=== PATIENT | male | born 1945 | race Caucasian/White ===

== ENCOUNTER 2018-05-06 03:00 | Inpatient (IN) ==
[2018-05-06] MEDS ORDERED: NS 1000 ML 1,000 ML ONE (03:19)
[2018-05-06] MEDS ORDERED: ZOFRAN INJ 4 MG VIAL ONE (03:23)
[2018-05-06] MEDS ORDERED: NS 1000 ML 1,000 ML IV ONE ×2 (03:28→04:57)
[2018-05-06] MEDS ORDERED: ZOFRAN INJ 4 MG VIAL IVP ONE (03:28)
[2018-05-06 03:43] VITALS: BMI 26.1
[2018-05-06 03:44] LABS: EOSINOPHILS % (AUTO) 0.1 % (0.9-2.9); HEMATOCRIT 29.4 % (42.0-54.0); HEMOGLOBIN 9.9 g/dL (13.5-18.0); LYMPHOCYTES # (AUTO) 1.3 X10^3/uL (1.3-2.9); MEAN CORPUSCULAR HEMOGLOBIN 34.7 pg (27.0-34.0); MEAN CORPUSCULAR HGB CONC 33.8 g/dL (33.0-35.0); RED BLOOD COUNT 2.86 X10^6/uL (4.7-6.0)
[2018-05-06] MEDS ORDERED: MORPHINE SULFATE INJ 4 MG IVP ONE (03:46)
[2018-05-06] MEDS ORDERED: MORPHINE SULFATE INJ 4 MG ONE (03:47)
[2018-05-06] MEDS ORDERED: PHENERGAN INJ 25 MG ONE (03:48)
[2018-05-06] MEDS ORDERED: PHENERGAN INJ 25 MG IV ONE (03:48)
--- NOTE | 2018-05-06 03:49 | DR.N/VMALE ---
HPI Time Seen Time Seen by Provider: 05/06/18 03:45 Primary Care Physician Primary Care Physician: LEIDY Complaints Chief Complaint Doctors Comments: I agree with statement as written Chief Complaint:: ABD PAIN RADIATES THROUGH TO BACK, N/V O/S 0000 DENIES DIARRHEA Self Treatment fo Chief Complaint: ZOFRAN PO Source History Provided: Patient and Significant Other Mode of Arrival Mode of Arrival: Wheelchair Timing Onset of Chief Complaint: 05/06/18 PMH PMH Past Medical History: Yes Past Medical History: Anemia Past Medical History Comment: AUTO IMMUNE DISORDER, MDS, LEUKOPENIA, NEUTROPENIA Past Surgical History: Yes Surgical History: Appendectomy Past Surgical History Comment: PARATHYROID TUMOR REMOVED(BENIGN) Family History History of Family Medical Conditions: Yes Family Medical History: Diabetes Mellitus and Hypertension Social History Does patient currently use any type of tobacco product: No Have you used tobacco products in the last 12 months: No Type of Tobacco Use: None Alcohol Use: None Do you use any recreational Drugs:: No Lives With: Spouse Lives Where: Home infectious screening Have you traveled outside the country in the last 6 months?: No Isolation: Standard PE Vital Signs Vitals: Temperature 98.9 F Pulse Rate [Right Brachial] 71 Pulse Rate 93 Respiratory Rate 30 Blood Pressure [Right Arm] 126/60 Blood Pressure 133/62 O2 Sat by Pulse Oximetry 98 General Limitations: No Limitations General Appearance: Alert and Anxious Head Head Exam: Normal Inspection, Atraumatic and Normocephalic Eyes Eye exam: Normal Appearance, PERRL and EOMI ENT ENT Exam: Normal Exam, Normal Oropharynx, Normal External Ear Exam, Mucous Membranes Dry and TM's Normal Bilaterally Neck Neck Exam: Normal Inspection and Full ROM Chest Chest Inspection: Normal Inspection and Symmetric Chest Wall Rise Respiratory Respiratory Exam: Normal Lung Sounds Bilat, Accessory Muscle Use and Prolonged Expiratory Phase Respiratory Exam: Bilateral: Clear to Auscultation Cardiovascular Cardiovascular Exam: Regular Rate and Normal Rhythm Abdominal Exam Abdominal Exam: Normal Inspection, Normal Bowel Sounds and Hyperactive Bowel Sounds Abdominal Tenderness: Epigastrium and Mild Rectal Rectal Exam: Deferred Exam: Male: Deferred Extremities Extremities Exam: Normal Inspection and Full ROM Back Back Exam: Full ROM Neurologic Neurological Exam: Alert, Oriented X3 and CN II-XII Intact Psychiatric Psychiatric Exam: Normal Affect, Normal Mood and Anxious Skin Skin Exam: Warm, Dry, Intact and Normal Color COURSE Consultation Called: 06:00 Consultation Comments: Dr. Alfaro agreed to admit for further evaluation and treatment. ROR Labs Reviewed Laboratory Results Reviewed?: Yes Result Diagrams: 05/07/18 05:39 05/07/18 05:39 Laboratory: WBC 6.9 X10^3/uL (3.6-10.0) 05/07/18 05:39 RBC 2.56 X10^6/uL (4.7-6.0) L 05/07/18 05:39 Hgb 9.0 g/dL (13.5-18.0) L 05/07/18 05:39 Hct 26.8 % (42.0-54.0) L 05/07/18 05:39 MCV 104.7 fL (80.0-100.0) H 05/07/18 05:39 MCH 35.0 pg (27.0-34.0) H 05/07/18 05:39 MCHC 33.5 g/dL (33.0-35.0) 05/07/18 05:39 RDW 16.8 % (11.6-16.5) H 05/07/18 05:39 Plt Count 141 X10^3/uL (150.0-450.0) L 05/07/18 05:39 Plt Count Comment Adequate (ADEQUATE) 05/07/18 05:39 MPV 8.7 fL (7.4-11.0) 05/07/18 05:39 Neut % (Auto) 31.0 % (42.0-75.0) L 05/07/18 05:39 Lymph % (Auto) 14.5 % (21.0-51.0) L 05/07/18 05:39 Simpson % (Auto) 54.3 % (0.0-13.0) H 05/07/18 05:39 Eos % (Auto) 0.1 % (0.9-2.9) L 05/07/18 05:39 Baso % (Auto) 0.1 % (0.2-1.0) L 05/07/18 05:39 Neut # (Auto) 2.2 x10^3/uL (2.2-4.8) 05/07/18 05:39 Lymph # (Auto) 1.0 X10^3/uL (1.3-2.9) L 05/07/18 05:39 Simpson # (Auto) 3.8 x10^3/uL (0.3-0.8) H 05/07/18 05:39 Eos # (Auto) 0.0 x10^3/uL (0.0-0.2) 05/07/18 05:39 Baso # (Auto) 0.0 X10^3/uL (0.0-0.1) 05/07/18 05:39 Absolute Nucleated RBC 0.0 /100WBC 05/07/18 05:39 Total Counted 100 05/07/18 05:39 Neutrophils % (Manual) 32 % (39-76) L 05/07/18 05:39 Band Neutrophils % 4 % (0-10) 05/06/18 03:30 Lymphocytes % (Manual) 18 % (13-43) 05/07/18 05:39 Monocytes % (Manual) 50 % (4-9) H 05/07/18 05:39 Atypical Lymphocytes Present 05/06/18 03:30 Plt Morphology Comment Normal (NORMAL) 05/07/18 05:39 RBC Morphology Normal (NORMAL) 05/07/18 05:39 Sodium 138 mmol/L (136-145) 05/07/18 05:39 Corrected Sodium TNP 05/07/18 05:39 Potassium 4.0 mmol/L (3.5-5.1) 05/07/18 05:39 Chloride 106 mmol/L (98-107) 05/07/18 05:39 Carbon Dioxide 24.8 mmol/L (21-32) 05/07/18 05:39 BUN 9 mg/dL (7-18) 05/07/18 05:39 Creatinine 0.97 mg/dL (0.70-1.30) 05/07/18 05:39 Est GFR (MDRD) Af Amer > 60 (>60) 05/07/18 05:39 Est GFR (MDRD) Non-Af > 60 (>60) 05/07/18 05:39 Glucose 93 mg/dL (65-99) 05/07/18 05:39 Calcium 7.6 mg/dL (8.5-10.1) L 05/07/18 05:39 Corrected Calcium 8.7 mg/dL (8.5-10.1) 05/07/18 05:39 Total Bilirubin 0.70 mg/dL (0.2-1.0) 05/07/18 05:39 AST 19 Units/L (15-37) 05/07/18 05:39 ALT 25 Units/L (12-78) 05/07/18 05:39 Alkaline Phosphatase 61 Units/L (46-116) 05/07/18 05:39 Creatine Kinase 47 Units/L (39-308) 05/06/18 03:30 CK-MB (CK-2) < 1.0 ng/mL (0-4.0) 05/06/18 03:30 CK/CKMB % Calc 2.1 % (<4) 05/06/18 03:30 Troponin I < 0.02 ng/mL (0-1.5) 05/06/18 03:30 Total Protein 6.3 g/dL (6.4-8.2) L 05/07/18 05:39 Albumin 2.6 g/dL (3.4-5.0) L 05/07/18 05:39 Globulin 3.7 g/dL (2.5-4.5) 05/07/18 05:39 Albumin/Globulin Ratio 0.7 Ratio (1.1-2.1) L 05/07/18 05:39 Amylase 113 Units/L (25-115) 05/06/18 03:30 Lipase 367 Units/L (73-393) 05/06/18 03:30 Specimen Type Random urine 05/06/18 06:56 Urine Color Yellow (YELLOW) 05/06/18 06:56 Urine Appearance Clear (CLEAR) 05/06/18 06:56 Urine pH 5.0 (5.0 - 8.0) 05/06/18 06:56 Ur Specific [place] 1.010 (1.000-1.030) 05/06/18 06:56 Urine Protein 2+ (NEGATIVE) 05/06/18 06:56 Urine Glucose (UA) Negative (NEGATIVE) 05/06/18 06:56 Urine Ketones Negative (NEGATIVE) 05/06/18 06:56 Urine Occult Blood 1+ (NEGATIVE) 05/06/18 06:56 Urine Nitrite Negative (NEGATIVE) 05/06/18 06:56 Urine Bilirubin Negative (NEGATIVE) 05/06/18 06:56 Urine Urobilinogen Normal (NORMAL) 05/06/18 06:56 Ur Leukocyte Esterase Negative (NEGATIVE) 05/06/18 06:56 Urine RBC 0-2 /HPF (NONE SEEN) 05/06/18 06:56 Urine WBC 0-2 /HPF (NONE SEEN) 05/06/18 06:56 Ur Squamous Epith Cells Negative /HPF (NEGATIVE) 05/06/18 06:56 Urine Bacteria Negative /HPF (NEGATIVE) 05/06/18 06:56 Ur Culture Indicated? No/not indicated 05/06/18 06:56 Other Results Comments: Abd: No convincing evidence of acute inflammatory process within the abdomen or pelvis. Bilateral punctate areas of radiodensity within both renal pelvis, these potentially represent tiny stones versus early excretion of iodinated contrast, correlation with patient's symptoms and urinalysis is recommended. No hydronehrosis Diagnosis Discharge Problem: Acute gastroenteritis, Hypokalemia
[2018-05-06 03:55] LABS: BLOOD UREA NITROGEN 16 mg/dL (7-18); CALCIUM 8.6 mg/dL (8.5-10.1); CHLORIDE 102 mmol/L (98-107); COR NA(FOR HYPERGLY) 140 mmol/L (136-145); CREATININE 1.08 mg/dL (0.70-1.30); SODIUM 139 mmol/L (136-145); TROPONIN I < 0.02 ng/mL (0-1.5); eGFR NON BLACK RACES > 60 (>60)
[2018-05-06 03:59] LABS: ALANINE AMINOTRANSFERASE 27 Units/L (12-78); ALBUMIN 3.3 g/dL (3.4-5.0); ALKALINE PHOSPHATASE 65 Units/L (46-116); AMYLASE 113 Units/L (25-115); ASPARTATE AMINO TRANSFERASE 20 Units/L (15-37); CKMB % 2.1 % (<4); COR CA(FOR HYPOALB) 9.2 mg/dL (8.5-10.1); CREATINE KINASE 47 Units/L (39-308); CREATINE KINASE MB < 1.0 ng/mL (0-4.0); LIPASE 367 Units/L (73-393); TOTAL PROTEIN 7.5 g/dL (6.4-8.2)
[2018-05-06 04:06] LABS: BAND NEUTROPHILS % 4 % (0-10); BASOPHILS % (AUTO) 0.2 % (0.2-1.0); LYMPHOCYTES % (AUTO) 22.5 % (21.0-51.0); MEAN CORPUSCULAR VOLUME 102.8 fL (80.0-100.0); MEAN PLATELET VOLUME 8.7 fL (7.4-11.0); MONOCYTES # (AUTO) 3.2 x10^3/uL (0.3-0.8); MONOCYTES % (AUTO) 54.7 % (0.0-13.0); NEUTROPHILS # (AUTO) 1.3 x10^3/uL (2.2-4.8); NEUTROPHILS % (AUTO) 22.5 % (42.0-75.0); PLATELET COUNT 195 X10^3/uL (150.0-450.0); RED CELL DISTRIBUTION WIDTH 17.5 % (11.6-16.5); WHITE BLOOD COUNT 5.9 X10^3/uL (3.6-10.0)
[2018-05-06 04:07] LABS: PLATELET MORPHOLOGY COMMENT NORMAL (NORMAL)
--- NOTE | 2018-05-06 04:29 | RAD ---
Acute abdominal series Indication: Abdominal pain with nausea and vomiting Comparison: None available Findings: The trachea is midline. The cardiac silhouette is unremarkable. The lungs are clear without focal i nfiltrate or effusion. The bony thorax is unremarkable. Flat and upright evaluation of the abdomen demonstrates a few air-filled loops of small bowel. No pa thological soft tissue mass or calcification can be observed. The bony structures are grossly intact . IMPRESSION: 1. No acute cardiopulmonary disease. 2. Nonspecific scattered gas-filled loops of small bowel, this can be seen in setting of mild enteri tis or ileus however clinical correlation is needed. No radiographic evidence of small or large bowel obstruction. Reported By:
[2018-05-06] MEDS ORDERED: DILAUDID INJ IVP ONE ×2 (04:36→07:01)
[2018-05-06] MEDS ORDERED: DILAUDID INJ ONE ×2 (04:41→07:01)
[2018-05-06] MEDS ORDERED: NS 100 ML IV 100 ML IV ONE (04:43)
--- NOTE | 2018-05-06 05:42 | CT ---
CT abdomen and pelvis with contrast Indication: Abdominal pain with nausea and vomiting Comparison: None available Technique: Multiple axial images of the abdomen and pelvis were obtained from the lung bases to the pubic symphy sis after the administration of IV contrast. Findings: Mild reticulation within the lung bases peripherally suggest early stages of chronic interstitial cem g disease. No honeycombing or fibrosis. Tiny hypoattenuating lesion within the right hepatic lobe on axial image 25 is too small to accurately characterize. There is very mild intrahepatic bile duct dil atation, there is no extrahepatic bile duct dilatation. The gallbladder is dilated however no definit e stone or pericholecystic stranding identified. The spleen contains a calcified granuloma. Pancreas demonstrates mild pancreatic ductal dilatation without obstructing stone or mass. The adrenal glands are normal. The right kidney demonstrates several tiny radiopaque densities within the renal pelvis w hich are indeterminate as there is also evidence of early contrast excretion within the renal pelvis. Multiple right-sided renal cysts are noted. The left kidney also demonstrates foci of increased dens ity however is slightly more suspicious for stone within the mid pole on coronal image 38. Large cyst projects from the upper and lower poles of the left kidney. Left-sided parapelvic cyst is also noted . No hydronephrosis. Urinary bladder is unremarkable. The prostate gland is mildly enlarge a the rectum and colon is nishant l. Terminal ileum is within normal limits. The appendix is not definitely visualized. No pelvic free fluid or adenopathy. Abdominal aorta is normal in caliber with moderate calcified atherosclerotic dis ease. Small fat containing paraumbilical hernia. Review of bone windows demonstrates no acute osseous abnormality. Impression: 1.No convincing evidence of acute inflammatory process within the abdomen or pelvis. 2. Bilateral punctate areas of radiodensity within both renal pelvis, these potentially represent tin y stones versus early excretion of iodinated contrast, correlation with patient's symptoms and urinal ysis is recommended. No hydronephrosis. 3. Minimal intrahepatic bile duct dilatation without definite extrahepatic bile duct dilatation. Fatou elation with cholestatic function test is recommended. 4. Multiple incidental, chronic findings as described above. Reported By:
[2018-05-06] MEDS ORDERED: PHENERGAN INJ 25 MG IV PRN (07:17)
[2018-05-06 07:19] LABS: APPEARANCE,URINE CLEAR (CLEAR); COLOR,URINE YELLOW (YELLOW)
[2018-05-06 07:20] LABS: BILIRUBIN,URINE NEGATIVE (NEGATIVE); BLOOD/HEMOGLOBIN,URINE 1+ (NEGATIVE); GLUCOSE, URINE NEGATIVE (NEGATIVE); KETONES,URINE NEGATIVE (NEGATIVE); LEUKOCYTE ESTERASE ,URINE NEGATIVE (NEGATIVE); NITRITES,URINE NEGATIVE (NEGATIVE); PROTEIN,URINE 2+ (NEGATIVE); RBC,URINE 0-2 /HPF (NONE SEEN); UROBILINOGEN,URINE NORMAL (NORMAL)
[2018-05-06 07:21] LABS: BACTERIA,URINE NEGATIVE /HPF (NEGATIVE); SQUAMOUS EPITHELIAL CELL,UR NEGATIVE /HPF (NEGATIVE)
[2018-05-06] MEDS ORDERED: K-LYTE EFFERVESCENT PO SCH (09:00)
[2018-05-06] MEDS: NS 1000 ML 1,000 ML IV SCH ×3 (09:27→18:49)
[2018-05-06] MEDS ORDERED: PHENERGAN INJ 25 MG IM PRN (10:15)
[2018-05-06] MEDS ORDERED: BUTALBITAL ACETAMINOPHEN PO PRN (11:04)
[2018-05-06] MEDS: PROTONIX INJ 40 MG VIAL IVP SCH ×2 (11:11→20:23)
[2018-05-06] MEDS: LEVSIN/MAALOX/LIDOC VISC PO SCH ×4 (11:11→20:23)
[2018-05-06] MEDS: PEPCID 20 MG IV PREMIX* 20 MG/50 ML BAG IV SCH ×2 (11:11→20:22)
[2018-05-06] MEDS: DEMEROL INJ IVP PRN ×3 (11:12→20:23)
[2018-05-06] MEDS: ZOFRAN INJ 4 MG VIAL IVP PRN ×3 (11:13→20:23)
[2018-05-06] MEDS ORDERED: FIORICET TAB PO PRN (11:32)
[2018-05-06] MEDS: FLOMAX PO SCH (11:35)
[2018-05-06] MEDS: SYNTHROID 75 mcg TAB PO SCH (11:36)
--- NOTE | 2018-05-06 11:37 | DR.H&P ---
H&P - History & Physical for Day of: H&P Date: 05/06/18 - Chief Complaint Chief Complaint: NAUSEA, VOMITING, ABDOMINAL PAIN, WEAKNESS - History of Present Illness History of Present Illness: IS A 73 YEAR OLD PATIENT OF OURS WHO DC ESENTED TO THE EMERGENCY ROOM WITH COMPLAINTS OF ABDOMINAL PAIN, NAUSEA, VOMITING, AND SEVERE WEAKNESS. HE REPORTS THAT SYMPTOMS STARTED AT APPROXIMATELY MIDNIGHT AND HAVE GOTTEN WORSE SINCE. HE REPORTS FELLING LIKE HE WAS RUNNING A FEVER AND HAD CHILLS AT HOME. PAST MEDICAL HISTORY INCLUDES AUTO IMMUNE DISORDER, MDS, LEUKOPENIA, NEUTROPENIA, APPENDECTOMY, AND A BENIGN PARATHYROID TUMOR REMOVED. ON ARRIVAL, VITALS WERE 97.1-73-18-97%-133/71. LABS WERE OBTAINED. ABNORMAL LAB VALUES INCLUDE THE FOLLOWING: RBC 2.86, HGB 9.9, HCT 29.4, POTASSIUM 3.3, GLUCOSE 151, ALBUMIN 3.3. URINALYSIS REVEALED WBC 0-2, RBC 0-2, OCCULT BLOOD 1+, PROTEIN 2+, OTHERWISE, UNREMARKABLE. AN ABDOMINAL SERIES WAS OBTAINED AND REVEALED: No acute cardiopulmonary disease. Nonspecific scattered gas-filled loops of small bowel, this can be seen in setting of mild enteritis or ileus however clinical correlation is needed. No radiographic evidence of small or large bowel obstruction. WE THEN OBTAINED AN ABDOMEN/PELVIS CT WITH CONTRAST. IT REVEALED: Mild reticulation within the lung bases peripherally suggest early stages of chronic interstitial lung disease. No honeycombing or fibrosis. Tiny hypoattenuating lesion within the right hepatic lobe on axial image 25 is too small to accurately characterize. There is very mild intrahepatic bile duct dilatation, there is no extrahepatic bile duct dilatation. The gallbladder is dilated however no definite stone or pericholecystic stranding identified. The spleen contains a calcified granuloma. Pancreas demonstrates mild pancreatic ductal dilatation without obstructing stone or mass. The adrenal glands are normal. The right kidney demonstrates several tiny radiopaque densities within the renal pelvis which are indeterminate as there is also evidence of early contrast excretion within the renal pelvis. Multiple right-sided renal cysts are noted. The left kidney also demonstrates foci of increased density however is slightly more suspicious for stone within the mid pole on coronal image 38. Large cyst projects from the upper and lower poles of the left kidney. Left-sided parapelvic cyst is also noted. No hydronephrosis. Urinary bladder is unremarkable. The prostate gland is mildly enlarge a the rectum and colon is normal. Terminal ileum is within normal limits. The appendix is not definitely visualized. No pelvic free fluid or adenopathy. Abdominal aorta is normal in caliber with moderate calcified atherosclerotic disease. Small fat containing paraumbilical hernia. Review of bone windows demonstrates no acute osseous abnormality. HE WAS GIVEN A NORMAL SALINE BOLUS X 2, DILAUDID 1MG IV X 1, MORPHINE 4MG IV X 1, PHENERGAN 25MG IV X 1, AND K-LYTE EFFERVESCENT 50MEQ PO X1 IN THE ER WITH ONLY SLIGHT IMPROVEMENT IN SYMPTOMS. HE WAS ADMITTED TO THE HOSPITAL FOR FURTHER EVALUATION AND TREATMENT OF GASTROENTERITIS AND HYPOKALEMIA. HE WAS STARTED ON NORMAL SALINE AT 125ML/HR, DEMEROL 25MG IV Q4H PRN PAIN, ZOFRAN 4MG IV Q4H PRN NAUSEA, PHENERGAN 25MG IM Q4H PRN NAUSEA, PEPCID 20MG IV Q12H, PROTONIX 40MG IV BID, AND HOME MEDICATIONS WERE RESUMED. WE PLAN TO FOLLOW UP WITH AM LABS AND CONTINUE TO MONITOR PATIENT. - Past Medical History Past Medical History: Anemia Additional Medical History: AUTO IMMUNE DISORDER, MDS, NEUTROPEIA, LEUKOPENIA - Past Surgical History Surgical History: Appendectomy Additional Surgical History: BENIGN PARATHYROID TUMOR REMOVED - Family History Family Medical History: Diabetes Mellitus, Hypertension - Social History Does patient currently use any type of tobacco product: No (Quit 43 years ago) Have you used tobacco products in the last 12 months: No Type of Tobacco Use: None Does any household member use tobacco: No Alcohol Use: None Drug Use: None - Medications Home Medications: No Known Drug Allergies Allergy (Verified 05/06/18 03:34) CONTINUE taking the following medications alprazolam 0.5 mg PO HS 05/06/18 [History] butalbital-acetaminophen 50 - 325 mg PO QID PRN 05/06/18 [History] levothyroxine 75 mg PO DAILY 05/06/18 [History] pantoprazole 40 mg PO DAILY 05/06/18 [History] tamsulosin [Flomax] 0.4 mg PO DAILY 05/06/18 [History] tramadol 50 mg PO PRN PRN 05/06/18 [History] - Review of Systems Constitutional: Fever, Chills, Weakness Eyes: No Symptoms Reported ENT: No Symptoms Reported Respiratory: No Symptoms Reported Cardiovascular: No Symptoms Reported Gastrointestinal: See HPI, Nausea, Vomiting, Abdominal Pain. denies: Diarrhea Genitourinary: No Symptoms Reported Musculoskeletal: No Symptoms Reported Skin: No Symptoms Reported Neurological: Weakness - Physical Exam Vital Signs: Temperature 97.1 F Pulse Rate [Right Brachial] 71 Pulse Rate 66 Respiratory Rate 16 Blood Pressure [Right Arm] 126/60 Blood Pressure 111/61 O2 Sat by Pulse Oximetry 99 Oriented: Normal Eyes: Normal Ear: Normal Nose: Normal Throat: Normal Respiratory: Diminished Throughout Cardiovascular: Normal. negative: S3, S4, Murmur, Edema : Normal Auscultation: Bowel Sounds: Increased Palpation: Normal Tenderness: Diffuse, Moderate. negative: Rebound, Guarding, Rigidity Skin: Normal Musculoskeletal: Normal Psychiatric: Normal Mood Description: Calm Affect: Normal Speech Pattern: Clear - Assessment/Plan (1) Acute gastroenteritis Status: Acute Plan: NORMAL SALINE AT 125ML/HR, DEMEROL 25MG IV Q4H PRN PAIN, ZOFRAN 4MG IV Q4H PRN NAUSEA, PHENERGAN 25MG IM Q4H PRN NAUSEA, PEPCID 20MG IV Q12H, PROTONIX 40MG IV BID, GI COCKTAIL, CONTINUE TO MONITOR (2) Hypokalemia Status: Acute Plan: POTASSIUM REPLACEMENT PER POTASSIUM PROTOCOL, CONTINUE TO MONITOR - Allergies Allergies/Adverse Reactions: Allergies Allergy/AdvReac Type Severity Reaction Status Date / Time No Known Drug Allergies Allergy Verified 05/06/18 03:34
[2018-05-06] MEDS: XANAX PO SCH (20:24)
[2018-05-06] MEDS: TYLENOL 325 MG TAB PO PRN (20:24)
[2018-05-07] MEDS: NS 1000 ML 1,000 ML IV SCH ×3 (00:53→17:23)
[2018-05-07] MEDS: DEMEROL INJ IVP PRN ×6 (03:10→22:30)
[2018-05-07] MEDS: ZOFRAN INJ 4 MG VIAL IVP PRN ×6 (03:10→22:30)
[2018-05-07 06:21] LABS: BASOPHILS % (AUTO) 0.1 % (0.2-1.0); EOSINOPHILS % (AUTO) 0.1 % (0.9-2.9); HEMATOCRIT 26.8 % (42.0-54.0); LYMPHOCYTES % (AUTO) 14.5 % (21.0-51.0); MEAN CORPUSCULAR HGB CONC 33.5 g/dL (33.0-35.0); MEAN CORPUSCULAR VOLUME 104.7 fL (80.0-100.0); MEAN PLATELET VOLUME 8.7 fL (7.4-11.0); MONOCYTES # (AUTO) 3.8 x10^3/uL (0.3-0.8); MONOCYTES % (AUTO) 54.3 % (0.0-13.0); NEUTROPHILS # (AUTO) 2.2 x10^3/uL (2.2-4.8); PLATELET COUNT 141 X10^3/uL (150.0-450.0); RED BLOOD COUNT 2.56 X10^6/uL (4.7-6.0); RED CELL DISTRIBUTION WIDTH 16.8 % (11.6-16.5); WHITE BLOOD COUNT 6.9 X10^3/uL (3.6-10.0)
[2018-05-07 06:33] LABS: ALANINE AMINOTRANSFERASE 25 Units/L (12-78); ALBUMIN 2.6 g/dL (3.4-5.0); ALKALINE PHOSPHATASE 61 Units/L (46-116); ASPARTATE AMINO TRANSFERASE 19 Units/L (15-37); BLOOD UREA NITROGEN 9 mg/dL (7-18); CALCIUM 7.6 mg/dL (8.5-10.1); CARBON DIOXIDE 24.8 mmol/L (21-32); CHLORIDE 106 mmol/L (98-107); COR CA(FOR HYPOALB) 8.7 mg/dL (8.5-10.1); CREATININE 0.97 mg/dL (0.70-1.30); SODIUM 138 mmol/L (136-145); TOTAL PROTEIN 6.3 g/dL (6.4-8.2); eGFR NON BLACK RACES > 60 (>60)
[2018-05-07 07:34] LABS: PLATELET MORPHOLOGY COMMENT NORMAL (NORMAL)
[2018-05-07] MEDS: LEVSIN/MAALOX/LIDOC VISC PO SCH ×4 (08:00→20:03)
[2018-05-07] MEDS: PEPCID 20 MG IV PREMIX* 20 MG/50 ML BAG IV SCH ×2 (08:00→20:04)
[2018-05-07] MEDS: FLOMAX PO SCH (08:00)
[2018-05-07] MEDS: PROTONIX INJ 40 MG VIAL IVP SCH ×2 (08:00→20:02)
[2018-05-07] MEDS: SYNTHROID 75 mcg TAB PO SCH (08:00)
[2018-05-07] MEDS ORDERED: DILAUDID INJ IVP ONE (12:01)
[2018-05-07] MEDS ORDERED: DILAUDID INJ ONE (12:02)
[2018-05-07] MEDS: XANAX PO SCH (20:02)
[2018-05-07] MEDS: TYLENOL 325 MG TAB PO PRN (20:02)
[2018-05-08] MEDS: NS 1000 ML 1,000 ML IV SCH ×3 (00:38→16:47)
[2018-05-08] MEDS: ZOFRAN INJ 4 MG VIAL IVP PRN ×5 (02:26→17:53)
[2018-05-08] MEDS: DEMEROL INJ IVP PRN ×6 (02:26→21:45)
[2018-05-08] MEDS ORDERED: CHLORASEPTIC SPRAY MT PRN (04:10)
[2018-05-08 06:35] LABS: ALANINE AMINOTRANSFERASE 17 Units/L (12-78); ALBUMIN 2.3 g/dL (3.4-5.0); ALKALINE PHOSPHATASE 58 Units/L (46-116); ASPARTATE AMINO TRANSFERASE 20 Units/L (15-37); BLOOD UREA NITROGEN 8 mg/dL (7-18); CALCIUM 7.1 mg/dL (8.5-10.1); CHLORIDE 105 mmol/L (98-107); COR CA(FOR HYPOALB) 8.5 mg/dL (8.5-10.1); CREATININE 1.01 mg/dL (0.70-1.30); SODIUM 137 mmol/L (136-145); eGFR NON BLACK RACES > 60 (>60)
[2018-05-08 06:37] LABS: BASOPHILS % (AUTO) 0.2 % (0.2-1.0); HEMOGLOBIN 8.2 g/dL (13.5-18.0); LYMPHOCYTES # (AUTO) 0.6 X10^3/uL (1.3-2.9); MEAN CORPUSCULAR HEMOGLOBIN 35.5 pg (27.0-34.0); MEAN CORPUSCULAR HGB CONC 34.2 g/dL (33.0-35.0); MEAN CORPUSCULAR VOLUME 103.9 fL (80.0-100.0); MEAN PLATELET VOLUME 9.3 fL (7.4-11.0); MONOCYTES # (AUTO) 5.4 x10^3/uL (0.3-0.8); MONOCYTES % (AUTO) 50.8 % (0.0-13.0); NEUTROPHILS # (AUTO) 4.5 x10^3/uL (2.2-4.8); PLATELET COUNT 117 X10^3/uL (150.0-450.0); RED BLOOD COUNT 2.31 X10^6/uL (4.7-6.0); RED CELL DISTRIBUTION WIDTH 16.7 % (11.6-16.5); WHITE BLOOD COUNT 10.5 X10^3/uL (3.6-10.0)
[2018-05-08 07:13] LABS: BAND NEUTROPHILS % 8 % (0-10)
[2018-05-08 07:14] LABS: PLATELET MORPHOLOGY COMMENT NORMAL (NORMAL)
[2018-05-08] MEDS: FLOMAX PO SCH (09:29)
[2018-05-08] MEDS: SYNTHROID 75 mcg TAB PO SCH (09:29)
[2018-05-08] MEDS: PROTONIX INJ 40 MG VIAL IVP SCH ×2 (09:32→20:46)
[2018-05-08] MEDS: LEVSIN/MAALOX/LIDOC VISC PO SCH ×5 (09:32→20:45)
[2018-05-08] MEDS: PEPCID 20 MG IV PREMIX* 20 MG/50 ML BAG IV SCH ×2 (09:33→20:46)
[2018-05-08] MEDS: ALBUMIN HUMAN 25%- 100 ML 100 ML IV SCH (09:33)
[2018-05-08] MEDS ORDERED: PHARMACY CONSULT - TPN XX SCH (10:00)
--- NOTE | 2018-05-08 10:06 | PCM.PROG ---
Progress Note - Progress Note for Day of Date of Exam: 05/07/18 - Subjective Subjective: WAS ADMITTED FOR GASTROENTERITIS. TODAY, HE IS ALERT AND ORIENTED, LYING IN BED ON MORNING ROUNDS. HE CONTINUES WITH COMPLAINTS OF NAUSEA, VOMITING, ABDOMINAL PAIN, AND WEAKNESS. HE REPORTS THAT SYMPTOMS ARE THE SAME YESTERDAY, WITH NO IMPROVEMENT. HIS VITALS TODAY ARE 97.8-75 -23-98%-126/59. LABS WERE OBTAINED. ABNORMAL LAB VALUES INCLUDE THE FOLLOWING: RBC 2.56, HGB 9.0, HCT 26.8, PLT COUNT 141, CALCIUM 7.6, TOTAL PROTEIN 6.3, ALBUMIN 2.6.HE IS CURRENTLY RECEIVING NORMAL SALINE AT 125ML/HR, PEPCID AND PROTONIX IV WELL DEMEROL 25MG IV Q4H PRN PAIN, ZOFRAN 4MG IV Q4H PRN NAUSEA, AND PHENERGAN 25MG IM Q4H PRN NAUSEA. WE WILL CONTINUE WITH CURRENT PLAN OF CARE TODAY. OTHERWISE, WE WILL FOLLOW UP WITH AM LABS AND CONTINUE TO MONITOR PATIENT. - Past Medical Family Social History Past Med/Fam/Surg Hx: No changes since H&P Allergies: Allergies No Known Drug Allergies Allergy (Verified 05/06/18 03:34) - Review of Systems ROS: No change since H&P - Vital Signs and I&O's Vital Signs: Temperature 98.3 F Pulse Rate [Right Brachial] 71 Pulse Rate 75 Respiratory Rate 18 Blood Pressure [Right Arm] 126/60 Blood Pressure 107/55 O2 Sat by Pulse Oximetry 99 Intake and Output: Intake & Output 05/05/18 05/06/18 05/07/18 05/08/18 11:59 11:59 11:59 11:59 Intake Total 1000 / 1000 3045 / 3045 2920 / 2920 Output Total 300 / 300 1050 / 1050 750 / 750 Balance 700 / 700 1994 2170 / 2170 - Physical Exam Oriented: Normal Eyes: Normal Ear: Normal Nose: Normal Throat: Normal Respiratory: Diminished Cardiovascular: Normal. negative: S3, S4, Murmur, Edema : Normal Auscultation: Bowel Sounds: Increased Palpation: Normal Tenderness: Diffuse, Moderate. negative: Rebound, Guarding, Rigidity Skin: Normal Musculoskeletal: Normal Psychiatric: Normal Mood Description: Calm Affect: Normal Speech Pattern: Clear, Appropriate - Laboratory and Diagnostics Result Diagrams: 05/08/18 05:41 05/08/18 05:41 Labs: Laboratory WBC 10.5 X10^3/uL (3.6-10.0) H 05/08/18 05:41 RBC 2.31 X10^6/uL (4.7-6.0) L 05/08/18 05:41 Hgb 8.2 g/dL (13.5-18.0) L 05/08/18 05:41 Hct 24.0 % (42.0-54.0) L 05/08/18 05:41 MCV 103.9 fL (80.0-100.0) H 05/08/18 05:41 MCH 35.5 pg (27.0-34.0) H 05/08/18 05:41 MCHC 34.2 g/dL (33.0-35.0) 05/08/18 05:41 RDW 16.7 % (11.6-16.5) H 05/08/18 05:41 Plt Count 117 X10^3/uL (150.0-450.0) L 05/08/18 05:41 Plt Count Comment Adequate (ADEQUATE) 05/08/18 05:41 MPV 9.3 fL (7.4-11.0) 05/08/18 05:41 Neut % (Auto) 43.0 % (42.0-75.0) 05/08/18 05:41 Lymph % (Auto) 6.0 % (21.0-51.0) L 05/08/18 05:41 [place] % (Auto) 50.8 % (0.0-13.0) H 05/08/18 05:41 Eos % (Auto) 0.0 % (0.9-2.9) L 05/08/18 05:41 Baso % (Auto) 0.2 % (0.2-1.0) 05/08/18 05:41 Neut # (Auto) 4.5 x10^3/uL (2.2-4.8) 05/08/18 05:41 Lymph # (Auto) 0.6 X10^3/uL (1.3-2.9) L 05/08/18 05:41 [place] # (Auto) 5.4 x10^3/uL (0.3-0.8) H 05/08/18 05:41 Eos # (Auto) 0.0 x10^3/uL (0.0-0.2) 05/08/18 05:41 Baso # (Auto) 0.0 X10^3/uL (0.0-0.1) 05/08/18 05:41 Absolute Nucleated RBC 0.0 /100WBC 05/08/18 05:41 Total Counted 100 05/08/18 05:41 Neutrophils % (Manual) 40 % (39-76) 05/08/18 05:41 Band Neutrophils % 8 % (0-10) 05/08/18 05:41 Lymphocytes % (Manual) 20 % (13-43) 05/08/18 05:41 Monocytes % (Manual) 32 % (4-9) H 05/08/18 05:41 Atypical Lymphocytes Present 05/06/18 03:30 Plt Morphology Comment Normal (NORMAL) 05/08/18 05:41 RBC Morphology Normal (NORMAL) 05/08/18 05:41 Sodium 137 mmol/L (136-145) 05/08/18 05:41 Corrected Sodium TNP 05/08/18 05:41 Potassium 3.8 mmol/L (3.5-5.1) 05/08/18 05:41 Chloride 105 mmol/L (98-107) 05/08/18 05:41 Carbon Dioxide 23.0 mmol/L (21-32) 05/08/18 05:41 BUN 8 mg/dL (7-18) 05/08/18 05:41 Creatinine 1.01 mg/dL (0.70-1.30) 05/08/18 05:41 Est GFR (MDRD) Af Amer > 60 (>60) 05/08/18 05:41 Est GFR (MDRD) Non-Af > 60 (>60) 05/08/18 05:41 Glucose 108 mg/dL (65-99) H 05/08/18 05:41 Calcium 7.1 mg/dL (8.5-10.1) L 05/08/18 05:41 Corrected Calcium 8.5 mg/dL (8.5-10.1) 05/08/18 05:41 Total Bilirubin 0.90 mg/dL (0.2-1.0) 05/08/18 05:41 AST 20 Units/L (15-37) 05/08/18 05:41 ALT 17 Units/L (12-78) 05/08/18 05:41 Alkaline Phosphatase 58 Units/L (46-116) 05/08/18 05:41 Creatine Kinase 47 Units/L (39-308) 05/06/18 03:30 CK-MB (CK-2) < 1.0 ng/mL (0-4.0) 05/06/18 03:30 CK/CKMB % Calc 2.1 % (<4) 05/06/18 03:30 Troponin I < 0.02 ng/mL (0-1.5) 05/06/18 03:30 Total Protein 6.0 g/dL (6.4-8.2) L 05/08/18 05:41 Albumin 2.3 g/dL (3.4-5.0) L 05/08/18 05:41 Globulin 3.7 g/dL (2.5-4.5) 05/08/18 05:41 Albumin/Globulin Ratio 0.6 Ratio (1.1-2.1) L 05/08/18 05:41 Prealbumin 12.7 mg/dL (18-35.7) L 05/08/18 05:41 Amylase 113 Units/L (25-115) 05/06/18 03:30 Lipase 367 Units/L (73-393) 05/06/18 03:30 Specimen Type Random urine 05/06/18 06:56 Urine Color Yellow (YELLOW) 05/06/18 06:56 Urine Appearance Clear (CLEAR) 05/06/18 06:56 Urine pH 5.0 (5.0 - 8.0) 05/06/18 06:56 Ur Specific [place] 1.010 (1.000-1.030) 05/06/18 06:56 Urine Protein 2+ (NEGATIVE) 05/06/18 06:56 Urine Glucose (UA) Negative (NEGATIVE) 05/06/18 06:56 Urine Ketones Negative (NEGATIVE) 05/06/18 06:56 Urine Occult Blood 1+ (NEGATIVE) 05/06/18 06:56 Urine Nitrite Negative (NEGATIVE) 05/06/18 06:56 Urine Bilirubin Negative (NEGATIVE) 05/06/18 06:56 Urine Urobilinogen Normal (NORMAL) 05/06/18 06:56 Ur Leukocyte Esterase Negative (NEGATIVE) 05/06/18 06:56 Urine RBC 0-2 /HPF (NONE SEEN) 05/06/18 06:56 Urine WBC 0-2 /HPF (NONE SEEN) 05/06/18 06:56 Ur Squamous Epith Cells Negative /HPF (NEGATIVE) 05/06/18 06:56 Urine Bacteria Negative /HPF (NEGATIVE) 05/06/18 06:56 Ur Culture Indicated? No/not indicated 05/06/18 06:56 - Plan (1) Acute gastroenteritis Status: Acute Plan: NORMAL SALINE AT 125ML/HR, DEMEROL 25MG IV Q4H PRN PAIN, ZOFRAN 4MG IV Q4H PRN NAUSEA, PHENERGAN 25MG IM Q4H PRN NAUSEA, PEPCID 20MG IV Q12H, PROTONIX 40MG IV BID, GI COCKTAIL, CONTINUE TO MONITOR (2) Hypokalemia Status: Resolved Plan: CONTINUE TO MONITOR
[2018-05-08] MEDS ORDERED: PROCALAMINE 3 % 1,000 ML IV SCH (12:00)
[2018-05-08] MEDS: PROCALAMINE 3 % 1,000 ML IV SCH (14:00)
[2018-05-08] MEDS: XANAX PO SCH (20:46)
[2018-05-09] MEDS: NS 1000 ML 1,000 ML IV SCH ×2 (01:28→03:24)
[2018-05-09] MEDS: DEMEROL INJ IVP PRN ×4 (03:27→20:19)
[2018-05-09 06:32] LABS: BASOPHILS % (AUTO) 0.1 % (0.2-1.0); EOSINOPHILS % (AUTO) 0.2 % (0.9-2.9); HEMATOCRIT 21.8 % (42.0-54.0); HEMOGLOBIN 7.5 g/dL (13.5-18.0); LYMPHOCYTES # (AUTO) 0.7 X10^3/uL (1.3-2.9); LYMPHOCYTES % (AUTO) 7.6 % (21.0-51.0); MEAN CORPUSCULAR HEMOGLOBIN 35.2 pg (27.0-34.0); MEAN CORPUSCULAR HGB CONC 34.2 g/dL (33.0-35.0); MEAN PLATELET VOLUME 9.2 fL (7.4-11.0); MONOCYTES # (AUTO) 3.3 x10^3/uL (0.3-0.8); MONOCYTES % (AUTO) 38.3 % (0.0-13.0); NEUTROPHILS # (AUTO) 4.7 x10^3/uL (2.2-4.8); NEUTROPHILS % (AUTO) 53.8 % (42.0-75.0); PLATELET COUNT 119 X10^3/uL (150.0-450.0); RED BLOOD COUNT 2.12 X10^6/uL (4.7-6.0); RED CELL DISTRIBUTION WIDTH 16.4 % (11.6-16.5); WHITE BLOOD COUNT 8.7 X10^3/uL (3.6-10.0)
[2018-05-09 07:07] LABS: ALANINE AMINOTRANSFERASE 19 Units/L (12-78); ALBUMIN 2.3 g/dL (3.4-5.0); ALKALINE PHOSPHATASE 50 Units/L (46-116); ASPARTATE AMINO TRANSFERASE 19 Units/L (15-37); BLOOD UREA NITROGEN 8 mg/dL (7-18); CALCIUM 7.3 mg/dL (8.5-10.1); CARBON DIOXIDE 24.4 mmol/L (21-32); CHLORIDE 106 mmol/L (98-107); COR CA(FOR HYPOALB) 8.7 mg/dL (8.5-10.1); COR NA(FOR HYPERGLY) 139 mmol/L (136-145); CREATININE 0.93 mg/dL (0.70-1.30); SODIUM 138 mmol/L (136-145); TOTAL PROTEIN 5.7 g/dL (6.4-8.2); eGFR NON BLACK RACES > 60 (>60)
[2018-05-09 07:23] LABS: BAND NEUTROPHILS % 14 % (0-10); PLATELET MORPHOLOGY COMMENT NORMAL (NORMAL)
[2018-05-09] MEDS: LEVSIN/MAALOX/LIDOC VISC PO SCH ×4 (08:10→20:21)
[2018-05-09] MEDS: SYNTHROID 75 mcg TAB PO SCH ×2 (10:00→10:06)
[2018-05-09] MEDS: ALBUMIN HUMAN 25%- 100 ML 100 ML IV SCH (10:02)
[2018-05-09] MEDS: PEPCID 20 MG IV PREMIX* 20 MG/50 ML BAG IV SCH ×2 (10:04→20:18)
[2018-05-09] MEDS: PROTONIX INJ 40 MG VIAL IVP SCH ×2 (10:04→20:18)
[2018-05-09] MEDS: FLOMAX PO SCH (10:05)
--- NOTE | 2018-05-09 13:47 | RAD ---
Examination: Portable AP chest History: SOB Findings: Normal transverse heart diameter with essentially clear lungs and pleural spaces. Impression: No acute chest findings. Reported By:
[2018-05-09] MEDS: DUONEB 0.5 MG/3 MG NEB SCH ×3 (13:55→20:02)
[2018-05-09 14:08] LABS: RETICULOCYTE % 1.51 % (0.8-2.2)
[2018-05-09] MEDS ORDERED: NS 1000 ML 1,000 ML ONE (17:11)
[2018-05-09] MEDS: NS 1000 ML 1,000 ML with MVI INJ (ADULT) 1 ML IV SCH ×4 (17:13→20:56)
[2018-05-09] MEDS: ZOFRAN INJ 4 MG VIAL IVP PRN (20:18)
[2018-05-09] MEDS: XANAX PO SCH (20:20)
[2018-05-09] MEDS: PROCALAMINE 3 % 1,000 ML IV SCH (20:21)
[2018-05-10] MEDS ORDERED: NS 1000 ML 1,000 ML ONE (03:29)
[2018-05-10] MEDS: DEMEROL INJ IVP PRN (03:33)
[2018-05-10] MEDS: ZOFRAN INJ 4 MG VIAL IVP PRN (03:34)
[2018-05-10] MEDS: NS 1000 ML 1,000 ML with MVI INJ (ADULT) 1 ML IV SCH ×4 (04:50→14:44)
[2018-05-10 06:41] LABS: ALANINE AMINOTRANSFERASE 16 Units/L (12-78); ALBUMIN 2.4 g/dL (3.4-5.0); ALKALINE PHOSPHATASE 45 Units/L (46-116); BLOOD UREA NITROGEN 6 mg/dL (7-18); CALCIUM 7.3 mg/dL (8.5-10.1); CARBON DIOXIDE 23.8 mmol/L (21-32); CHLORIDE 106 mmol/L (98-107); COR CA(FOR HYPOALB) 8.6 mg/dL (8.5-10.1); COR NA(FOR HYPERGLY) 140 mmol/L (136-145); CREATININE 0.89 mg/dL (0.70-1.30); SODIUM 139 mmol/L (136-145); TOTAL PROTEIN 5.6 g/dL (6.4-8.2); eGFR NON BLACK RACES > 60 (>60)
[2018-05-10 06:48] LABS: ASPARTATE AMINO TRANSFERASE 23 Units/L (15-37)
[2018-05-10 07:48] LABS: BASOPHILS % (AUTO) 0.1 % (0.2-1.0); EOSINOPHILS % (AUTO) 0.1 % (0.9-2.9); HEMATOCRIT 20.9 % (42.0-54.0); HEMOGLOBIN 7.2 g/dL (13.5-18.0); LYMPHOCYTES # (AUTO) 0.3 X10^3/uL (1.3-2.9); LYMPHOCYTES % (AUTO) 3.5 % (21.0-51.0); MEAN CORPUSCULAR HEMOGLOBIN 35.2 pg (27.0-34.0); MEAN CORPUSCULAR HGB CONC 34.2 g/dL (33.0-35.0); MEAN CORPUSCULAR VOLUME 102.9 fL (80.0-100.0); MEAN PLATELET VOLUME 9.5 fL (7.4-11.0); MONOCYTES # (AUTO) 2.8 x10^3/uL (0.3-0.8); NEUTROPHILS # (AUTO) 4.4 x10^3/uL (2.2-4.8); NEUTROPHILS % (AUTO) 58.3 % (42.0-75.0); PLATELET COUNT 129 X10^3/uL (150.0-450.0); RED BLOOD COUNT 2.03 X10^6/uL (4.7-6.0); RED CELL DISTRIBUTION WIDTH 16.3 % (11.6-16.5); WHITE BLOOD COUNT 7.5 X10^3/uL (3.6-10.0)
[2018-05-10 07:57] LABS: BAND NEUTROPHILS % 20 % (0-10)
[2018-05-10 07:59] LABS: PLATELET MORPHOLOGY COMMENT NORMAL (NORMAL)
[2018-05-10] MEDS: DUONEB 0.5 MG/3 MG NEB SCH ×2 (09:02→12:18)
[2018-05-10] MEDS: FLOMAX PO SCH (09:27)
[2018-05-10] MEDS: LEVSIN/MAALOX/LIDOC VISC PO SCH ×5 (09:37→21:36)
[2018-05-10] MEDS: ALBUMIN HUMAN 25%- 100 ML 100 ML IV SCH (09:38)
[2018-05-10] MEDS: PROTONIX INJ 40 MG VIAL IVP SCH ×2 (09:38→22:40)
[2018-05-10] MEDS: PEPCID 20 MG IV PREMIX* 20 MG/50 ML BAG IV SCH ×2 (09:38→22:40)
[2018-05-10] MEDS: SYNTHROID 75 mcg TAB PO SCH (09:39)
[2018-05-10] MEDS: MAGNESIUM SULFATE 1 GRAM/100 mL PREMIX 2 G/200 ML BAG IV SCH ×2 (11:53→14:40)
[2018-05-10 12:04] LABS: HEMATOCRIT 20.4 % (42.0-54.0)
[2018-05-10] MEDS ORDERED: DUONEB 0.5 MG/3 MG NEB PRN (12:20)
[2018-05-10 12:25] LABS: HEMOGLOBIN 6.9 g/dL (13.5-18.0)
[2018-05-10] MEDS ORDERED: BENADRYL INJ 50 MG VIAL IVP PRN (14:11)
[2018-05-10] MEDS ORDERED: NS 500 ML IV 500 ML IV ONE (14:11)
[2018-05-10] MEDS ORDERED: K-DUR TAB 20 MEQ PO ONE (17:30)
[2018-05-10] MEDS: TYLENOL 325 MG TAB PO PRN (17:36)
[2018-05-10] MEDS ORDERED: K-RIDER 10 MEQ/NS 100 ML 10 MEQ/100 ML BAG IV PRN (17:37)
[2018-05-10] MEDS ORDERED: K-DUR TAB 20 MEQ PO PRN (17:37)
[2018-05-10] MEDS ORDERED: POTASSIUM CHLORIDE LIQ 20 MEQ UDC PO PRN (17:37)
[2018-05-10] MEDS ORDERED: POTASSIUM CHL 60 MEQ/NS 0.45% 500 ML IV PRN (17:37)
[2018-05-10] MEDS ORDERED: POTASSIUM CHL 40 MEQ/NS 0.45% 500 ML IV PRN (17:37)
[2018-05-10] MEDS ORDERED: MICRO K EXTEN CAP 10 MEQ PO PRN (17:37)
[2018-05-10] MEDS ORDERED: KLOR-CON PO PRN (17:37)
[2018-05-10 17:57] LABS: HEMATOCRIT 20.3 % (42.0-54.0)
[2018-05-10 18:01] LABS: HEMOGLOBIN 6.9 g/dL (13.5-18.0)
--- NOTE | 2018-05-10 20:04 | PCM.PROG ---
Progress Note - Progress Note for Day of Date of Exam: 05/08/18 - Subjective Subjective: WAS ADMITTED FOR GASTROENTERITIS. TODAY, HE IS ALERT AND ORIENTED, LYING IN BED ON MORNING ROUNDS. HE CONTINUES WITH COMPLAINTS OF NAUSEA, VOMITING, ABDOMINAL PAIN, AND WEAKNESS. HE CONTINUES TO DENY IMPROVEMENT IN SYMPTOMS. HE REPORTS THAT HE HAS BEEN UNABLE TO HOLD MUCH DOWN WITHOUT VOMITING. HIS VITALS TODAY ARE 98.7-75-18-99%-107/55. LABS WERE OBTAINED. ABNORMAL LAB VALUES INCLUDE THE FOLLOWING: WBC 10.5, RBC 2.31, HGB 8.2, HCT 24.0, PLT COUNT 117, GLUCOSE 108, CALCIUM 7.1, TOTAL PROTEIN 6.0, ALBUMIN 2.3. HE IS CURRENTLY RECEIVING NORMAL SALINE AT 125ML/HR, PEPCID AND PROTONIX IV WELL DEMEROL 25MG IV Q4H PRN PAIN, ZOFRAN 4MG IV Q4H PRN NAUSEA, AND PHENERGAN 25MG IM Q4H PRN NAUSEA. WE WILL CONTINUE WITH CURRENT PLAN OF CARE TODAY AND START GI COCKTAIL, TPN, AND ALBUMIN 25% IV DAILY. OTHERWISE, WE WILL FOLLOW UP WITH AM LABS AND CONTINUE TO MONITOR PATIENT. - Past Medical Family Social History Past Med/Fam/Surg Hx: No changes since H&P Allergies: Allergies No Known Drug Allergies Allergy (Verified 05/06/18 03:34) - Review of Systems ROS: No change since H&P - Vital Signs and I&O's Vital Signs: Temperature 98.9 F Pulse Rate [Right Brachial] 71 Pulse Rate 96 Respiratory Rate 24 Blood Pressure [Right Arm] 126/60 Blood Pressure 110/86 O2 Sat by Pulse Oximetry 95 Intake and Output: Intake & Output 05/08/18 05/09/18 05/10/18 05/11/18 11:59 11:59 11:59 11:59 Intake Total 2920 / 2920 4079 / 4079 5500 / 5500 1705 / 1705 Output Total 750 / 750 825 / 825 800 / 800 350 / 350 Balance 2170 / 2170 3254 / 3254 4700 / 4700 1355 / 1355 - Physical Exam Oriented: Normal Eyes: Normal Ear: Normal Nose: Normal Throat: Normal Respiratory: Diminished Cardiovascular: Normal. negative: S3, S4, Murmur, Edema : Normal Auscultation: Bowel Sounds: Increased Palpation: Normal Tenderness: Diffuse, Moderate. negative: Rebound, Guarding, Rigidity Skin: Normal Musculoskeletal: Normal Psychiatric: Normal Mood Description: Calm Affect: Normal Speech Pattern: Clear, Appropriate - Laboratory and Diagnostics Result Diagrams: 05/10/18 17:43 05/10/18 05:46 Labs: Laboratory WBC 7.5 X10^3/uL (3.6-10.0) 05/10/18 05:46 RBC 2.03 X10^6/uL (4.7-6.0) L 05/10/18 05:46 Hgb 6.9 g/dL (13.5-18.0) L* 05/10/18 17:43 Hct 20.3 % (42.0-54.0) L 05/10/18 17:43 MCV 102.9 fL (80.0-100.0) H 05/10/18 05:46 MCH 35.2 pg (27.0-34.0) H 05/10/18 05:46 MCHC 34.2 g/dL (33.0-35.0) 05/10/18 05:46 RDW 16.3 % (11.6-16.5) 05/10/18 05:46 Plt Count 129 X10^3/uL (150.0-450.0) L 05/10/18 05:46 Plt Count Comment Adequate (ADEQUATE) 05/10/18 05:46 MPV 9.5 fL (7.4-11.0) 05/10/18 05:46 Neut % (Auto) 58.3 % (42.0-75.0) 05/10/18 05:46 Lymph % (Auto) 3.5 % (21.0-51.0) L 05/10/18 05:46 [place] % (Auto) 38.0 % (0.0-13.0) H 05/10/18 05:46 Eos % (Auto) 0.1 % (0.9-2.9) L 05/10/18 05:46 Baso % (Auto) 0.1 % (0.2-1.0) L 05/10/18 05:46 Neut # (Auto) 4.4 x10^3/uL (2.2-4.8) 05/10/18 05:46 Lymph # (Auto) 0.3 X10^3/uL (1.3-2.9) L 05/10/18 05:46 [place] # (Auto) 2.8 x10^3/uL (0.3-0.8) H 05/10/18 05:46 Eos # (Auto) 0.0 x10^3/uL (0.0-0.2) 05/10/18 05:46 Baso # (Auto) 0.0 X10^3/uL (0.0-0.1) 05/10/18 05:46 Absolute Nucleated RBC 0.2 /100WBC 05/10/18 05:46 Total Counted 100 05/10/18 05:46 Neutrophils % (Manual) 34 % (39-76) L 05/10/18 05:46 Band Neutrophils % 20 % (0-10) H 05/10/18 05:46 Lymphocytes % (Manual) 14 % (13-43) 05/10/18 05:46 Monocytes % (Manual) 31 % (4-9) H 05/10/18 05:46 Eosinophils % (Manual) 1 % (0-6) 05/10/18 05:46 Atypical Lymphocytes Present 05/06/18 03:30 Plt Morphology Comment Normal (NORMAL) 05/10/18 05:46 RBC Morphology Normal (NORMAL) 05/10/18 05:46 Absolute Retic 0.0347 10^6/uL 05/09/18 13:24 Percent Retic 1.51 % (0.8-2.2) 05/09/18 13:24 Sodium 139 mmol/L (136-145) 05/10/18 05:46 Corrected Sodium 140 mmol/L (136-145) 05/10/18 05:46 Potassium 3.4 mmol/L (3.5-5.1) L 05/10/18 05:46 Chloride 106 mmol/L (98-107) 05/10/18 05:46 Carbon Dioxide 23.8 mmol/L (21-32) 05/10/18 05:46 BUN 6 mg/dL (7-18) L 05/10/18 05:46 Creatinine 0.89 mg/dL (0.70-1.30) 05/10/18 05:46 Est GFR (MDRD) Af Amer > 60 (>60) 05/10/18 05:46 Est GFR (MDRD) Non-Af > 60 (>60) 05/10/18 05:46 Glucose 125 mg/dL (65-99) H 05/10/18 05:46 Calcium 7.3 mg/dL (8.5-10.1) L 05/10/18 05:46 Corrected Calcium 8.6 mg/dL (8.5-10.1) 05/10/18 05:46 Magnesium 1.7 mg/dL (1.7-2.9) 05/10/18 07:19 Iron 41 ug/dL (50-175) L 05/09/18 13:24 Transferrin 88 mg/dL (202-364) L 05/09/18 13:24 Ferritin 623 ng/mL (26-388) H 05/09/18 13:24 Total Bilirubin 0.50 mg/dL (0.2-1.0) 05/10/18 05:46 AST 23 Units/L (15-37) 05/10/18 05:46 ALT 16 Units/L (12-78) 05/10/18 05:46 Alkaline Phosphatase 45 Units/L (46-116) L 05/10/18 05:46 Creatine Kinase 47 Units/L (39-308) 05/06/18 03:30 CK-MB (CK-2) < 1.0 ng/mL (0-4.0) 05/06/18 03:30 CK/CKMB % Calc 2.1 % (<4) 05/06/18 03:30 Troponin I < 0.02 ng/mL (0-1.5) 05/06/18 03:30 Total Protein 5.6 g/dL (6.4-8.2) L 05/10/18 05:46 Albumin 2.4 g/dL (3.4-5.0) L 05/10/18 05:46 Globulin 3.2 g/dL (2.5-4.5) 05/10/18 05:46 Albumin/Globulin Ratio 0.8 Ratio (1.1-2.1) L 05/10/18 05:46 Prealbumin 12.7 mg/dL (18-35.7) L 05/08/18 05:41 Amylase 113 Units/L (25-115) 05/06/18 03:30 Lipase 367 Units/L (73-393) 05/06/18 03:30 Vitamin B12 297 pg/mL (193-986) 05/09/18 13:24 Folate 19.6 ng/mL (>8.6) 05/09/18 13:24 Specimen Type Random urine 05/06/18 06:56 Urine Color Yellow (YELLOW) 05/06/18 06:56 Urine Appearance Clear (CLEAR) 05/06/18 06:56 Urine pH 5.0 (5.0 - 8.0) 05/06/18 06:56 Ur Specific [place] 1.010 (1.000-1.030) 05/06/18 06:56 Urine Protein 2+ (NEGATIVE) 05/06/18 06:56 Urine Glucose (UA) Negative (NEGATIVE) 05/06/18 06:56 Urine Ketones Negative (NEGATIVE) 05/06/18 06:56 Urine Occult Blood 1+ (NEGATIVE) 05/06/18 06:56 Urine Nitrite Negative (NEGATIVE) 05/06/18 06:56 Urine Bilirubin Negative (NEGATIVE) 05/06/18 06:56 Urine Urobilinogen Normal (NORMAL) 05/06/18 06:56 Ur Leukocyte Esterase Negative (NEGATIVE) 05/06/18 06:56 Urine RBC 0-2 /HPF (NONE SEEN) 05/06/18 06:56 Urine WBC 0-2 /HPF (NONE SEEN) 05/06/18 06:56 Ur Squamous Epith Cells Negative /HPF (NEGATIVE) 05/06/18 06:56 Urine Bacteria Negative /HPF (NEGATIVE) 05/06/18 06:56 Ur Culture Indicated? No/not indicated 05/06/18 06:56 Blood Type B NEGATIVE 05/10/18 14:33 Antibody Screen Negative 05/10/18 14:33 Crossmatch See Detail 05/10/18 14:33 - Plan (1) Acute gastroenteritis Status: Acute Plan: NORMAL SALINE AT 125ML/HR, DEMEROL 25MG IV Q4H PRN PAIN, ZOFRAN 4MG IV Q4H PRN NAUSEA, PHENERGAN 25MG IM Q4H PRN NAUSEA, PEPCID 20MG IV Q12H, PROTONIX 40MG IV BID, GI COCKTAIL, CONTINUE TO MONITOR (2) Hypoproteinemia Status: Acute Plan: TPN, ALBUMIN, CONTINUE TO MONITOR (3) Generalized weakness Status: Acute Plan: CONTINUE TO MONITOR
[2018-05-10] MEDS ORDERED: NS 250 ML IV 250 ML IV ONE (20:55)
--- NOTE | 2018-05-10 21:13 | PCM.PROG ---
Progress Note - Progress Note for Day of Date of Exam: 05/09/18 - Subjective Subjective: WAS ADMITTED FOR GASTROENTERITIS. TODAY, HE IS DISORIENTED, LYING IN BED ON MORNING ROUNDS. SPOUSE REPORTS THAT HE BEGAN WITH AMS EARLIER THIS MORNING. HE CONTINUES WITH COMPLAINTS OF NAUSEA, VOMITING, ABDOMINAL PAIN, AND WEAKNESS WITH SLIGHT IMPROVEMENT SINCE YESTERDAY. HE REPORTS SHORTNESS OF BREATH THIS MORNING. HIS VITALS TODAY ARE 99.4-78-98%-20-120/83. LABS WERE OBTAINED. ABNORMAL LAB VALUES INCLUDE THE FOLLOWING: RBC 2.2, HGB 7.5, HCT 21.8, GLUCOSE 136, CALCIUM 7.3, TOTAL PROTEIN 5.7, ALBUMIN 2.3. HE IS CURRENTLY RECEIVING NORMAL SALINE AT 125ML/HR, PEPCID AND PROTONIX IV WELL DEMEROL 25MG IV Q4H PRN PAIN, ZOFRAN 4MG IV Q4H PRN NAUSEA, AND PHENERGAN 25MG IM Q4H PRN NAUSEA. HE IS ALSO RECEIVING TPN AND ALBUMIN. WE WILL CONTINUE WITH CURRENT PLAN OF CARE TODAY AND OBTAIN AN ANEMIA PANEL AND START JET NEBS. WE WILL ADD MULTIVITAMINS TO HIS IV FLUIDS. OTHERWISE, WE WILL FOLLOW UP WITH AM LABS AND CONTINUE TO MONITOR PATIENT. - Past Medical Family Social History Past Med/Fam/Surg Hx: No changes since H&P Allergies: Allergies No Known Drug Allergies Allergy (Verified 05/06/18 03:34) - Review of Systems ROS: No change since H&P - Vital Signs and I&O's Vital Signs: Temperature 99.5 F Pulse Rate [Right Brachial] 71 Pulse Rate 98 Respiratory Rate 18 Blood Pressure [Right Arm] 126/60 Blood Pressure 110/59 O2 Sat by Pulse Oximetry 95 Intake and Output: Intake & Output 05/08/18 05/09/18 05/10/18 05/11/18 11:59 11:59 11:59 11:59 Intake Total 2920 / 2920 4079 / 4079 5500 / 5500 1705 / 1705 Output Total 750 / 750 825 / 825 800 / 800 350 / 350 Balance 2170 / 2170 3254 / 3254 4700 / 4700 1355 / 1355 - Physical Exam Oriented: Person Eyes: Normal Ear: Normal Nose: Normal Throat: Normal Respiratory: Diminished Cardiovascular: Normal. negative: S3, S4, Murmur, Edema : Normal Auscultation: Bowel Sounds: Increased Palpation: Normal Tenderness: Diffuse, Moderate. negative: Rebound, Guarding, Rigidity Skin: Normal Musculoskeletal: Normal Psychiatric: Normal Mood Description: Calm Affect: Normal Speech Pattern: Clear, Appropriate - Laboratory and Diagnostics Result Diagrams: 05/10/18 17:43 05/10/18 05:46 Labs: Laboratory WBC 7.5 X10^3/uL (3.6-10.0) 05/10/18 05:46 RBC 2.03 X10^6/uL (4.7-6.0) L 05/10/18 05:46 Hgb 6.9 g/dL (13.5-18.0) L* 05/10/18 17:43 Hct 20.3 % (42.0-54.0) L 05/10/18 17:43 MCV 102.9 fL (80.0-100.0) H 05/10/18 05:46 MCH 35.2 pg (27.0-34.0) H 05/10/18 05:46 MCHC 34.2 g/dL (33.0-35.0) 05/10/18 05:46 RDW 16.3 % (11.6-16.5) 05/10/18 05:46 Plt Count 129 X10^3/uL (150.0-450.0) L 05/10/18 05:46 Plt Count Comment Adequate (ADEQUATE) 05/10/18 05:46 MPV 9.5 fL (7.4-11.0) 05/10/18 05:46 Neut % (Auto) 58.3 % (42.0-75.0) 05/10/18 05:46 Lymph % (Auto) 3.5 % (21.0-51.0) L 05/10/18 05:46 [place] % (Auto) 38.0 % (0.0-13.0) H 05/10/18 05:46 Eos % (Auto) 0.1 % (0.9-2.9) L 05/10/18 05:46 Baso % (Auto) 0.1 % (0.2-1.0) L 05/10/18 05:46 Neut # (Auto) 4.4 x10^3/uL (2.2-4.8) 05/10/18 05:46 Lymph # (Auto) 0.3 X10^3/uL (1.3-2.9) L 05/10/18 05:46 [place] # (Auto) 2.8 x10^3/uL (0.3-0.8) H 05/10/18 05:46 Eos # (Auto) 0.0 x10^3/uL (0.0-0.2) 05/10/18 05:46 Baso # (Auto) 0.0 X10^3/uL (0.0-0.1) 05/10/18 05:46 Absolute Nucleated RBC 0.2 /100WBC 05/10/18 05:46 Total Counted 100 05/10/18 05:46 Neutrophils % (Manual) 34 % (39-76) L 05/10/18 05:46 Band Neutrophils % 20 % (0-10) H 05/10/18 05:46 Lymphocytes % (Manual) 14 % (13-43) 05/10/18 05:46 Monocytes % (Manual) 31 % (4-9) H 05/10/18 05:46 Eosinophils % (Manual) 1 % (0-6) 05/10/18 05:46 Atypical Lymphocytes Present 05/06/18 03:30 Plt Morphology Comment Normal (NORMAL) 05/10/18 05:46 RBC Morphology Normal (NORMAL) 05/10/18 05:46 Absolute Retic 0.0347 10^6/uL 05/09/18 13:24 Percent Retic 1.51 % (0.8-2.2) 05/09/18 13:24 Sodium 139 mmol/L (136-145) 05/10/18 05:46 Corrected Sodium 140 mmol/L (136-145) 05/10/18 05:46 Potassium 3.4 mmol/L (3.5-5.1) L 05/10/18 05:46 Chloride 106 mmol/L (98-107) 05/10/18 05:46 Carbon Dioxide 23.8 mmol/L (21-32) 05/10/18 05:46 BUN 6 mg/dL (7-18) L 05/10/18 05:46 Creatinine 0.89 mg/dL (0.70-1.30) 05/10/18 05:46 Est GFR (MDRD) Af Amer > 60 (>60) 05/10/18 05:46 Est GFR (MDRD) Non-Af > 60 (>60) 05/10/18 05:46 Glucose 125 mg/dL (65-99) H 05/10/18 05:46 Calcium 7.3 mg/dL (8.5-10.1) L 05/10/18 05:46 Corrected Calcium 8.6 mg/dL (8.5-10.1) 05/10/18 05:46 Magnesium 1.7 mg/dL (1.7-2.9) 05/10/18 07:19 Iron 41 ug/dL (50-175) L 05/09/18 13:24 Transferrin 88 mg/dL (202-364) L 05/09/18 13:24 Ferritin 623 ng/mL (26-388) H 05/09/18 13:24 Total Bilirubin 0.50 mg/dL (0.2-1.0) 05/10/18 05:46 AST 23 Units/L (15-37) 05/10/18 05:46 ALT 16 Units/L (12-78) 05/10/18 05:46 Alkaline Phosphatase 45 Units/L (46-116) L 05/10/18 05:46 Creatine Kinase 47 Units/L (39-308) 05/06/18 03:30 CK-MB (CK-2) < 1.0 ng/mL (0-4.0) 05/06/18 03:30 CK/CKMB % Calc 2.1 % (<4) 05/06/18 03:30 Troponin I < 0.02 ng/mL (0-1.5) 05/06/18 03:30 Total Protein 5.6 g/dL (6.4-8.2) L 05/10/18 05:46 Albumin 2.4 g/dL (3.4-5.0) L 05/10/18 05:46 Globulin 3.2 g/dL (2.5-4.5) 05/10/18 05:46 Albumin/Globulin Ratio 0.8 Ratio (1.1-2.1) L 05/10/18 05:46 Prealbumin 12.7 mg/dL (18-35.7) L 05/08/18 05:41 Amylase 113 Units/L (25-115) 05/06/18 03:30 Lipase 367 Units/L (73-393) 05/06/18 03:30 Vitamin B12 297 pg/mL (193-986) 05/09/18 13:24 Folate 19.6 ng/mL (>8.6) 05/09/18 13:24 Specimen Type Random urine 05/06/18 06:56 Urine Color Yellow (YELLOW) 05/06/18 06:56 Urine Appearance Clear (CLEAR) 05/06/18 06:56 Urine pH 5.0 (5.0 - 8.0) 05/06/18 06:56 Ur Specific [place] 1.010 (1.000-1.030) 05/06/18 06:56 Urine Protein 2+ (NEGATIVE) 05/06/18 06:56 Urine Glucose (UA) Negative (NEGATIVE) 05/06/18 06:56 Urine Ketones Negative (NEGATIVE) 05/06/18 06:56 Urine Occult Blood 1+ (NEGATIVE) 05/06/18 06:56 Urine Nitrite Negative (NEGATIVE) 05/06/18 06:56 Urine Bilirubin Negative (NEGATIVE) 05/06/18 06:56 Urine Urobilinogen Normal (NORMAL) 05/06/18 06:56 Ur Leukocyte Esterase Negative (NEGATIVE) 05/06/18 06:56 Urine RBC 0-2 /HPF (NONE SEEN) 05/06/18 06:56 Urine WBC 0-2 /HPF (NONE SEEN) 05/06/18 06:56 Ur Squamous Epith Cells Negative /HPF (NEGATIVE) 05/06/18 06:56 Urine Bacteria Negative /HPF (NEGATIVE) 05/06/18 06:56 Ur Culture Indicated? No/not indicated 05/06/18 06:56 Blood Type B NEGATIVE 05/10/18 14:33 Antibody Screen Negative 05/10/18 14:33 Crossmatch See Detail 05/10/18 14:33 - Plan (1) Acute gastroenteritis Status: Acute Plan: NORMAL SALINE AT 125ML/HR, DEMEROL 25MG IV Q4H PRN PAIN, ZOFRAN 4MG IV Q4H PRN NAUSEA, PHENERGAN 25MG IM Q4H PRN NAUSEA, PEPCID 20MG IV Q12H, PROTONIX 40MG IV BID, GI COCKTAIL, CONTINUE TO MONITOR (2) Hypoproteinemia Status: Acute Plan: TPN, ALBUMIN, CONTINUE TO MONITOR (3) Generalized weakness Status: Acute Plan: CONTINUE TO MONITOR (4) Anemia Status: Acute Qualifiers: Anemia type: iron deficiency Iron deficiency anemia type: unspecified iron deficiency Qualified Code(s): D50.9 - Iron deficiency anemia, unspecified Plan: OBTAIN ANEMIA PANEL, CONTINUE TO MONITOR (5) Shortness of breath Status: Acute Plan: CHEST XRAY, JET NEBS, CONTINUE TO MONITOR
[2018-05-10] MEDS: XANAX PO SCH (21:30)
[2018-05-11] MEDS: ULTRAM PO PRN ×2 (01:15→05:24)
[2018-05-11] MEDS: ZOFRAN INJ 4 MG VIAL IVP PRN ×3 (01:15→17:09)
[2018-05-11] MEDS: NS 1000 ML 1,000 ML with MVI INJ (ADULT) 1 ML IV SCH ×10 (01:22→23:34)
[2018-05-11] MEDS: PROCALAMINE 3 % 1,000 ML IV SCH (05:25)
[2018-05-11 06:14] LABS: BASOPHILS % (AUTO) 0.3 % (0.2-1.0); EOSINOPHILS % (AUTO) 0.3 % (0.9-2.9); HEMATOCRIT 25.4 % (42.0-54.0); HEMOGLOBIN 8.8 g/dL (13.5-18.0); LYMPHOCYTES # (AUTO) 0.7 X10^3/uL (1.3-2.9); LYMPHOCYTES % (AUTO) 8.7 % (21.0-51.0); MEAN CORPUSCULAR HEMOGLOBIN 34.4 pg (27.0-34.0); MEAN CORPUSCULAR HGB CONC 34.5 g/dL (33.0-35.0); MEAN CORPUSCULAR VOLUME 99.5 fL (80.0-100.0); MEAN PLATELET VOLUME 9.6 fL (7.4-11.0); MONOCYTES # (AUTO) 3.2 x10^3/uL (0.3-0.8); MONOCYTES % (AUTO) 39.2 % (0.0-13.0); NEUTROPHILS # (AUTO) 4.2 x10^3/uL (2.2-4.8); NEUTROPHILS % (AUTO) 51.5 % (42.0-75.0); PLATELET COUNT 142 X10^3/uL (150.0-450.0); RED BLOOD COUNT 2.56 X10^6/uL (4.7-6.0); RED CELL DISTRIBUTION WIDTH 18.2 % (11.6-16.5); WHITE BLOOD COUNT 8.1 X10^3/uL (3.6-10.0)
[2018-05-11 06:34] LABS: ALANINE AMINOTRANSFERASE 19 Units/L (12-78); ALBUMIN 2.7 g/dL (3.4-5.0); ALKALINE PHOSPHATASE 48 Units/L (46-116); ASPARTATE AMINO TRANSFERASE 21 Units/L (15-37); BLOOD UREA NITROGEN 8 mg/dL (7-18); CALCIUM 7.6 mg/dL (8.5-10.1); CARBON DIOXIDE 24.5 mmol/L (21-32); CHLORIDE 106 mmol/L (98-107); COR CA(FOR HYPOALB) 8.6 mg/dL (8.5-10.1); CREATININE 0.93 mg/dL (0.70-1.30); SODIUM 141 mmol/L (136-145); TOTAL PROTEIN 6.2 g/dL (6.4-8.2); eGFR NON BLACK RACES > 60 (>60)
[2018-05-11 07:28] LABS: PLATELET MORPHOLOGY COMMENT NORMAL (NORMAL)
[2018-05-11] MEDS: ALBUMIN HUMAN 25%- 100 ML 100 ML IV SCH (08:49)
[2018-05-11] MEDS: SYNTHROID 75 mcg TAB PO SCH (08:50)
[2018-05-11] MEDS: FLOMAX PO SCH (08:50)
[2018-05-11] MEDS: PROTONIX INJ 40 MG VIAL IVP SCH ×2 (08:50→20:12)
[2018-05-11] MEDS: LEVSIN/MAALOX/LIDOC VISC PO SCH ×3 (08:50→17:01)
[2018-05-11] MEDS: PEPCID 20 MG IV PREMIX* 20 MG/50 ML BAG IV SCH ×2 (08:50→20:12)
[2018-05-11] MEDS: DEMEROL INJ IVP PRN ×2 (17:08→20:12)
[2018-05-11] MEDS: XANAX PO SCH (20:12)
--- NOTE | 2018-05-11 21:47 | PCM.PROG ---
Progress Note - Progress Note for Day of Date of Exam: 05/10/18 - Subjective Subjective: WAS ADMITTED FOR GASTROENTERITIS AND GENERALIZED WEAKNESS. TODAY, HE IS ALERT AND ORIENTED, LYING IN BED ON MORNING ROUNDS. SPOUSE REPORTS THAT HE HAS CONTINUED WITH INTERMITTENT CONFUSION AT TIMES. HE CONTINUES WITH COMPLAINTS OF NAUSEA, VOMITING, ABDOMINAL PAIN, AND WEAKNESS WITH SLIGHT IMPROVEMENT SINCE YESTERDAY. HE REPORTS SHORTNESS OF BREATH THIS MORNING. HIS VITALS TODAY ARE 98.2-83-18-97%-113/56. LABS WERE OBTAINED. ABNORMAL LAB VALUES INCLUDE THE FOLLOWING: RBC 2.03, HGB DECREASED TO 7.2, HCT 20.9, PLT 129, POTASSIUM 3.4, BUN 6, GLUCOSE 125, CALCIUM 7.3, IRON 41, TRANSFERRIN 88, FERRITIN 623, ALK PHOS 45, TOTAL PROTEIN 5.6, ALBUMIN 2.4. HE IS CURRENTLY RECEIVING NORMAL SALINE AT 125ML/HR, PEPCID AND PROTONIX IV WELL DEMEROL 25MG IV Q4H PRN PAIN, ZOFRAN 4MG IV Q4H PRN NAUSEA, AND PHENERGAN 25MG IM Q4H PRN NAUSEA. HE IS ALSO RECEIVING TPN AND ALBUMIN. WE WILL CONTINUE WITH CURRENT PLAN OF CARE TODAY AND TREANSFUSE 2 UNITS OF PACKED RED BLOOD CELLS. WE WILL MONITOR H&H AFTERWARDS. OTHERWISE, WE WILL FOLLOW UP WITH AM LABS AND CONTINUE TO MONITOR PATIENT. - Past Medical Family Social History Past Med/Fam/Surg Hx: No changes since H&P Allergies: Allergies No Known Drug Allergies Allergy (Verified 05/06/18 03:34) - Review of Systems ROS: No change since H&P - Vital Signs and I&O's Vital Signs: Temperature 97.8 F Pulse Rate [Right Brachial] 71 Pulse Rate 65 Respiratory Rate 22 Blood Pressure [Right Arm] 126/60 Blood Pressure 129/72 O2 Sat by Pulse Oximetry 97 Intake and Output: Intake & Output 05/09/18 05/10/18 05/11/18 05/12/18 11:59 11:59 11:59 11:59 Intake Total 4079 / 4079 5500 / 5500 3735 / 3735 1040 / 1040 Output Total 825 / 825 800 / 800 1550 / 1550 940 / 940 Balance 3254 / 3254 4700 / 4700 2185 / 2185 100 / 100 - Physical Exam Oriented: Person Eyes: Normal Ear: Normal Nose: Normal Throat: Normal Respiratory: Diminished Cardiovascular: Normal. negative: S3, S4, Murmur, Edema : Normal Auscultation: Bowel Sounds: Increased Palpation: Normal Tenderness: Diffuse, Moderate. negative: Rebound, Guarding, Rigidity Skin: Normal Musculoskeletal: Normal Psychiatric: Normal Mood Description: Calm Affect: Normal Speech Pattern: Clear, Appropriate - Laboratory and Diagnostics Result Diagrams: 05/11/18 05:40 05/11/18 05:40 Labs: Laboratory WBC 8.1 X10^3/uL (3.6-10.0) 05/11/18 05:40 RBC 2.56 X10^6/uL (4.7-6.0) L 05/11/18 05:40 Hgb 8.8 g/dL (13.5-18.0) L 05/11/18 05:40 Hct 25.4 % (42.0-54.0) L 05/11/18 05:40 MCV 99.5 fL (80.0-100.0) 05/11/18 05:40 MCH 34.4 pg (27.0-34.0) H 05/11/18 05:40 MCHC 34.5 g/dL (33.0-35.0) 05/11/18 05:40 RDW 18.2 % (11.6-16.5) H 05/11/18 05:40 Plt Count 142 X10^3/uL (150.0-450.0) L 05/11/18 05:40 Plt Count Comment Adequate (ADEQUATE) 05/11/18 05:40 MPV 9.6 fL (7.4-11.0) 05/11/18 05:40 Neut % (Auto) 51.5 % (42.0-75.0) 05/11/18 05:40 Lymph % (Auto) 8.7 % (21.0-51.0) L 05/11/18 05:40 [place] % (Auto) 39.2 % (0.0-13.0) H 05/11/18 05:40 Eos % (Auto) 0.3 % (0.9-2.9) L 05/11/18 05:40 Baso % (Auto) 0.3 % (0.2-1.0) 05/11/18 05:40 Neut # (Auto) 4.2 x10^3/uL (2.2-4.8) 05/11/18 05:40 Lymph # (Auto) 0.7 X10^3/uL (1.3-2.9) L 05/11/18 05:40 [place] # (Auto) 3.2 x10^3/uL (0.3-0.8) H 05/11/18 05:40 Eos # (Auto) 0.0 x10^3/uL (0.0-0.2) 05/11/18 05:40 Baso # (Auto) 0.0 X10^3/uL (0.0-0.1) 05/11/18 05:40 Absolute Nucleated RBC 0.0 /100WBC 05/11/18 05:40 Total Counted 100 05/11/18 05:40 Neutrophils % (Manual) 54 % (39-76) 05/11/18 05:40 Band Neutrophils % 20 % (0-10) H 05/10/18 05:46 Lymphocytes % (Manual) 18 % (13-43) 05/11/18 05:40 Monocytes % (Manual) 26 % (4-9) H 05/11/18 05:40 Eosinophils % (Manual) 2 % (0-6) 05/11/18 05:40 Atypical Lymphocytes Present 05/06/18 03:30 Plt Morphology Comment Normal (NORMAL) 05/11/18 05:40 RBC Morphology Normal (NORMAL) 05/11/18 05:40 Smear Path Review See note 05/07/18 05:39 Absolute Retic 0.0347 10^6/uL 05/09/18 13:24 Percent Retic 1.51 % (0.8-2.2) 05/09/18 13:24 Sodium 141 mmol/L (136-145) 05/11/18 05:40 Corrected Sodium TNP 05/11/18 05:40 Potassium 3.6 mmol/L (3.5-5.1) 05/11/18 05:40 Chloride 106 mmol/L (98-107) 05/11/18 05:40 Carbon Dioxide 24.5 mmol/L (21-32) 05/11/18 05:40 BUN 8 mg/dL (7-18) 05/11/18 05:40 Creatinine 0.93 mg/dL (0.70-1.30) 05/11/18 05:40 Est GFR (MDRD) Af Amer > 60 (>60) 05/11/18 05:40 Est GFR (MDRD) Non-Af > 60 (>60) 05/11/18 05:40 Glucose 87 mg/dL (65-99) 05/11/18 05:40 Calcium 7.6 mg/dL (8.5-10.1) L 05/11/18 05:40 Corrected Calcium 8.6 mg/dL (8.5-10.1) 05/11/18 05:40 Magnesium 2.0 mg/dL (1.7-2.9) 05/11/18 05:40 Iron 41 ug/dL (50-175) L 05/09/18 13:24 Transferrin 88 mg/dL (202-364) L 05/09/18 13:24 Ferritin 623 ng/mL (26-388) H 05/09/18 13:24 Total Bilirubin 1.60 mg/dL (0.2-1.0) H 05/11/18 05:40 AST 21 Units/L (15-37) 05/11/18 05:40 ALT 19 Units/L (12-78) 05/11/18 05:40 Alkaline Phosphatase 48 Units/L (46-116) 05/11/18 05:40 Creatine Kinase 47 Units/L (39-308) 05/06/18 03:30 CK-MB (CK-2) < 1.0 ng/mL (0-4.0) 05/06/18 03:30 CK/CKMB % Calc 2.1 % (<4) 05/06/18 03:30 Troponin I < 0.02 ng/mL (0-1.5) 05/06/18 03:30 Total Protein 6.2 g/dL (6.4-8.2) L 05/11/18 05:40 Albumin 2.7 g/dL (3.4-5.0) L 05/11/18 05:40 Globulin 3.5 g/dL (2.5-4.5) 05/11/18 05:40 Albumin/Globulin Ratio 0.8 Ratio (1.1-2.1) L 05/11/18 05:40 Prealbumin 12.7 mg/dL (18-35.7) L 05/08/18 05:41 Amylase 113 Units/L (25-115) 05/06/18 03:30 Lipase 367 Units/L (73-393) 05/06/18 03:30 Vitamin B12 297 pg/mL (193-986) 05/09/18 13:24 Folate 19.6 ng/mL (>8.6) 05/09/18 13:24 Specimen Type Random urine 05/06/18 06:56 Urine Color Yellow (YELLOW) 05/06/18 06:56 Urine Appearance Clear (CLEAR) 05/06/18 06:56 Urine pH 5.0 (5.0 - 8.0) 05/06/18 06:56 Ur Specific [place] 1.010 (1.000-1.030) 05/06/18 06:56 Urine Protein 2+ (NEGATIVE) 05/06/18 06:56 Urine Glucose (UA) Negative (NEGATIVE) 05/06/18 06:56 Urine Ketones Negative (NEGATIVE) 05/06/18 06:56 Urine Occult Blood 1+ (NEGATIVE) 05/06/18 06:56 Urine Nitrite Negative (NEGATIVE) 05/06/18 06:56 Urine Bilirubin Negative (NEGATIVE) 05/06/18 06:56 Urine Urobilinogen Normal (NORMAL) 05/06/18 06:56 Ur Leukocyte Esterase Negative (NEGATIVE) 05/06/18 06:56 Urine RBC 0-2 /HPF (NONE SEEN) 05/06/18 06:56 Urine WBC 0-2 /HPF (NONE SEEN) 05/06/18 06:56 Ur Squamous Epith Cells Negative /HPF (NEGATIVE) 05/06/18 06:56 Urine Bacteria Negative /HPF (NEGATIVE) 05/06/18 06:56 Ur Culture Indicated? No/not indicated 05/06/18 06:56 Stool Description 5g. brown/solid 05/11/18 01:55 Stl Occult Blood (IFOB) Negative (NEGATIVE) 05/11/18 01:55 Blood Type B NEGATIVE 05/10/18 14:33 Antibody Screen Negative 05/10/18 14:33 Crossmatch See Detail 05/10/18 14:33 - Plan (1) Acute gastroenteritis Status: Acute Plan: NORMAL SALINE AT 125ML/HR, DEMEROL 25MG IV Q4H PRN PAIN, ZOFRAN 4MG IV Q4H PRN NAUSEA, PHENERGAN 25MG IM Q4H PRN NAUSEA, PEPCID 20MG IV Q12H, PROTONIX 40MG IV BID, GI COCKTAIL, CONTINUE TO MONITOR (2) Hypoproteinemia Status: Acute Plan: TPN, ALBUMIN, CONTINUE TO MONITOR (3) Generalized weakness Status: Acute Plan: CONTINUE TO MONITOR (4) Anemia Status: Acute Qualifiers: Anemia type: iron deficiency Iron deficiency anemia type: unspecified iron deficiency Qualified Code(s): D50.9 - Iron deficiency anemia, unspecified Plan: TRANSFUSE 2 UNITS PRBC, CONTINUE TO MONITOR (5) Shortness of breath Status: Acute Plan: CHEST XRAY, JET NEBS, CONTINUE TO MONITOR
[2018-05-12] MEDS: PROCALAMINE 3 % 1,000 ML IV SCH (01:49)
[2018-05-12] MEDS: NS 1000 ML 1,000 ML with MVI INJ (ADULT) 1 ML IV SCH ×2 (05:12)
[2018-05-12 06:28] LABS: BASOPHILS % (AUTO) 0.3 % (0.2-1.0); EOSINOPHILS % (AUTO) 0.6 % (0.9-2.9); HEMATOCRIT 26.6 % (42.0-54.0); HEMOGLOBIN 9.1 g/dL (13.5-18.0); LYMPHOCYTES # (AUTO) 0.7 X10^3/uL (1.3-2.9); LYMPHOCYTES % (AUTO) 12.1 % (21.0-51.0); MEAN CORPUSCULAR HGB CONC 34.1 g/dL (33.0-35.0); MEAN CORPUSCULAR VOLUME 99.8 fL (80.0-100.0); MEAN PLATELET VOLUME 9.5 fL (7.4-11.0); MONOCYTES # (AUTO) 2.5 x10^3/uL (0.3-0.8); MONOCYTES % (AUTO) 40.2 % (0.0-13.0); NEUTROPHILS # (AUTO) 2.9 x10^3/uL (2.2-4.8); NEUTROPHILS % (AUTO) 46.8 % (42.0-75.0); PLATELET COUNT 174 X10^3/uL (150.0-450.0); RED BLOOD COUNT 2.66 X10^6/uL (4.7-6.0); RED CELL DISTRIBUTION WIDTH 17.9 % (11.6-16.5); WHITE BLOOD COUNT 6.1 X10^3/uL (3.6-10.0)
[2018-05-12 06:47] LABS: ALANINE AMINOTRANSFERASE 22 Units/L (12-78); ALBUMIN 2.8 g/dL (3.4-5.0); ALKALINE PHOSPHATASE 52 Units/L (46-116); ASPARTATE AMINO TRANSFERASE 22 Units/L (15-37); BLOOD UREA NITROGEN 9 mg/dL (7-18); CALCIUM 7.7 mg/dL (8.5-10.1); CARBON DIOXIDE 27.6 mmol/L (21-32); CHLORIDE 104 mmol/L (98-107); COR CA(FOR HYPOALB) 8.7 mg/dL (8.5-10.1); CREATININE 0.88 mg/dL (0.70-1.30); SODIUM 140 mmol/L (136-145); TOTAL PROTEIN 6.5 g/dL (6.4-8.2); eGFR NON BLACK RACES > 60 (>60)
[2018-05-12 07:06] LABS: BAND NEUTROPHILS % 8 % (0-10)
[2018-05-12 07:07] LABS: PLATELET MORPHOLOGY COMMENT NORMAL (NORMAL)
[2018-05-12] MEDS: ZOFRAN INJ 4 MG VIAL IVP PRN (07:20)
[2018-05-12] MEDS: DEMEROL INJ IVP PRN (07:20)
[2018-05-12] MEDS: ALBUMIN HUMAN 25%- 100 ML 100 ML IV SCH (08:21)
[2018-05-12] MEDS: FLOMAX PO SCH (08:21)
[2018-05-12] MEDS: PEPCID 20 MG IV PREMIX* 20 MG/50 ML BAG IV SCH (08:22)
[2018-05-12] MEDS: PROTONIX INJ 40 MG VIAL IVP SCH (08:22)
[2018-05-12] MEDS: LEVSIN/MAALOX/LIDOC VISC PO SCH (08:22)
[2018-05-12] MEDS: SYNTHROID 75 mcg TAB PO SCH (08:22)
[2018-05-12 12:33] VITALS: BP 118/50
--- NOTE | 2018-06-24 23:00 | DR.CARTERD ---
- Discharge Summary for: Discharge Summary for Date of:: 05/12/18 - Admission Date Date of Admission: 05/06/18 - Admission Diagnoses Admission Diagnosis: (1) Acute gastroenteritis (2) Hypokalemia - Discharge Date Discharge Date: 05/12/18 - Discharge Diagnoses Discharge Diagnosis: 1) Acute gastroenteritis (2) Hypoproteinemia (3) Generalized weakness (4) Anemia (5) Shortness of breath - Hospital Course Hospital Course: DAY ONE, IS A 73 YEAR OLD PATIENT OF OURS WHO PRESENTED TO THE EMERGENCY ROOM WITH COMPLAINTS OF ABDOMINAL PAIN, NAUSEA, VOMITING, AND SEVERE WEAKNESS. HE REPORTED THAT SYMPTOMS STARTED AT APPROXIMATELY MIDNIGHT AND HAVE GOTTEN WORSE SINCE. HE REPORTED FELLING LIKE HE WAS RUNNING A FEVER AND HAD CHILLS AT HOME. PAST MEDICAL HISTORY INCLUDES AUTO IMMUNE DISORDER, MDS, LEUKOPENIA, NEUTROPENIA, APPENDECTOMY, AND A BENIGN PARATHYROID TUMOR REMOVED. ON ARRIVAL, VITALS WERE 97.1-73-18-97%-133/71. LABS WERE OBTAINED. ABNORMAL LAB VALUES INCLUDED THE FOLLOWING: RBC 2.86, HGB 9.9, HCT 29.4, POTASSIUM 3.3, GLUCOSE 151, ALBUMIN 3.3. URINALYSIS REVEALED WBC 0-2, RBC 0-2, OCCULT BLOOD 1+, PROTEIN 2+, OTHERWISE, UNREMARKABLE. AN ABDOMINAL SERIES WAS OBTAINED AND REVEALED: No acute cardiopulmonary disease. Nonspecific scattered gas-filled loops of small bowel, this can be seen in setting of mild enteritis or ileus however clinical correlation is needed. No radiographic evidence of small or large bowel obstruction. WE THEN OBTAINED AN ABDOMEN/PELVIS CT WITH CONTRAST. IT REVEALED: Mild reticulation within the lung bases peripherally suggest early stages of chronic interstitial lung disease. No honeycombing or fibrosis. Tiny hypoattenuating lesion within the right hepatic lobe on axial image 25 is too small to accurately characterize. There is very mild intrahepatic bile duct dilatation, there is no extrahepatic bile duct dilatation. The gallbladder is dilated however no definite stone or pericholecystic stranding identified. The spleen contains a calcified granuloma. Pancreas demonstrates mild pancreatic ductal dilatation without obstructing stone or mass. The adrenal glands are normal. The right kidney demonstrates several tiny radiopaque densities within the renal pelvis which are indeterminate as there is also evidence of early contrast excretion within the renal pelvis. Multiple right-sided renal cysts are noted. The left kidney also demonstrates foci of increased density however is slightly more suspicious for stone within the mid pole on coronal image 38. Large cyst projects from the upper and lower poles of the left kidney. Left- sided parapelvic cyst is also noted. No hydronephrosis. Urinary bladder is unremarkable. The prostate gland is mildly enlarge a the rectum and colon is normal. Terminal ileum is within normal limits. The appendix is not definitely visualized. No pelvic free fluid or adenopathy. Abdominal aorta is normal in caliber with moderate calcified atherosclerotic disease. Small fat containing paraumbilical hernia. Review of bone windows demonstrates no acute osseous abnormality. HE WAS GIVEN A NORMAL SALINE BOLUS X 2, DILAUDID 1MG IV X 1, MORPHINE 4MG IV X 1, PHENERGAN 25MG IV X 1, AND K-LYTE EFFERVESCENT 50MEQ PO X1 IN THE ER WITH ONLY SLIGHT IMPROVEMENT IN SYMPTOMS. HE WAS ADMITTED TO THE HOSPITAL FOR FURTHER EVALUATION AND TREATMENT OF GASTROENTERITIS AND HYPOKALEMIA. HE WAS STARTED ON NORMAL SALINE AT 125ML/HR, DEMEROL 25MG IV Q4H PRN PAIN, ZOFRAN 4MG IV Q4H PRN NAUSEA, PHENERGAN 25MG IM Q4H PRN NAUSEA, PEPCID 20MG IV Q12H, PROTONIX 40MG IV BID, AND HOME MEDICATIONS WERE RESUMED. WE FOLLOWED UP WITH AM LABS AND CONTINUED TO MONITOR PATIENT. DAY THREE, HE WAS ALERT AND ORIENTED, LYING IN BED ON MORNING ROUNDS. HE CONTINUED WITH COMPLAINTS OF NAUSEA, VOMITING, ABDOMINAL PAIN, AND WEAKNESS. HE CONTINUED TO DENY IMPROVEMENT IN SYMPTOMS. HE REPORTED THAT HE HAD BEEN UNABLE TO HOLD MUCH DOWN WITHOUT VOMITING. HIS VITALS TODAY WERE 98.7-75-18-99%-107/55. LABS WERE OBTAINED. ABNORMAL LAB VALUES INCLUDED THE FOLLOWING: WBC 10.5, RBC 2.31, HGB 8.2, HCT 24.0, PLT COUNT 117, GLUCOSE 108, CALCIUM 7.1, TOTAL PROTEIN 6.0, ALBUMIN 2.3. HE WAS RECEIVING NORMAL SALINE AT 125ML/HR, PEPCID AND PROTONIX IV WELL DEMEROL 25MG IV Q4H PRN PAIN, ZOFRAN 4MG IV Q4H PRN NAUSEA, AND PHENERGAN 25MG IM Q4H PRN NAUSEA. WE CONTINUED WITH CURRENT PLAN OF CARE TODAY AND STARTED GI COCKTAIL, TPN, AND ALBUMIN 25% IV DAILY. WE FOLLOWED UP WITH AM LABS AND CONTINUED TO MONITOR PATIENT. DAY FIVE, HE WAS DISORIENTED, LYING IN BED ON MORNING ROUNDS. SPOUSE REPORTED THAT HE BEGAN WITH AMS EARLIER THIS MORNING. HE CONTINUED WITH COMPLAINTS OF NAUSEA, VOMITING, ABDOMINAL PAIN, AND WEAKNESS WITH SLIGHT IMPROVEMENT SINCE YESTERDAY. HE REPORTED SHORTNESS OF BREATH THIS MORNING. HIS VITALS TODAY ARE 99.4-78-98%-20-120/83. LABS WERE OBTAINED. ABNORMAL LAB VALUES INCLUDED THE FOLLOWING: RBC 2.2, HGB 7.5, HCT 21.8, GLUCOSE 136, CALCIUM 7.3, TOTAL PROTEIN 5.7, ALBUMIN 2.3. HE WAS RECEIVING NORMAL SALINE AT 125ML/HR, PEPCID AND PROTONIX IV WELL DEMEROL 25MG IV Q4H PRN PAIN, ZOFRAN 4MG IV Q4H PRN NAUSEA, AND PHENERGAN 25MG IM Q4H PRN NAUSEA. HE WAS ALSO RECEIVING TPN AND ALBUMIN. WE CONTINUED WITH CURRENT PLAN OF CARE TODAY AND OBTAINED AN ANEMIA PANEL AND STARTED JET NEBS. WE ADDED MULTIVITAMINS TO HIS IV FLUIDS. WE FOLLOWED UP WITH AM LABS AND CONTINUED TO MONITOR PATIENT. DAY SIX, HE WAS ALERT AND ORIENTED, LYING IN BED ON MORNING ROUNDS. SPOUSE REPORTED THAT HE HAS CONTINUED WITH INTERMITTENT CONFUSION AT TIMES. HE CONTINUED WITH COMPLAINTS OF NAUSEA, VOMITING, ABDOMINAL PAIN, AND WEAKNESS WITH SLIGHT IMPROVEMENT SINCE YESTERDAY. HE REPORTED SHORTNESS OF BREATH THIS MORNING. HIS VITALS TODAY WERE 98.2-83-18-97%-113/56. LABS WERE OBTAINED. ABNORMAL LAB VALUES INCLUDED THE FOLLOWING: RBC 2.03, HGB DECREASED TO 7.2, HCT 20.9, PLT 129, POTASSIUM 3.4, BUN 6, GLUCOSE 125, CALCIUM 7.3, IRON 41, TRANSFERRIN 88, FERRITIN 623, ALK PHOS 45, TOTAL PROTEIN 5.6, ALBUMIN 2.4. HE WAS RECEIVING NORMAL SALINE AT 125ML/HR, PEPCID AND PROTONIX IV WELL DEMEROL 25MG IV Q4H PRN PAIN, ZOFRAN 4MG IV Q4H PRN NAUSEA, AND PHENERGAN 25MG IM Q4H PRN NAUSEA. HE WAS ALSO RECEIVING TPN AND ALBUMIN. WE CONTINUED WITH CURRENT PLAN OF CARE TODAY AND TREANSFUSED 2 UNITS OF PACKED RED BLOOD CELLS. WE MONITORED H&H AFTERWARDS. WE FOLLOWED UP WITH AM LABS AND CONTINUED TO MONITOR PATIENT. DAY SEVEN, PATIENT SYMPTOMS HAD SIGNIFICANTLY IMPROVED. NO COMPLAINTS OF NAUSEA, VOMITING, OR ABDOMINAL PAIN DURING MORNING ROUNDS. LAB VALUES WERE WITHIN NORMAL RANGE FOR PATIENT. VITAL SIGNS WERE STABLE. WE PLANNED FOR DISCHARGE. INSTRUCTIONS FOR MEDICATIONS AND FOLLOW UP WERE DISCUSSED WITH PATIENT AND FAMILY, BOTH VOICED UNDERSTANDING. PATIENT DISCHARGED HOME IN STABLE CONDITION WITH FAMILY. - Discharge Medications Discharge Medications: Home Medication List alprazolam 0.5 mg PO HS 05/06/18 [History] butalbital-acetaminophen 50 - 325 mg PO QID PRN 05/06/18 [History] levothyroxine 75 mg PO DAILY 05/06/18 [History] pantoprazole 40 mg PO DAILY 05/06/18 [History] prednisone 10 mg PO DAILY 05/06/18 [History] tamsulosin [Flomax] 0.4 mg PO DAILY 05/06/18 [History] tramadol 50 mg PO PRN PRN 05/06/18 [History] cholecalciferol (vitamin D3) [Vitamin D3] 2,000 units PO BID 05/07/18 [History] folic acid 1 mg PO DAILY 05/07/18 [History] famotidine [Pepcid] 40 mg PO BID #60 tab 05/12/18 [Rx] ondansetron HCl [Zofran] 8 mg PO TID PRN #30 tab 05/12/18 [Rx] Prescriptions: famotidine [Pepcid] Toro Alfaro ondansetron HCl [Zofran] Toro Alfaro - Discharge Disposition Discharge Disposition: PATIENT TO FOLLOW UP IN OUR OFFICE IN ONE WEEK.
== END 2018-05-12 12:45 | disposition home or self-care (01) | DRG 392 ==
LOC: ER 03:17 → ICU 06:54
PROVIDERS: ADMIT Internal Medicine; ATTEND Internal Medicine
DX: D72.821 Monocytosis (symptomatic); E77.8 Other disorders of glycoprotein metabolism; R53.1 Weakness; R10.84 Generalized abdominal pain; R06.02 Shortness of breath; N28.1 Cyst of kidney, acquired; N40.0 Benign prostatic hyperplasia without lower urinary tract symptoms; R41.82 Altered mental status, unspecified; R26.89 Other abnormalities of gait and mobility; K52.89 Other specified noninfective gastroenteritis and colitis; E87.6 Hypokalemia; D50.8 Other iron deficiency anemias; R11.2 Nausea with vomiting, unspecified
CPT/HCPCS: 36415; 36430; 71010; 71045; 74022; 74177; 80053; 81001; 82150; 82270; 82550; 82553; 82607; 82728; 82746; 83540; 83690; 83735; 84132; 84134; 84466; 84484; 85014; 85018; 85025; 85045; 85060; 86850; 86900; 86901; 86922; 94640; 96365; 96367; 96374; 96375; 97110; 97163; 97167; 99283; 99284; A4222; B5200; C9113; P9016; P9047; S0028; J1170; J1200; J2175; J2270; J2405; J2550; J3475; J3490; J7030; J7040; J7050; J7620; J8499

== ENCOUNTER 2018-06-11 10:40 | Inpatient (IN) ==
[2018-06-11 10:44] VITALS: BMI 25.1
[2018-06-11] MEDS ORDERED: ZOFRAN INJ 4 MG VIAL IVP ONE ×2 (11:21→14:02)
--- NOTE | 2018-06-11 11:26 | DR.N/VMALE ---
HPI Time Seen Time Seen by Provider: 06/11/18 11:08 Primary Care Physician Primary Care Physician: LEIDY Complaints Chief Complaint Doctors Comments: Patient presents with complaint of vomiting for three hours onset last night. He denies diarrhea or fever. He was admitted three weeks ago for similar symptoms for one week diagnosed with gastroenteri tis. He had an endoscopy last week; biopsies done results pending. Chief Complaint:: VOMITING FOR ABOUT 3 HOURS, RIGHT SIDED PAIN IN THE UPPER AND LOWER QUAD. Source History Provided: Patient and Family Member Mode of Arrival Mode of Arrival: Wheelchair Timing Onset of Chief Complaint: 06/11/18 PMH PMH Past Medical History: Yes Past Medical History: Anemia Past Surgical History: Yes Surgical History: Appendectomy Family History History of Family Medical Conditions: Yes Family Medical History: Diabetes Mellitus and Hypertension Social History Does patient currently use any type of tobacco product: No Have you used tobacco products in the last 12 months: No Type of Tobacco Use: None Does any household member use tobacco: No Alcohol Use: None Do you use any recreational Drugs:: No Lives With: Family Lives Where: Home infectious screening In the last 2 months have you had wt loss of >10#?: NO Have you had fever, night sweats or hemotysis?: No Have you traveled outside the country in the last 6 months?: No Isolation: Standard PE Vital Signs Vitals: Temperature 100.3 F Pulse Rate [Left Brachial] 82 Pulse Rate 85 Respiratory Rate 17 Blood Pressure [Right Arm] 112/60 Blood Pressure 140/63 O2 Sat by Pulse Oximetry 96 General Limitations: No Limitations General Appearance: Alert and In No Apparent Distress Head Head Exam: Normal Inspection, Atraumatic and Normocephalic Eyes Eye exam: Normal Appearance, PERRL and EOMI ENT ENT Exam: Normal Exam, Normal Oropharynx and Normal External Ear Exam Neck Neck Exam: Normal Inspection and Full ROM Chest Chest Inspection: Symmetric Chest Wall Rise Respiratory Respiratory Exam: Normal Lung Sounds Bilat and Accessory Muscle Use Respiratory Exam: Bilateral: Clear to Auscultation Abdominal Exam Abdominal Exam: Normal Inspection, Normal Bowel Sounds and Soft Abdominal Tenderness: RLQ and Epigastrium Rectal Rectal Exam: Deferred Exam: Male: Deferred Extremities Extremities Exam: Normal Inspection and Full ROM Neurologic Neurological Exam: Alert, Oriented X3 and CN II-XII Intact Skin Skin Exam: Warm, Dry and Intact COURSE Consultation Called: 14:00 Consultation Comments: Dr. Whitlock agreed to admit for further evaluation and treatment ROR Labs Reviewed Laboratory Results Reviewed?: Yes Result Diagrams: 06/11/18 11:30 06/11/18 11:30 Laboratory: WBC 2.9 X10^3/uL (3.6-10.0) L 06/11/18 11:30 RBC 2.94 X10^6/uL (4.7-6.0) L 06/11/18 11:30 Hgb 10.2 g/dL (13.5-18.0) L 06/11/18 11:30 Hct 30.3 % (42.0-54.0) L 06/11/18 11:30 MCV 103.2 fL (80.0-100.0) H 06/11/18 11:30 MCH 34.8 pg (27.0-34.0) H 06/11/18 11:30 MCHC 33.7 g/dL (33.0-35.0) 06/11/18 11:30 RDW 20.5 % (11.6-16.5) H 06/11/18 11:30 Plt Count 173 X10^3/uL (150.0-450.0) 06/11/18 11:30 Plt Count Comment Adequate (ADEQUATE) 06/11/18 11:30 MPV 8.3 fL (7.4-11.0) 06/11/18 11:30 Neut % (Auto) 29.9 % (42.0-75.0) L 06/11/18 11:30 Lymph % (Auto) 10.9 % (21.0-51.0) L 06/11/18 11:30 [place] % (Auto) 59.0 % (0.0-13.0) H 06/11/18 11:30 Eos % (Auto) 0.1 % (0.9-2.9) L 06/11/18 11:30 Baso % (Auto) 0.1 % (0.2-1.0) L 06/11/18 11:30 Neut # (Auto) 0.9 x10^3/uL (2.2-4.8) L 06/11/18 11:30 Lymph # (Auto) 0.3 X10^3/uL (1.3-2.9) L 06/11/18 11:30 [place] # (Auto) 1.7 x10^3/uL (0.3-0.8) H 06/11/18 11:30 Eos # (Auto) 0.0 x10^3/uL (0.0-0.2) 06/11/18 11:30 Baso # (Auto) 0.0 X10^3/uL (0.0-0.1) 06/11/18 11:30 Absolute Nucleated RBC 0.1 /100WBC 06/11/18 11:30 Total Counted 100 06/11/18 11:30 Neutrophils % (Manual) 26 % (39-76) L 06/11/18 11:30 Band Neutrophils % 4 % (0-10) 06/11/18 11:30 Lymphocytes % (Manual) 25 % (13-43) 06/11/18 11:30 Monocytes % (Manual) 45 % (4-9) H 06/11/18 11:30 Plt Morphology Comment Normal (NORMAL) 06/11/18 11:30 RBC Morphology Abnormal (NORMAL) 06/11/18 11:30 Anisocytosis 1+ A 06/11/18 11:30 Sodium 138 mmol/L (136-145) 06/11/18 11:30 Corrected Sodium 139 mmol/L (136-145) 06/11/18 11:30 Potassium 3.7 mmol/L (3.5-5.1) 06/11/18 11:30 Chloride 101 mmol/L (98-107) 06/11/18 11:30 Carbon Dioxide 25.7 mmol/L (21-32) 06/11/18 11:30 BUN 12 mg/dL (7-18) 06/11/18 11:30 Creatinine 1.10 mg/dL (0.70-1.30) 06/11/18 11:30 Est GFR (MDRD) Af Amer > 60 (>60) 06/11/18 11:30 Est GFR (MDRD) Non-Af > 60 (>60) 06/11/18 11:30 Glucose 139 mg/dL (65-99) H 06/11/18 11:30 Calcium 8.0 mg/dL (8.5-10.1) L 06/11/18 11:30 Corrected Calcium TNP 06/11/18 11:30 Total Bilirubin 1.10 mg/dL (0.2-1.0) H 06/11/18 11:30 AST 14 Units/L (15-37) L 06/11/18 11:30 ALT 19 Units/L (12-78) 06/11/18 11:30 Alkaline Phosphatase 78 Units/L (46-116) 06/11/18 11:30 C-Reactive Protein 30.70 mg/L (0-3.0) H 06/11/18 11:30 Total Protein 8.2 g/dL (6.4-8.2) 06/11/18 11:30 Albumin 3.8 g/dL (3.4-5.0) 06/11/18 11:30 Globulin 4.4 g/dL (2.5-4.5) 06/11/18 11:30 Albumin/Globulin Ratio 0.9 Ratio (1.1-2.1) L 06/11/18 11:30 Amylase 109 Units/L (25-115) 06/11/18 11:30 Lipase 289 Units/L (73-393) 06/11/18 11:30 Other Results Comments: CT Abd/pel with: Since the previous CT exam on 05/06/18, there has been interval development of diffuse inflammation with stranding extending from the proximal ascending colon up to the inferior aspect of the gallbladder fossa and adjacent to the descending duodenum. Etiology of this is uncertain th ough possible diverticulitis involving the proximal transverse colon or even acalculous cholecystitis are possibilities.. Bilateral renal cyst. Diagnosis Discharge Problem: Diverticulitis, Fever ADDITIONAL NOTES Additional Notes Additional Notes: Patient is admitted for treatment of diverticulitis
[2018-06-11] MEDS ORDERED: ZOFRAN INJ 4 MG VIAL ONE ×2 (11:30→14:02)
[2018-06-11] MEDS ORDERED: MORPHINE SULFATE INJ 4 MG IVP PRN (11:31)
[2018-06-11] MEDS ORDERED: MORPHINE SULFATE INJ 4 MG ONE (11:32)
[2018-06-11 11:42] LABS: BASOPHILS % (AUTO) 0.1 % (0.2-1.0); EOSINOPHILS % (AUTO) 0.1 % (0.9-2.9); HEMATOCRIT 30.3 % (42.0-54.0); HEMOGLOBIN 10.2 g/dL (13.5-18.0); LYMPHOCYTES # (AUTO) 0.3 X10^3/uL (1.3-2.9); LYMPHOCYTES % (AUTO) 10.9 % (21.0-51.0); MEAN CORPUSCULAR HEMOGLOBIN 34.8 pg (27.0-34.0); MEAN CORPUSCULAR HGB CONC 33.7 g/dL (33.0-35.0); MEAN CORPUSCULAR VOLUME 103.2 fL (80.0-100.0); MEAN PLATELET VOLUME 8.3 fL (7.4-11.0); MONOCYTES # (AUTO) 1.7 x10^3/uL (0.3-0.8); NEUTROPHILS # (AUTO) 0.9 x10^3/uL (2.2-4.8); NEUTROPHILS % (AUTO) 29.9 % (42.0-75.0); PLATELET COUNT 173 X10^3/uL (150.0-450.0); RED BLOOD COUNT 2.94 X10^6/uL (4.7-6.0); RED CELL DISTRIBUTION WIDTH 20.5 % (11.6-16.5); WHITE BLOOD COUNT 2.9 X10^3/uL (3.6-10.0)
[2018-06-11 11:49] LABS: ALANINE AMINOTRANSFERASE 19 Units/L (12-78); ALBUMIN 3.8 g/dL (3.4-5.0); ALKALINE PHOSPHATASE 78 Units/L (46-116); AMYLASE 109 Units/L (25-115); ASPARTATE AMINO TRANSFERASE 14 Units/L (15-37); BLOOD UREA NITROGEN 12 mg/dL (7-18); CARBON DIOXIDE 25.7 mmol/L (21-32); CHLORIDE 101 mmol/L (98-107); COR NA(FOR HYPERGLY) 139 mmol/L (136-145); LIPASE 289 Units/L (73-393); SODIUM 138 mmol/L (136-145); TOTAL PROTEIN 8.2 g/dL (6.4-8.2); eGFR NON BLACK RACES > 60 (>60)
[2018-06-11 11:53] LABS: ANISOCYTOSIS 1+; BAND NEUTROPHILS % 4 % (0-10); PLATELET MORPHOLOGY COMMENT NORMAL (NORMAL)
[2018-06-11] MEDS ORDERED: NS 1000 ML 1,000 ML IV SCH (12:00)
[2018-06-11] MEDS ORDERED: NS 100 ML IV 100 ML IV ONE (12:32)
[2018-06-11] MEDS ORDERED: TYLENOL #3 TAB (W/CODEINE) PO ONE ×2 (13:19→13:20)
[2018-06-11] MEDS ORDERED: DILAUDID INJ IVP ONE (13:21)
--- NOTE | 2018-06-11 13:26 | CT ---
Exam: CT of the abdomen/pelvis with contrast History: 73-year-old male with abdominal pain, nausea, and vomiting. Comparison: Previous CT of the abdomen/pelvis from 05/06/2018. Technique: Axial imaging was performed through the abdomen and pelvis following administration of intravenous contrast. Sagittal and coronal reformations were generated. Automated exposure control techniques were used for this exam. Findings: Visualized lung bases are clear. No infiltrate or pleural effusion on either side. A tiny low-density lesion is seen anteriorly in the right hepatic lobe which is too small to accurately characterize. Minimal intrahepatic biliary ductal dilatation is again noted though the common bile duct is not dilated. The spleen and pancreas are normal appearing. However since the previous exam, there has been interval development of diffuse inflammation with stranding extending from the proximal ascending colon up to the inferior aspect of the gallbladder fossa and adjacent to the descending duodenum. Scattered diverticula in this area suggests the possibility of acute diverticulitis. With mild gallbladder wall thickening, possibility of acalculous cholecystitis is another consideration. Renal cysts are again noted in both kidneys with the largest, on the left measuring 6.5 cm. However no hydronephrosis or radiopaque calculi are identified on either side. Other than the findings in the right upper quadrant, the large and small bowel demonstrate no evidence of inflammatory change. No intra-abdominal or pelvic ascites. Calcifications again seen in the wall of the tunnel aorta. IVC is normal. Bone windows demonstrate no specific abnormality. Impression: 1. Since the previous CT exam on 05/06/2018, there has been interval development of diffuse inflammation with stranding extending from the proximal ascending colon up to the inferior aspect of the gallbladder fossa and adjacent to the descending duodenum. Etiology of this is uncertain though possible diverticulitis involving the proximal transverse colon or even acalculous cholecystitis are possibilities. 2. Bilateral renal cysts. No evidence of urinary tract obstruction Reported By:
[2018-06-11] MEDS ORDERED: DILAUDID INJ ONE (14:02)
[2018-06-11] MEDS ORDERED: PROTONIC IV PRN (14:43)
[2018-06-11] MEDS ORDERED: ZOFRAN INJ 4 MG VIAL IVP PRN (14:43)
[2018-06-11] MEDS ORDERED: ACETAMINOPHEN PO PRN (16:27)
[2018-06-11] MEDS ORDERED: BUTALBITAL PO PRN (16:27)
[2018-06-11] MEDS ORDERED: FLAGYL IV PREMIX 500 MG BAG 500 MG/100 ML BAG IV ONE (17:04)
[2018-06-11] MEDS: FLAGYL IV PREMIX 500 MG BAG 500 MG/100 ML BAG IV SCH ×2 (17:10→20:22)
[2018-06-11] MEDS: TYLENOL 325 MG TAB PO PRN (20:22)
[2018-06-11] MEDS: MORPHINE SULFATE INJ 4 MG IVP PRN (20:23)
[2018-06-11 20:32] LABS: BILIRUBIN,URINE NEGATIVE (NEGATIVE); BLOOD/HEMOGLOBIN,URINE 2+ (NEGATIVE); GLUCOSE, URINE NEGATIVE (NEGATIVE); KETONES,URINE NEGATIVE (NEGATIVE); LEUKOCYTE ESTERASE ,URINE 1+ (NEGATIVE); NITRITES,URINE NEGATIVE (NEGATIVE); PROTEIN,URINE 2+ (NEGATIVE); UROBILINOGEN,URINE 2+ (NORMAL)
[2018-06-11 20:33] LABS: APPEARANCE,URINE SLIGHTLY HAZY (CLEAR); COLOR,URINE DARK YELLOW (YELLOW)
[2018-06-11 20:42] LABS: BACTERIA,URINE TRACE /HPF (NEGATIVE); MUCUS,URINE FEW /HPF (NEGATIVE); SQUAMOUS EPITHELIAL CELL,UR NEGATIVE /HPF (NEGATIVE)
[2018-06-12] MEDS: NS 1000 ML 1,000 ML IV SCH ×4 (00:24→18:10)
[2018-06-12] MEDS: TYLENOL 325 MG TAB PO PRN (00:24)
[2018-06-12] MEDS: FLAGYL IV PREMIX 500 MG BAG 500 MG/100 ML BAG IV SCH ×4 (02:30→20:17)
[2018-06-12] MEDS: MORPHINE SULFATE INJ 4 MG IVP PRN ×3 (03:55→20:18)
[2018-06-12 05:29] LABS: BASOPHILS % (AUTO) 0.2 % (0.2-1.0); HEMOGLOBIN 8.6 g/dL (13.5-18.0); LYMPHOCYTES # (AUTO) 0.7 X10^3/uL (1.3-2.9); LYMPHOCYTES % (AUTO) 8.3 % (21.0-51.0); MEAN CORPUSCULAR HEMOGLOBIN 35.9 pg (27.0-34.0); MEAN CORPUSCULAR HGB CONC 34.5 g/dL (33.0-35.0); MEAN CORPUSCULAR VOLUME 104.1 fL (80.0-100.0); MEAN PLATELET VOLUME 8.5 fL (7.4-11.0); MONOCYTES # (AUTO) 4.8 x10^3/uL (0.3-0.8); MONOCYTES % (AUTO) 53.6 % (0.0-13.0); NEUTROPHILS # (AUTO) 3.4 x10^3/uL (2.2-4.8); NEUTROPHILS % (AUTO) 37.9 % (42.0-75.0); PLATELET COUNT 135 X10^3/uL (150.0-450.0); RED CELL DISTRIBUTION WIDTH 20.6 % (11.6-16.5); WHITE BLOOD COUNT 8.9 X10^3/uL (3.6-10.0)
[2018-06-12 05:41] LABS: ALANINE AMINOTRANSFERASE 17 Units/L (12-78); ALBUMIN 2.9 g/dL (3.4-5.0); ALKALINE PHOSPHATASE 67 Units/L (46-116); ASPARTATE AMINO TRANSFERASE 15 Units/L (15-37); BLOOD UREA NITROGEN 13 mg/dL (7-18); CALCIUM 7.5 mg/dL (8.5-10.1); CARBON DIOXIDE 24.2 mmol/L (21-32); CHLORIDE 103 mmol/L (98-107); COR CA(FOR HYPOALB) 8.4 mg/dL (8.5-10.1); CREATININE 1.19 mg/dL (0.70-1.30); SODIUM 138 mmol/L (136-145); TOTAL PROTEIN 6.7 g/dL (6.4-8.2); eGFR NON BLACK RACES > 60 (>60)
[2018-06-12] MEDS ORDERED: POTASSIUM CHL 60 MEQ/NS 0.45% 500 ML IV PRN (06:07)
[2018-06-12] MEDS ORDERED: KLOR-CON PO PRN (06:07)
[2018-06-12] MEDS ORDERED: K-DUR TAB 20 MEQ PO PRN (06:07)
[2018-06-12] MEDS ORDERED: POTASSIUM CHL 40 MEQ/NS 0.45% 500 ML IV PRN (06:07)
[2018-06-12] MEDS ORDERED: MICRO K EXTEN CAP 10 MEQ PO PRN (06:07)
[2018-06-12] MEDS ORDERED: POTASSIUM CHLORIDE LIQ 20 MEQ UDC PO PRN (06:07)
[2018-06-12] MEDS ORDERED: K-RIDER 10 MEQ/NS 100 ML 10 MEQ/100 ML BAG IV PRN (06:07)
[2018-06-12 07:03] LABS: BAND NEUTROPHILS % 21 % (0-10); METAMYELOCYTES % 10; PLATELET MORPHOLOGY COMMENT NORMAL (NORMAL)
[2018-06-12 07:04] LABS: ANISOCYTOSIS 1+
--- NOTE | 2018-06-12 07:19 | RAD ---
HISTORY: Abdominal pain with nausea and vomiting Study: Single-view chest Comparison: 05/09/2018 Findings: The trachea is mildly deviated to the right with stable. The cardiac silhouette is stable in size. The lungs are clear without focal infiltrate or effusion. The bony thorax is unremarkable. IMPRESSION: 1. No acute cardiopulmonary disease. Reported By:
[2018-06-12] MEDS: FLOMAX PO SCH (08:33)
[2018-06-12] MEDS: PREDNISONE TAB 10 MG PO SCH (08:33)
[2018-06-12] MEDS: LEVAQUIN PREMIX IV 750 MG 750 MG/150 ML BAG IV SCH (08:33)
[2018-06-12] MEDS: SYNTHROID 75 mcg TAB PO SCH (08:34)
[2018-06-12] MEDS: PROTONIX INJ 40 MG VIAL IVP SCH (08:34)
[2018-06-12 15:42] LABS: BASOPHILS % (AUTO) 0.1 % (0.2-1.0); HEMATOCRIT 24.3 % (42.0-54.0); HEMOGLOBIN 8.2 g/dL (13.5-18.0); LYMPHOCYTES # (AUTO) 0.3 X10^3/uL (1.3-2.9); LYMPHOCYTES % (AUTO) 2.3 % (21.0-51.0); MEAN CORPUSCULAR HGB CONC 33.7 g/dL (33.0-35.0); MEAN PLATELET VOLUME 8.5 fL (7.4-11.0); MONOCYTES # (AUTO) 4.4 x10^3/uL (0.3-0.8); MONOCYTES % (AUTO) 38.9 % (0.0-13.0); NEUTROPHILS # (AUTO) 6.7 x10^3/uL (2.2-4.8); NEUTROPHILS % (AUTO) 58.7 % (42.0-75.0); PLATELET COUNT 130 X10^3/uL (150.0-450.0); RED BLOOD COUNT 2.34 X10^6/uL (4.7-6.0); WHITE BLOOD COUNT 11.4 X10^3/uL (3.6-10.0)
[2018-06-12 15:52] LABS: ALANINE AMINOTRANSFERASE 16 Units/L (12-78); ALBUMIN 2.7 g/dL (3.4-5.0); ALKALINE PHOSPHATASE 59 Units/L (46-116); AMYLASE 47 Units/L (25-115); ASPARTATE AMINO TRANSFERASE 16 Units/L (15-37); BLOOD UREA NITROGEN 14 mg/dL (7-18); CALCIUM 7.4 mg/dL (8.5-10.1); CARBON DIOXIDE 23.7 mmol/L (21-32); CHLORIDE 102 mmol/L (98-107); COR CA(FOR HYPOALB) 8.4 mg/dL (8.5-10.1); CREATININE 1.27 mg/dL (0.70-1.30); LIPASE 78 Units/L (73-393); SODIUM 136 mmol/L (136-145); TOTAL PROTEIN 6.6 g/dL (6.4-8.2); eGFR NON BLACK RACES 59 (>60)
[2018-06-12 16:18] LABS: BAND NEUTROPHILS % 22 % (0-10); METAMYELOCYTES % 12
[2018-06-12 16:19] LABS: PLATELET MORPHOLOGY COMMENT NORMAL (NORMAL)
[2018-06-12 16:20] LABS: ANISOCYTOSIS 1+
[2018-06-13] MEDS: FLAGYL IV PREMIX 500 MG BAG 500 MG/100 ML BAG IV SCH ×2 (03:13→08:17)
[2018-06-13 05:31] LABS: BLOOD UREA NITROGEN 13 mg/dL (7-18); CALCIUM 7.6 mg/dL (8.5-10.1); CARBON DIOXIDE 24.8 mmol/L (21-32); CHLORIDE 103 mmol/L (98-107); CREATININE 1.12 mg/dL (0.70-1.30); SODIUM 135 mmol/L (136-145); eGFR NON BLACK RACES > 60 (>60)
[2018-06-13 05:50] LABS: BASOPHILS % (AUTO) 0.1 % (0.2-1.0); LYMPHOCYTES # (AUTO) 0.8 X10^3/uL (1.3-2.9); LYMPHOCYTES % (AUTO) 6.3 % (21.0-51.0); MEAN CORPUSCULAR HEMOGLOBIN 34.6 pg (27.0-34.0); MEAN CORPUSCULAR HGB CONC 33.5 g/dL (33.0-35.0); MEAN CORPUSCULAR VOLUME 103.5 fL (80.0-100.0); MEAN PLATELET VOLUME 9.1 fL (7.4-11.0); MONOCYTES % (AUTO) 39.3 % (0.0-13.0); NEUTROPHILS % (AUTO) 54.3 % (42.0-75.0); PLATELET COUNT 106 X10^3/uL (150.0-450.0); RED BLOOD COUNT 1.91 X10^6/uL (4.7-6.0); RED CELL DISTRIBUTION WIDTH 19.4 % (11.6-16.5); WHITE BLOOD COUNT 12.8 X10^3/uL (3.6-10.0)
[2018-06-13 05:54] LABS: HEMATOCRIT 19.8 % (42.0-54.0); HEMOGLOBIN 6.6 g/dL (13.5-18.0)
[2018-06-13 06:12] LABS: BAND NEUTROPHILS % 13 % (0-10); METAMYELOCYTES % 15
[2018-06-13 06:13] LABS: ANISOCYTOSIS SLIGHT; PLATELET MORPHOLOGY COMMENT NORMAL (NORMAL)
[2018-06-13] MEDS: NS 1000 ML 1,000 ML IV SCH ×2 (07:48→08:38)
[2018-06-13] MEDS: PROTONIX INJ 40 MG VIAL IVP SCH (08:16)
[2018-06-13] MEDS: LEVAQUIN PREMIX IV 750 MG 750 MG/150 ML BAG IV SCH (08:17)
[2018-06-13] MEDS: SYNTHROID 75 mcg TAB PO SCH (08:17)
[2018-06-13] MEDS: PREDNISONE TAB 10 MG PO SCH (08:17)
[2018-06-13] MEDS: FLOMAX PO SCH (08:17)
--- NOTE | 2018-06-13 09:19 | CT ---
HISTORY: Abdominal pain, abnormal labs Study: CT abdomen pelvis without contrast Comparison: 06/11/2018 Technique: Axial noncontrast images with coronal and sagittal reformats. Dose reduction procedures were used with mA/kv adjusted for body size. This examination is limited due to the lack of intravenous and oral contrast. The examination was performed in this manner at the sole discretion of the ordering caregiver and without input requested from or given by Radiology. Findings: The lung bases are clear. The liver, spleen, adrenal glands, are within normal limits to the limitations of an unenhanced examination. The pancreas is normal in size and configuration. There are no findings suggestive of colitis or enteritis. The kidneys are unobstructed . Bilateral tiny nonobstructing renal calculi are present. Bilateral renal cysts are present. No ureteral calculi are identified. There are worsening inflammatory changes in the right upper quadrant adjacent to the distal ascending and proximal transverse colon, gallbladder, and duodenum. No opaque stones are present within the gallbladder. Inflammation can be seen tracking caudally down the retroperitoneum. Possible etiologies of this inflammatory change could be right colon or proximal transverse colon diverticulitis, cholecystitis, pancreatitis or duodenitis. Gallbladder sonography may be of further diagnostic value in assessing for nonopaque calculi. Calcific atherosclerotic changes present in a nondilated abdominal aorta. No intraperitoneal or retroperitoneal lymphadenopathy of significance is identified. There is no evidence for pelvic masses, pelvic fluid, or pelvic lymphadenopathy. No bladder abnormality is identified. The prostate is enlarged. IMPRESSION: Worsening right upper quadrant inflammation adjacent to the proximal transverse colon, gallbladder, duodenum and pancreatic head. Some differential diagnostic possibilities given above. Gallbladder sonography may be of further diagnostic value in assessing for nonopaque calculi Bilateral tiny nonobstructing renal calculi Enlarged prostate Reported By:
[2018-06-13] MEDS ORDERED: NS 250 ML IV 250 ML IV ONE ×2 (10:05→14:13)
--- NOTE | 2018-06-13 12:51 | US ---
HISTORY: Right upper quadrant pain Study: Gallbladder Ultrasound Comparison: CT 06/13/2018 Technique: Multiple hobbs scale and color flow Doppler images of the right upper quadrant were obtained. Findings: The visualized liver is normal in echotexture and size. Gallbladder is distended with sludge and gallstones noted. The common bile duct measures 5 mm. There is gallbladder wall thickening up to 5 mm with a trace amount of pericholecystic fluid. No sonographic Andrade's sign was reported. There is a simple cyst of the right kidney measuring 3 cm. The pancreas and IVC are unremarkable. IMPRESSION: 1. Distended gallbladder containing sludge and stones with mild gallbladder wall thickening up to 5 mm concerning for acute cholecystitis, consider correlation with nuclear medicine hepatobiliary scan if indicated. Reported By:
[2018-06-13] MEDS ORDERED: ZOSYN VIAL 4.5 GRAMS IV SCH (14:00)
[2018-06-13 14:26] LABS: ALANINE AMINOTRANSFERASE 11 Units/L (12-78); ALBUMIN 2.5 g/dL (3.4-5.0); ALKALINE PHOSPHATASE 54 Units/L (46-116); ASPARTATE AMINO TRANSFERASE 14 Units/L (15-37); COR CA(FOR HYPOALB) 8.8 mg/dL (8.5-10.1); TOTAL PROTEIN 5.9 g/dL (6.4-8.2)
[2018-06-13 16:52] VITALS: BP 124/67
--- NOTE | 2018-07-21 18:46 | PCM.PROG ---
Progress Note - Progress Note for Day of Date of Exam: 06/14/18 - Subjective Subjective: The patient is a 73-year-old white male who presented to the [facility] emergency room complaining of diffuse abdominal pain which was worse and involving the right lower quadrant. The CT scan at the time of admission revealed inflammatory changes involving the ascending colon and proximal transverse colon as well as in the gallbladder fossa region. The patient has a history of myelodysplastic syndrome and his initial white blood cell count was noted to be within normal limits with a platelet count in the 130 range and hemoglobin of approximately 10. The patient is status post appendectomy at age 17. The patient was also noted to be febrile at the time of presentation in the emergency room setting. The patient stated that his pain began approximately 2 days ago and is progressively worsened. The patient was subsequently started on IV Levaquin and Flagyl and admitted for further workup. Patient does admit to improvement of pain today. - Past Medical Family Social History Past Med/Fam/Surg Hx: No changes since H&P Allergies: Allergies promethazine [From Phenergan] Allergy (Verified 06/11/18 10:44) - Review of Systems ROS: No change since H&P - Vital Signs and I&O's Vital Signs: Temperature 98.5 F Pulse Rate [Left Brachial] 69 Pulse Rate 85 Respiratory Rate 18 Blood Pressure [Right Arm] 124/67 Blood Pressure 140/63 O2 Sat by Pulse Oximetry 97 - Physical Exam Oriented: Normal Eyes: Normal Ear: Normal Nose: Normal Throat: Normal Respiratory: Normal Cardiovascular: Normal : Normal Auscultation: Bowel Sounds: Normal Palpation: Normal Tenderness: RUQ Skin: Normal Musculoskeletal: Normal Psychiatric: Normal Mood Description: Calm Affect: Normal Speech Pattern: Clear, Appropriate - Laboratory and Diagnostics Result Diagrams: 06/13/18 04:32 06/13/18 04:32 Labs: 06/11/18 20:36 Blood Blood Culture - Final 06/11/18 20:30 Blood Blood Culture - Final 06/11/18 20:17 Urine,Clean Catch Urine Culture - Final Laboratory WBC 12.8 X10^3/uL (3.6-10.0) H 06/13/18 04:32 RBC 1.91 X10^6/uL (4.7-6.0) L 06/13/18 04:32 Hgb 6.6 g/dL (13.5-18.0) L* 06/13/18 04:32 Hct 19.8 % (42.0-54.0) L* 06/13/18 04:32 MCV 103.5 fL (80.0-100.0) H 06/13/18 04:32 MCH 34.6 pg (27.0-34.0) H 06/13/18 04:32 MCHC 33.5 g/dL (33.0-35.0) 06/13/18 04:32 RDW 19.4 % (11.6-16.5) H 06/13/18 04:32 Plt Count 106 X10^3/uL (150.0-450.0) L 06/13/18 04:32 Plt Count Comment Decreased (ADEQUATE) 06/13/18 04:32 MPV 9.1 fL (7.4-11.0) 06/13/18 04:32 Neut % (Auto) 54.3 % (42.0-75.0) 06/13/18 04:32 Lymph % (Auto) 6.3 % (21.0-51.0) L 06/13/18 04:32 [place] % (Auto) 39.3 % (0.0-13.0) H 06/13/18 04:32 Eos % (Auto) 0.0 % (0.9-2.9) L 06/13/18 04:32 Baso % (Auto) 0.1 % (0.2-1.0) L 06/13/18 04:32 Neut # (Auto) 7.0 x10^3/uL (2.2-4.8) H 06/13/18 04:32 Lymph # (Auto) 0.8 X10^3/uL (1.3-2.9) L 06/13/18 04:32 [place] # (Auto) 5.0 x10^3/uL (0.3-0.8) H 06/13/18 04:32 Eos # (Auto) 0.0 x10^3/uL (0.0-0.2) 06/13/18 04:32 Baso # (Auto) 0.0 X10^3/uL (0.0-0.1) 06/13/18 04:32 Absolute Nucleated RBC 0.0 /100WBC 06/13/18 04:32 Total Counted 100 06/13/18 04:32 Neutrophils % (Manual) 39 % (39-76) 06/13/18 04:32 Band Neutrophils % 13 % (0-10) H 06/13/18 04:32 Lymphocytes % (Manual) 7 % (13-43) L 06/13/18 04:32 Monocytes % (Manual) 20 % (4-9) H 06/13/18 04:32 Metamyelocytes % 15 06/13/18 04:32 Atypical Lymphocytes 6 06/13/18 04:32 Plt Morphology Comment Normal (NORMAL) 06/13/18 04:32 RBC Morphology Abnormal (NORMAL) 06/13/18 04:32 Anisocytosis Slight A 06/13/18 04:32 Macrocytosis Slight A 06/13/18 04:32 Smear Path Review See note 06/12/18 04:15 ESR 61 MM/HOUR (0-15) H 06/12/18 15:10 Sodium 135 mmol/L (136-145) L 06/13/18 04:32 Corrected Sodium TNP 06/13/18 04:32 Potassium 4.1 mmol/L (3.5-5.1) 06/13/18 04:32 Chloride 103 mmol/L (98-107) 06/13/18 04:32 Carbon Dioxide 24.8 mmol/L (21-32) 06/13/18 04:32 BUN 13 mg/dL (7-18) 06/13/18 04:32 Creatinine 1.12 mg/dL (0.70-1.30) 06/13/18 04:32 Est GFR (MDRD) Af Amer > 60 (>60) 06/13/18 04:32 Est GFR (MDRD) Non-Af > 60 (>60) 06/13/18 04:32 Glucose 98 mg/dL (65-99) 06/13/18 04:32 Calcium 7.6 mg/dL (8.5-10.1) L 06/13/18 04:32 Corrected Calcium 8.8 mg/dL (8.5-10.1) 06/13/18 04:32 Magnesium 1.7 mg/dL (1.7-2.9) 06/12/18 04:15 Total Bilirubin 1.06 mg/dL (0.2-1.0) H 06/13/18 04:32 AST 14 Units/L (15-37) L 06/13/18 04:32 ALT 11 Units/L (12-78) L 06/13/18 04:32 Alkaline Phosphatase 54 Units/L (46-116) 06/13/18 04:32 C-Reactive Protein 560.30 mg/L (0-3.0) H 06/13/18 04:32 Total Protein 5.9 g/dL (6.4-8.2) L 06/13/18 04:32 Albumin 2.5 g/dL (3.4-5.0) L 06/13/18 04:32 Globulin 3.4 g/dL (2.5-4.5) 06/13/18 04:32 Albumin/Globulin Ratio 0.7 Ratio (1.1-2.1) L 06/13/18 04:32 Amylase 46 Units/L (25-115) 06/13/18 04:32 Lipase 130 Units/L (73-393) 06/13/18 04:32 Specimen Type Clean catch urine 06/11/18 20:17 Urine Color Dark yellow (YELLOW) 06/11/18 20:17 Urine Appearance Slightly hazy (CLEAR) 06/11/18 20:17 Urine pH 6.0 (5.0 - 8.0) 06/11/18 20:17 Ur Specific [place] 1.010 (1.000-1.030) 06/11/18 20:17 Urine Protein 2+ (NEGATIVE) 06/11/18 20: Urine Glucose (UA) Negative (NEGATIVE) 06/11/18 20: Urine Ketones Negative (NEGATIVE) 06/11/18 20: Urine Occult Blood 2+ (NEGATIVE) 06/11/18 20: Urine Nitrite Negative (NEGATIVE) 06/11/18 20: Urine Bilirubin Negative (NEGATIVE) 06/11/18 20: Urine Urobilinogen 2+ (NORMAL) 06/11/18 20: Ur Leukocyte Esterase 1+ (NEGATIVE) 06/11/18 20:17 Urine RBC 3-5 /HPF (NONE SEEN) 06/11/18 20:17 Urine WBC 0-2 /HPF (NONE SEEN) 06/11/18 20: Ur Squamous Epith Cells Negative /HPF (NEGATIVE) 06/11/18 20:17 Urine Bacteria Trace /HPF (NEGATIVE) 06/11/18 20:17 Urine Mucus Few /HPF (NEGATIVE) 06/11/18 20:17 Ur Culture Indicated? No/not indicated 06/11/18 20:17 Influenza Type A (PCR) Negative (NEGATIVE) 06/12/18 07:51 Influenza Type B (PCR) Negative (NEGATIVE) 06/12/18 07:51 Blood Type B NEGATIVE 06/13/18 08:12 Antibody Screen Negative 06/13/18 08:12 Crossmatch See Detail 06/13/18 08:12 Radiology Reviewed: Yes - Plan (1) Diverticulitis Status: Acute Plan: Continue IV antibiotics. Monitor stool and pain. (2) Fever Status: Acute
== END 2018-06-13 16:15 | disposition short-term general hospital (02) | DRG 392 ==
LOC: ER 10:40 → MED/SURG 14:24
PROVIDERS: ADMIT Internal Medicine; ATTEND Internal Medicine
DX: K81.9 Cholecystitis, unspecified; R10.31 Right lower quadrant pain; Z23 Encounter for immunization; K57.92 Diverticulitis of intestine, part unspecified, without perforation or abscess without bleeding; D46.Z Other myelodysplastic syndromes; R50.9 Fever, unspecified; R10.84 Generalized abdominal pain; K52.89 Other specified noninfective gastroenteritis and colitis; E80.6 Other disorders of bilirubin metabolism
CPT/HCPCS: 36415; 36430; 71010; 71045; 74176; 74177; 76705; 80053; 81001; 82150; 83690; 83735; 85025; 85060; 85652; 86140; 86850; 86900; 86901; 86922; 87040; 87086; 87502; 94760; 96365; 96367; 96374; 96375; 99221; 99283; 99284; A4216; A4222; C9113; P9016; S0030; J1170; J1956; J2270; J2405; J3490; J7030; J7050; J7512

== ENCOUNTER 2019-07-16 09:49 | Observation (INO) ==
[2019-07-16] MEDS: NS 1000 ML 1,000 ML IV SCH ×2 (11:00→23:41)
[2019-07-16] MEDS: TORADOL 30 MG VIAL IVP SCH ×3 (11:05→21:10)
[2019-07-16 11:38] LABS: ALANINE AMINOTRANSFERASE 33 Units/L (12-78); ALBUMIN 3.2 g/dL (3.4-5.0); ALKALINE PHOSPHATASE 104 Units/L (46-116); ASPARTATE AMINO TRANSFERASE 21 Units/L (15-37); BLOOD UREA NITROGEN 16 mg/dL (7-18); CALCIUM 8.1 mg/dL (8.5-10.1); CARBON DIOXIDE 24.1 mmol/L (21-32); CHLORIDE 104 mmol/L (98-107); COR CA(FOR HYPOALB) 8.7 mg/dL (8.5-10.1); COR NA(FOR HYPERGLY) 141 mmol/L (136-145); CREATININE 0.98 mg/dL (0.70-1.30); SODIUM 139 mmol/L (136-145); TOTAL PROTEIN 6.3 g/dL (6.4-8.2); eGFR NON BLACK RACES > 60 (>60)
[2019-07-16 11:41] LABS: BASOPHILS % (AUTO) 0.1 % (0.2-1.0); EOSINOPHILS % (AUTO) 0.2 % (0.9-2.9); HEMATOCRIT 36.7 % (42.0-54.0); HEMOGLOBIN 12.5 g/dL (13.5-18.0); LYMPHOCYTES # (AUTO) 1.5 X10^3/uL (1.3-2.9); LYMPHOCYTES % (AUTO) 33.6 % (21.0-51.0); MEAN CORPUSCULAR HEMOGLOBIN 33.7 pg (27.0-34.0); MEAN CORPUSCULAR HGB CONC 34.2 g/dL (33.0-35.0); MEAN CORPUSCULAR VOLUME 98.5 fL (80.0-100.0); MEAN PLATELET VOLUME 8.9 fL (7.4-11.0); MONOCYTES # (AUTO) 2.4 x10^3/uL (0.3-0.8); MONOCYTES % (AUTO) 54.2 % (0.0-13.0); NEUTROPHILS # (AUTO) 0.5 x10^3/uL (2.2-4.8); NEUTROPHILS % (AUTO) 11.9 % (42.0-75.0); PLATELET COUNT 140 X10^3/uL (150.0-450.0); RED BLOOD COUNT 3.72 X10^6/uL (4.7-6.0); RED CELL DISTRIBUTION WIDTH 15.2 % (11.6-16.5); WHITE BLOOD COUNT 4.4 X10^3/uL (3.6-10.0)
[2019-07-16 11:55] VITALS: BMI 24.1
[2019-07-16 11:55] LABS: BAND NEUTROPHILS % 3 % (0-10)
[2019-07-16 11:56] LABS: PLATELET MORPHOLOGY COMMENT NORMAL (NORMAL)
[2019-07-16] MEDS ORDERED: K-DUR TAB 20 MEQ PO PRN (12:36)
[2019-07-16 15:44] LABS: BILIRUBIN,URINE NEGATIVE (NEGATIVE); BLOOD/HEMOGLOBIN,URINE 1+ (NEGATIVE); GLUCOSE, URINE NEGATIVE (NEGATIVE); KETONES,URINE NEGATIVE (NEGATIVE); LEUKOCYTE ESTERASE ,URINE 1+ (NEGATIVE); NITRITES,URINE NEGATIVE (NEGATIVE); PROTEIN,URINE 2+ (NEGATIVE); UROBILINOGEN,URINE NORMAL (NORMAL)
[2019-07-16 15:51] LABS: APPEARANCE,URINE CLEAR (CLEAR); COLOR,URINE YELLOW (YELLOW)
[2019-07-16 15:52] LABS: BACTERIA,URINE NEGATIVE /HPF (NEGATIVE); MUCUS,URINE FEW /HPF (NEGATIVE); SQUAMOUS EPITHELIAL CELL,UR NEGATIVE /HPF (NEGATIVE)
[2019-07-16] MEDS: ZOFRAN INJ 4 MG VIAL IVP PRN (21:26)
[2019-07-16] MEDS: TYLENOL 325 MG TAB PO PRN (23:17)
[2019-07-17 00:54] LABS: MAGNESIUM 1.4 mg/dL (1.7-2.9)
[2019-07-17 00:58] LABS: CKMB % 3.3 % (<4); CREATINE KINASE 30 Units/L (39-308); CREATINE KINASE MB < 1.0 ng/mL (0-4.0); TROPONIN I < 0.02 ng/mL (0-1.5)
[2019-07-17] MEDS ORDERED: MAGNESIUM SULFATE 1 GRAM/100 mL PREMIX 4 G/400 ML BAG IV ONE (01:28)
[2019-07-17] MEDS: MAGNESIUM SULFATE 1 GRAM/100 mL PREMIX 1 GM/100 ML BAG IV PRN ×4 (01:52→04:00)
[2019-07-17] MEDS: TORADOL 30 MG VIAL IVP SCH ×4 (04:44→21:11)
[2019-07-17] MEDS: TYLENOL 325 MG TAB PO PRN ×2 (04:44→11:57)
[2019-07-17 05:00] LABS: BASOPHILS % (AUTO) 0.1 % (0.2-1.0); EOSINOPHILS % (AUTO) 0.1 % (0.9-2.9); HEMATOCRIT 32.3 % (42.0-54.0); HEMOGLOBIN 11.2 g/dL (13.5-18.0); LYMPHOCYTES # (AUTO) 0.4 X10^3/uL (1.3-2.9); LYMPHOCYTES % (AUTO) 16.1 % (21.0-51.0); MEAN CORPUSCULAR HEMOGLOBIN 34.2 pg (27.0-34.0); MEAN CORPUSCULAR HGB CONC 34.5 g/dL (33.0-35.0); MEAN PLATELET VOLUME 7.9 fL (7.4-11.0); MONOCYTES # (AUTO) 1.7 x10^3/uL (0.3-0.8); NEUTROPHILS # (AUTO) 0.6 x10^3/uL (2.2-4.8); NEUTROPHILS % (AUTO) 22.7 % (42.0-75.0); PLATELET COUNT 98 X10^3/uL (150.0-450.0); RED BLOOD COUNT 3.27 X10^6/uL (4.7-6.0); RED CELL DISTRIBUTION WIDTH 15.3 % (11.6-16.5); WHITE BLOOD COUNT 2.8 X10^3/uL (3.6-10.0)
[2019-07-17 05:09] LABS: ALANINE AMINOTRANSFERASE 32 Units/L (12-78); ALBUMIN 2.9 g/dL (3.4-5.0); ALKALINE PHOSPHATASE 96 Units/L (46-116); ASPARTATE AMINO TRANSFERASE 20 Units/L (15-37); BLOOD UREA NITROGEN 20 mg/dL (7-18); CALCIUM 7.5 mg/dL (8.5-10.1); CARBON DIOXIDE 21.4 mmol/L (21-32); CHLORIDE 106 mmol/L (98-107); COR CA(FOR HYPOALB) 8.4 mg/dL (8.5-10.1); COR NA(FOR HYPERGLY) 141 mmol/L (136-145); CREATININE 1.24 mg/dL (0.70-1.30); SODIUM 140 mmol/L (136-145); TOTAL PROTEIN 5.9 g/dL (6.4-8.2); eGFR NON BLACK RACES > 60 (>60)
[2019-07-17 05:29] LABS: BAND NEUTROPHILS % 3 % (0-10)
[2019-07-17 05:30] LABS: PLATELET MORPHOLOGY COMMENT NORMAL (NORMAL)
[2019-07-17] MEDS ORDERED: KLOR-CON PO PRN (06:11)
[2019-07-17] MEDS: K-RIDER 10 MEQ/NS 100 ML 10 MEQ/100 ML BAG IV PRN ×2 (06:37→08:14)
--- NOTE | 2019-07-17 07:27 | RAD ---
HISTORYchest pain, cough, feverSTUDYCHEST, 1 VIEWCOMPARISONNoneFINDINGSHeart size is upper limits of normal. Thoracic aorta is tortuous. No significant vascular congestion. Bibasilar interstitial opacity may represent scarring or atelectasis. Remainder of the lungs are clear. No significant effusion on either side. Bony thorax is unremarkable.IMPRESSIONBibasilar interstitial scarring or atelectasis.Electronically signed by: ADDISON CISSE (Jul 17, 2019 07:25:40)
[2019-07-17] MEDS: ZOFRAN INJ 4 MG VIAL IVP PRN (08:14)
[2019-07-17] MEDS: LEVAQUIN PREMIX IV 500 MG 500 MG/100 ML BAG IV SCH (11:56)
[2019-07-17] MEDS: PEPCID 20 MG IV PREMIX* 20 MG/50 ML BAG IV SCH ×2 (11:57→20:41)
[2019-07-17] MEDS: PROTONIX INJ 40 MG VIAL IVP SCH ×2 (11:57→20:42)
[2019-07-17] MEDS ORDERED: PREDNISONE TAB 20 MG PO SCH (12:00)
[2019-07-17] MEDS ORDERED: FIORICET TAB PO PRN (13:03)
[2019-07-17] MEDS: NS 1000 ML 1,000 ML IV SCH ×2 (13:23→21:24)
[2019-07-17] MEDS: FLOMAX PO SCH (13:48)
[2019-07-17] MEDS: VANCOMYCIN HCL PO SCH ×2 (13:48→21:10)
[2019-07-17] MEDS: PROzac PO SCH (13:49)
[2019-07-17] MEDS: PREDNISONE TAB 20 MG PO SCH (13:49)
[2019-07-17] MEDS: FOLIC ACID TAB 1 MG PO SCH (13:49)
[2019-07-17] MEDS: PRED FORTE 1 % EACHEYE SCH ×3 (13:50→20:54)
[2019-07-17] MEDS: SYNTHROID 75 mcg TAB PO SCH (16:22)
[2019-07-17] MEDS ORDERED: SYNTHROID 175 mcg TAB PO SCH (16:30)
[2019-07-17 19:31] LABS: CRYPTOSPORIDIUM PARVUM ANTIGEN NEGATIVE (NEGATIVE); GIARDIA LAMBLIA ANTIGEN NEGATIVE (NEGATIVE)
[2019-07-17] MEDS: ULTRAM PO SCH (20:42)
[2019-07-17] MEDS: XANAX PO SCH (20:42)
[2019-07-18] MEDS: NS 1000 ML 1,000 ML IV SCH (02:24)
[2019-07-18] MEDS: TORADOL 30 MG VIAL IVP SCH ×4 (03:44→21:05)
[2019-07-18] MEDS: VANCOMYCIN HCL PO SCH ×3 (05:16→21:04)
[2019-07-18 05:22] LABS: BASOPHILS % (AUTO) 0.2 % (0.2-1.0); HEMATOCRIT 27.1 % (42.0-54.0); HEMOGLOBIN 9.4 g/dL (13.5-18.0); LYMPHOCYTES # (AUTO) 0.4 X10^3/uL (1.3-2.9); LYMPHOCYTES % (AUTO) 11.8 % (21.0-51.0); MEAN CORPUSCULAR HEMOGLOBIN 34.6 pg (27.0-34.0); MEAN CORPUSCULAR HGB CONC 34.9 g/dL (33.0-35.0); MEAN CORPUSCULAR VOLUME 99.2 fL (80.0-100.0); MEAN PLATELET VOLUME 8.3 fL (7.4-11.0); MONOCYTES # (AUTO) 2.4 x10^3/uL (0.3-0.8); NEUTROPHILS # (AUTO) 0.5 x10^3/uL (2.2-4.8); PLATELET COUNT 78 X10^3/uL (150.0-450.0); RED BLOOD COUNT 2.73 X10^6/uL (4.7-6.0); RED CELL DISTRIBUTION WIDTH 15.3 % (11.6-16.5); WHITE BLOOD COUNT 3.2 X10^3/uL (3.6-10.0)
[2019-07-18 05:36] LABS: ALANINE AMINOTRANSFERASE 24 Units/L (12-78); ALBUMIN 2.4 g/dL (3.4-5.0); ALKALINE PHOSPHATASE 77 Units/L (46-116); ASPARTATE AMINO TRANSFERASE 28 Units/L (15-37); BLOOD UREA NITROGEN 21 mg/dL (7-18); CALCIUM 6.9 mg/dL (8.5-10.1); CARBON DIOXIDE 24.6 mmol/L (21-32); CHLORIDE 106 mmol/L (98-107); COR CA(FOR HYPOALB) 8.2 mg/dL (8.5-10.1); CREATININE 1.05 mg/dL (0.70-1.30); SODIUM 137 mmol/L (136-145); TOTAL PROTEIN 5.1 g/dL (6.4-8.2); eGFR NON BLACK RACES > 60 (>60)
[2019-07-18 05:48] LABS: PLATELET MORPHOLOGY COMMENT NORMAL (NORMAL)
--- NOTE | 2019-07-18 07:18 | RAD ---
HISTORYSOBSTUDYCHEST, 1 [id number]/28/2019 at 4:37 a.m.FINDINGSThe heart is normal. The pulmonary vessels are normal. The lungs are mildly hyperinflated. There are mild linear densities along the lung bases which are less prominent or unchanged. No effusion or consolidation is seen.IMPRESSIONStable chronic changes with no acute abnormality seen.Electronically signed by: CHRISTIANO DIEGO (Jul 18, 2019 07:16:44)
[2019-07-18] MEDS: ULTRAM PO SCH ×2 (08:20→20:15)
[2019-07-18] MEDS: PROzac PO SCH (08:21)
[2019-07-18] MEDS: FOLIC ACID TAB 1 MG PO SCH (08:21)
[2019-07-18] MEDS: PREDNISONE TAB 20 MG PO SCH (08:21)
[2019-07-18] MEDS: FLOMAX PO SCH (08:21)
[2019-07-18] MEDS: PROTONIX INJ 40 MG VIAL IVP SCH ×2 (08:22→20:17)
[2019-07-18] MEDS: LEVAQUIN PREMIX IV 500 MG 500 MG/100 ML BAG IV SCH (08:22)
[2019-07-18] MEDS: PEPCID 20 MG IV PREMIX* 20 MG/50 ML BAG IV SCH ×2 (08:23→20:17)
[2019-07-18] MEDS: PRED FORTE 1 % EACHEYE SCH (09:39)
--- NOTE | 2019-07-18 11:43 | CT ---
HISTORYABD PAIN, N/VSTUDYABDOMEN/PELVIS W/O [id number] axial images of the abdomen and pelvis were obtained from the lung bases to the pubic symphysis without contrast. Dose reduction techniques including Automated Exposure Control (AEC) and adjustment of mA and kV were utilized.FINDINGSThere is mild pleural thickening and adjacent subpleural fibrosis and scarring along the lung bases which is unchanged. The liver and spleen are normal size and density. The gallbladder has been removed with clips in the gallbladder fossa. The bile ducts and pancreas are normal. The adrenals are normal. There is mild cortical thinning throughout both kidneys with moderate perirenal stranding bilaterally which is unchanged. There are small renal stones scattered in both kidneys measuring up to 3-5 mm which are unchanged. There are several renal cysts scattered in both kidneys with the largest seen inferiorly on the left measuring 7 cm which is unchanged. The ureters are normal caliber. The prostate gland is moderately enlarged. The bladder is unremarkable. There are diverticula scattered along the sigmoid colon with no pericolonic inflammation. There is a moderate wedge compression fracture of T11. There is a moderate compression for fracture along the superior endplate of T9 and a mild compression fracture along the inferior endplate of L4 which is more prominent with no displaced or retropulsed fragments.IMPRESSIONStatus post cholecystectomy with no acute abnormality seen.Small renal stones bilaterally with no hydronephrosis or urinary obstruction.Moderate perirenal stranding around both kidneys which is probably due to scarring or early inflammation, recommend follow-up.Numerous renal cysts bilaterally which are unchanged.Moderate prostatic enlargement which is unchanged.Scattered diverticula along the sigmoid colon with no pericolonic inflammationStatus post appendectomy.Yjae-ce-gyjimbrd compression fractures involving T9, T11, and L4 which were not seen previously. The age of these are indeterminate. Recommend clinical follow-up.Electronically signed by: CHRISTIANO DIEGO (Jul 18, 2019 11:41:24)
[2019-07-18] MEDS: PROCALAMINE 3 % 1,000 ML IV SCH (13:17)
[2019-07-18] MEDS: PATIENT'S HOME MEDICATION EACHEYE SCH ×3 (13:23→20:24)
[2019-07-18] MEDS: FLAGYL IV PREMIX 500 MG BAG 500 MG/100 ML BAG IV SCH ×2 (13:24→20:16)
[2019-07-18] MEDS: SYNTHROID 75 mcg TAB PO SCH (17:04)
[2019-07-18] MEDS: XANAX PO SCH (20:24)
[2019-07-19] MEDS: PROCALAMINE 3 % 1,000 ML IV SCH (00:56)
[2019-07-19] MEDS: TORADOL 30 MG VIAL IVP SCH ×2 (03:28→09:32)
--- NOTE | 2019-07-19 05:10 | DR.H&P ---
H&P - History & Physical for Day of: H&P Date: 07/16/19 - Chief Complaint Chief Complaint: INTRACTABLE LOWER BACK PAIN - History of Present Illness History of Present Illness: IS A 74 YEAR OLD PATIENT OF OURS WHO PRESENTED TO THE HOSPITAL A DIRECT ADMISSION FOR TREATMENT OF LOWER BACK PAIN. BACK PAIN HAS BEEN PERSISTENT FOR THE PAST SEVERAL WEEKS. ON ADMISSION, VITALS WERE 98.9-94-20-98%-141/85. LABS WERE OBTAINED. ABNORMAL LAB VALUES INCLUDE THE FOLLOWING: RBC 3.72, HGB 12.5, HCT 36.7, PLT COUNT 140, POTASSIUM 3.3, GLUCOSE 195, CALCIUM 8.1, TOTAL PROTEIN 6.3, ALBUMIN 3.2. URINALYSIS REVEALED WBC 0-2, RBC 3-5, LEUKOCYTES 1+. AN OUTPATIENT L-SPINE WAS RECENTLY OBTAINED AND REVEALED: Multilevel disc degeneration and spondyloarthropathy with bilateral facet inflammation L3-L5. 2. Acute/subacute inferior endplate compre ssion with 25% height loss and mild retropulsion of the fracture fragments without central canal stenosis L4 superimposed upon Schmorl's node, which is the likely inciting source. 3. Multilevel degenerative changes spondyloarthropathy. T-SPINE XRAY REVEALED: 1. Findings in keeping with acute/subacute superior endplate compression T9 with less than 25% height loss. 2. Mild multilevel disc degeneration and spondyloarthropathy without significant central canal or foraminal stenosis. ON ADMISSION, WE WILL START IV FLUIDS AND TORADOL 30MG IV Q6H. WE WILL REVIEW HIS HOME MEDICATIONS. OTHERWISE, WE PLAN TO FOLLOW UP WITH AM LABS AND CONTINUE TO MONITOR. - Past Medical History Past Medical History: Anemia Additional Medical History: AUTO IMMUNE DISORDER, MDS, NEUTROPEIA, LEUKOPENIA - Past Surgical History Surgical History: Appendectomy Additional Surgical History: BENIGN PARATHYROID TUMOR REMOVED - Family History Family Medical History: Diabetes Mellitus, Cancer, Hypertension - Social History Does patient currently use any type of tobacco product: No Have you used tobacco products in the last 12 months: No Type of Tobacco Use: None Alcohol Use: None Drug Use: None Prescription drug monitoring program results: PDMP was not reviewed - Medications Home Medications: promethazine [From Phenergan] Allergy (Verified 06/11/18 10:44) CONTINUE taking the following medications atovaquone 1,500 mg PO DAILY 07/16/19 [History] betamethasone, augmented 0.05 % TOPICAL PRN PRN 07/16/19 [History] darbepoetin dm in polysorbat 300 mcg Q2W PRN 07/16/19 [History] fluocinonide 0.05 % TOPICAL PRN PRN 07/16/19 [History] fluoxetine 10 mg PO DAILY 07/16/19 [History] ibuprofen 800 mg PO BID PRN 07/16/19 [History] levofloxacin [Levaquin] 500 mg PO DAILY PRN 07/16/19 [History] ondansetron HCl [Zofran] 8 mg PO QID PRN 07/16/19 [History] prednisolone acetate 1 drp OPHTHALMIC (EYE) QID 07/16/19 [History] vancomycin 250 mg PO TID 07/16/19 [History] - Review of Systems Constitutional: Weakness Eyes: No Symptoms Reported ENT: No Symptoms Reported Respiratory: No Symptoms Reported Cardiovascular: No Symptoms Reported Gastrointestinal: No Symptoms Reported Genitourinary: No Symptoms Reported Musculoskeletal: Back Pain Skin: No Symptoms Reported Neurological: Weakness - Physical Exam Vital Signs: Temperature 97.8 F Pulse Rate [Left] 68 Respiratory Rate 20 Blood Pressure [Left Arm] 141/85 Blood Pressure [Right Arm] 156/68 O2 Sat by Pulse Oximetry 97 Oriented: Normal Eyes: Normal Ear: Normal Nose: Normal Throat: Normal Respiratory: Diminished Throughout Cardiovascular: Normal : Normal Auscultation: Bowel Sounds: Normal Palpation: Normal Tenderness: Normal Skin: Normal Musculoskeletal: Back:Thoracic, Back:Lumbar, Tender Psychiatric: Normal Mood Description: Calm Affect: Normal Speech Pattern: Clear - Assessment/Plan (1) Intractable low back pain Status: Acute Plan: ADMIT, IV FLUIDS, TORADOL 30MG IV Q6H, CONTINUE TO MONITOR - Allergies Allergies/Adverse Reactions: Allergies Allergy/AdvReac Type Severity Reaction Status Date / Time promethazine [From Phenergan] Allergy Verified 06/11/18 10:44
[2019-07-19 05:33] LABS: BASOPHILS % (AUTO) 0.1 % (0.2-1.0); HEMATOCRIT 25.5 % (42.0-54.0); LYMPHOCYTES # (AUTO) 0.8 X10^3/uL (1.3-2.9); LYMPHOCYTES % (AUTO) 19.6 % (21.0-51.0); MEAN CORPUSCULAR HEMOGLOBIN 35.2 pg (27.0-34.0); MEAN CORPUSCULAR HGB CONC 35.4 g/dL (33.0-35.0); MEAN CORPUSCULAR VOLUME 99.5 fL (80.0-100.0); MEAN PLATELET VOLUME 8.9 fL (7.4-11.0); MONOCYTES # (AUTO) 2.7 x10^3/uL (0.3-0.8); MONOCYTES % (AUTO) 61.6 % (0.0-13.0); NEUTROPHILS # (AUTO) 0.8 x10^3/uL (2.2-4.8); NEUTROPHILS % (AUTO) 18.7 % (42.0-75.0); PLATELET COUNT 73 X10^3/uL (150.0-450.0); RED BLOOD COUNT 2.56 X10^6/uL (4.7-6.0); WHITE BLOOD COUNT 4.3 X10^3/uL (3.6-10.0)
[2019-07-19] MEDS: VANCOMYCIN HCL PO SCH (05:40)
[2019-07-19 05:49] LABS: ALANINE AMINOTRANSFERASE 23 Units/L (12-78); ALBUMIN 2.2 g/dL (3.4-5.0); ALKALINE PHOSPHATASE 68 Units/L (46-116); ASPARTATE AMINO TRANSFERASE 30 Units/L (15-37); BLOOD UREA NITROGEN 23 mg/dL (7-18); CALCIUM 6.9 mg/dL (8.5-10.1); CARBON DIOXIDE 23.6 mmol/L (21-32); CHLORIDE 108 mmol/L (98-107); COR CA(FOR HYPOALB) 8.3 mg/dL (8.5-10.1); CREATININE 0.93 mg/dL (0.70-1.30); SODIUM 139 mmol/L (136-145); TOTAL PROTEIN 4.9 g/dL (6.4-8.2); eGFR NON BLACK RACES > 60 (>60)
--- NOTE | 2019-07-19 05:55 | PCM.PROG ---
Progress Note - Progress Note for Day of Date of Exam: 07/17/19 - Subjective Subjective: IS BEING TREATED FOR INTRACTABLE BACK PAIN. LUMBAR/T- SPINE MRI REVEALED MULTIPLE COMPRESSION FRACTURES AND DDD. STAFF REPORTS THAT HE RAN TEMP OF 103.1 EARLY THIS MORNING. TODAY, HE IS ALERT, LYING IN BED ON MONRING ROUNDS. HE CONTINUES WITH COMPLAINTS OF LOWER BACK PAIN AND WEAKENSS, BUT REPORTS SLIGHT IMPROVEMENT THIS MORNING. HE ALSO REPORTS DIARRHEA AND ABDOMINAL PAIN. ON EXAMINATION, HEART IS REGULAR IN RATE AND RHYTHM. BILATERAL LUNGS ARE NOTED WITH DIMINISHED LUNG SOUNDS. ABDOMEN IS ROUND, SOFT, AND NON- TENDER WITH NORMAL BOWEL SOUNDS NOTED IN ALL QUADRANTS. HE CONTINUES WITH THORACIC AND LUMBAR TENDERNESS. HIS VITALS THIS MORNING ARE: 99.9-106-18-98%-111/57. LABS WERE OBTAINED. ABNORMAL LAB VALUES INCLUDE THE FOLLOWING: WBC 2.8, RBC 3.27, HGB 11.2, HCT 32.3, PLT COUNT 98, BUN 20, GLUCOSE 162, CALCIUM 7.5, TOTAL PROTEIN 5.9, ALBUMIN 2.9. BLOOD CULTURES AND STOOL CULTURES ARE PENDING. HE WAS POSITIVE FOR OCCULT BLOOD AND WBC IN STOOL. INFLUENZA AND STREP WERE NEGATIVE. A CHEST XRAY WAS OBTAINED THIS MORNING AND REVEALED: BIBASILAR INTERSTITIAL SCARRING OR ATELECTASIS. HE IS CURRENTLY RECEIVING IV FLUIDS, TORADOL, AND ZOFRAN. TODAY, WE WILL START VANCOMYCIN 250MG PO TID, IV PEPCID, IV PROTONIX, THE POTASSIUM AND MAGNESIUM PROTOCOLS, AND WILL RESUME HIS HOME MEDICATIONS. WE WILL OBTAIN AN ABDOMEN/PELVIS CT. OTHERWISE, WE WILL FOLLOW UP WITH AM LABS AND CONTINUE TO MONITOR. - Past Medical Family Social History Past Med/Fam/Surg Hx: No changes since H&P Allergies: Allergies promethazine [From Phenergan] Allergy (Verified 06/11/18 10:44) - Review of Systems ROS: No change since H&P - Vital Signs and I&O's Vital Signs: Temperature 97.8 F Pulse Rate [Left] 68 Respiratory Rate 20 Blood Pressure [Left Arm] 141/85 Blood Pressure [Right Arm] 156/68 O2 Sat by Pulse Oximetry 97 Intake and Output: Intake & Output 07/16/19 07/17/19 07/18/19 07/19/19 11:59 11:59 11:59 11:59 Intake Total 1820 / 1820 2680 / 2680 2780 / 2780 Output Total 850 / 850 750 / 750 Balance 1820 / 1820 1830 / 1830 2029 / 2029 - Physical Exam Oriented: Normal Eyes: Normal Ear: Normal Nose: Normal Throat: Normal Cardiovascular: Normal : Normal Auscultation: Bowel Sounds: Normal Palpation: Normal Tenderness: Normal Skin: Normal Musculoskeletal: Back:Thoracic, Back:Lumbar, Tender Psychiatric: Normal Mood Description: Calm Affect: Normal Speech Pattern: Clear - Laboratory and Diagnostics Result Diagrams: 07/18/19 04:45 07/18/19 04:45 Labs: 07/16/19 22:48 Blood Blood Culture - Preliminary 07/16/19 22:40 Blood Blood Culture - Preliminary 07/17/19 16:20 Stool - Final Laboratory WBC 3.2 X10^3/uL (3.6-10.0) L 07/18/19 04:45 RBC 2.73 X10^6/uL (4.7-6.0) L 07/18/19 04:45 Hgb 9.4 g/dL (13.5-18.0) L 07/18/19 04:45 Hct 27.1 % (42.0-54.0) L 07/18/19 04:45 MCV 99.2 fL (80.0-100.0) 07/18/19 04:45 MCH 34.6 pg (27.0-34.0) H 07/18/19 04:45 MCHC 34.9 g/dL (33.0-35.0) 07/18/19 04:45 RDW 15.3 % (11.6-16.5) 07/18/19 04:45 Plt Count 78 X10^3/uL (150.0-450.0) L 07/18/19 04:45 Plt Count Comment Adequate (ADEQUATE) 07/18/19 04:45 MPV 8.3 fL (7.4-11.0) 07/18/19 04:45 Neut % (Auto) 15.0 % (42.0-75.0) L 07/18/19 04:45 Lymph % (Auto) 11.8 % (21.0-51.0) L 07/18/19 04:45 [place] % (Auto) 73.0 % (0.0-13.0) H 07/18/19 04:45 Eos % (Auto) 0.0 % (0.9-2.9) L 07/18/19 04:45 Baso % (Auto) 0.2 % (0.2-1.0) 07/18/19 04:45 Neut # (Auto) 0.5 x10^3/uL (2.2-4.8) L 07/18/19 04:45 Lymph # (Auto) 0.4 X10^3/uL (1.3-2.9) L 07/18/19 04:45 [place] # (Auto) 2.4 x10^3/uL (0.3-0.8) H 07/18/19 04:45 Eos # (Auto) 0.0 x10^3/uL (0.0-0.2) 07/18/19 04:45 Baso # (Auto) 0.0 X10^3/uL (0.0-0.1) 07/18/19 04:45 Absolute Nucleated RBC 0.2 /100WBC 07/18/19 04:45 Total Counted 100 07/18/19 04:45 Neutrophils % (Manual) 24 % (39-76) L 07/18/19 04:45 Band Neutrophils % 3 % (0-10) 07/17/19 04:46 Lymphocytes % (Manual) 58 % (13-43) H 07/18/19 04:45 Monocytes % (Manual) 18 % (4-9) H 07/18/19 04:45 Plt Morphology Comment Normal (NORMAL) 07/18/19 04:45 RBC Morphology Normal (NORMAL) 07/18/19 04:45 Sodium 137 mmol/L (136-145) 07/18/19 04:45 Corrected Sodium TNP 07/18/19 04:45 Potassium 4.2 mmol/L (3.5-5.1) 07/18/19 04:45 Chloride 106 mmol/L (98-107) 07/18/19 04:45 Carbon Dioxide 24.6 mmol/L (21-32) 07/18/19 04:45 BUN 21 mg/dL (7-18) H 07/18/19 04:45 Creatinine 1.05 mg/dL (0.70-1.30) 07/18/19 04:45 Est GFR (MDRD) Af Amer > 60 (>60) 07/18/19 04:45 Est GFR (MDRD) Non-Af > 60 (>60) 07/18/19 04:45 Glucose 99 mg/dL (65-99) 07/18/19 04:45 Calcium 6.9 mg/dL (8.5-10.1) L 07/18/19 04:45 Corrected Calcium 8.2 mg/dL (8.5-10.1) L 07/18/19 04:45 Magnesium 2.2 mg/dL (1.7-2.9) 07/17/19 04:46 Total Bilirubin 0.30 mg/dL (0.2-1.0) 07/18/19 04:45 AST 28 Units/L (15-37) 07/18/19 04:45 ALT 24 Units/L (12-78) 07/18/19 04:45 Alkaline Phosphatase 77 Units/L (46-116) 07/18/19 04:45 Creatine Kinase 30 Units/L (39-308) L 07/17/19 00:30 CK-MB (CK-2) < 1.0 ng/mL (0-4.0) 07/17/19 00:30 CK/CKMB % Calc 3.3 % (<4) 07/17/19 00:30 Troponin I < 0.02 ng/mL (0-1.5) 07/17/19 00:30 Total Protein 5.1 g/dL (6.4-8.2) L 07/18/19 04:45 Albumin 2.4 g/dL (3.4-5.0) L 07/18/19 04:45 Globulin 2.7 g/dL (2.5-4.5) 07/18/19 04:45 Albumin/Globulin Ratio 0.9 Ratio (1.1-2.1) L 07/18/19 04:45 Specimen Type Clean catch urine 07/16/19 15:30 Urine Color Yellow (YELLOW) 07/16/19 15:30 Urine Appearance Clear (CLEAR) 07/16/19 15:30 Urine pH 5.0 (5.0 - 8.0) 07/16/19 15:30 Ur Specific [place] 1.020 (1.000-1.030) 07/16/19 15:30 Urine Protein 2+ (NEGATIVE) 07/16/19 15:30 Urine Glucose (UA) Negative (NEGATIVE) 07/16/19 15:30 Urine Ketones Negative (NEGATIVE) 07/16/19 15:30 Urine Occult Blood 1+ (NEGATIVE) 07/16/19 15:30 Urine Nitrite Negative (NEGATIVE) 07/16/19 15:30 Urine Bilirubin Negative (NEGATIVE) 07/16/19 15:30 Urine Urobilinogen Normal (NORMAL) 07/16/19 15:30 Ur Leukocyte Esterase 1+ (NEGATIVE) 07/16/19 15:30 Urine RBC 3-5 /HPF (0-3) A 07/16/19 15:30 Urine WBC 0-2 /HPF (0-5) 07/16/19 15:30 Ur Squamous Epith Cells Negative /HPF (NEGATIVE) 07/16/19 15:30 Urine Bacteria Negative /HPF (NEGATIVE) 07/16/19 15:30 Urine Mucus Few /HPF (NEGATIVE) 07/16/19 15:30 Ur Culture Indicated? No/not indicated 07/16/19 15:30 Stool Description 50g drk brn lqd 07/17/19 16:20 Stool Description 50g,brown,liquid 07/17/19 16:20 Stl Occult Blood (IFOB) Positive (NEGATIVE) A 07/17/19 16:20 Stool for White Cells Positive (NEGATIVE) A 07/17/19 16:20 Stl C. diff Tox B Gene Negative (NEGATIVE) 07/17/19 16:20 Stl C. diff [id number] Negative (NEGATIVE) 07/17/19 16:20 Cryptosporid parvum Ag Negative (NEGATIVE) 07/17/19 16:20 Giardia lamblia Ag Negative (NEGATIVE) 07/17/19 16:20 Influenza Type A (PCR) Negative (NEGATIVE) 07/17/19 01:45 Influenza Type B (PCR) Negative (NEGATIVE) 07/17/19 01:45 S. pyogenes (TEM-PCR) Not detected (NOT DETECT) 07/17/19 01:45 - Plan (1) Intractable low back pain Status: Acute Plan: ADMIT, IV FLUIDS, TORADOL 30MG IV Q6H, CONTINUE TO MONITOR (2) Diarrhea Status: Acute Qualifiers: Diarrhea type: presumed infectious Qualified Code(s): R19.7 - Diarrhea, unspecified Plan: STOOL CULTURES, IV VANCOMYCIN, CONTINUE TO MONITOR (3) Fever Status: Acute Qualifiers: Encounter type: initial encounter
--- NOTE | 2019-07-19 06:02 | PCM.PROG ---
Progress Note - Progress Note for Day of Date of Exam: 07/18/19 - Subjective Subjective: IS BEING TREATED FOR INTRACTABLE BACK PAIN, DIARRHEA, AND FEVER. LUMBAR/T-SPINE MRI REVEALED MULTIPLE COMPRESSION FRACTURES AND DDD. TODAY, HE IS ALERT, LYING IN BED ON MONRING ROUNDS. HE CONTINUES WITH COMPLAINTS OF LOWER BACK PAIN, WEAKENSS, DIARREHA, AND ABDOMINAL PAIN. ON EXAMINATION, HEART IS REGULAR IN RATE AND RHYTHM. BILATERAL LUNGS ARE NOTED WITH DIMINISHED LUNG SOUNDS. ABDOMEN IS ROUND, SOFT, AND NOTED WITH DIFFUSE TENDERNESS. HYPERACTIVE BOWEL SOUNDS ARE NOTED. HE CONTINUES WITH THORACIC AND LUMBAR TENDERNESS. HIS VITALS THIS MORNING ARE: 97.5-75-18-100%-98/60. LABS WERE OBTAINED. ABNORMAL LAB VALUES INCLUDE THE FOLLOWING: WBC 3.2, RBC 2.73, HGB 9.4, HCT 27.1, PLT COUNT 78, BUN 21, CALCIUM 6.9, TOTAL PROTEIN 5.1, ALBUMIN 2.4. BLOOD CULTURES AND STOOL CULTURES ARE PENDING. HE WAS POSITIVE FOR OCCULT BLOOD AND WBC IN STOOL. INFLUENZA AND STREP WERE NEGATIVE. A CHEST XRAY WAS OBTAINED THIS MORNING AND REVEALED: STABLE CHRONIC CHANGES WITH NO ACUTE ABNORMALITY SEEN. AN ABDOMEN/PELVIS CT WITHOUT CONTRAST WAS OBTAINED AND REVEALED: Status post cholecystectomy with no acute abnormality seen. Small renal stones bilaterally with no hydronephrosis or urinary obstruction. Moderate perirenal stranding around both kidneys which is probably due to scarring or early inflammation, recommend follow-up. Numerous renal cysts bilaterally which are unchanged. Moderate prostatic enlargement which is unchanged. Scattered diverticula along the sigmoid colon with no pericolonic inflammation . Status post appendectomy. [id number] compression fractures involving T9, T11, and L4 which were not seen previously. The age of these are indeterminate. Recommend clinical follow-up. HE IS CURRENTLY RECEIVING IV FLUIDS, TORADOL, PO VANCOMYCIN, IV PEPCID, IV PROTONIX, THE POTASSIUM AND MAGNESIUM PROTOCOLS, AND ZOFRAN. TODAY, WE WILL START PROCALAMINE IV AND FLAGYL 500MG IV BID. OTHERWISE, WE WILL FOLLOW UP WITH AM LABS AND CONTINUE TO MONITOR. - Past Medical Family Social History Past Med/Fam/Surg Hx: No changes since H&P Allergies: Allergies promethazine [From Phenergan] Allergy (Verified 06/11/18 10:44) - Review of Systems ROS: No change since H&P - Vital Signs and I&O's Vital Signs: Temperature 97.8 F Pulse Rate [Left] 68 Respiratory Rate 20 Blood Pressure [Left Arm] 141/85 Blood Pressure [Right Arm] 156/68 O2 Sat by Pulse Oximetry 97 Intake and Output: Intake & Output 07/16/19 07/17/19 07/18/19 07/19/19 11:59 11:59 11:59 11:59 Intake Total 1820 / 1820 2680 / 2680 2780 / 2780 Output Total 850 / 850 750 / 750 Balance 1820 / 1820 1830 / 1830 2029 / 2029 - Physical Exam Oriented: Normal Eyes: Normal Ear: Normal Nose: Normal Throat: Normal Cardiovascular: Normal : Normal Auscultation: Bowel Sounds: Normal Tenderness: Normal Skin: Normal Musculoskeletal: Back:Thoracic, Back:Lumbar, Tender Psychiatric: Normal Mood Description: Calm Affect: Normal Speech Pattern: Clear - Laboratory and Diagnostics Result Diagrams: 07/18/19 04:45 07/18/19 04:45 Labs: 07/16/19 22:48 Blood Blood Culture - Preliminary 07/16/19 22:40 Blood Blood Culture - Preliminary 07/17/19 16:20 Stool - Final Laboratory WBC 3.2 X10^3/uL (3.6-10.0) L 07/18/19 04:45 RBC 2.73 X10^6/uL (4.7-6.0) L 07/18/19 04:45 Hgb 9.4 g/dL (13.5-18.0) L 07/18/19 04:45 Hct 27.1 % (42.0-54.0) L 07/18/19 04:45 MCV 99.2 fL (80.0-100.0) 07/18/19 04:45 MCH 34.6 pg (27.0-34.0) H 07/18/19 04:45 MCHC 34.9 g/dL (33.0-35.0) 07/18/19 04:45 RDW 15.3 % (11.6-16.5) 07/18/19 04:45 Plt Count 78 X10^3/uL (150.0-450.0) L 07/18/19 04:45 Plt Count Comment Adequate (ADEQUATE) 07/18/19 04:45 MPV 8.3 fL (7.4-11.0) 07/18/19 04:45 Neut % (Auto) 15.0 % (42.0-75.0) L 07/18/19 04:45 Lymph % (Auto) 11.8 % (21.0-51.0) L 07/18/19 04:45 [place] % (Auto) 73.0 % (0.0-13.0) H 07/18/19 04:45 Eos % (Auto) 0.0 % (0.9-2.9) L 07/18/19 04:45 Baso % (Auto) 0.2 % (0.2-1.0) 07/18/19 04:45 Neut # (Auto) 0.5 x10^3/uL (2.2-4.8) L 07/18/19 04:45 Lymph # (Auto) 0.4 X10^3/uL (1.3-2.9) L 07/18/19 04:45 [place] # (Auto) 2.4 x10^3/uL (0.3-0.8) H 07/18/19 04:45 Eos # (Auto) 0.0 x10^3/uL (0.0-0.2) 07/18/19 04:45 Baso # (Auto) 0.0 X10^3/uL (0.0-0.1) 07/18/19 04:45 Absolute Nucleated RBC 0.2 /100WBC 07/18/19 04:45 Total Counted 100 07/18/19 04:45 Neutrophils % (Manual) 24 % (39-76) L 07/18/19 04:45 Band Neutrophils % 3 % (0-10) 07/17/19 04:46 Lymphocytes % (Manual) 58 % (13-43) H 07/18/19 04:45 Monocytes % (Manual) 18 % (4-9) H 07/18/19 04:45 Plt Morphology Comment Normal (NORMAL) 07/18/19 04:45 RBC Morphology Normal (NORMAL) 07/18/19 04:45 Sodium 137 mmol/L (136-145) 07/18/19 04:45 Corrected Sodium TNP 07/18/19 04:45 Potassium 4.2 mmol/L (3.5-5.1) 07/18/19 04:45 Chloride 106 mmol/L (98-107) 07/18/19 04:45 Carbon Dioxide 24.6 mmol/L (21-32) 07/18/19 04:45 BUN 21 mg/dL (7-18) H 07/18/19 04:45 Creatinine 1.05 mg/dL (0.70-1.30) 07/18/19 04:45 Est GFR (MDRD) Af Amer > 60 (>60) 07/18/19 04:45 Est GFR (MDRD) Non-Af > 60 (>60) 07/18/19 04:45 Glucose 99 mg/dL (65-99) 07/18/19 04:45 Calcium 6.9 mg/dL (8.5-10.1) L 07/18/19 04:45 Corrected Calcium 8.2 mg/dL (8.5-10.1) L 07/18/19 04:45 Magnesium 2.2 mg/dL (1.7-2.9) 07/17/19 04:46 Total Bilirubin 0.30 mg/dL (0.2-1.0) 07/18/19 04:45 AST 28 Units/L (15-37) 07/18/19 04:45 ALT 24 Units/L (12-78) 07/18/19 04:45 Alkaline Phosphatase 77 Units/L (46-116) 07/18/19 04:45 Creatine Kinase 30 Units/L (39-308) L 07/17/19 00:30 CK-MB (CK-2) < 1.0 ng/mL (0-4.0) 07/17/19 00:30 CK/CKMB % Calc 3.3 % (<4) 07/17/19 00:30 Troponin I < 0.02 ng/mL (0-1.5) 07/17/19 00:30 Total Protein 5.1 g/dL (6.4-8.2) L 07/18/19 04:45 Albumin 2.4 g/dL (3.4-5.0) L 07/18/19 04:45 Globulin 2.7 g/dL (2.5-4.5) 07/18/19 04:45 Albumin/Globulin Ratio 0.9 Ratio (1.1-2.1) L 07/18/19 04:45 Specimen Type Clean catch urine 07/16/19 15:30 Urine Color Yellow (YELLOW) 07/16/19 15:30 Urine Appearance Clear (CLEAR) 07/16/19 15:30 Urine pH 5.0 (5.0 - 8.0) 07/16/19 15:30 Ur Specific [place] 1.020 (1.000-1.030) 07/16/19 15:30 Urine Protein 2+ (NEGATIVE) 07/16/19 15:30 Urine Glucose (UA) Negative (NEGATIVE) 07/16/19 15:30 Urine Ketones Negative (NEGATIVE) 07/16/19 15:30 Urine Occult Blood 1+ (NEGATIVE) 07/16/19 15:30 Urine Nitrite Negative (NEGATIVE) 07/16/19 15:30 Urine Bilirubin Negative (NEGATIVE) 07/16/19 15:30 Urine Urobilinogen Normal (NORMAL) 07/16/19 15:30 Ur Leukocyte Esterase 1+ (NEGATIVE) 07/16/19 15:30 Urine RBC 3-5 /HPF (0-3) A 07/16/19 15:30 Urine WBC 0-2 /HPF (0-5) 07/16/19 15:30 Ur Squamous Epith Cells Negative /HPF (NEGATIVE) 07/16/19 15:30 Urine Bacteria Negative /HPF (NEGATIVE) 07/16/19 15:30 Urine Mucus Few /HPF (NEGATIVE) 07/16/19 15:30 Ur Culture Indicated? No/not indicated 07/16/19 15:30 Stool Description 50g drk brn lqd 07/17/19 16:20 Stool Description 50g,brown,liquid 07/17/19 16:20 Stl Occult Blood (IFOB) Positive (NEGATIVE) A 07/17/19 16:20 Stool for White Cells Positive (NEGATIVE) A 07/17/19 16:20 Stl C. diff Tox B Gene Negative (NEGATIVE) 07/17/19 16:20 Stl C. diff [id number] Negative (NEGATIVE) 07/17/19 16:20 Cryptosporid parvum Ag Negative (NEGATIVE) 07/17/19 16:20 Giardia lamblia Ag Negative (NEGATIVE) 07/17/19 16:20 Influenza Type A (PCR) Negative (NEGATIVE) 07/17/19 01:45 Influenza Type B (PCR) Negative (NEGATIVE) 07/17/19 01:45 S. pyogenes (TEM-PCR) Not detected (NOT DETECT) 07/17/19 01:45 - Plan (1) Intractable low back pain Status: Acute Plan: ADMIT, IV FLUIDS, TORADOL 30MG IV Q6H, CONTINUE TO MONITOR (2) Diarrhea Status: Acute Qualifiers: Diarrhea type: presumed infectious Qualified Code(s): R19.7 - Diarrhea, unspecified Plan: STOOL CULTURES, IV VANCOMYCIN, CONTINUE TO MONITOR (3) Fever Status: Acute Qualifiers: Encounter type: initial encounter
[2019-07-19 06:39] LABS: BAND NEUTROPHILS % 6 % (0-10)
[2019-07-19 06:40] LABS: HYPOCHROMASIA SLIGHT; PLATELET MORPHOLOGY COMMENT NORMAL (NORMAL)
[2019-07-19] MEDS: PEPCID 20 MG IV PREMIX* 20 MG/50 ML BAG IV SCH (09:27)
[2019-07-19] MEDS: PREDNISONE TAB 20 MG PO SCH (09:30)
[2019-07-19] MEDS: PROzac PO SCH (09:30)
[2019-07-19] MEDS: PROTONIX INJ 40 MG VIAL IVP SCH (09:30)
[2019-07-19] MEDS: FLOMAX PO SCH (09:30)
[2019-07-19] MEDS: ULTRAM PO SCH (09:30)
[2019-07-19] MEDS: FOLIC ACID TAB 1 MG PO SCH (09:32)
[2019-07-19] MEDS: FLAGYL IV PREMIX 500 MG BAG 500 MG/100 ML BAG IV SCH (10:08)
[2019-07-19] MEDS: LEVAQUIN PREMIX IV 500 MG 500 MG/100 ML BAG IV SCH (11:15)
[2019-07-19] MEDS: PATIENT'S HOME MEDICATION EACHEYE SCH (11:18)
[2019-07-19 15:02] VITALS: BP 157/74
== END 2019-07-19 13:05 | disposition home or self-care (01) ==
LOC: MED/SURG
PROVIDERS: ADMIT Internal Medicine; ATTEND Internal Medicine
DX: F41.1 Generalized anxiety disorder; M48.54XA Collapsed vertebra, not elsewhere classified, thoracic region, initial encounter for fracture; M48.56XA Collapsed vertebra, not elsewhere classified, lumbar region, initial encounter for fracture; M51.36 Other intervertebral disc degeneration, lumbar region; N40.0 Benign prostatic hyperplasia without lower urinary tract symptoms; K57.31 Diverticulosis of large intestine without perforation or abscess with bleeding; R53.1 Weakness; R10.84 Generalized abdominal pain; R19.7 Diarrhea, unspecified; E03.8 Other specified hypothyroidism; K21.9 Gastro-esophageal reflux disease without esophagitis; E11.65 Type 2 diabetes mellitus with hyperglycemia; N20.0 Calculus of kidney
CPT/HCPCS: 36415; 71010; 71045; 74176; 80053; 81001; 82270; 82550; 82553; 83630; 83735; 84132; 84484; 85025; 87040; 87045; 87328; 87329; 87427; 87449; 87493; 87502; 87651; 87899; 93005; 96360; 96361; 96374; A4216; A4222; B5200; C9113; S0028; S0030; G0378; J1885; J1956; J2405; J3475; J3480; J3490; J7030; J7512

== ENCOUNTER 2019-07-24 20:25 | Inpatient (IN) ==
[2019-07-24 20:38] VITALS: BMI 25.1
--- NOTE | 2019-07-24 21:25 | DR.EXTPAIN ---
HPI - Time seen Time seen: 21:24 - PCP Primary Care Physician: LEIDY - Complaint/Symptoms Chief Complaint Doctor Comments: Patient states he was walking to the bathroom on his walker when he passed out. states he fell face first and she tried to break his fall but he fell face first on his left arm and chest with left sided rib pain. States patient made and unsual sound when he fell and had large fecal incontinence. states she think he had a seizure but was not shaking. States he is a patient of Dr. Alfaro and has multiple medical problems. He is complaining of left chest and shoulder pain. He has an skin tear on his left ar m. states he has a dull headache but denies nausea, vomiting or SOB. states the pain is 8 of 10. Chief Complaint:: EMS STATES THAT PATIENT FELL EARLIER TODAY AND THEY WERE TIED UP WITH A TRANSFER IN [place] AND PT WAITED UNTIL THEY WERE AVAILABLE TO BRING HIM FROM [place] TO [place] WHERE HE REQUESTED DUE TO HIS DR BEING HERE, UPON ASKING PT IN TRIAGE, PT STATES HE FELL A FEW HOURS AGO AND WANTED TO COME HERE DUE TO HIS DR BEING HERE , COMPLAINTS OF LEFT CHEST WALL PAIN, PT STATES THAT IS THE ONLY PLACE HE HIT WHEN HE FELL, SKIN TEAR NOTED TO LEFT FOREARM BANDAGED PER EM S, PT IN NO DISTRESS IN TRIAGE. Self Treatment fo Chief Complaint: N/A - Nurses notes reviewed Nurses Notes Review: Yes - Source History Provided: Patient, EMS - Mode of arrival Mode of Arrival: EMS - Timing Onset of Chief Complaint: 07/24/19 - Context History of: Arthritis - Associated signs and symptoms Associated Signs and Symptoms: Abrasion, Laceration, Pain PMH - PMH Past Medical History: Yes Past Medical History: Anemia Past Medical History Comment: MDS. DISK IN BACK. AUTO IMMUNE. VASCULITIS Past Surgical History: Yes Surgical History: Appendectomy, Cholecystectomy Past Surgical History Comment: TUMOR REMOVED - Family History History of Family Medical Conditions: Yes Family Medical History: Diabetes Mellitus, Cancer, Hypertension - Social History Does patient currently use any type of tobacco product: No Have you used tobacco products in the last 12 months: No Type of Tobacco Use: None Does any household member use tobacco: No Alcohol Use: None Do you use any recreational Drugs:: No Lives With: Spouse, Family Lives Where: Home - infectious screening In the last 2 months have you had wt loss of >10#?: NO Have you had fever, night sweats or hemotysis?: No Have you traveled outside the country in the last 6 months?: No Isolation: Standard ROS - Review of Systems Constitutional: No Symptoms Reported Eyes: No Symptoms Reported ENTM: No Symptoms Reported Respiratoy: No Symptoms Reported. negative: See HPI, Productive Cough, Non- Productive Cough, Moist Cough, Dry Cough, Hacking Cough, Barking Cough, Brassy Cough, Orthopnea, Short of Breath, Stridor, Wheezing, Hemoptysis, Other Cardiovascular: No Symptoms Reported, Chest Pain (left chest wall pain) Gastrointestinal/Abdominal: No Symptoms Reported Genitourinary: No Symptoms Reported Neurological: No Symptoms Reported, Headache, Problems Walking Musculoskeletal: No Symptoms Reported, Left, Shoulder, Forearm Integumentary: No Symptoms Reported, Wound (left forearm with ecchymosis and skin tear) Hematologic/Lymphatic: No Symptoms Reported, Easy Bruising Endocrine: No Symptoms Reported Psychiatric: No Symptoms Reported PE - General Limitations: No Limitations General Appearance: Alert, In Distress (moderate) - Head Head Exam: Normal Inspection, Atraumatic, Normocephalic - Eyes Eye exam: Normal Appearance, PERRL, EOMI. negative: Scleral Icterus, Conjunctival Injection, Nystagmus, Miosis, Mydrasis, Periorbital Swelling, Periorbital Tenderness, Other - ENT ENT Exam: Normal Exam, Normal Oropharynx, Normal External Ear Exam, Mucous Membranes Moist, TM's Normal Bilaterally - Neck Neck Exam: Normal Inspection, Full ROM, Trachea Midline. negative: Tenderness, Meningismus, Lymphadenopathy, Thyromegaly, Other - Chest Chest Inspection: Normal Inspection, Symmetric Chest Wall Rise, Tenderness (left chest wall tenderness lateral chest T5 area) - Respiratory Respiratory Exam: Normal Lung Sounds Bilat, Chest Wall Tenderness Respiratory Exam: Bilateral Clear to Auscultation - Cardiovascular Cardiovascular Exam: Regular Rate, Normal Rhythm, Normal Heart Sounds, Systolic Murmur - Abdominal Exam Abdominal Exam: Normal Inspection, Normal Bowel Sounds, Soft. negative: Distention, Tenderness, Guarding, Rebound, Rigidity, Dimnished Bowel Sounds, Hyperactive Bowel Sounds, Hypoactive Bowel Sounds, Organomegaly, Trauma, Incision, Ascites, Mass, Bruit, Pulsatile Mass, Hernia, Other Abdominal Tenderness: negative: RUQ, RLQ, LUQ, LLQ, Epigastrium, Suprapubic, Diffuse, Mild, Moderate, Severe, Other - Extremities Extremities Exam: Normal Inspection, Full ROM, Tenderness (left shoulde and arm), Normal Capillary Refill - Upper Extremities Shoulder Exam: Normal Inspection, Full ROM, Tenderness Arm Exam: Normal Inspection, Full ROM, Abrasion, Laceration (left arm with skin tear) Elbow Exam: Normal Inspection, Full ROM. negative: Tenderness, Swelling, Abrasion, Laceration, Ecchymosis, Deformity, Crepitus, Dislocation, Erythema, Effusion, Pain w/ pronation, Pain w/ Spuination, Tenderness over Radial Head, Other Forearm Exam: Normal Inspection, Full ROM, Laceration (skin tear left forearm) Hand Exam: Normal Inspection, Full ROM Neuromotor Exam: Normal Exam Neurosensory Exam: Normal Exam Upper Ext. Vascular Exam: Capillary Refill (normal) - Lower Extremities Hip/Pelvis Exam: Normal Inspection, Full ROM. negative: Tenderness, Swelling, Abrasion, Laceration, Ecchymosis, Deformity, Crepitus, Dislocation, Erythema, External Rotation, Internal Rotation, Shortening, Pelvis Stable, Other Upper Leg Exam: Normal Inspection, Full ROM. negative: Tenderness, Swelling, Abrasion, Laceration, Ecchymosis, Deformity, Crepitus, Dislocation, Erythema, Other Knee Exam: Normal Inspection, Full ROM. negative: Tenderness, Swelling, Abrasion, Laceration, Ecchymosis, Deformity, Crepitus, Dislocation, Erythema, Effusion, Anterior Drawer Sign, Posterior Draw Sign, Pain with Valgus, Laxity with Valgus, Pain with Varus, Knee Extension Intact, Other Lower Leg Exam: Normal Inspection, Full ROM Ankle Exam: Normal Inspection, Full ROM Foot/Toe Exam: Normal Inspection, Full ROM Neurovascular/Tendon Exam: Normal Capillary Refill Gait Exam: Not Tested/Not Observed - Back Back Exam: Normal Inspection, Full ROM - Neurological Neurological Exam: Alert, Oriented X3, CN II-XII Intact, Reflexes Normal. negative: Normal Gait (gait not tested) - Psychiatric Psychiatric Exam: Normal Affect, Normal Mood. negative: Depressed, Agitated, Anxious, Flat Affect, Manic, Homicidal Ideation, Suicidal Ideation, Other - Skin Skin Exam: Warm, Dry, Intact, Normal Color Type of Lesion: Laceration Distribution: LUE. negative: Generalized, Involves Palms/Soles, Head, Face, Neck, Thorax, Chest, Back, Abdomen, Genitals, LLE, RUE, RLE, Other Description: negative: Size, Tenderness, Erythematous, Swelling, Macular, Papular, Vesicular, Blisters, Cofluent, Bullous, Petechial, Purpuric, Urticarial, Crusting, Discharge, Fluctuant, Indurated, Other - Vital Signs Vitals: Temperature 97.4 F Pulse Rate [Right] 84 Pulse Rate 94 Respiratory Rate 20 Blood Pressure [Left Arm] 141/85 Blood Pressure [Right Arm] 146/84 Blood Pressure 144/83 O2 Sat by Pulse Oximetry 100 ROR - Labs Reviewed Laboratory Results Reviewed?: Yes Result Diagrams: 07/24/19 21:50 07/24/19 21:50 - XRAY XRAY Interpreted by: Radiologist (CT head: NO acute intracranial. Mild to mod atrophic changes.), Both XRAY Findings: CT chest: No acute traumatic injury to chest. Multiple compression fracture - EKG Rate: 78 [place]: Normal Rhythm: NSR Block: None Hypertrophy: None ST: Nonsp (CT cervical spine: NO acute traumatic injury of the chest. Multiple compression Fx thoracic spine. Bilateral renal stones) - Labs Reviewed Laboratory: WBC 4.7 X10^3/uL (3.6-10.0) 07/24/19 21:50 RBC 3.55 X10^6/uL (4.7-6.0) L 07/24/19 21:50 Hgb 12.0 g/dL (13.5-18.0) L 07/24/19 21:50 Hct 34.3 % (42.0-54.0) L 07/24/19 21:50 MCV 96.4 fL (80.0-100.0) 07/24/19 21:50 MCH 33.7 pg (27.0-34.0) 07/24/19 21:50 MCHC 35.0 g/dL (33.0-35.0) 07/24/19 21:50 RDW 14.9 % (11.6-16.5) 07/24/19 21:50 Plt Count 199 X10^3/uL (150.0-450.0) 07/24/19 21:50 Plt Count Comment Adequate (ADEQUATE) 07/24/19 21:50 MPV 8.2 fL (7.4-11.0) 07/24/19 21:50 Neut % (Auto) 22.8 % (42.0-75.0) L 07/24/19 21:50 Lymph % (Auto) 27.1 % (21.0-51.0) 07/24/19 21:50 [place] % (Auto) 49.8 % (0.0-13.0) H 07/24/19 21:50 Eos % (Auto) 0.2 % (0.9-2.9) L 07/24/19 21:50 Baso % (Auto) 0.1 % (0.2-1.0) L 07/24/19 21:50 Neut # (Auto) 1.1 x10^3/uL (2.2-4.8) L 07/24/19 21:50 Lymph # (Auto) 1.3 X10^3/uL (1.3-2.9) 07/24/19 21:50 [place] # (Auto) 2.4 x10^3/uL (0.3-0.8) H 07/24/19 21:50 Eos # (Auto) 0.0 x10^3/uL (0.0-0.2) 07/24/19 21:50 Baso # (Auto) 0.0 X10^3/uL (0.0-0.1) 07/24/19 21:50 Absolute Nucleated RBC 0.0 /100WBC 07/24/19 21:50 Total Counted 100 07/24/19 21:50 Neutrophils % (Manual) 23 % (39-76) L 07/24/19 21:50 Band Neutrophils % 4 % (0-10) 07/24/19 21:50 Lymphocytes % (Manual) 30 % (13-43) 07/24/19 21:50 Monocytes % (Manual) 38 % (4-9) H 07/24/19 21:50 Metamyelocytes % 3 07/24/19 21:50 Myelocytes % 2 07/24/19 21:50 Plt Morphology Comment Normal (NORMAL) 07/24/19 21:50 RBC Morphology Normal (NORMAL) 07/24/19 21:50 PT 12.3 SECONDS (11.8-14.3) 07/24/19 21:50 INR Target Range - 07/24/19 21:50 INR 0.95 (0.8-1.3) 07/24/19 21:50 APTT 28.4 SECONDS (22.9-36.5) 07/24/19 21:50 PTT Comment - 07/24/19 21:50 Sodium 140 mmol/L (136-145) 07/24/19 21:50 Corrected Sodium 140 mmol/L (136-145) 07/24/19 21:50 Potassium 3.2 mmol/L (3.5-5.1) L 07/24/19 21:50 Chloride 102 mmol/L (98-107) 07/24/19 21:50 Carbon Dioxide 28.9 mmol/L (21-32) 07/24/19 21:50 BUN 12 mg/dL (7-18) 07/24/19 21:50 Creatinine 0.92 mg/dL (0.70-1.30) 07/24/19 21:50 Est GFR (MDRD) Af Amer > 60 (>60) 07/24/19 21:50 Est GFR (MDRD) Non-Af > 60 (>60) 07/24/19 21:50 Glucose 115 mg/dL (65-99) H 07/24/19 21:50 Calcium 8.3 mg/dL (8.5-10.1) L 07/24/19 21:50 Corrected Calcium TNP 07/24/19 21:50 Magnesium 1.6 mg/dL (1.7-2.9) L 07/24/19 21:50 Total Bilirubin 0.50 mg/dL (0.2-1.0) 07/24/19 21:50 AST 32 Units/L (15-37) 07/24/19 21:50 ALT 83 Units/L (12-78) H 07/24/19 21:50 Alkaline Phosphatase 119 Units/L (46-116) H 07/24/19 21:50 Creatine Kinase 28 Units/L (39-308) L 07/24/19 21:50 CK-MB (CK-2) < 1.0 ng/mL (0-4.0) 07/24/19 21:50 CK/CKMB % Calc 3.6 % (<4) 07/24/19 21:50 Troponin I < 0.02 ng/mL (0-1.5) 07/24/19 21:50 Total Protein 6.5 g/dL (6.4-8.2) 07/24/19 21:50 Albumin 3.5 g/dL (3.4-5.0) 07/24/19 21:50 Globulin 3.0 g/dL (2.5-4.5) 07/24/19 21:50 Albumin/Globulin Ratio 1.2 Ratio (1.1-2.1) 07/24/19 21:50 Opioid - Opioid Risk Tool Age (Kem box if 16-45): No History of Preadolescent Sexual Abuse: No Total: 0 Total Score Risk Category: Low Risk - Diagnosis Discharge Problem: Syncope and collapse, AMS (altered mental status), Hypokalemia, Myelodysplasia (myelodysplastic syndrome), Bilateral kidney stones Compression fracture of T11 vertebra Qualifiers: Encounter type: initial encounter Qualified Code(s): S22.080A - Wedge compression fracture of T11-T12 vertebra, initial encounter for closed fracture - Discharge Plan Disposition: ADMITTED INPATIENT Condition: Stable - Follow ups/Referrals Follow ups/Referrals: NFD,None [Primary Care Provider] - 3 days - Instructions
[2019-07-24] MEDS ORDERED: NS 1000 ML 1,000 ML ONE (21:42)
[2019-07-24 22:00] LABS: BASOPHILS % (AUTO) 0.1 % (0.2-1.0); EOSINOPHILS % (AUTO) 0.2 % (0.9-2.9); HEMATOCRIT 34.3 % (42.0-54.0); LYMPHOCYTES # (AUTO) 1.3 X10^3/uL (1.3-2.9); LYMPHOCYTES % (AUTO) 27.1 % (21.0-51.0); MEAN CORPUSCULAR HEMOGLOBIN 33.7 pg (27.0-34.0); MEAN CORPUSCULAR VOLUME 96.4 fL (80.0-100.0); MEAN PLATELET VOLUME 8.2 fL (7.4-11.0); MONOCYTES # (AUTO) 2.4 x10^3/uL (0.3-0.8); MONOCYTES % (AUTO) 49.8 % (0.0-13.0); NEUTROPHILS # (AUTO) 1.1 x10^3/uL (2.2-4.8); NEUTROPHILS % (AUTO) 22.8 % (42.0-75.0); PLATELET COUNT 199 X10^3/uL (150.0-450.0); RED BLOOD COUNT 3.55 X10^6/uL (4.7-6.0); RED CELL DISTRIBUTION WIDTH 14.9 % (11.6-16.5); WHITE BLOOD COUNT 4.7 X10^3/uL (3.6-10.0)
[2019-07-24] MEDS ORDERED: NS 1000 ML 1,000 ML IV SCH (22:00)
[2019-07-24 22:17] LABS: BLOOD UREA NITROGEN 12 mg/dL (7-18); CALCIUM 8.3 mg/dL (8.5-10.1); CARBON DIOXIDE 28.9 mmol/L (21-32); CHLORIDE 102 mmol/L (98-107); COR NA(FOR HYPERGLY) 140 mmol/L (136-145); CREATININE 0.92 mg/dL (0.70-1.30); SODIUM 140 mmol/L (136-145); TROPONIN I < 0.02 ng/mL (0-1.5); eGFR NON BLACK RACES > 60 (>60)
[2019-07-24 22:18] LABS: BAND NEUTROPHILS % 4 % (0-10); METAMYELOCYTES % 3; MYELOCYTES % 2; PLATELET MORPHOLOGY COMMENT NORMAL (NORMAL)
[2019-07-24 22:21] LABS: ALANINE AMINOTRANSFERASE 83 Units/L (12-78); ALBUMIN 3.5 g/dL (3.4-5.0); ALKALINE PHOSPHATASE 119 Units/L (46-116); ASPARTATE AMINO TRANSFERASE 32 Units/L (15-37); CKMB % 3.6 % (<4); CREATINE KINASE 28 Units/L (39-308); CREATINE KINASE MB < 1.0 ng/mL (0-4.0); MAGNESIUM 1.6 mg/dL (1.7-2.9); TOTAL PROTEIN 6.5 g/dL (6.4-8.2)
[2019-07-24] MEDS ORDERED: TORADOL 30 MG VIAL IVP ONE (22:33)
[2019-07-24] MEDS ORDERED: TORADOL 30 MG VIAL ONE (22:34)
[2019-07-24] MEDS ORDERED: ZOFRAN INJ 4 MG VIAL IVP ONE (22:43)
[2019-07-24] MEDS ORDERED: ZOFRAN INJ 4 MG VIAL ONE (22:44)
--- NOTE | 2019-07-24 22:49 | RAD ---
Left shoulder three viewsIndication: Pain after fall.FINDINGSThere is no cortical lucency or malalignment. Acromioclavicular and glenohumeral joints are intact and show mild degenerative change.IMPRESSIONNo acute left shoulder fracture. Mild DJD.Electronically signed by: ADONIS MENCHACA (Jul 24, 2019 22:47:26)
--- NOTE | 2019-07-24 23:04 | CT ---
CT head without contrastIndication: Pain after fallTECHNIQUEAxial images from the skullbase to the vertex without contrast. Coronal and sagittal reformats providedFINDINGSThere is no acute intracranial hemorrhage, mass or mass effect. There is no extra-axial fluid collection or abnormal area of hypoattenuation to suggest infarction. Ventricles and sulci show mild to moderate ex vacuo enlargement. Paranasal sinuses and mastoid air cells are clear. No skull fracture seen.IMPRESSIONNo acute intracranial hemorrhage. [id number] atrophic changesElectronically signed by: ADONIS MENCHACA (Jul 24, 2019 23:02:34)
--- NOTE | 2019-07-24 23:13 | CT ---
CT chest without contrastIndication: Pain after fallTECHNIQUEHelical images through the chest without contrast. Coronal and sagittal reformats providedComparison July 17, 2019 CT abdomen and pelvisFINDINGSKidneys show bilateral nonobstructing renal stones, similar to the prior. Aortoiliac calcifications are noted. No other upper abdominal abnormality identified.Chest: Aortic arch and branch vessels show minimal calcifications. There are few coronary artery and mitral valve calcifications noted. Heart size is normal. There is no mediastinal abnormality. Chest wall soft tissues appear normal. No displaced rib fractures identified. Compression deformity at T11 is unchanged from the prior. Compression deformity at T9 is unchanged from the prior. Remaining vertebral body heights are normal. Mild spine DJD noted.There is no pneumothorax, effusion or consolidation. Minimal scarring is noted in the lung bases.IMPRESSION1. No acute traumatic injury to the chest2. Multiple unchanged compression fractures in the thoracic spine3. Multiple nonobstructing renal stones, similar to the prior. See separately dictated prior CTElectronically signed by: ADONIS MENCHACA (Jul 24, 2019 23:11:49)
[2019-07-24] MEDS ORDERED: K-LYTE EFFERVESCENT ONE (23:36)
[2019-07-24] MEDS: K-LYTE EFFERVESCENT PO SCH (23:41)
[2019-07-25] MEDS ORDERED: FLUOCINONIDE 0.05% TP PRN (00:12)
[2019-07-25] MEDS: NS 1/2 1000 ML IV 1,000 ML IV SCH ×2 (02:00→02:14)
[2019-07-25] MEDS ORDERED: NS 1/2 1000 ML IV 1,000 ML IV ONE (02:14)
[2019-07-25] MEDS ORDERED: NORCO 5/325 MG TAB PO PRN (02:32)
[2019-07-25] MEDS ORDERED: NORCO 5/325 MG TAB ONE (02:35)
[2019-07-25] MEDS ORDERED: K-DUR TAB 20 MEQ PO PRN (05:17)
[2019-07-25] MEDS ORDERED: KLOR-CON PO PRN (05:17)
[2019-07-25] MEDS ORDERED: MICRO K EXTEN CAP 10 MEQ PO PRN (05:17)
[2019-07-25] MEDS ORDERED: POTASSIUM CHL 60 MEQ/NS 0.45% 500 ML IV PRN (05:17)
[2019-07-25] MEDS ORDERED: POTASSIUM CHL 40 MEQ/NS 0.45% 500 ML IV PRN (05:17)
[2019-07-25] MEDS ORDERED: POTASSIUM CHLORIDE LIQ 20 MEQ UDC PO PRN (05:17)
[2019-07-25] MEDS ORDERED: K-RIDER 10 MEQ/NS 100 ML 10 MEQ/100 ML BAG IV PRN (05:17)
[2019-07-25] MEDS ORDERED: VANCOMYCIN HCL PO ONE (05:48)
[2019-07-25] MEDS ORDERED: MAGNESIUM SULFATE 1 GRAM/100 mL PREMIX 1 G/100 ML BAG IV ONE (05:49)
[2019-07-25] MEDS ORDERED: NEURONTIN CAP 300 MG PO ONE (05:49)
[2019-07-25] MEDS ORDERED: PREDNISONE TAB 20 MG PO ONE (05:50)
[2019-07-25 05:52] LABS: BASOPHILS % (AUTO) 0.1 % (0.2-1.0); EOSINOPHILS % (AUTO) 0.1 % (0.9-2.9); HEMATOCRIT 29.9 % (42.0-54.0); HEMOGLOBIN 10.6 g/dL (13.5-18.0); LYMPHOCYTES # (AUTO) 1.5 X10^3/uL (1.3-2.9); LYMPHOCYTES % (AUTO) 29.7 % (21.0-51.0); MEAN CORPUSCULAR HGB CONC 35.4 g/dL (33.0-35.0); MEAN PLATELET VOLUME 8.2 fL (7.4-11.0); MONOCYTES # (AUTO) 2.8 x10^3/uL (0.3-0.8); MONOCYTES % (AUTO) 55.8 % (0.0-13.0); NEUTROPHILS # (AUTO) 0.7 x10^3/uL (2.2-4.8); NEUTROPHILS % (AUTO) 14.3 % (42.0-75.0); PLATELET COUNT 190 X10^3/uL (150.0-450.0); RED BLOOD COUNT 3.11 X10^6/uL (4.7-6.0); RED CELL DISTRIBUTION WIDTH 15.1 % (11.6-16.5); WHITE BLOOD COUNT 5.1 X10^3/uL (3.6-10.0)
[2019-07-25] MEDS ORDERED: NEURONTIN CAP 300 MG PO SCH (06:00)
[2019-07-25] MEDS ORDERED: NEURONTIN CAP 100 MG ONE (06:23)
[2019-07-25] MEDS: VANCOMYCIN HCL PO SCH ×3 (06:30→22:01)
[2019-07-25] MEDS ORDERED: PREDNISONE TAB 20 MG PO SCH (06:30)
[2019-07-25 06:31] LABS: BAND NEUTROPHILS % 2 % (0-10)
[2019-07-25] MEDS: MAGNESIUM SULFATE 1 GRAM/100 mL PREMIX 1 GM/100 ML BAG IV PRN ×2 (06:31→08:40)
[2019-07-25 06:32] LABS: PLATELET MORPHOLOGY COMMENT NORMAL (NORMAL)
[2019-07-25] MEDS: NEURONTIN CAP 100 MG PO SCH ×3 (06:32→22:00)
[2019-07-25 06:33] LABS: METAMYELOCYTES % 4; MYELOCYTES % 1
[2019-07-25] MEDS: PROTONIX TAB 40 MG PO SCH ×2 (08:42→20:11)
[2019-07-25] MEDS: PREDNISONE TAB 10 MG PO SCH ×2 (08:42→20:11)
[2019-07-25] MEDS: FOLIC ACID TAB 1 MG PO SCH (08:42)
[2019-07-25] MEDS: K-LYTE EFFERVESCENT PO SCH (08:42)
[2019-07-25] MEDS: PRED FORTE 1 % OP SCH ×4 (10:00→20:12)
[2019-07-25] MEDS ORDERED: MORPHINE SULFATE INJ 2 MG INJ ONE (10:05)
[2019-07-25] MEDS ORDERED: VITAMIN D3 PO ONE (10:06)
[2019-07-25] MEDS: CHOLECALCIFEROL 2000 UNIT PO SCH ×2 (10:06→22:00)
[2019-07-25] MEDS: SYNTHROID 75 mcg TAB PO SCH (10:09)
[2019-07-25] MEDS: MORPHINE SULFATE INJ 2 MG INJ IVP PRN ×3 (10:14→19:15)
[2019-07-25 11:56] LABS: HEMATOCRIT 30.1 % (42.0-54.0); HEMOGLOBIN 10.4 g/dL (13.5-18.0)
[2019-07-25 12:55] LABS: BILIRUBIN,URINE NEGATIVE (NEGATIVE); BLOOD/HEMOGLOBIN,URINE NEGATIVE (NEGATIVE); GLUCOSE, URINE NEGATIVE (NEGATIVE); KETONES,URINE 1+ (NEGATIVE); LEUKOCYTE ESTERASE ,URINE 1+ (NEGATIVE); NITRITES,URINE NEGATIVE (NEGATIVE); PROTEIN,URINE 2+ (NEGATIVE); UROBILINOGEN,URINE NORMAL (NORMAL)
--- NOTE | 2019-07-25 12:57 | DR.H&P ---
H&P - History & Physical for Day of: H&P Date: 07/25/19 - Chief Complaint Chief Complaint: SYNCOPE, LEFT ABDOMINAL PAIN - History of Present Illness History of Present Illness: PT IS 74 WM ER ADMISSION AFTER PRESENTING WITH EMS,Patient states he was walking to the bathroom on his walker when he passed out. states he fell face first and she tried to break his fall but he fell face first on his left arm and chest with left sided rib pain. States patient made and unsual sound when he fell and had large fecal incontinence. states she think he had a seizure but was not shaking. States he is a patient of Dr. Alfaro and has multiple medical problems. He is complaining of left chest and shoulder pain. He has an skin tear on his left arm. states he has a dull headache but denies nausea, vomiting or SOB. states the pain is 8 of 10. PT HAS PMH OF MDS, OA, COLITIS, LUMBAR SPINE DDD WITH SPINAL STENOSIS, CHRONIC T SPINE COMPRESSION FRACTURES, ANEMIA. PT ADMITTED FOR TREATMENT OF ACUTE ILLNESS, CT HEAD OBTAIN IN ER PRIOR TO ADMISSION. - Past Medical History Past Medical History: Anemia, Arthritis, Kidney Stones Additional Medical History: AUTO IMMUNE DISORDER, MDS, NEUTROPEIA, LEUKOPENIA. BPH - Past Surgical History Surgical History: Appendectomy, Cholecystectomy, Other Additional Surgical History: BENIGN PARATHYROID TUMOR REMOVED - Family History Family Medical History: Diabetes Mellitus, Cancer, Hypertension - Social History Does patient currently use any type of tobacco product: No Have you used tobacco products in the last 12 months: No Type of Tobacco Use: None Does any household member use tobacco: No Alcohol Use: None Drug Use: None - Medications Home Medications: promethazine [From Phenergan] Allergy (Verified 07/25/19 05:56) CONTINUE taking the following medications hydrocodone-acetaminophen 1 tab PO Q6H PRN 07/24/19 [History] prednisone 20 mg PO DAILY 07/24/19 [History] famotidine 40 mg PO BID 07/25/19 [History] gabapentin 300 mg PO TID 07/25/19 [History] metoprolol tartrate 25 mg PO BID 07/25/19 [History] - Review of Systems Constitutional: Weakness Eyes: No Symptoms Reported ENT: No Symptoms Reported Respiratory: Pleuritic Pain Cardiovascular: No Symptoms Reported. denies: Edema Gastrointestinal: Abdominal Pain, Diarrhea. denies: Nausea, Vomiting Genitourinary: No Symptoms Reported Musculoskeletal: Back Pain Skin: Wound (SKIN TEAR LEFT ARM) Neurological: Weakness - Physical Exam Vital Signs: Temperature 98.4 F Pulse Rate [Right] 70 Pulse Rate 94 Respiratory Rate 18 Blood Pressure [Left Arm] 141/85 Blood Pressure [Right Arm] 134/74 Blood Pressure 144/83 O2 Sat by Pulse Oximetry 98 Oriented: Person Eyes: Normal Ear: Normal Nose: Normal Throat: Dry Respiratory: RLL Diminished, LLL Diminished Cardiovascular: Irregular. negative: Murmur, Edema : Normal Auscultation: Bowel Sounds: Normal Palpation: Normal Tenderness: LUQ, LLQ Skin: Decreased Turgur, Wound (SKIN TEARM LEFT POSTERIOR UPPER ARM), Bruising Musculoskeletal: Back:Thoracic, Back:Lumbar Psychiatric: Anxiety Affect: Anxious Speech Pattern: Clear, Appropriate - Assessment/Plan (1) Syncope and collapse Status: Acute Plan: CT HEAD ON ADMISSION, SERIAL CE AND EKG. CXR ON ADMISSION, IV HYDRATION. CBC CMP UA ON ADMISSION. BP CONTROL, PAIN CONTROL. PT CONSULTATION, VERIFY AND RESUME HOME MEDICATION (2) Abdominal pain Status: Acute Plan: ABD US, PT HAD CT ABDPELVIS LAST MONTH DUE TO SAME SYMPTOMS (3) Lumbar spinal stenosis Status: Acute Plan: PAIN CONTROL, PT (4) BPH (benign prostatic hyperplasia) Status: Acute (5) Joint pain Status: Acute (6) Compression fracture of T11 vertebra Qualifiers: Encounter type: initial encounter Qualified Code(s): S22.080A - Wedge compression fracture of T11-T12 vertebra, initial encounter for closed fracture Status: Acute (7) Myelodysplasia (myelodysplastic syndrome) Status: Acute (8) Anemia Qualifiers: Anemia type: iron deficiency Iron deficiency anemia type: unspecified iron deficiency Qualified Code(s): D50.9 - Iron deficiency anemia, unspecified Status: Acute (9) Generalized weakness Status: Acute - Allergies Allergies/Adverse Reactions: Allergies Allergy/AdvReac Type Severity Reaction Status Date / Time promethazine [From Phenergan] Allergy Verified 07/25/19 05:56
[2019-07-25 13:06] LABS: APPEARANCE,URINE CLEAR (CLEAR); COLOR,URINE AMBER (YELLOW); RBC,URINE NONE SEEN /HPF (0-3)
[2019-07-25 13:07] LABS: AMORPHOUS SEDIMENT,UR TRACE /HPF (NEGATIVE); BACTERIA,URINE NEGATIVE /HPF (NEGATIVE); CALCIUM OXALATE CRYSTALS,UR FEW /HPF (NEGATIVE); MUCUS,URINE FEW /HPF (NEGATIVE); SQUAMOUS EPITHELIAL CELL,UR RARE /HPF (NEGATIVE)
[2019-07-25 14:16] LABS: AMYLASE 117 Units/L (25-115); CKMB % 2.6 % (<4); CREATINE KINASE 38 Units/L (39-308); CREATINE KINASE MB < 1.0 ng/mL (0-4.0); LIPASE 384 Units/L (73-393); TROPONIN I 0.03 ng/mL (0-1.5)
[2019-07-25 16:23] LABS: RHEUMATOID FACTOR NEGATIVE (NEGATIVE)
[2019-07-25 16:24] LABS: TOTAL PSA 1.8 ng/mL (0.13-4.0)
[2019-07-25] MEDS: PEPCID TAB 20 MG PO SCH (20:10)
[2019-07-25] MEDS: XANAX PO SCH (20:11)
[2019-07-25] MEDS: FLOMAX PO SCH (20:12)
[2019-07-25] MEDS: LOPRESSOR TAB 25 MG PO SCH (21:00)
[2019-07-26] MEDS: MORPHINE SULFATE INJ 2 MG INJ IVP PRN ×4 (00:19→18:12)
[2019-07-26] MEDS: NS 1/2 1000 ML IV 1,000 ML IV SCH (00:58)
[2019-07-26 05:39] LABS: ALANINE AMINOTRANSFERASE 58 Units/L (12-78); ALBUMIN 2.9 g/dL (3.4-5.0); ALKALINE PHOSPHATASE 102 Units/L (46-116); ASPARTATE AMINO TRANSFERASE 22 Units/L (15-37); BLOOD UREA NITROGEN 14 mg/dL (7-18); CALCIUM 7.7 mg/dL (8.5-10.1); CHLORIDE 104 mmol/L (98-107); CHOLESTEROL 151 mg/dL (0-200); COR CA(FOR HYPOALB) 8.6 mg/dL (8.5-10.1); COR NA(FOR HYPERGLY) 140 mmol/L (136-145); CREATININE 0.82 mg/dL (0.70-1.30); HDL CHOLESTEROL 50 mg/dL (40-60); SODIUM 139 mmol/L (136-145); TOTAL PROTEIN 5.7 g/dL (6.4-8.2); TRIGLYCERIDES 121 mg/dL (0-150); eGFR NON BLACK RACES > 60 (>60)
[2019-07-26] MEDS: NEURONTIN CAP 100 MG PO SCH ×3 (05:54→21:31)
[2019-07-26] MEDS: VANCOMYCIN HCL PO SCH ×3 (05:55→21:29)
[2019-07-26 06:26] LABS: BASOPHILS % (AUTO) 0.1 % (0.2-1.0); EOSINOPHILS % (AUTO) 0.1 % (0.9-2.9); HEMATOCRIT 29.8 % (42.0-54.0); HEMOGLOBIN 10.4 g/dL (13.5-18.0); LYMPHOCYTES # (AUTO) 0.6 X10^3/uL (1.3-2.9); LYMPHOCYTES % (AUTO) 21.6 % (21.0-51.0); MEAN CORPUSCULAR HEMOGLOBIN 33.9 pg (27.0-34.0); MEAN CORPUSCULAR HGB CONC 34.7 g/dL (33.0-35.0); MEAN CORPUSCULAR VOLUME 97.7 fL (80.0-100.0); MEAN PLATELET VOLUME 8.9 fL (7.4-11.0); MONOCYTES # (AUTO) 1.6 x10^3/uL (0.3-0.8); MONOCYTES % (AUTO) 57.6 % (0.0-13.0); NEUTROPHILS # (AUTO) 0.6 x10^3/uL (2.2-4.8); NEUTROPHILS % (AUTO) 20.6 % (42.0-75.0); PLATELET COUNT 174 X10^3/uL (150.0-450.0); RED BLOOD COUNT 3.05 X10^6/uL (4.7-6.0); WHITE BLOOD COUNT 2.8 X10^3/uL (3.6-10.0)
[2019-07-26 07:10] LABS: BAND NEUTROPHILS % 2 % (0-10); METAMYELOCYTES % 6; PLATELET MORPHOLOGY COMMENT NORMAL (NORMAL)
--- NOTE | 2019-07-26 08:38 | US ---
HISTORYLeft upper quadrant painSTUDYUltrasound of the abdomenCOMClinton County Hospital 2017FINDINGSThe right lobe of the liver measures 14 cm sagittal length without focal mass. There is appropriate flow in the hepatic veins and the portal vein.The gallbladder is surgically absent. The common hepatic duct measures 5.6 mm diameter.The right kidney measures 11 x 4.5 x 5 cm with cortical thickness of 1.4 cm and a resistive index of 0.62. There is a mid pole 2 cm cyst.The left kidney measures 10 x 5 cm with cortical thickness of 1.6 cm a lower pole cyst measuring 8 x 6 cm and an upper pole cyst measuring 6.7 x 5.3 x 4.4 cm. There is no hydronephrosis.The spleen measures 10 x 4.3 cm without mass.The pancreas is obscured by gas. The IVC is patent.IMPRESSIONSimple cysts in each kidney, relatively large cysts on the left as described. No acute disease demonstrated.Electronically signed by: LAURA OLIVAS (Jul 26, 2019 08:37:20)
--- NOTE | 2019-07-26 08:42 | VAS ---
HISTORYSyncopeSTUDYCarotid duplex ultrasoundCOMPARISONNoneFINDINGSImages show calcified plaque in the distal common carotid artery without stenosis. There is a small calcified plaque in the distal left common carotid artery near the bulb.If there is antegrade flow in both vertebral arteries.Peak systolic velocity in the right internal carotid artery is 66.2 cm/second compared to 63.9 in the distal right common carotid artery for ratio of near 1.Peak systolic velocity in the left internal carotid artery is 90.4 cm/second and 67.3 in the distal left common carotid artery for a ratio of 1.3.IMPRESSIONSmall calcified plaques but no evidence for significant stenosis.Electronically signed by: LAURA OLIVAS (Jul 26, 2019 08:41:25)
[2019-07-26] MEDS: K-LYTE EFFERVESCENT PO SCH (09:00)
[2019-07-26] MEDS: PREDNISONE TAB 10 MG PO SCH ×2 (09:01→21:28)
[2019-07-26] MEDS: PROTONIX TAB 40 MG PO SCH ×2 (09:02→21:32)
[2019-07-26] MEDS: PRED FORTE 1 % OP SCH ×4 (09:02→21:32)
[2019-07-26] MEDS: PEPCID TAB 20 MG PO SCH ×2 (09:02→21:27)
[2019-07-26] MEDS: SYNTHROID 75 mcg TAB PO SCH (09:02)
[2019-07-26] MEDS: FOLIC ACID TAB 1 MG PO SCH (09:03)
[2019-07-26] MEDS: PROzac PO SCH (09:03)
[2019-07-26] MEDS: LOPRESSOR TAB 25 MG PO SCH ×2 (09:03→21:30)
[2019-07-26] MEDS: PROCALAMINE 3 % 1,000 ML IV SCH (11:44)
[2019-07-26] MEDS: ALBUMIN HUMAN 25%- 100 ML 100 ML IV SCH (11:44)
[2019-07-26] MEDS: FLOMAX PO SCH (21:29)
[2019-07-26] MEDS: XANAX PO SCH (21:31)
[2019-07-26] MEDS: VITAMIN D3 PO SCH (21:32)
[2019-07-27] MEDS: MORPHINE SULFATE INJ 2 MG INJ IVP PRN ×3 (03:20→21:01)
[2019-07-27 05:41] LABS: BASOPHILS % (AUTO) 0.2 % (0.2-1.0); EOSINOPHILS % (AUTO) 0.2 % (0.9-2.9); HEMATOCRIT 28.3 % (42.0-54.0); HEMOGLOBIN 9.9 g/dL (13.5-18.0); LYMPHOCYTES # (AUTO) 0.4 X10^3/uL (1.3-2.9); LYMPHOCYTES % (AUTO) 14.7 % (21.0-51.0); MEAN CORPUSCULAR HEMOGLOBIN 34.3 pg (27.0-34.0); MEAN CORPUSCULAR HGB CONC 34.9 g/dL (33.0-35.0); MEAN CORPUSCULAR VOLUME 98.2 fL (80.0-100.0); MEAN PLATELET VOLUME 8.8 fL (7.4-11.0); NEUTROPHILS # (AUTO) 0.5 x10^3/uL (2.2-4.8); NEUTROPHILS % (AUTO) 16.9 % (42.0-75.0); PLATELET COUNT 163 X10^3/uL (150.0-450.0); RED BLOOD COUNT 2.88 X10^6/uL (4.7-6.0); RED CELL DISTRIBUTION WIDTH 15.2 % (11.6-16.5)
[2019-07-27 05:51] LABS: ALANINE AMINOTRANSFERASE 48 Units/L (12-78); ALBUMIN 3.1 g/dL (3.4-5.0); ALKALINE PHOSPHATASE 99 Units/L (46-116); ASPARTATE AMINO TRANSFERASE 19 Units/L (15-37); BLOOD UREA NITROGEN 15 mg/dL (7-18); CALCIUM 7.9 mg/dL (8.5-10.1); CARBON DIOXIDE 27.9 mmol/L (21-32); CHLORIDE 105 mmol/L (98-107); COR CA(FOR HYPOALB) 8.6 mg/dL (8.5-10.1); COR NA(FOR HYPERGLY) 140 mmol/L (136-145); CREATININE 0.81 mg/dL (0.70-1.30); SODIUM 139 mmol/L (136-145); TOTAL PROTEIN 5.9 g/dL (6.4-8.2); eGFR NON BLACK RACES > 60 (>60)
[2019-07-27] MEDS: NEURONTIN CAP 100 MG PO SCH ×3 (05:55→21:00)
[2019-07-27] MEDS: VANCOMYCIN HCL PO SCH ×3 (05:55→21:00)
[2019-07-27 06:22] LABS: BAND NEUTROPHILS % 12 % (0-10); METAMYELOCYTES % 6; MYELOCYTES % 3; PLATELET MORPHOLOGY COMMENT NORMAL (NORMAL)
[2019-07-27] MEDS: ALBUMIN HUMAN 25%- 100 ML 100 ML IV SCH (08:38)
[2019-07-27] MEDS: PROzac PO SCH (08:42)
[2019-07-27] MEDS: LOPRESSOR TAB 25 MG PO SCH ×2 (08:42→20:59)
[2019-07-27] MEDS: VITAMIN D3 PO SCH ×2 (08:43→20:59)
[2019-07-27] MEDS: SYNTHROID 75 mcg TAB PO SCH (08:43)
[2019-07-27] MEDS: PROTONIX TAB 40 MG PO SCH ×2 (08:43→20:59)
[2019-07-27] MEDS: K-LYTE EFFERVESCENT PO SCH (08:44)
[2019-07-27] MEDS: PEPCID TAB 20 MG PO SCH ×2 (08:44→20:59)
[2019-07-27] MEDS: PREDNISONE TAB 10 MG PO SCH ×2 (08:46→20:59)
[2019-07-27] MEDS: FOLIC ACID TAB 1 MG PO SCH (08:47)
[2019-07-27] MEDS: PRED FORTE 1 % OP SCH ×4 (08:48→20:58)
--- NOTE | 2019-07-27 09:14 | PCM.PROG ---
Progress Note - Progress Note for Day of Date of Exam: 07/26/19 - Subjective Subjective: WAS ADMITTED ON 07/25 AFTER HAVING A SYNCOPAL EPISODE AT HOME. HE WAS RECENTLY HOSPITALIZED FOR INTRACTABLE BACK PAIN. PT HAS PMH OF MDS, OA, COLITIS, LUMBAR SPINE DDD WITH SPINAL STENOSIS, CHRONIC T SPINE COMPRESSION FRACTURES, ANEMIA. TODAY, HE IS ALERT AND ORIENTED, LYING IN BED ON MORNING ROUNDS. HE CONTINUES WITH GENERALIZED WEAKNESS AND ALSO REPORTS LOWER BACK PAIN AND MILD ABDOMINAL PAIN. HIS VITALS THIS MORNING ARE: 97.9-70-18-99%-134/76. LABS WERE OBTAINED. ABNORMAL LAB VALUES INCLUDE THE FOLLOWING: RBC 2.8, RBC 3.05, HGB 10.4, HCT 29.8, GLUCOSE 125, CALCIUM 7.7, TOTAL PROTEIN 5.7, ALBUMIN 2.9. AN ABDOMEN ULTRASOUND WAS OBTAINED THIS MORNING AND REVEALED: Simple cysts in each kidney, relatively large cysts on the left as described. No acute disease demonstrated. A CAROTID ARTERY US WAS OBTAINED AND REVEALED: Small calcified plaques but no evidence for significant stenosis. HE IS CURRENTLY RECEIVING THE POTASSIUM AND MAGNESIUM PROTOCOLS, MORPHINE PRN, NORCO PRN, AND HOME MEDICATIONS WERE RESUMED. TODAY, WE WILL START IV PROCAL AND IV ALBUMIN DUE TO PROTEIN DEFICINENCY. OTHERWISE, WE PLAN TO FOLLOW UP WITH AM LABS AND CONTINUE TO MONITOR. - Past Medical Family Social History Past Med/Fam/Surg Hx: No changes since H&P Allergies: Allergies promethazine [From Phenergan] Allergy (Verified 07/25/19 05:56) - Review of Systems ROS: No change since H&P - Vital Signs and I&O's Vital Signs: Temperature 98.0 F Pulse Rate [Right] 66 Pulse Rate 94 Respiratory Rate 20 Blood Pressure [standing] 119/57 Blood Pressure [sitting] 118/60 Blood Pressure [Left Arm] 141/85 Blood Pressure [Right Arm] 128/68 Blood Pressure 144/83 O2 Sat by Pulse Oximetry 98 Intake and Output: Intake & Output 07/24/19 07/25/19 07/26/19 07/27/19 11:59 11:59 11:59 11:59 Intake Total 220 / 220 1467 / 1467 1550 / 1550 Output Total 200 / 200 850 / 850 850 / 850 Balance 617 / 617 700 / 700 - Physical Exam Oriented: Normal Eyes: Normal Ear: Normal Nose: Normal Throat: Dry Respiratory: Generalized, Diminished Cardiovascular: Irregular. negative: Murmur, Edema : Normal Auscultation: Bowel Sounds: Normal Palpation: Normal Tenderness: LUQ, LLQ Skin: Decreased Turgur, Wound (SKIN TEARM LEFT POSTERIOR UPPER ARM), Bruising Musculoskeletal: Back:Thoracic, Back:Lumbar Psychiatric: Anxiety Mood Description: Calm Affect: Anxious Speech Pattern: Clear, Appropriate - Laboratory and Diagnostics Result Diagrams: 07/27/19 04:25 07/27/19 04:25 Labs: 07/25/19 12:39 Urine,Clean Catch Urine Culture - Preliminary Laboratory WBC 3.0 X10^3/uL (3.6-10.0) L 07/27/19 04:25 RBC 2.88 X10^6/uL (4.7-6.0) L 07/27/19 04:25 Hgb 9.9 g/dL (13.5-18.0) L 07/27/19 04:25 Hct 28.3 % (42.0-54.0) L 07/27/19 04:25 MCV 98.2 fL (80.0-100.0) 07/27/19 04:25 MCH 34.3 pg (27.0-34.0) H 07/27/19 04:25 MCHC 34.9 g/dL (33.0-35.0) 07/27/19 04:25 RDW 15.2 % (11.6-16.5) 07/27/19 04:25 Plt Count 163 X10^3/uL (150.0-450.0) 07/27/19 04:25 Plt Count Comment Adequate (ADEQUATE) 07/27/19 04:25 MPV 8.8 fL (7.4-11.0) 07/27/19 04:25 Neut % (Auto) 16.9 % (42.0-75.0) L 07/27/19 04:25 Lymph % (Auto) 14.7 % (21.0-51.0) L 07/27/19 04:25 [place] % (Auto) 68.0 % (0.0-13.0) H 07/27/19 04:25 Eos % (Auto) 0.2 % (0.9-2.9) L 07/27/19 04:25 Baso % (Auto) 0.2 % (0.2-1.0) 07/27/19 04:25 Neut # (Auto) 0.5 x10^3/uL (2.2-4.8) L 07/27/19 04:25 Lymph # (Auto) 0.4 X10^3/uL (1.3-2.9) L 07/27/19 04:25 [place] # (Auto) 2.0 x10^3/uL (0.3-0.8) H 07/27/19 04:25 Eos # (Auto) 0.0 x10^3/uL (0.0-0.2) 07/27/19 04:25 Baso # (Auto) 0.0 X10^3/uL (0.0-0.1) 07/27/19 04:25 Absolute Nucleated RBC 0.1 /100WBC 07/27/19 04:25 Total Counted 100 07/27/19 04:25 Neutrophils % (Manual) 14 % (39-76) L 07/27/19 04:25 Band Neutrophils % 12 % (0-10) H 07/27/19 04:25 Lymphocytes % (Manual) 36 % (13-43) 07/27/19 04:25 Monocytes % (Manual) 29 % (4-9) H 07/27/19 04:25 Metamyelocytes % 6 07/27/19 04:25 Myelocytes % 3 07/27/19 04:25 Atypical Lymphocytes Not Reportable 07/25/19 04:11 Plt Morphology Comment Normal (NORMAL) 07/27/19 04:25 RBC Morphology Normal (NORMAL) 07/27/19 04:25 ESR 14 MM/HOUR (0-15) 07/25/19 15:23 PT 12.3 SECONDS (11.8-14.3) 07/24/19 21:50 INR Target Range - 07/24/19 21:50 INR 0.95 (0.8-1.3) 07/24/19 21:50 APTT 28.4 SECONDS (22.9-36.5) 07/24/19 21:50 PTT Comment - 07/24/19 21:50 Sodium 139 mmol/L (136-145) 07/27/19 04:25 Corrected Sodium 140 mmol/L (136-145) 07/27/19 04:25 Potassium 4.3 mmol/L (3.5-5.1) 07/27/19 04:25 Chloride 105 mmol/L (98-107) 07/27/19 04:25 Carbon Dioxide 27.9 mmol/L (21-32) 07/27/19 04:25 BUN 15 mg/dL (7-18) 07/27/19 04:25 Creatinine 0.81 mg/dL (0.70-1.30) 07/27/19 04:25 Est GFR (MDRD) Af Amer > 60 (>60) 07/27/19 04:25 Est GFR (MDRD) Non-Af > 60 (>60) 07/27/19 04:25 Glucose 121 mg/dL (65-99) H 07/27/19 04:25 Calcium 7.9 mg/dL (8.5-10.1) L 07/27/19 04:25 Corrected Calcium 8.6 mg/dL (8.5-10.1) 07/27/19 04:25 Magnesium 1.6 mg/dL (1.7-2.9) L 07/24/19 21:50 Total Bilirubin 0.30 mg/dL (0.2-1.0) 07/27/19 04:25 AST 19 Units/L (15-37) 07/27/19 04:25 ALT 48 Units/L (12-78) 07/27/19 04:25 Alkaline Phosphatase 99 Units/L (46-116) 07/27/19 04:25 Creatine Kinase 38 Units/L (39-308) L 07/25/19 04:11 CK-MB (CK-2) < 1.0 ng/mL (0-4.0) 07/25/19 04:11 CK/CKMB % Calc 2.6 % (<4) 07/25/19 04:11 Troponin I 0.03 ng/mL (0-1.5) 07/25/19 04:11 C-Reactive Protein 3.90 mg/L (0-3.0) H 07/25/19 15:23 Total Protein 5.9 g/dL (6.4-8.2) L 07/27/19 04:25 Albumin 3.1 g/dL (3.4-5.0) L 07/27/19 04:25 Globulin 2.8 g/dL (2.5-4.5) 07/27/19 04:25 Albumin/Globulin Ratio 1.1 Ratio (1.1-2.1) 07/27/19 04:25 Triglycerides 121 mg/dL (0-150) 07/26/19 04:05 Cholesterol 151 mg/dL (0-200) 07/26/19 04:05 LDL Cholesterol, Calc 77 mg/dL (0-100) 07/26/19 04:05 HDL Cholesterol 50 mg/dL (40-60) 07/26/19 04:05 Cholesterol/HDL Ratio 3.0 (0.0-5.0) 07/26/19 04:05 Amylase 117 Units/L (25-115) H 07/25/19 04:11 Lipase 384 Units/L (73-393) 07/25/19 04:11 Total PSA 1.80 ng/mL (0.13-4.0) 07/25/19 15:23 Specimen Type Clean catch urine 07/25/19 12:39 Urine Color Yamilet (YELLOW) 07/25/19 12:39 Urine Appearance Clear (CLEAR) 07/25/19 12:39 Urine pH 5.0 (5.0 - 8.0) 07/25/19 12:39 Ur Specific [place] 1.020 (1.000-1.030) 07/25/19 12:39 Urine Protein 2+ (NEGATIVE) 07/25/19 12:39 Urine Glucose (UA) Negative (NEGATIVE) 07/25/19 12:39 Urine Ketones 1+ (NEGATIVE) 07/25/19 12:39 Urine Occult Blood Negative (NEGATIVE) 07/25/19 12:39 Urine Nitrite Negative (NEGATIVE) 07/25/19 12:39 Urine Bilirubin Negative (NEGATIVE) 07/25/19 12:39 Urine Urobilinogen Normal (NORMAL) 07/25/19 12:39 Ur Leukocyte Esterase 1+ (NEGATIVE) 07/25/19 12:39 Urine RBC None seen /HPF (0-3) 07/25/19 12:39 Urine WBC 0-2 /HPF (0-5) 07/25/19 12:39 Ur Squamous Epith Cells Rare /HPF (NEGATIVE) 07/25/19 12:39 Calcium Oxalate Crystal Few /HPF (NEGATIVE) 07/25/19 12:39 Amorphous Sediment Trace /HPF (NEGATIVE) 07/25/19 12:39 Urine Bacteria Negative /HPF (NEGATIVE) 07/25/19 12:39 Urine Mucus Few /HPF (NEGATIVE) 07/25/19 12:39 Ur Culture Indicated? No/not indicated 07/25/19 12:39 Rheumatoid Factor Negative (NEGATIVE) 07/25/19 15:23 - Plan (1) Syncope and collapse Status: Acute Plan: IV HYDRATION, BP CONTROL, PAIN CONTROL. PT CONSULTATION, CONTINUE TO MONITOR (2) Abdominal pain Status: Acute Qualifiers: Abdominal location: generalized Qualified Code(s): R10.84 - Generalized abdominal pain Plan: PAIN CONTROL, PT HAD CT ABDPELVIS LAST MONTH DUE TO SAME SYMPTOMS (3) Joint pain Status: Acute Qualifiers: Joint pain location: unspecified Qualified Code(s): M25.50 - Pain in unspecified joint Plan: CONTINUE PAIN CONTROL (4) Protein deficiency Status: Acute Plan: IV PROCAL, IV ALBUMIN, CONTINUE TO MONITOR
--- NOTE | 2019-07-27 10:56 | PCM.PROG ---
Progress Note - Progress Note for Day of Date of Exam: 07/27/19 - Subjective Subjective: WAS ADMITTED ON 07/25 AFTER HAVING A SYNCOPAL EPISODE AT HOME. SPOUSE REPORTS THAT HE HAD SEIZURE LIKE ACTIVITY PRIOR TO PASSING OUT. HE WAS RECENTLY HOSPITALIZED FOR INTRACTABLE BACK PAIN. PT HAS PMH OF MDS, OA, COLITIS, LUMBAR SPINE DDD WITH SPINAL STENOSIS, CHRONIC T SPINE COMPRESSION FRACTURES, AND ANEMIA. TODAY, HE IS ALERT AND ORIENTED, LYING IN BED ON MORNING ROUNDS. HE CONTINUES WITH GENERALIZED WEAKNESS AND ALSO REPORTS LOWER BACK PAIN. HIS VITALS THIS MORNING ARE: 98.0-66-20-98%-128/68. LABS WERE OBTAINED. ABNORMAL LAB VALUES INCLUDE THE FOLLOWING: WBC 3.0, RBC 2.88, HGB 9.9, HCT 28.3, GLUCOSE 121, CALCIUM 7.9, TOTAL PROTEIN 5.9, ALBUMIN 3.1. HE IS CURRENTLY RECEIVING IV PROCAL, IV ALBUMIN, THE POTASSIUM AND MAGNESIUM PROTOCOLS, MORPHINE PRN, NORCO PRN, AND HOME MEDICATIONS WERE RESUMED. TODAY, WE WILL START DEPAKOTE ER 500MG PO DAILY DUE TO SEIZURE ACTIVITY. AFTER DISCHARGE, WE WILL REFER HIM TO A NEUROLOGIST FOR AN EEG. OTHERWISE, WE PLAN TO FOLLOW UP WITH AM LABS AND CONTINUE TO MONITOR. - Past Medical Family Social History Past Med/Fam/Surg Hx: No changes since H&P Allergies: Allergies promethazine [From Phenergan] Allergy (Verified 07/25/19 05:56) - Review of Systems ROS: No change since H&P - Vital Signs and I&O's Vital Signs: Temperature 98.0 F Pulse Rate [Right] 66 Pulse Rate 94 Respiratory Rate 20 Blood Pressure [standing] 119/57 Blood Pressure [sitting] 118/60 Blood Pressure [Left Arm] 141/85 Blood Pressure [Right Arm] 128/68 Blood Pressure 144/83 O2 Sat by Pulse Oximetry 98 Intake and Output: Intake & Output 07/24/19 07/25/19 07/26/19 07/27/19 11:59 11:59 11:59 11:59 Intake Total 220 / 220 1467 / 1467 1550 / 1550 Output Total 200 / 200 850 / 850 850 / 850 Balance 617 / 617 700 / 700 - Physical Exam Oriented: Normal Eyes: Normal Ear: Normal Nose: Normal Throat: Dry Respiratory: Generalized, Diminished Cardiovascular: Normal. negative: Murmur, Edema : Normal Auscultation: Bowel Sounds: Normal Palpation: Normal Tenderness: LUQ, LLQ Skin: Decreased Turgur, Wound (SKIN TEARM LEFT POSTERIOR UPPER ARM), Bruising Musculoskeletal: Back:Thoracic, Back:Lumbar Psychiatric: Anxiety Mood Description: Calm Affect: Anxious Speech Pattern: Clear, Appropriate - Laboratory and Diagnostics Result Diagrams: 07/27/19 04:25 07/27/19 04:25 Labs: 07/25/19 12:39 Urine,Clean Catch Urine Culture - Final Laboratory WBC 3.0 X10^3/uL (3.6-10.0) L 07/27/19 04:25 RBC 2.88 X10^6/uL (4.7-6.0) L 07/27/19 04:25 Hgb 9.9 g/dL (13.5-18.0) L 07/27/19 04:25 Hct 28.3 % (42.0-54.0) L 07/27/19 04:25 MCV 98.2 fL (80.0-100.0) 07/27/19 04:25 MCH 34.3 pg (27.0-34.0) H 07/27/19 04:25 MCHC 34.9 g/dL (33.0-35.0) 07/27/19 04:25 RDW 15.2 % (11.6-16.5) 07/27/19 04:25 Plt Count 163 X10^3/uL (150.0-450.0) 07/27/19 04:25 Plt Count Comment Adequate (ADEQUATE) 07/27/19 04:25 MPV 8.8 fL (7.4-11.0) 07/27/19 04:25 Neut % (Auto) 16.9 % (42.0-75.0) L 07/27/19 04:25 Lymph % (Auto) 14.7 % (21.0-51.0) L 07/27/19 04:25 [place] % (Auto) 68.0 % (0.0-13.0) H 07/27/19 04:25 Eos % (Auto) 0.2 % (0.9-2.9) L 07/27/19 04:25 Baso % (Auto) 0.2 % (0.2-1.0) 07/27/19 04:25 Neut # (Auto) 0.5 x10^3/uL (2.2-4.8) L 07/27/19 04:25 Lymph # (Auto) 0.4 X10^3/uL (1.3-2.9) L 07/27/19 04:25 [place] # (Auto) 2.0 x10^3/uL (0.3-0.8) H 07/27/19 04:25 Eos # (Auto) 0.0 x10^3/uL (0.0-0.2) 07/27/19 04:25 Baso # (Auto) 0.0 X10^3/uL (0.0-0.1) 07/27/19 04:25 Absolute Nucleated RBC 0.1 /100WBC 07/27/19 04:25 Total Counted 100 07/27/19 04:25 Neutrophils % (Manual) 14 % (39-76) L 07/27/19 04:25 Band Neutrophils % 12 % (0-10) H 07/27/19 04:25 Lymphocytes % (Manual) 36 % (13-43) 07/27/19 04:25 Monocytes % (Manual) 29 % (4-9) H 07/27/19 04:25 Metamyelocytes % 6 07/27/19 04:25 Myelocytes % 3 07/27/19 04:25 Atypical Lymphocytes Not Reportable 07/25/19 04:11 Plt Morphology Comment Normal (NORMAL) 07/27/19 04:25 RBC Morphology Normal (NORMAL) 07/27/19 04:25 ESR 14 MM/HOUR (0-15) 07/25/19 15:23 PT 12.3 SECONDS (11.8-14.3) 07/24/19 21:50 INR Target Range - 07/24/19 21:50 INR 0.95 (0.8-1.3) 07/24/19 21:50 APTT 28.4 SECONDS (22.9-36.5) 07/24/19 21:50 PTT Comment - 07/24/19 21:50 Sodium 139 mmol/L (136-145) 07/27/19 04:25 Corrected Sodium 140 mmol/L (136-145) 07/27/19 04:25 Potassium 4.3 mmol/L (3.5-5.1) 07/27/19 04:25 Chloride 105 mmol/L (98-107) 07/27/19 04:25 Carbon Dioxide 27.9 mmol/L (21-32) 07/27/19 04:25 BUN 15 mg/dL (7-18) 07/27/19 04:25 Creatinine 0.81 mg/dL (0.70-1.30) 07/27/19 04:25 Est GFR (MDRD) Af Amer > 60 (>60) 07/27/19 04:25 Est GFR (MDRD) Non-Af > 60 (>60) 07/27/19 04:25 Glucose 121 mg/dL (65-99) H 07/27/19 04:25 Calcium 7.9 mg/dL (8.5-10.1) L 07/27/19 04:25 Corrected Calcium 8.6 mg/dL (8.5-10.1) 07/27/19 04:25 Magnesium 1.6 mg/dL (1.7-2.9) L 07/24/19 21:50 Total Bilirubin 0.30 mg/dL (0.2-1.0) 07/27/19 04:25 AST 19 Units/L (15-37) 07/27/19 04:25 ALT 48 Units/L (12-78) 07/27/19 04:25 Alkaline Phosphatase 99 Units/L (46-116) 07/27/19 04:25 Creatine Kinase 38 Units/L (39-308) L 07/25/19 04:11 CK-MB (CK-2) < 1.0 ng/mL (0-4.0) 07/25/19 04:11 CK/CKMB % Calc 2.6 % (<4) 07/25/19 04:11 Troponin I 0.03 ng/mL (0-1.5) 07/25/19 04:11 C-Reactive Protein 3.90 mg/L (0-3.0) H 07/25/19 15:23 Total Protein 5.9 g/dL (6.4-8.2) L 07/27/19 04:25 Albumin 3.1 g/dL (3.4-5.0) L 07/27/19 04:25 Globulin 2.8 g/dL (2.5-4.5) 07/27/19 04:25 Albumin/Globulin Ratio 1.1 Ratio (1.1-2.1) 07/27/19 04:25 Triglycerides 121 mg/dL (0-150) 07/26/19 04:05 Cholesterol 151 mg/dL (0-200) 07/26/19 04:05 LDL Cholesterol, Calc 77 mg/dL (0-100) 07/26/19 04:05 HDL Cholesterol 50 mg/dL (40-60) 07/26/19 04:05 Cholesterol/HDL Ratio 3.0 (0.0-5.0) 07/26/19 04:05 Amylase 117 Units/L (25-115) H 07/25/19 04:11 Lipase 384 Units/L (73-393) 07/25/19 04:11 Total PSA 1.80 ng/mL (0.13-4.0) 07/25/19 15:23 Specimen Type Clean catch urine 07/25/19 12:39 Urine Color Yamilet (YELLOW) 07/25/19 12:39 Urine Appearance Clear (CLEAR) 07/25/19 12:39 Urine pH 5.0 (5.0 - 8.0) 07/25/19 12:39 Ur Specific [place] 1.020 (1.000-1.030) 07/25/19 12:39 Urine Protein 2+ (NEGATIVE) 07/25/19 12:39 Urine Glucose (UA) Negative (NEGATIVE) 07/25/19 12:39 Urine Ketones 1+ (NEGATIVE) 07/25/19 12:39 Urine Occult Blood Negative (NEGATIVE) 07/25/19 12:39 Urine Nitrite Negative (NEGATIVE) 07/25/19 12:39 Urine Bilirubin Negative (NEGATIVE) 07/25/19 12:39 Urine Urobilinogen Normal (NORMAL) 07/25/19 12:39 Ur Leukocyte Esterase 1+ (NEGATIVE) 07/25/19 12:39 Urine RBC None seen /HPF (0-3) 07/25/19 12:39 Urine WBC 0-2 /HPF (0-5) 07/25/19 12:39 Ur Squamous Epith Cells Rare /HPF (NEGATIVE) 07/25/19 12:39 Calcium Oxalate Crystal Few /HPF (NEGATIVE) 07/25/19 12:39 Amorphous Sediment Trace /HPF (NEGATIVE) 07/25/19 12:39 Urine Bacteria Negative /HPF (NEGATIVE) 07/25/19 12:39 Urine Mucus Few /HPF (NEGATIVE) 07/25/19 12:39 Ur Culture Indicated? No/not indicated 07/25/19 12:39 Rheumatoid Factor Negative (NEGATIVE) 07/25/19 15:23 - Plan (1) Syncope and collapse Status: Acute Plan: IV HYDRATION, BP CONTROL, PAIN CONTROL. PT CONSULTATION, CONTINUE TO MONITOR (2) Seizure-like activity Status: Acute Plan: DEPAKOTE ER 500MG PO DAILY, CONTINUE TO MONITOR (3) Abdominal pain Status: Acute Qualifiers: Abdominal location: generalized Qualified Code(s): R10.84 - Generalized abdominal pain Plan: PAIN CONTROL, PT HAD CT ABDPELVIS LAST MONTH DUE TO SAME SYMPTOMS (4) Joint pain Status: Acute Qualifiers: Joint pain location: unspecified Qualified Code(s): M25.50 - Pain in unspecified joint Plan: CONTINUE PAIN CONTROL (5) Protein deficiency Status: Acute Plan: IV PROCAL, IV ALBUMIN, CONTINUE TO MONITOR
[2019-07-27] MEDS: PROCALAMINE 3 % 1,000 ML IV SCH (12:50)
[2019-07-27] MEDS: DEPAKOTE ER PO SCH (12:51)
[2019-07-27] MEDS: FLOMAX PO SCH (21:00)
[2019-07-27] MEDS: XANAX PO SCH (21:00)
[2019-07-28] MEDS: NEURONTIN CAP 100 MG PO SCH ×3 (05:03→21:16)
[2019-07-28] MEDS: VANCOMYCIN HCL PO SCH ×3 (05:04→21:16)
[2019-07-28 06:23] LABS: BASOPHILS % (AUTO) 0.1 % (0.2-1.0); EOSINOPHILS % (AUTO) 0.1 % (0.9-2.9); HEMATOCRIT 28.5 % (42.0-54.0); HEMOGLOBIN 10.1 g/dL (13.5-18.0); LYMPHOCYTES % (AUTO) 31.2 % (21.0-51.0); MEAN CORPUSCULAR HEMOGLOBIN 34.2 pg (27.0-34.0); MEAN CORPUSCULAR HGB CONC 35.4 g/dL (33.0-35.0); MEAN CORPUSCULAR VOLUME 96.6 fL (80.0-100.0); MEAN PLATELET VOLUME 8.3 fL (7.4-11.0); MONOCYTES # (AUTO) 1.8 x10^3/uL (0.3-0.8); MONOCYTES % (AUTO) 54.2 % (0.0-13.0); NEUTROPHILS # (AUTO) 0.5 x10^3/uL (2.2-4.8); PLATELET COUNT 158 X10^3/uL (150.0-450.0); RED BLOOD COUNT 2.95 X10^6/uL (4.7-6.0); RED CELL DISTRIBUTION WIDTH 14.9 % (11.6-16.5); WHITE BLOOD COUNT 3.2 X10^3/uL (3.6-10.0)
[2019-07-28 06:50] LABS: BAND NEUTROPHILS % 12 % (0-10)
[2019-07-28 06:51] LABS: METAMYELOCYTES % 12; MYELOCYTES % 8
[2019-07-28 06:52] LABS: PLATELET MORPHOLOGY COMMENT NORMAL (NORMAL)
[2019-07-28 06:53] LABS: ALANINE AMINOTRANSFERASE 46 Units/L (12-78); ALBUMIN 3.3 g/dL (3.4-5.0); ALKALINE PHOSPHATASE 94 Units/L (46-116); ASPARTATE AMINO TRANSFERASE 17 Units/L (15-37); BLOOD UREA NITROGEN 12 mg/dL (7-18); CALCIUM 8.2 mg/dL (8.5-10.1); CHLORIDE 104 mmol/L (98-107); COR CA(FOR HYPOALB) 8.8 mg/dL (8.5-10.1); CREATININE 0.84 mg/dL (0.70-1.30); SODIUM 139 mmol/L (136-145); eGFR NON BLACK RACES > 60 (>60)
[2019-07-28 06:54] LABS: NEUTROPHILS % (AUTO) 14.4 % (42.0-75.0)
[2019-07-28 07:18] LABS: ANTI-NUCLEAR ANTIBODY TEST None Detected (None Detected)
--- NOTE | 2019-07-28 10:11 | PCM.PROG ---
Progress Note - Progress Note for Day of Date of Exam: 07/28/19 - Subjective Subjective: WAS ADMITTED ON 07/25 AFTER HAVING A SYNCOPAL EPISODE AT HOME FOLLOWING SEIZURE LIKE ACTIVITY. HE WAS RECENTLY HOSPITALIZED FOR INTRACTABLE BACK PAIN. PT HAS PMH OF MDS, OA, COLITIS, LUMBAR SPINE DDD WITH SPINAL STENOSIS, CHRONIC T SPINE COMPRESSION FRACTURES, AND ANEMIA. TODAY, HE IS ALERT AND ORIENTED, LYING IN BED ON MORNING ROUNDS. HE CONTINUES WITH GENERALIZED WEAKNESS AND ALSO REPORTS DIARRHEA THIS MORNING. HIS VITALS THIS MORNING ARE: 98.8-61-18-98%-133/72. LABS WERE OBTAINED. ABNORMAL LAB VALUES INCLUDE THE FOLLOWING: WBC 3.2, RBC 2.95, HGB 10.1, HCT 28.5, GLUCOSE 109, CALCIUM 8.2, TOTAL PROTEIN 6.0, ALBUMIN 3.3. HE IS CURRENTLY RECEIVING IV PROCAL, IV ALBUMIN, DEPAKOTE 500MG PO DAILY, THE POTASSIUM AND MAGNESIUM PROTOCOLS, MORPHINE PRN, NORCO PRN, AND HOME MEDICATIONS WERE RESUMED. TODAY, WE WILL OBTAIN STOOL STUDIES AND START PROBIOTICS AND WELCHOL. AFTER DISCHARGE, WE PLAN TO REFER HIM TO A NEUROLOGIST FOR AN EEG. OTHERWISE, WE PLAN TO FOLLOW UP WITH AM LABS AND CONTINUE TO MONITOR. - Past Medical Family Social History Past Med/Fam/Surg Hx: No changes since H&P Allergies: Allergies promethazine [From Phenergan] Allergy (Verified 07/25/19 05:56) - Review of Systems ROS: No change since H&P - Vital Signs and I&O's Vital Signs: Temperature 98.8 F Pulse Rate [Right] 61 Pulse Rate 94 Respiratory Rate 18 Blood Pressure [standing] 133/72 Blood Pressure [sitting] 106/62 Blood Pressure [Left Arm] 141/85 Blood Pressure [Right Arm] 127/62 Blood Pressure 144/83 O2 Sat by Pulse Oximetry 98 Intake and Output: Intake & Output 07/25/19 07/26/19 07/27/19 07/28/19 11:59 11:59 11:59 11:59 Intake Total 220 / 220 1467 / 1467 1550 / 1550 1713 / 1713 Output Total 200 / 200 850 / 850 850 / 850 2150 / 2150 Balance 617 / 617 700 / 700 -437 / -437 - Physical Exam Oriented: Normal Eyes: Normal Ear: Normal Nose: Normal Throat: Dry Respiratory: Generalized, Diminished Cardiovascular: Normal. negative: Murmur, Edema : Normal Auscultation: Bowel Sounds: Normal Palpation: Normal Tenderness: LUQ, LLQ Skin: Decreased Turgur, Wound (SKIN TEARM LEFT POSTERIOR UPPER ARM), Bruising Musculoskeletal: Back:Thoracic, Back:Lumbar Psychiatric: Anxiety Mood Description: Calm Affect: Anxious Speech Pattern: Clear, Appropriate - Laboratory and Diagnostics Result Diagrams: 07/28/19 05:27 07/28/19 05:27 Labs: 07/25/19 12:39 Urine,Clean Catch Urine Culture - Final Laboratory WBC 3.2 X10^3/uL (3.6-10.0) L 07/28/19 05:27 RBC 2.95 X10^6/uL (4.7-6.0) L 07/28/19 05:27 Hgb 10.1 g/dL (13.5-18.0) L 07/28/19 05:27 Hct 28.5 % (42.0-54.0) L 07/28/19 05:27 MCV 96.6 fL (80.0-100.0) 07/28/19 05:27 MCH 34.2 pg (27.0-34.0) H 07/28/19 05:27 MCHC 35.4 g/dL (33.0-35.0) H 07/28/19 05:27 RDW 14.9 % (11.6-16.5) 07/28/19 05:27 Plt Count 158 X10^3/uL (150.0-450.0) 07/28/19 05:27 Plt Count Comment Adequate (ADEQUATE) 07/28/19 05:27 MPV 8.3 fL (7.4-11.0) 07/28/19 05:27 Neut % (Auto) 14.4 % (42.0-75.0) L 07/28/19 05:27 Lymph % (Auto) 31.2 % (21.0-51.0) 07/28/19 05:27 [place] % (Auto) 54.2 % (0.0-13.0) H 07/28/19 05:27 Eos % (Auto) 0.1 % (0.9-2.9) L 07/28/19 05:27 Baso % (Auto) 0.1 % (0.2-1.0) L 07/28/19 05:27 Neut # (Auto) 0.5 x10^3/uL (2.2-4.8) L 07/28/19 05:27 Lymph # (Auto) 1.0 X10^3/uL (1.3-2.9) L 07/28/19 05:27 [place] # (Auto) 1.8 x10^3/uL (0.3-0.8) H 07/28/19 05:27 Eos # (Auto) 0.0 x10^3/uL (0.0-0.2) 07/28/19 05:27 Baso # (Auto) 0.0 X10^3/uL (0.0-0.1) 07/28/19 05:27 Absolute Nucleated RBC 0.2 /100WBC 07/28/19 05:27 Total Counted 100 07/28/19 05:27 Neutrophils % (Manual) 16 % (39-76) L 07/28/19 05:27 Band Neutrophils % 12 % (0-10) H 07/28/19 05:27 Lymphocytes % (Manual) 28 % (13-43) 07/28/19 05:27 Monocytes % (Manual) 22 % (4-9) H 07/28/19 05:27 Metamyelocytes % 12 07/28/19 05:27 Myelocytes % 8 07/28/19 05:27 Atypical Lymphocytes Not Reportable 07/25/19 04:11 Plt Morphology Comment Normal (NORMAL) 07/28/19 05:27 RBC Morphology Normal (NORMAL) 07/28/19 05:27 ESR 14 MM/HOUR (0-15) 07/25/19 15:23 PT 12.3 SECONDS (11.8-14.3) 07/24/19 21:50 INR Target Range - 07/24/19 21:50 INR 0.95 (0.8-1.3) 07/24/19 21:50 APTT 28.4 SECONDS (22.9-36.5) 07/24/19 21:50 PTT Comment - 07/24/19 21:50 Sodium 139 mmol/L (136-145) 07/28/19 05:27 Corrected Sodium TNP 07/28/19 05:27 Potassium 4.7 mmol/L (3.5-5.1) 07/28/19 05:27 Chloride 104 mmol/L (98-107) 07/28/19 05:27 Carbon Dioxide 29.0 mmol/L (21-32) 07/28/19 05:27 BUN 12 mg/dL (7-18) 07/28/19 05:27 Creatinine 0.84 mg/dL (0.70-1.30) 07/28/19 05:27 Est GFR (MDRD) Af Amer > 60 (>60) 07/28/19 05:27 Est GFR (MDRD) Non-Af > 60 (>60) 07/28/19 05:27 Glucose 109 mg/dL (65-99) H 07/28/19 05:27 Calcium 8.2 mg/dL (8.5-10.1) L 07/28/19 05:27 Corrected Calcium 8.8 mg/dL (8.5-10.1) 07/28/19 05:27 Magnesium 1.6 mg/dL (1.7-2.9) L 07/24/19 21:50 Total Bilirubin 0.40 mg/dL (0.2-1.0) 07/28/19 05:27 AST 17 Units/L (15-37) 07/28/19 05:27 ALT 46 Units/L (12-78) 07/28/19 05:27 Alkaline Phosphatase 94 Units/L (46-116) 07/28/19 05:27 Creatine Kinase 38 Units/L (39-308) L 07/25/19 04:11 CK-MB (CK-2) < 1.0 ng/mL (0-4.0) 07/25/19 04:11 CK/CKMB % Calc 2.6 % (<4) 07/25/19 04:11 Troponin I 0.03 ng/mL (0-1.5) 07/25/19 04:11 C-Reactive Protein 3.90 mg/L (0-3.0) H 07/25/19 15:23 Total Protein 6.0 g/dL (6.4-8.2) L 07/28/19 05:27 Albumin 3.3 g/dL (3.4-5.0) L 07/28/19 05:27 Globulin 2.7 g/dL (2.5-4.5) 07/28/19 05:27 Albumin/Globulin Ratio 1.2 Ratio (1.1-2.1) 07/28/19 05:27 Triglycerides 121 mg/dL (0-150) 07/26/19 04:05 Cholesterol 151 mg/dL (0-200) 07/26/19 04:05 LDL Cholesterol, Calc 77 mg/dL (0-100) 07/26/19 04:05 HDL Cholesterol 50 mg/dL (40-60) 07/26/19 04:05 Cholesterol/HDL Ratio 3.0 (0.0-5.0) 07/26/19 04:05 Amylase 117 Units/L (25-115) H 07/25/19 04:11 Lipase 384 Units/L (73-393) 07/25/19 04:11 Total PSA 1.80 ng/mL (0.13-4.0) 07/25/19 15:23 Specimen Type Clean catch urine 07/25/19 12:39 Urine Color [place] (YELLOW) 07/25/19 12:39 Urine Appearance Clear (CLEAR) 07/25/19 12:39 Urine pH 5.0 (5.0 - 8.0) 07/25/19 12:39 Ur Specific [place] 1.020 (1.000-1.030) 07/25/19 12:39 Urine Protein 2+ (NEGATIVE) 07/25/19 12:39 Urine Glucose (UA) Negative (NEGATIVE) 07/25/19 12:39 Urine Ketones 1+ (NEGATIVE) 07/25/19 12:39 Urine Occult Blood Negative (NEGATIVE) 07/25/19 12:39 Urine Nitrite Negative (NEGATIVE) 07/25/19 12:39 Urine Bilirubin Negative (NEGATIVE) 07/25/19 12:39 Urine Urobilinogen Normal (NORMAL) 07/25/19 12:39 Ur Leukocyte Esterase 1+ (NEGATIVE) 07/25/19 12:39 Urine RBC None seen /HPF (0-3) 07/25/19 12:39 Urine WBC 0-2 /HPF (0-5) 07/25/19 12:39 Ur Squamous Epith Cells Rare /HPF (NEGATIVE) 07/25/19 12:39 Calcium Oxalate Crystal Few /HPF (NEGATIVE) 07/25/19 12:39 Amorphous Sediment Trace /HPF (NEGATIVE) 07/25/19 12:39 Urine Bacteria Negative /HPF (NEGATIVE) 07/25/19 12:39 Urine Mucus Few /HPF (NEGATIVE) 07/25/19 12:39 Ur Culture Indicated? No/not indicated 07/25/19 12:39 Rheumatoid Factor Negative (NEGATIVE) 07/25/19 15:23 HADLEY Screen None detected (None Detected) 07/25/19 15:23 HADLEY Titer TNP 07/25/19 15:23 HADLEY Pattern TNP 07/25/19 15:23 - Plan (1) Syncope and collapse Status: Acute Plan: IV HYDRATION, BP CONTROL, PAIN CONTROL. PT CONSULTATION, CONTINUE TO MONITOR (2) Seizure-like activity Status: Acute Plan: DEPAKOTE ER 500MG PO DAILY, CONTINUE TO MONITOR (3) Abdominal pain Status: Acute Qualifiers: Abdominal location: generalized Qualified Code(s): R10.84 - Generalized abdominal pain Plan: PAIN CONTROL, PT HAD CT ABDPELVIS LAST MONTH DUE TO SAME SYMPTOMS (4) Joint pain Status: Acute Qualifiers: Joint pain location: unspecified Qualified Code(s): M25.50 - Pain in unspecified joint Plan: CONTINUE PAIN CONTROL (5) Protein deficiency Status: Acute Plan: IV PROCAL, IV ALBUMIN, CONTINUE TO MONITOR (6) Diarrhea Status: Acute Qualifiers: Diarrhea type: presumed infectious Qualified Code(s): R19.7 - Diarrhea, unspecified Plan: STOOL STUDIES, PROBIOTICS, WELCHOL, CONTINUE TO MONITOR
[2019-07-28] MEDS: PROTONIX TAB 40 MG PO SCH ×2 (10:32→21:15)
[2019-07-28] MEDS: VITAMIN D3 PO SCH ×2 (10:32→21:15)
[2019-07-28] MEDS: PEPCID TAB 20 MG PO SCH ×2 (10:33→21:15)
[2019-07-28] MEDS: PROzac PO SCH (10:33)
[2019-07-28] MEDS: SYNTHROID 75 mcg TAB PO SCH (10:34)
[2019-07-28] MEDS: LOPRESSOR TAB 25 MG PO SCH ×2 (10:34→21:15)
[2019-07-28] MEDS: DEPAKOTE ER PO SCH (10:34)
[2019-07-28] MEDS: FOLIC ACID TAB 1 MG PO SCH (10:35)
[2019-07-28] MEDS: PREDNISONE TAB 10 MG PO SCH ×2 (10:35→21:16)
[2019-07-28] MEDS: PRED FORTE 1 % OP SCH ×4 (10:35→21:14)
[2019-07-28] MEDS: K-LYTE EFFERVESCENT PO SCH (10:36)
[2019-07-28] MEDS: ALBUMIN HUMAN 25%- 100 ML 100 ML IV SCH (10:36)
[2019-07-28] MEDS: MORPHINE SULFATE INJ 2 MG INJ IVP PRN ×2 (10:37→18:31)
[2019-07-28] MEDS: VSL#3 PO SCH (10:44)
[2019-07-28] MEDS: PROCALAMINE 3 % 1,000 ML IV SCH (10:44)
[2019-07-28 15:46] LABS: CRYPTOSPORIDIUM PARVUM ANTIGEN NEGATIVE (NEGATIVE); GIARDIA LAMBLIA ANTIGEN NEGATIVE (NEGATIVE)
[2019-07-28] MEDS: WELCHOL PO SCH (17:16)
[2019-07-28] MEDS: XANAX PO SCH (21:16)
[2019-07-28] MEDS: FLOMAX PO SCH (21:16)
[2019-07-29] MEDS: MORPHINE SULFATE INJ 2 MG INJ IVP PRN ×4 (01:49→21:12)
[2019-07-29] MEDS: VANCOMYCIN HCL PO SCH ×3 (06:00→22:05)
[2019-07-29] MEDS: NEURONTIN CAP 100 MG PO SCH ×3 (06:00→22:05)
[2019-07-29] MEDS: WELCHOL PO SCH ×2 (06:01→17:34)
[2019-07-29 06:13] LABS: BASOPHILS % (AUTO) 0.1 % (0.2-1.0); EOSINOPHILS % (AUTO) 0.2 % (0.9-2.9); HEMATOCRIT 27.3 % (42.0-54.0); HEMOGLOBIN 9.6 g/dL (13.5-18.0); LYMPHOCYTES # (AUTO) 0.6 X10^3/uL (1.3-2.9); LYMPHOCYTES % (AUTO) 20.8 % (21.0-51.0); MEAN CORPUSCULAR HEMOGLOBIN 34.2 pg (27.0-34.0); MEAN CORPUSCULAR HGB CONC 35.3 g/dL (33.0-35.0); MEAN CORPUSCULAR VOLUME 96.7 fL (80.0-100.0); MEAN PLATELET VOLUME 8.1 fL (7.4-11.0); MONOCYTES # (AUTO) 1.9 x10^3/uL (0.3-0.8); MONOCYTES % (AUTO) 61.9 % (0.0-13.0); NEUTROPHILS # (AUTO) 0.5 x10^3/uL (2.2-4.8); PLATELET COUNT 149 X10^3/uL (150.0-450.0); RED BLOOD COUNT 2.82 X10^6/uL (4.7-6.0); RED CELL DISTRIBUTION WIDTH 15.2 % (11.6-16.5); WHITE BLOOD COUNT 3.1 X10^3/uL (3.6-10.0)
[2019-07-29 06:25] LABS: ALANINE AMINOTRANSFERASE 38 Units/L (12-78); ALBUMIN 3.3 g/dL (3.4-5.0); ALKALINE PHOSPHATASE 97 Units/L (46-116); ASPARTATE AMINO TRANSFERASE 15 Units/L (15-37); BLOOD UREA NITROGEN 14 mg/dL (7-18); CALCIUM 8.1 mg/dL (8.5-10.1); CARBON DIOXIDE 28.3 mmol/L (21-32); CHLORIDE 103 mmol/L (98-107); COR CA(FOR HYPOALB) 8.7 mg/dL (8.5-10.1); COR NA(FOR HYPERGLY) 141 mmol/L (136-145); CREATININE 0.81 mg/dL (0.70-1.30); SODIUM 139 mmol/L (136-145); eGFR NON BLACK RACES > 60 (>60)
[2019-07-29 07:14] LABS: BAND NEUTROPHILS % 6 % (0-10); PLATELET MORPHOLOGY COMMENT NORMAL (NORMAL)
[2019-07-29] MEDS: PROCALAMINE 3 % 1,000 ML IV SCH (10:07)
[2019-07-29] MEDS: ALBUMIN HUMAN 25%- 100 ML 100 ML IV SCH (10:07)
[2019-07-29] MEDS: K-LYTE EFFERVESCENT PO SCH (10:08)
[2019-07-29] MEDS: VITAMIN D3 PO SCH ×2 (10:09→20:31)
[2019-07-29] MEDS: VSL#3 PO SCH (10:09)
[2019-07-29] MEDS: FOLIC ACID TAB 1 MG PO SCH (10:10)
[2019-07-29] MEDS: LOPRESSOR TAB 25 MG PO SCH ×2 (10:10→20:32)
[2019-07-29] MEDS: PEPCID TAB 20 MG PO SCH ×2 (10:10→20:31)
[2019-07-29] MEDS: PRED FORTE 1 % OP SCH ×4 (10:11→20:32)
[2019-07-29] MEDS: PREDNISONE TAB 10 MG PO SCH ×2 (10:11→20:31)
[2019-07-29] MEDS: SYNTHROID 75 mcg TAB PO SCH (10:11)
[2019-07-29] MEDS: DEPAKOTE ER PO SCH (10:12)
[2019-07-29] MEDS: PROTONIX TAB 40 MG PO SCH ×2 (10:12→20:31)
[2019-07-29] MEDS: PROzac PO SCH (10:12)
--- NOTE | 2019-07-29 10:46 | PCM.PROG ---
Progress Note - Progress Note for Day of Date of Exam: 07/29/19 - Subjective Subjective: WAS ADMITTED ON 07/25 AFTER HAVING A SYNCOPAL EPISODE AT HOME FOLLOWING SEIZURE LIKE ACTIVITY. HE HAS PMH OF MDS, OA, COLITIS, LUMBAR SPINE DDD WITH SPINAL STENOSIS, CHRONIC T SPINE COMPRESSION FRACTURES, AND ANEMIA. TODAY, HE IS ALERT AND ORIENTED, LYING IN BED ON MORNING ROUNDS. HE CONTINUES WITH GENERALIZED WEAKNESS AND MILD ABDOMINAL PAIN. HIS VITALS THIS MORNING ARE: 98.7-65-18-99%-125/71. LABS WERE OBTAINED. ABNORMAL LAB VALUES INCLUDE THE FOLLOWING: WBC 3.1, RBC 2.82, HGB 9.6, HCT 27.3, PLT COUNT 149, GLUCOSE 166, CALCIUM 8.1, TOTAL PROTEIN 6.0, ALBUMIN 3.3. STOOLS ARE POSITIVE FOR WBC. HE IS CURRENTLY RECEIVING IV PROCAL, IV ALBUMIN, DEPAKOTE 500MG PO DAILY, THE POTASSIUM AND MAGNESIUM PROTOCOLS, MORPHINE PRN, NORCO PRN, PROBIOTICS, WELCHOL, AND HOME MEDICATIONS WERE RESUMED. TODAY, WE WILL START BENTYL 20MG PO QID. AFTER DISCHARGE, WE PLAN TO REFER HIM TO A NEUROLOGIST FOR AN EEG. OTHERWISE, WE PLAN TO FOLLOW UP WITH AM LABS AND CONTINUE TO MONITOR. - Past Medical Family Social History Past Med/Fam/Surg Hx: No changes since H&P Allergies: Allergies promethazine [From Phenergan] Allergy (Verified 07/25/19 05:56) - Review of Systems ROS: No change since H&P - Vital Signs and I&O's Vital Signs: Temperature 98.7 F Pulse Rate [Left Apical] 65 Pulse Rate [Right] 64 Pulse Rate 94 Respiratory Rate 18 Blood Pressure [standing] 116/67 Blood Pressure [sitting] 116/64 Blood Pressure [Left Arm] 125/71 Blood Pressure [Right Arm] 127/62 Blood Pressure 144/83 O2 Sat by Pulse Oximetry 99 Intake and Output: Intake & Output 07/26/19 07/27/19 07/28/19 07/29/19 11:59 11:59 11:59 11:59 Intake Total 1467 / 1467 1550 / 1550 1713 / 1713 3414 / 3414 Output Total 850 / 850 850 / 850 2150 / 2150 2650 / 2650 Balance 617 / 617 700 / 700 -437 / -437 764 / 764 - Physical Exam Oriented: Normal Eyes: Normal Ear: Normal Nose: Normal Throat: Dry Respiratory: Generalized, Diminished Cardiovascular: Normal. negative: Murmur, Edema : Normal Auscultation: Bowel Sounds: Normal Tenderness: LUQ, LLQ Skin: Decreased Turgur, Wound (SKIN TEARM LEFT POSTERIOR UPPER ARM), Bruising Musculoskeletal: Back:Thoracic, Back:Lumbar Psychiatric: Anxiety Mood Description: Calm Affect: Anxious Speech Pattern: Clear - Laboratory and Diagnostics Result Diagrams: 07/29/19 05:44 07/29/19 05:44 Labs: 07/28/19 13:47 Stool Stool Culture - Preliminary 07/28/19 13:47 Stool - Final 07/25/19 12:39 Urine,Clean Catch Urine Culture - Final Laboratory WBC 3.1 X10^3/uL (3.6-10.0) L 07/29/19 05:44 RBC 2.82 X10^6/uL (4.7-6.0) L 07/29/19 05:44 Hgb 9.6 g/dL (13.5-18.0) L 07/29/19 05:44 Hct 27.3 % (42.0-54.0) L 07/29/19 05:44 MCV 96.7 fL (80.0-100.0) 07/29/19 05:44 MCH 34.2 pg (27.0-34.0) H 07/29/19 05:44 MCHC 35.3 g/dL (33.0-35.0) H 07/29/19 05:44 RDW 15.2 % (11.6-16.5) 07/29/19 05:44 Plt Count 149 X10^3/uL (150.0-450.0) L 07/29/19 05:44 Plt Count Comment Adequate (ADEQUATE) 07/29/19 05:44 MPV 8.1 fL (7.4-11.0) 07/29/19 05:44 Neut % (Auto) 17.0 % (42.0-75.0) L 07/29/19 05:44 Lymph % (Auto) 20.8 % (21.0-51.0) L 07/29/19 05:44 [place] % (Auto) 61.9 % (0.0-13.0) H 07/29/19 05:44 Eos % (Auto) 0.2 % (0.9-2.9) L 07/29/19 05:44 Baso % (Auto) 0.1 % (0.2-1.0) L 07/29/19 05:44 Neut # (Auto) 0.5 x10^3/uL (2.2-4.8) L 07/29/19 05:44 Lymph # (Auto) 0.6 X10^3/uL (1.3-2.9) L 07/29/19 05:44 [place] # (Auto) 1.9 x10^3/uL (0.3-0.8) H 07/29/19 05:44 Eos # (Auto) 0.0 x10^3/uL (0.0-0.2) 07/29/19 05:44 Baso # (Auto) 0.0 X10^3/uL (0.0-0.1) 07/29/19 05:44 Absolute Nucleated RBC 0.4 /100WBC 07/29/19 05:44 Total Counted 100 07/29/19 05:44 Neutrophils % (Manual) 34 % (39-76) L 07/29/19 05:44 Band Neutrophils % 6 % (0-10) 07/29/19 05:44 Lymphocytes % (Manual) 32 % (13-43) 07/29/19 05:44 Monocytes % (Manual) 24 % (4-9) H 07/29/19 05:44 Eosinophils % (Manual) 2 % (0-6) 07/29/19 05:44 Metamyelocytes % 12 07/28/19 05:27 Myelocytes % 8 07/28/19 05:27 Atypical Lymphocytes Not Reportable 07/25/19 04:11 Plt Morphology Comment Normal (NORMAL) 07/29/19 05:44 RBC Morphology Normal (NORMAL) 07/29/19 05:44 ESR 14 MM/HOUR (0-15) 07/25/19 15:23 PT 12.3 SECONDS (11.8-14.3) 07/24/19 21:50 INR Target Range - 07/24/19 21:50 INR 0.95 (0.8-1.3) 07/24/19 21:50 APTT 28.4 SECONDS (22.9-36.5) 07/24/19 21:50 PTT Comment - 07/24/19 21:50 Sodium 139 mmol/L (136-145) 07/29/19 05:44 Corrected Sodium 141 mmol/L (136-145) 07/29/19 05:44 Potassium 4.4 mmol/L (3.5-5.1) 07/29/19 05:44 Chloride 103 mmol/L (98-107) 07/29/19 05:44 Carbon Dioxide 28.3 mmol/L (21-32) 07/29/19 05:44 BUN 14 mg/dL (7-18) 07/29/19 05:44 Creatinine 0.81 mg/dL (0.70-1.30) 07/29/19 05:44 Est GFR (MDRD) Af Amer > 60 (>60) 07/29/19 05:44 Est GFR (MDRD) Non-Af > 60 (>60) 07/29/19 05:44 Glucose 166 mg/dL (65-99) H 07/29/19 05:44 Calcium 8.1 mg/dL (8.5-10.1) L 07/29/19 05:44 Corrected Calcium 8.7 mg/dL (8.5-10.1) 07/29/19 05:44 Magnesium 1.6 mg/dL (1.7-2.9) L 07/24/19 21:50 Total Bilirubin 0.20 mg/dL (0.2-1.0) 07/29/19 05:44 AST 15 Units/L (15-37) 07/29/19 05:44 ALT 38 Units/L (12-78) 07/29/19 05:44 Alkaline Phosphatase 97 Units/L (46-116) 07/29/19 05:44 Creatine Kinase 38 Units/L (39-308) L 07/25/19 04:11 CK-MB (CK-2) < 1.0 ng/mL (0-4.0) 07/25/19 04:11 CK/CKMB % Calc 2.6 % (<4) 07/25/19 04:11 Troponin I 0.03 ng/mL (0-1.5) 07/25/19 04:11 C-Reactive Protein 3.90 mg/L (0-3.0) H 07/25/19 15:23 Total Protein 6.0 g/dL (6.4-8.2) L 07/29/19 05:44 Albumin 3.3 g/dL (3.4-5.0) L 07/29/19 05:44 Globulin 2.7 g/dL (2.5-4.5) 07/29/19 05:44 Albumin/Globulin Ratio 1.2 Ratio (1.1-2.1) 07/29/19 05:44 Triglycerides 121 mg/dL (0-150) 07/26/19 04:05 Cholesterol 151 mg/dL (0-200) 07/26/19 04:05 LDL Cholesterol, Calc 77 mg/dL (0-100) 07/26/19 04:05 HDL Cholesterol 50 mg/dL (40-60) 07/26/19 04:05 Cholesterol/HDL Ratio 3.0 (0.0-5.0) 07/26/19 04:05 Amylase 117 Units/L (25-115) H 07/25/19 04:11 Lipase 384 Units/L (73-393) 07/25/19 04:11 Total PSA 1.80 ng/mL (0.13-4.0) 07/25/19 15:23 Specimen Type Clean catch urine 07/25/19 12:39 Urine Color [place] (YELLOW) 07/25/19 12:39 Urine Appearance Clear (CLEAR) 07/25/19 12:39 Urine pH 5.0 (5.0 - 8.0) 07/25/19 12:39 Ur Specific [place] 1.020 (1.000-1.030) 07/25/19 12:39 Urine Protein 2+ (NEGATIVE) 07/25/19 12:39 Urine Glucose (UA) Negative (NEGATIVE) 07/25/19 12:39 Urine Ketones 1+ (NEGATIVE) 07/25/19 12:39 Urine Occult Blood Negative (NEGATIVE) 07/25/19 12:39 Urine Nitrite Negative (NEGATIVE) 07/25/19 12:39 Urine Bilirubin Negative (NEGATIVE) 07/25/19 12:39 Urine Urobilinogen Normal (NORMAL) 07/25/19 12:39 Ur Leukocyte Esterase 1+ (NEGATIVE) 07/25/19 12:39 Urine RBC None seen /HPF (0-3) 07/25/19 12:39 Urine WBC 0-2 /HPF (0-5) 07/25/19 12:39 Ur Squamous Epith Cells Rare /HPF (NEGATIVE) 07/25/19 12:39 Calcium Oxalate Crystal Few /HPF (NEGATIVE) 07/25/19 12:39 Amorphous Sediment Trace /HPF (NEGATIVE) 07/25/19 12:39 Urine Bacteria Negative /HPF (NEGATIVE) 07/25/19 12:39 Urine Mucus Few /HPF (NEGATIVE) 07/25/19 12:39 Ur Culture Indicated? No/not indicated 07/25/19 12:39 Stool Description 175g,brown,unformed 07/28/19 13:47 Stool Description 175g,brown,unformed 07/28/19 13:47 Stl Occult Blood (IFOB) Negative (NEGATIVE) 07/28/19 13:47 Stool for White Cells Positive (NEGATIVE) A 07/28/19 13:47 Stl C. diff Tox B Gene Negative (NEGATIVE) 07/28/19 13:47 Stl C. diff [id number] Negative (NEGATIVE) 07/28/19 13:47 Rheumatoid Factor Negative (NEGATIVE) 07/25/19 15:23 HADLEY Screen None detected (None Detected) 07/25/19 15:23 HADLEY Titer TNP 07/25/19 15:23 HADLEY Pattern TNP 07/25/19 15:23 Cryptosporid parvum Ag Negative (NEGATIVE) 07/28/19 13:47 Giardia lamblia Ag Negative (NEGATIVE) 07/28/19 13:47 - Plan (1) Syncope and collapse Status: Acute Plan: IV HYDRATION, BP CONTROL, PAIN CONTROL. PT CONSULTATION, CONTINUE TO MONITOR (2) Seizure-like activity Status: Acute Plan: DEPAKOTE ER 500MG PO DAILY, CONTINUE TO MONITOR (3) Abdominal pain Status: Acute Qualifiers: Abdominal location: generalized Qualified Code(s): R10.84 - Generalized abdominal pain Plan: BENTYL 20MG PO QID, PAIN CONTROL, PT HAD CT ABDPELVIS LAST MONTH DUE TO SAME SYMPTOMS (4) Joint pain Status: Acute Qualifiers: Joint pain location: unspecified Qualified Code(s): M25.50 - Pain in unspecified joint Plan: CONTINUE PAIN CONTROL (5) Protein deficiency Status: Acute Plan: IV PROCAL, IV ALBUMIN, CONTINUE TO MONITOR (6) Diarrhea Status: Acute Qualifiers: Diarrhea type: presumed infectious Qualified Code(s): R19.7 - Diarrhea, unspecified Plan: STOOL STUDIES, PROBIOTICS, WELCHOL, CONTINUE TO MONITOR
[2019-07-29] MEDS: BENTYL CAP 10 MG PO SCH ×4 (11:26→20:31)
[2019-07-29] MEDS: MAGIC MOUTHWASH MT SCH ×2 (17:35→20:33)
[2019-07-29] MEDS: FLOMAX PO SCH (20:31)
[2019-07-29] MEDS: XANAX PO SCH (20:32)
[2019-07-30 05:30] LABS: BASOPHILS % (AUTO) 0.1 % (0.2-1.0); EOSINOPHILS % (AUTO) 0.1 % (0.9-2.9); HEMATOCRIT 29.5 % (42.0-54.0); HEMOGLOBIN 10.3 g/dL (13.5-18.0); LYMPHOCYTES # (AUTO) 0.7 X10^3/uL (1.3-2.9); LYMPHOCYTES % (AUTO) 18.2 % (21.0-51.0); MEAN CORPUSCULAR HEMOGLOBIN 33.8 pg (27.0-34.0); MEAN CORPUSCULAR HGB CONC 34.8 g/dL (33.0-35.0); MEAN CORPUSCULAR VOLUME 97.3 fL (80.0-100.0); MEAN PLATELET VOLUME 8.6 fL (7.4-11.0); MONOCYTES # (AUTO) 2.4 x10^3/uL (0.3-0.8); MONOCYTES % (AUTO) 65.2 % (0.0-13.0); NEUTROPHILS # (AUTO) 0.6 x10^3/uL (2.2-4.8); NEUTROPHILS % (AUTO) 16.4 % (42.0-75.0); PLATELET COUNT 141 X10^3/uL (150.0-450.0); RED BLOOD COUNT 3.04 X10^6/uL (4.7-6.0); RED CELL DISTRIBUTION WIDTH 15.1 % (11.6-16.5); WHITE BLOOD COUNT 3.6 X10^3/uL (3.6-10.0)
[2019-07-30 05:38] LABS: ALANINE AMINOTRANSFERASE 35 Units/L (12-78); ALBUMIN 3.7 g/dL (3.4-5.0); ALKALINE PHOSPHATASE 95 Units/L (46-116); ASPARTATE AMINO TRANSFERASE 13 Units/L (15-37); BLOOD UREA NITROGEN 18 mg/dL (7-18); CALCIUM 8.5 mg/dL (8.5-10.1); CARBON DIOXIDE 29.5 mmol/L (21-32); CHLORIDE 103 mmol/L (98-107); COR NA(FOR HYPERGLY) 140 mmol/L (136-145); CREATININE 0.91 mg/dL (0.70-1.30); SODIUM 139 mmol/L (136-145); TOTAL PROTEIN 6.4 g/dL (6.4-8.2); eGFR NON BLACK RACES > 60 (>60)
[2019-07-30] MEDS: VANCOMYCIN HCL PO SCH ×3 (06:04→21:39)
[2019-07-30] MEDS: NEURONTIN CAP 100 MG PO SCH ×3 (06:04→21:39)
[2019-07-30] MEDS: WELCHOL PO SCH ×2 (06:05→17:15)
[2019-07-30 06:16] LABS: PLATELET MORPHOLOGY COMMENT NORMAL (NORMAL)
[2019-07-30] MEDS: MORPHINE SULFATE INJ 2 MG INJ IVP PRN ×2 (07:10→17:19)
[2019-07-30] MEDS: ZOFRAN TAB 4 MG PO PRN ×2 (07:11→15:56)
[2019-07-30] MEDS: K-LYTE EFFERVESCENT PO SCH (09:24)
[2019-07-30] MEDS: VITAMIN D3 PO SCH ×2 (09:25→21:39)
[2019-07-30] MEDS: PEPCID TAB 20 MG PO SCH ×2 (09:25→21:38)
[2019-07-30] MEDS: LOPRESSOR TAB 25 MG PO SCH ×2 (09:26→21:40)
[2019-07-30] MEDS: PROzac PO SCH (09:26)
[2019-07-30] MEDS: BENTYL CAP 10 MG PO SCH ×4 (09:26→21:38)
[2019-07-30] MEDS: FOLIC ACID TAB 1 MG PO SCH (09:26)
[2019-07-30] MEDS: SYNTHROID 75 mcg TAB PO SCH (09:26)
[2019-07-30] MEDS: PROTONIX TAB 40 MG PO SCH ×2 (09:26→21:38)
[2019-07-30] MEDS: VSL#3 PO SCH (09:27)
[2019-07-30] MEDS: ALBUMIN HUMAN 25%- 100 ML 100 ML IV SCH (09:27)
[2019-07-30] MEDS: PREDNISONE TAB 10 MG PO SCH ×2 (09:28→21:38)
[2019-07-30] MEDS: DEPAKOTE ER PO SCH (09:28)
[2019-07-30] MEDS: MAGIC MOUTHWASH MT SCH ×4 (09:33→21:40)
[2019-07-30] MEDS: PRED FORTE 1 % OP SCH ×4 (09:34→21:40)
[2019-07-30] MEDS: PROCALAMINE 3 % 1,000 ML IV SCH (10:30)
[2019-07-30] MEDS: NORCO 5/325 MG TAB PO PRN (12:09)
[2019-07-30] MEDS: LOMOTIL PO SCH ×3 (12:11→21:39)
[2019-07-30] MEDS: TORADOL 30 MG VIAL IVP PRN (15:56)
[2019-07-30] MEDS: XANAX PO SCH (21:39)
[2019-07-30] MEDS: FLOMAX PO SCH (21:39)
[2019-07-31] MEDS: MORPHINE SULFATE INJ 2 MG INJ IVP PRN (03:48)
[2019-07-31] MEDS: NORCO 5/325 MG TAB PO PRN ×2 (05:40→19:05)
[2019-07-31] MEDS: NEURONTIN CAP 100 MG PO SCH ×3 (05:40→21:59)
[2019-07-31] MEDS: LOMOTIL PO SCH ×3 (05:40→21:59)
[2019-07-31] MEDS: VANCOMYCIN HCL PO SCH ×3 (05:41→22:00)
[2019-07-31] MEDS: WELCHOL PO SCH ×2 (06:03→17:17)
[2019-07-31 07:06] LABS: BASOPHILS % (AUTO) 0.1 % (0.2-1.0); EOSINOPHILS % (AUTO) 0.1 % (0.9-2.9); HEMATOCRIT 29.5 % (42.0-54.0); HEMOGLOBIN 10.2 g/dL (13.5-18.0); LYMPHOCYTES # (AUTO) 0.8 X10^3/uL (1.3-2.9); LYMPHOCYTES % (AUTO) 20.4 % (21.0-51.0); MEAN CORPUSCULAR HGB CONC 34.5 g/dL (33.0-35.0); MEAN CORPUSCULAR VOLUME 98.4 fL (80.0-100.0); MEAN PLATELET VOLUME 8.9 fL (7.4-11.0); MONOCYTES # (AUTO) 2.2 x10^3/uL (0.3-0.8); MONOCYTES % (AUTO) 56.2 % (0.0-13.0); NEUTROPHILS # (AUTO) 0.9 x10^3/uL (2.2-4.8); NEUTROPHILS % (AUTO) 23.2 % (42.0-75.0); PLATELET COUNT 141 X10^3/uL (150.0-450.0); RED CELL DISTRIBUTION WIDTH 15.4 % (11.6-16.5)
[2019-07-31 07:08] LABS: ALANINE AMINOTRANSFERASE 32 Units/L (12-78); ALBUMIN 3.8 g/dL (3.4-5.0); ALKALINE PHOSPHATASE 98 Units/L (46-116); ASPARTATE AMINO TRANSFERASE 12 Units/L (15-37); BLOOD UREA NITROGEN 24 mg/dL (7-18); CALCIUM 8.6 mg/dL (8.5-10.1); CARBON DIOXIDE 27.1 mmol/L (21-32); CHLORIDE 102 mmol/L (98-107); COR NA(FOR HYPERGLY) 139 mmol/L (136-145); SODIUM 138 mmol/L (136-145); TOTAL PROTEIN 6.5 g/dL (6.4-8.2); eGFR NON BLACK RACES > 60 (>60)
[2019-07-31 07:54] LABS: BAND NEUTROPHILS % 10 % (0-10)
[2019-07-31 07:55] LABS: PLATELET MORPHOLOGY COMMENT NORMAL (NORMAL)
[2019-07-31] MEDS: ALBUMIN HUMAN 25%- 100 ML 100 ML IV SCH (08:35)
[2019-07-31] MEDS: DEPAKOTE ER PO SCH (08:35)
[2019-07-31] MEDS: FOLIC ACID TAB 1 MG PO SCH (08:39)
[2019-07-31] MEDS: PEPCID TAB 20 MG PO SCH ×2 (08:39→20:47)
[2019-07-31] MEDS: SYNTHROID 75 mcg TAB PO SCH (08:40)
[2019-07-31] MEDS: PRED FORTE 1 % OP SCH ×4 (08:40→20:54)
[2019-07-31] MEDS: VITAMIN D3 PO SCH ×2 (08:40→20:47)
[2019-07-31] MEDS: PROzac PO SCH (08:40)
[2019-07-31] MEDS: BENTYL CAP 10 MG PO SCH ×4 (08:41→20:48)
[2019-07-31] MEDS: PROTONIX TAB 40 MG PO SCH ×2 (08:41→20:49)
[2019-07-31] MEDS: LOPRESSOR TAB 25 MG PO SCH ×2 (08:41→20:48)
[2019-07-31] MEDS: PREDNISONE TAB 10 MG PO SCH ×2 (08:41→20:48)
[2019-07-31] MEDS: K-LYTE EFFERVESCENT PO SCH (08:42)
[2019-07-31] MEDS: VSL#3 PO SCH (08:42)
[2019-07-31] MEDS: MAGIC MOUTHWASH MT SCH ×4 (11:01→20:52)
[2019-07-31] MEDS: TORADOL 30 MG VIAL IVP PRN (13:20)
[2019-07-31] MEDS ORDERED: TORADOL 30 MG VIAL IVP SCH (14:00)
[2019-07-31] MEDS: FLOMAX PO SCH (20:48)
[2019-07-31] MEDS: TORADOL 30 MG VIAL IVP SCH (20:48)
[2019-07-31] MEDS: XANAX PO SCH (20:49)
--- NOTE | 2019-07-31 22:05 | PCM.PROG ---
Progress Note - Progress Note for Day of Date of Exam: 07/30/19 - Subjective Subjective: WAS ADMITTED ON 07/25 AFTER HAVING A SYNCOPAL EPISODE AT HOME FOLLOWING SEIZURE LIKE ACTIVITY. HE HAS ALSO BEEN TREATED FOR ABDOMINAL PAIN AND DIARRHEA. HE HAS PMH OF MDS, OA, COLITIS, LUMBAR SPINE DDD WITH SPINAL STENOSIS, CHRONIC T SPINE COMPRESSION FRACTURES, AND ANEMIA. TODAY, HE IS ALERT AND ORIENTED, LYING IN BED ON MORNING ROUNDS. HE CONTINUES WITH GENERALIZED WEAKNESS AND MILD ABDOMINAL PAIN. HE ONLY REPORTS ONE EPISODE OF DIARRHEA TODAY. HIS VITALS THIS MORNING ARE: 97.3-62-18-100%-120/69. LABS WERE OBTAINED. ABNORMAL LAB VALUES INCLUDE THE FOLLOWING: RBC 3.04, HGB 10.3, HCT 29.5, PLT COUNT 141, GLUCOSE 128, AST 13. STOOLS ARE POSITIVE FOR WBC. HE IS CURRENTLY RECEIVING IV PROCAL, IV ALBUMIN, DEPAKOTE 500MG PO DAILY, THE POTASSIUM AND MAGNESIUM PROTOCOLS, MORPHINE PRN, NORCO PRN, PROBIOTICS, WELCHOL, BENTYL, AND HOME MEDICATIONS WERE RESUMED. TODAY, WE WILL START LOMOTIL PO TID AND TORADOL 30MG IV Q6H. AFTER DISCHARGE, WE PLAN TO REFER HIM TO A NEUROLOGIST FOR AN EEG. OTHERWISE, WE PLAN TO FOLLOW UP WITH AM LABS AND CONTINUE TO MONITOR. - Past Medical Family Social History Past Med/Fam/Surg Hx: No changes since H&P Allergies: Allergies promethazine [From Phenergan] Allergy (Verified 07/25/19 05:56) - Review of Systems ROS: No change since H&P - Vital Signs and I&O's Vital Signs: Temperature 98.0 F Pulse Rate [Left Apical] 60 Pulse Rate [Right] 64 Pulse Rate 94 Respiratory Rate 18 Blood Pressure [LYING] 106/55 Blood Pressure [standing] 78/53 Blood Pressure [sitting] 106/57 Blood Pressure [Left Arm] 121/66 Blood Pressure [Right Arm] 127/62 Blood Pressure 144/83 O2 Sat by Pulse Oximetry 98 Intake and Output: Intake & Output 07/29/19 07/30/19 07/31/19 08/01/19 11:59 11:59 11:59 11:59 Intake Total 3414 / 3414 1732 / 1732 2351 / 2351 920 / 920 Output Total 2650 / 2650 1250 / 1250 750 / 750 200 / 200 Balance 764 / 764 482 / 482 1601 / 1601 720 / 720 - Physical Exam Oriented: Normal Eyes: Normal Ear: Normal Nose: Normal Throat: Dry Respiratory: Generalized, Diminished Cardiovascular: Normal. negative: Murmur, Edema : Normal Auscultation: Bowel Sounds: Normal Palpation: Normal Tenderness: LUQ, LLQ Skin: Decreased Turgur, Wound (SKIN TEARM LEFT POSTERIOR UPPER ARM), Bruising Musculoskeletal: Back:Thoracic, Back:Lumbar Psychiatric: Anxiety Mood Description: Calm Affect: Anxious Speech Pattern: Clear, Appropriate - Laboratory and Diagnostics Result Diagrams: 07/31/19 05:45 07/31/19 05:45 Labs: 07/28/19 13:47 Stool Stool Culture - Final 07/28/19 13:47 Stool - Final 07/25/19 12:39 Urine,Clean Catch Urine Culture - Final Laboratory WBC 4.0 X10^3/uL (3.6-10.0) 07/31/19 05:45 RBC 3.00 X10^6/uL (4.7-6.0) L 07/31/19 05:45 Hgb 10.2 g/dL (13.5-18.0) L 07/31/19 05:45 Hct 29.5 % (42.0-54.0) L 07/31/19 05:45 MCV 98.4 fL (80.0-100.0) 07/31/19 05:45 MCH 34.0 pg (27.0-34.0) 07/31/19 05:45 MCHC 34.5 g/dL (33.0-35.0) 07/31/19 05:45 RDW 15.4 % (11.6-16.5) 07/31/19 05:45 Plt Count 141 X10^3/uL (150.0-450.0) L 07/31/19 05:45 Plt Count Comment Adequate (ADEQUATE) 07/31/19 05:45 MPV 8.9 fL (7.4-11.0) 07/31/19 05:45 Neut % (Auto) 23.2 % (42.0-75.0) L 07/31/19 05:45 Lymph % (Auto) 20.4 % (21.0-51.0) L 07/31/19 05:45 [place] % (Auto) 56.2 % (0.0-13.0) H 07/31/19 05:45 Eos % (Auto) 0.1 % (0.9-2.9) L 07/31/19 05:45 Baso % (Auto) 0.1 % (0.2-1.0) L 07/31/19 05:45 Neut # (Auto) 0.9 x10^3/uL (2.2-4.8) L 07/31/19 05:45 Lymph # (Auto) 0.8 X10^3/uL (1.3-2.9) L 07/31/19 05:45 [place] # (Auto) 2.2 x10^3/uL (0.3-0.8) H 07/31/19 05:45 Eos # (Auto) 0.0 x10^3/uL (0.0-0.2) 07/31/19 05:45 Baso # (Auto) 0.0 X10^3/uL (0.0-0.1) 07/31/19 05:45 Absolute Nucleated RBC 0.2 /100WBC 07/31/19 05:45 Total Counted 100 07/31/19 05:45 Neutrophils % (Manual) 16 % (39-76) L 07/31/19 05:45 Band Neutrophils % 10 % (0-10) 07/31/19 05:45 Lymphocytes % (Manual) 24 % (13-43) 07/31/19 05:45 Monocytes % (Manual) 50 % (4-9) H 07/31/19 05:45 Eosinophils % (Manual) 2 % (0-6) 07/29/19 05:44 Metamyelocytes % 12 07/28/19 05:27 Myelocytes % 8 07/28/19 05:27 Atypical Lymphocytes Not Reportable 07/25/19 04:11 Plt Morphology Comment Normal (NORMAL) 07/31/19 05:45 RBC Morphology Normal (NORMAL) 07/31/19 05:45 ESR 14 MM/HOUR (0-15) 07/25/19 15:23 PT 12.3 SECONDS (11.8-14.3) 07/24/19 21:50 INR Target Range - 07/24/19 21:50 INR 0.95 (0.8-1.3) 07/24/19 21:50 APTT 28.4 SECONDS (22.9-36.5) 07/24/19 21:50 PTT Comment - 07/24/19 21:50 Sodium 138 mmol/L (136-145) 07/31/19 05:45 Corrected Sodium 139 mmol/L (136-145) 07/31/19 05:45 Potassium 4.5 mmol/L (3.5-5.1) 07/31/19 05:45 Chloride 102 mmol/L (98-107) 07/31/19 05:45 Carbon Dioxide 27.1 mmol/L (21-32) 07/31/19 05:45 BUN 24 mg/dL (7-18) H 07/31/19 05:45 Creatinine 1.00 mg/dL (0.70-1.30) 07/31/19 05:45 Est GFR (MDRD) Af Amer > 60 (>60) 07/31/19 05:45 Est GFR (MDRD) Non-Af > 60 (>60) 07/31/19 05:45 Glucose 153 mg/dL (65-99) H 07/31/19 05:45 Calcium 8.6 mg/dL (8.5-10.1) 07/31/19 05:45 Corrected Calcium TNP 07/31/19 05:45 Magnesium 1.6 mg/dL (1.7-2.9) L 07/24/19 21:50 Total Bilirubin 0.40 mg/dL (0.2-1.0) 07/31/19 05:45 AST 12 Units/L (15-37) L 07/31/19 05:45 ALT 32 Units/L (12-78) 07/31/19 05:45 Alkaline Phosphatase 98 Units/L (46-116) 07/31/19 05:45 Creatine Kinase 38 Units/L (39-308) L 07/25/19 04:11 CK-MB (CK-2) < 1.0 ng/mL (0-4.0) 07/25/19 04:11 CK/CKMB % Calc 2.6 % (<4) 07/25/19 04:11 Troponin I 0.03 ng/mL (0-1.5) 07/25/19 04:11 C-Reactive Protein 3.90 mg/L (0-3.0) H 07/25/19 15:23 Total Protein 6.5 g/dL (6.4-8.2) 07/31/19 05:45 Albumin 3.8 g/dL (3.4-5.0) 07/31/19 05:45 Globulin 2.7 g/dL (2.5-4.5) 07/31/19 05:45 Albumin/Globulin Ratio 1.4 Ratio (1.1-2.1) 07/31/19 05:45 Triglycerides 121 mg/dL (0-150) 07/26/19 04:05 Cholesterol 151 mg/dL (0-200) 07/26/19 04:05 LDL Cholesterol, Calc 77 mg/dL (0-100) 07/26/19 04:05 HDL Cholesterol 50 mg/dL (40-60) 07/26/19 04:05 Cholesterol/HDL Ratio 3.0 (0.0-5.0) 07/26/19 04:05 Amylase 117 Units/L (25-115) H 07/25/19 04:11 Lipase 384 Units/L (73-393) 07/25/19 04:11 Total PSA 1.80 ng/mL (0.13-4.0) 07/25/19 15:23 Specimen Type Clean catch urine 07/25/19 12:39 Urine Color [place] (YELLOW) 07/25/19 12:39 Urine Appearance Clear (CLEAR) 07/25/19 12:39 Urine pH 5.0 (5.0 - 8.0) 07/25/19 12:39 Ur Specific [place] 1.020 (1.000-1.030) 07/25/19 12:39 Urine Protein 2+ (NEGATIVE) 07/25/19 12:39 Urine Glucose (UA) Negative (NEGATIVE) 07/25/19 12:39 Urine Ketones 1+ (NEGATIVE) 07/25/19 12:39 Urine Occult Blood Negative (NEGATIVE) 07/25/19 12:39 Urine Nitrite Negative (NEGATIVE) 07/25/19 12:39 Urine Bilirubin Negative (NEGATIVE) 07/25/19 12:39 Urine Urobilinogen Normal (NORMAL) 07/25/19 12:39 Ur Leukocyte Esterase 1+ (NEGATIVE) 07/25/19 12:39 Urine RBC None seen /HPF (0-3) 07/25/19 12:39 Urine WBC 0-2 /HPF (0-5) 07/25/19 12:39 Ur Squamous Epith Cells Rare /HPF (NEGATIVE) 07/25/19 12:39 Calcium Oxalate Crystal Few /HPF (NEGATIVE) 07/25/19 12:39 Amorphous Sediment Trace /HPF (NEGATIVE) 07/25/19 12:39 Urine Bacteria Negative /HPF (NEGATIVE) 07/25/19 12:39 Urine Mucus Few /HPF (NEGATIVE) 07/25/19 12:39 Ur Culture Indicated? No/not indicated 07/25/19 12:39 Stool Description 175g,brown,unformed 07/28/19 13:47 Stool Description 175g,brown,unformed 07/28/19 13:47 Stl Occult Blood (IFOB) Negative (NEGATIVE) 07/28/19 13:47 Stool for White Cells Positive (NEGATIVE) A 07/28/19 13:47 Stl C. diff Tox B Gene Negative (NEGATIVE) 07/28/19 13:47 Stl C. diff 027-NAP1-BI Negative (NEGATIVE) 07/28/19 13:47 Rheumatoid Factor Negative (NEGATIVE) 07/25/19 15:23 HADLEY Screen None detected (None Detected) 07/25/19 15:23 HADLEY Titer TNP 07/25/19 15:23 HADLEY Pattern TNP 07/25/19 15:23 Cryptosporid parvum Ag Negative (NEGATIVE) 07/28/19 13:47 Giardia lamblia Ag Negative (NEGATIVE) 07/28/19 13:47 - Plan (1) Syncope and collapse Status: Acute Plan: IV HYDRATION, BP CONTROL, PAIN CONTROL. PT CONSULTATION, CONTINUE TO MONITOR (2) Seizure-like activity Status: Acute Plan: DEPAKOTE ER 500MG PO DAILY, CONTINUE TO MONITOR (3) Abdominal pain Status: Acute Qualifiers: Abdominal location: generalized Qualified Code(s): R10.84 - Generalized abdominal pain Plan: BENTYL 20MG PO QID, PAIN CONTROL, PT HAD CT ABDPELVIS LAST MONTH DUE TO SAME SYMPTOMS (4) Joint pain Status: Acute Qualifiers: Joint pain location: unspecified Qualified Code(s): M25.50 - Pain in unspecified joint Plan: CONTINUE PAIN CONTROL (5) Protein deficiency Status: Acute Plan: IV PROCAL, IV ALBUMIN, CONTINUE TO MONITOR (6) Diarrhea Status: Acute Qualifiers: Diarrhea type: presumed infectious Qualified Code(s): R19.7 - Diarrhea, unspecified Plan: BENTYL, LOMOTIL, PROBIOTICS, WELCHOL, CONTINUE TO MONITOR
--- NOTE | 2019-07-31 22:35 | PCM.PROG ---
Progress Note - Progress Note for Day of Date of Exam: 07/31/19 - Subjective Subjective: WAS ADMITTED ON 07/25 AFTER HAVING A SYNCOPAL EPISODE AT HOME FOLLOWING SEIZURE LIKE ACTIVITY. HE IS ALSO BEING TREATED FOR ABDOMINAL PAIN AND DIARRHEA. HE HAS PMH OF MDS, OA, COLITIS, LUMBAR SPINE DDD WITH SPINAL STENOSIS, CHRONIC T SPINE COMPRESSION FRACTURES, AND ANEMIA. TODAY, HE IS ALERT AND ORIENTED, LYING IN BED ON MORNING ROUNDS. HE CONTINUES WITH GENERALIZED WEAKNESS AND MILD ABDOMINAL PAIN. HIS VITALS THIS MORNING ARE: 97.5-64-20-100%-130/65. LABS WERE OBTAINED. ABNORMAL LAB VALUES INCLUDE THE FOLLOWING: RBC 3.00, HCT 10.2, HCT 29.5, BUN 24, GLUCOSE 153, AST 12. STOOLS ARE POSITIVE FOR WBC. HE IS CURRENTLY RECEIVING IV PROCAL, IV ALBUMIN, DEPAKOTE 500MG PO DAILY, THE POTASSIUM AND MAGNESIUM PROTOCOLS, MORPHINE PRN, NORCO PRN, PROBIOTICS, WELCHOL, BENTYL,LOMOTIL, TORADOL PRN, AND HOME MEDICATIONS WERE RESUMED. WE WILL CONTINUE WITH CURRENT PLAN OF CARE TODAY. OTHERWISE, WE PLAN TO FOLLOW UP WITH AM LABS AND CONTINUE TO MONITOR. - Past Medical Family Social History Past Med/Fam/Surg Hx: No changes since H&P Allergies: Allergies promethazine [From Phenergan] Allergy (Verified 07/25/19 05:56) - Review of Systems ROS: No change since H&P - Vital Signs and I&O's Vital Signs: Temperature 98.0 F Pulse Rate [Left Apical] 60 Pulse Rate [Right] 64 Pulse Rate 94 Respiratory Rate 18 Blood Pressure [LYING] 106/55 Blood Pressure [standing] 78/53 Blood Pressure [sitting] 106/57 Blood Pressure [Left Arm] 121/66 Blood Pressure [Right Arm] 127/62 Blood Pressure 144/83 O2 Sat by Pulse Oximetry 98 Intake and Output: Intake & Output 07/29/19 07/30/19 07/31/19 08/01/19 11:59 11:59 11:59 11:59 Intake Total 3414 / 3414 1732 / 1732 2351 / 2351 920 / 920 Output Total 2650 / 2650 1250 / 1250 750 / 750 200 / 200 Balance 764 / 764 482 / 482 1601 / 1601 720 / 720 - Physical Exam Oriented: Normal Eyes: Normal Ear: Normal Nose: Normal Throat: Dry Respiratory: Generalized, Diminished Cardiovascular: Normal. negative: Murmur, Edema : Normal Auscultation: Bowel Sounds: Normal Palpation: Normal Tenderness: LUQ, LLQ Skin: Decreased Turgur, Wound (SKIN TEARM LEFT POSTERIOR UPPER ARM), Bruising Musculoskeletal: Back:Thoracic, Back:Lumbar Psychiatric: Anxiety Mood Description: Calm Affect: Anxious Speech Pattern: Clear, Appropriate - Laboratory and Diagnostics Result Diagrams: 07/31/19 05:45 07/31/19 05:45 Labs: 07/28/19 13:47 Stool Stool Culture - Final 07/28/19 13:47 Stool - Final 07/25/19 12:39 Urine,Clean Catch Urine Culture - Final Laboratory WBC 4.0 X10^3/uL (3.6-10.0) 07/31/19 05:45 RBC 3.00 X10^6/uL (4.7-6.0) L 07/31/19 05:45 Hgb 10.2 g/dL (13.5-18.0) L 07/31/19 05:45 Hct 29.5 % (42.0-54.0) L 07/31/19 05:45 MCV 98.4 fL (80.0-100.0) 07/31/19 05:45 MCH 34.0 pg (27.0-34.0) 07/31/19 05:45 MCHC 34.5 g/dL (33.0-35.0) 07/31/19 05:45 RDW 15.4 % (11.6-16.5) 07/31/19 05:45 Plt Count 141 X10^3/uL (150.0-450.0) L 07/31/19 05:45 Plt Count Comment Adequate (ADEQUATE) 07/31/19 05:45 MPV 8.9 fL (7.4-11.0) 07/31/19 05:45 Neut % (Auto) 23.2 % (42.0-75.0) L 07/31/19 05:45 Lymph % (Auto) 20.4 % (21.0-51.0) L 07/31/19 05:45 [place] % (Auto) 56.2 % (0.0-13.0) H 07/31/19 05:45 Eos % (Auto) 0.1 % (0.9-2.9) L 07/31/19 05:45 Baso % (Auto) 0.1 % (0.2-1.0) L 07/31/19 05:45 Neut # (Auto) 0.9 x10^3/uL (2.2-4.8) L 07/31/19 05:45 Lymph # (Auto) 0.8 X10^3/uL (1.3-2.9) L 07/31/19 05:45 [place] # (Auto) 2.2 x10^3/uL (0.3-0.8) H 07/31/19 05:45 Eos # (Auto) 0.0 x10^3/uL (0.0-0.2) 07/31/19 05:45 Baso # (Auto) 0.0 X10^3/uL (0.0-0.1) 07/31/19 05:45 Absolute Nucleated RBC 0.2 /100WBC 07/31/19 05:45 Total Counted 100 07/31/19 05:45 Neutrophils % (Manual) 16 % (39-76) L 07/31/19 05:45 Band Neutrophils % 10 % (0-10) 07/31/19 05:45 Lymphocytes % (Manual) 24 % (13-43) 07/31/19 05:45 Monocytes % (Manual) 50 % (4-9) H 07/31/19 05:45 Eosinophils % (Manual) 2 % (0-6) 07/29/19 05:44 Metamyelocytes % 12 07/28/19 05:27 Myelocytes % 8 07/28/19 05:27 Atypical Lymphocytes Not Reportable 07/25/19 04:11 Plt Morphology Comment Normal (NORMAL) 07/31/19 05:45 RBC Morphology Normal (NORMAL) 07/31/19 05:45 ESR 14 MM/HOUR (0-15) 07/25/19 15:23 PT 12.3 SECONDS (11.8-14.3) 07/24/19 21:50 INR Target Range - 07/24/19 21:50 INR 0.95 (0.8-1.3) 07/24/19 21:50 APTT 28.4 SECONDS (22.9-36.5) 07/24/19 21:50 PTT Comment - 07/24/19 21:50 Sodium 138 mmol/L (136-145) 07/31/19 05:45 Corrected Sodium 139 mmol/L (136-145) 07/31/19 05:45 Potassium 4.5 mmol/L (3.5-5.1) 07/31/19 05:45 Chloride 102 mmol/L (98-107) 07/31/19 05:45 Carbon Dioxide 27.1 mmol/L (21-32) 07/31/19 05:45 BUN 24 mg/dL (7-18) H 07/31/19 05:45 Creatinine 1.00 mg/dL (0.70-1.30) 07/31/19 05:45 Est GFR (MDRD) Af Amer > 60 (>60) 07/31/19 05:45 Est GFR (MDRD) Non-Af > 60 (>60) 07/31/19 05:45 Glucose 153 mg/dL (65-99) H 07/31/19 05:45 Calcium 8.6 mg/dL (8.5-10.1) 07/31/19 05:45 Corrected Calcium TNP 07/31/19 05:45 Magnesium 1.6 mg/dL (1.7-2.9) L 07/24/19 21:50 Total Bilirubin 0.40 mg/dL (0.2-1.0) 07/31/19 05:45 AST 12 Units/L (15-37) L 07/31/19 05:45 ALT 32 Units/L (12-78) 07/31/19 05:45 Alkaline Phosphatase 98 Units/L (46-116) 07/31/19 05:45 Creatine Kinase 38 Units/L (39-308) L 07/25/19 04:11 CK-MB (CK-2) < 1.0 ng/mL (0-4.0) 07/25/19 04:11 CK/CKMB % Calc 2.6 % (<4) 07/25/19 04:11 Troponin I 0.03 ng/mL (0-1.5) 07/25/19 04:11 C-Reactive Protein 3.90 mg/L (0-3.0) H 07/25/19 15:23 Total Protein 6.5 g/dL (6.4-8.2) 07/31/19 05:45 Albumin 3.8 g/dL (3.4-5.0) 07/31/19 05:45 Globulin 2.7 g/dL (2.5-4.5) 07/31/19 05:45 Albumin/Globulin Ratio 1.4 Ratio (1.1-2.1) 07/31/19 05:45 Triglycerides 121 mg/dL (0-150) 07/26/19 04:05 Cholesterol 151 mg/dL (0-200) 07/26/19 04:05 LDL Cholesterol, Calc 77 mg/dL (0-100) 07/26/19 04:05 HDL Cholesterol 50 mg/dL (40-60) 07/26/19 04:05 Cholesterol/HDL Ratio 3.0 (0.0-5.0) 07/26/19 04:05 Amylase 117 Units/L (25-115) H 07/25/19 04:11 Lipase 384 Units/L (73-393) 07/25/19 04:11 Total PSA 1.80 ng/mL (0.13-4.0) 07/25/19 15:23 Specimen Type Clean catch urine 07/25/19 12:39 Urine Color [place] (YELLOW) 07/25/19 12:39 Urine Appearance Clear (CLEAR) 07/25/19 12:39 Urine pH 5.0 (5.0 - 8.0) 07/25/19 12:39 Ur Specific [place] 1.020 (1.000-1.030) 07/25/19 12:39 Urine Protein 2+ (NEGATIVE) 07/25/19 12:39 Urine Glucose (UA) Negative (NEGATIVE) 07/25/19 12:39 Urine Ketones 1+ (NEGATIVE) 07/25/19 12:39 Urine Occult Blood Negative (NEGATIVE) 07/25/19 12:39 Urine Nitrite Negative (NEGATIVE) 07/25/19 12:39 Urine Bilirubin Negative (NEGATIVE) 07/25/19 12:39 Urine Urobilinogen Normal (NORMAL) 07/25/19 12:39 Ur Leukocyte Esterase 1+ (NEGATIVE) 07/25/19 12:39 Urine RBC None seen /HPF (0-3) 07/25/19 12:39 Urine WBC 0-2 /HPF (0-5) 07/25/19 12:39 Ur Squamous Epith Cells Rare /HPF (NEGATIVE) 07/25/19 12:39 Calcium Oxalate Crystal Few /HPF (NEGATIVE) 07/25/19 12:39 Amorphous Sediment Trace /HPF (NEGATIVE) 07/25/19 12:39 Urine Bacteria Negative /HPF (NEGATIVE) 07/25/19 12:39 Urine Mucus Few /HPF (NEGATIVE) 07/25/19 12:39 Ur Culture Indicated? No/not indicated 07/25/19 12:39 Stool Description 175g,brown,unformed 07/28/19 13:47 Stool Description 175g,brown,unformed 07/28/19 13:47 Stl Occult Blood (IFOB) Negative (NEGATIVE) 07/28/19 13:47 Stool for White Cells Positive (NEGATIVE) A 07/28/19 13:47 Stl C. diff Tox B Gene Negative (NEGATIVE) 07/28/19 13:47 Stl C. diff [id number]-BI Negative (NEGATIVE) 07/28/19 13:47 Rheumatoid Factor Negative (NEGATIVE) 07/25/19 15:23 HADLEY Screen None detected (None Detected) 07/25/19 15:23 [place] Titer TNP 07/25/19 15:23 [place] Pattern TNP 07/25/19 15:23 Cryptosporid parvum Ag Negative (NEGATIVE) 07/28/19 13:47 Giardia lamblia Ag Negative (NEGATIVE) 07/28/19 13:47 - Plan (1) Syncope and collapse Status: Acute Plan: IV HYDRATION, BP CONTROL, PAIN CONTROL. CONTINUE TO MONITOR (2) Seizure-like activity Status: Acute Plan: DEPAKOTE ER 500MG PO DAILY, CONTINUE TO MONITOR (3) Abdominal pain Status: Acute Qualifiers: Abdominal location: generalized Qualified Code(s): R10.84 - Generalized abdominal pain Plan: BENTYL 20MG PO QID, PAIN CONTROL, PT HAD CT ABDPELVIS LAST MONTH DUE TO SAME SYMPTOMS (4) Joint pain Status: Acute Qualifiers: Joint pain location: unspecified Qualified Code(s): M25.50 - Pain in unspecified joint Plan: CONTINUE PAIN CONTROL (5) Protein deficiency Status: Acute Plan: IV PROCAL, IV ALBUMIN, CONTINUE TO MONITOR (6) Diarrhea Status: Acute Qualifiers: Diarrhea type: presumed infectious Qualified Code(s): R19.7 - Diarrhea, unspecified Plan: BENTYL, LOMOTIL, PROBIOTICS, WELCHOL, CONTINUE TO MONITOR
[2019-08-01] MEDS: NORCO 5/325 MG TAB PO PRN (01:00)
[2019-08-01] MEDS: TORADOL 30 MG VIAL IVP SCH ×3 (03:30→10:36)
[2019-08-01] MEDS ORDERED: ZOFRAN INJ 4 MG VIAL IVP PRN (03:48)
[2019-08-01] MEDS ORDERED: ZOFRAN INJ 4 MG VIAL ONE (03:48)
[2019-08-01] MEDS: LOMOTIL PO SCH ×3 (05:31→22:00)
[2019-08-01] MEDS: NEURONTIN CAP 100 MG PO SCH ×3 (05:32→22:00)
[2019-08-01] MEDS: VANCOMYCIN HCL PO SCH ×3 (05:32→21:00)
[2019-08-01 05:54] LABS: BASOPHILS % (AUTO) 0.1 % (0.2-1.0); EOSINOPHILS % (AUTO) 0.1 % (0.9-2.9); HEMATOCRIT 27.9 % (42.0-54.0); HEMOGLOBIN 9.7 g/dL (13.5-18.0); LYMPHOCYTES # (AUTO) 0.2 X10^3/uL (1.3-2.9); LYMPHOCYTES % (AUTO) 6.4 % (21.0-51.0); MEAN CORPUSCULAR HEMOGLOBIN 34.7 pg (27.0-34.0); MEAN CORPUSCULAR HGB CONC 34.9 g/dL (33.0-35.0); MEAN CORPUSCULAR VOLUME 99.4 fL (80.0-100.0); MEAN PLATELET VOLUME 9.1 fL (7.4-11.0); MONOCYTES # (AUTO) 1.9 x10^3/uL (0.3-0.8); MONOCYTES % (AUTO) 52.6 % (0.0-13.0); NEUTROPHILS # (AUTO) 1.5 x10^3/uL (2.2-4.8); NEUTROPHILS % (AUTO) 40.8 % (42.0-75.0); PLATELET COUNT 97 X10^3/uL (150.0-450.0); RED CELL DISTRIBUTION WIDTH 15.3 % (11.6-16.5); WHITE BLOOD COUNT 3.7 X10^3/uL (3.6-10.0)
[2019-08-01] MEDS: WELCHOL PO SCH ×2 (06:03→17:11)
[2019-08-01 06:12] LABS: ALANINE AMINOTRANSFERASE 35 Units/L (12-78); ALKALINE PHOSPHATASE 98 Units/L (46-116); ASPARTATE AMINO TRANSFERASE 19 Units/L (15-37); BLOOD UREA NITROGEN 28 mg/dL (7-18); CALCIUM 8.8 mg/dL (8.5-10.1); CARBON DIOXIDE 25.1 mmol/L (21-32); CHLORIDE 103 mmol/L (98-107); COR NA(FOR HYPERGLY) 140 mmol/L (136-145); CREATININE 1.02 mg/dL (0.70-1.30); SODIUM 139 mmol/L (136-145); TOTAL PROTEIN 6.7 g/dL (6.4-8.2); eGFR NON BLACK RACES > 60 (>60)
[2019-08-01 06:51] LABS: BAND NEUTROPHILS % 12 % (0-10); PLATELET MORPHOLOGY COMMENT NORMAL (NORMAL)
--- NOTE | 2019-08-01 08:19 | RAD ---
HISTORYRight arm pain after fall.STUDYFOREARM, RIGHTCOMPARISONNone.FINDINGSAP and lateral views of the right forearm were obtained. No acute cortical destruction or dislocation is evident. There is no significant effusion of the elbow joint. The visualized portions of the radial head are grossly unremarkable. There is no widening of the distal radial ulnar joint. The included portions of the carpal bones are grossly unremarkable. The soft tissues are within normal limits.IMPRESSIONNo acute fracture or dislocation of the right forearm is evident.Electronically signed by: ADALID COX (Aug 01, 2019 08:18:33)
[2019-08-01] MEDS: VSL#3 PO SCH (08:36)
[2019-08-01] MEDS: PROTONIX TAB 40 MG PO SCH ×2 (08:37→21:00)
[2019-08-01] MEDS: BENTYL CAP 10 MG PO SCH ×4 (08:37→21:00)
[2019-08-01] MEDS: PREDNISONE TAB 10 MG PO SCH ×2 (08:37→21:00)
[2019-08-01] MEDS: LOPRESSOR TAB 25 MG PO SCH ×2 (08:37→21:00)
[2019-08-01] MEDS: PEPCID TAB 20 MG PO SCH ×2 (08:37→21:00)
[2019-08-01] MEDS: FOLIC ACID TAB 1 MG PO SCH (08:38)
[2019-08-01] MEDS: VITAMIN D3 PO SCH ×2 (08:38→21:00)
[2019-08-01] MEDS: PROzac PO SCH (08:38)
[2019-08-01] MEDS: SYNTHROID 75 mcg TAB PO SCH (08:38)
[2019-08-01] MEDS: K-LYTE EFFERVESCENT PO SCH (08:39)
[2019-08-01] MEDS: DEPAKOTE ER PO SCH (08:39)
[2019-08-01] MEDS: ALBUMIN HUMAN 25%- 100 ML 100 ML IV SCH (08:39)
[2019-08-01] MEDS: MAGIC MOUTHWASH MT SCH ×4 (08:40→21:00)
[2019-08-01] MEDS: PRED FORTE 1 % OP SCH ×4 (08:41→21:00)
[2019-08-01] MEDS ORDERED: TYLENOL 325 MG TAB PO PRN (11:35)
--- NOTE | 2019-08-01 13:57 | RAD ---
HISTORYShortness of breath.STUDYCHEST, 1 [id number]/29/2019.FINDINGSThe trachea is deviated to the right at the level of the aortic arch. The lungs are underinflated and a majority of the cardiac silhouette is obscured by the left hemidiaphragm. There is no significant pleural effusion or pneumothorax evident. The bony thorax is grossly unremarkable.IMPRESSIONUnderinflated exam without acute cardiopulmonary process evident.Electronically signed by: ADALID COX (Aug 01, 2019 13:56:39)
[2019-08-01] MEDS: PROCALAMINE 3 % 1,000 ML IV SCH (17:12)
[2019-08-01] MEDS: FLOMAX PO SCH (21:00)
[2019-08-01] MEDS: XANAX PO SCH (21:00)
--- NOTE | 2019-08-01 21:35 | PCM.PROG ---
Progress Note - Progress Note for Day of Date of Exam: 08/01/19 - Subjective Subjective: WAS ADMITTED ON 07/25 AFTER HAVING A SYNCOPAL EPISODE AT HOME FOLLOWING SEIZURE LIKE ACTIVITY. HE IS ALSO BEING TREATED FOR ABDOMINAL PAIN AND DIARRHEA. HE HAS PMH OF MDS, OA, COLITIS, LUMBAR SPINE DDD WITH SPINAL STENOSIS, CHRONIC T SPINE COMPRESSION FRACTURES, AND ANEMIA. STAFF REPORTS THAT HE FELL EARLY THIS MORNING. HE COMPLAINED OF RIGHT ARM PAIN AFTER FALL, HOWEVER, FOREARM XRAY WAS NEGATIVE. TODAY, HE IS LYING IN BED WITH EYES CLOSED ON MORNING ROUNDS. HE AWAKENS TO VERBAL STIMULI, BUT QUICKLY RETURNS TO A SLEEPING STATE. HIS VITALS THIS MORNING ARE: 101.3-94-22-96%-153/75. LABS WERE OBTAINED. ABNORMAL LAB VALUES INCLUDE THE FOLLOWING: RBC 2.80, HGB 9.7, HCT 27.9, PLT COUNT 97, BUN 28, GLUCOSE 149. STOOLS ARE POSITIVE FOR WBC. TODAY, WE WILL OBTAIN BLOOD CULTURES, CHEST XRAY, URINALYSIS, AND WILL START PROPHYLACTIC ZOSYN. OTHERWISE, WE WILL CONTINUE WITH CURRENT PLAN OF CARE TODAY. WE PLAN TO FOLLOW UP WITH AM LABS AND CONTINUE TO MONITOR. - Past Medical Family Social History Past Med/Fam/Surg Hx: No changes since H&P Allergies: Allergies promethazine [From Phenergan] Allergy (Verified 07/25/19 05:56) - Review of Systems ROS: No change since H&P - Vital Signs and I&O's Vital Signs: Temperature 101.5 F Pulse Rate [Left Apical] 105 Pulse Rate [Right] 64 Pulse Rate 94 Respiratory Rate 33 Blood Pressure [LYING] 92/52 Blood Pressure [standing] 78/53 Blood Pressure [sitting] 106/57 Blood Pressure [Left Arm] 96/51 Blood Pressure [Right Arm] 127/62 Blood Pressure 144/83 O2 Sat by Pulse Oximetry 92 Intake and Output: Intake & Output 07/30/19 07/31/19 08/01/19 08/02/19 11:59 11:59 11:59 11:59 Intake Total 1732 / 1732 2351 / 2351 1410 / 1410 660 / 660 Output Total 1250 / 1250 750 / 750 700 / 700 Balance 482 / 482 1601 / 1601 710 / 710 660 / 660 - Physical Exam Oriented: Unable to test Eyes: Normal Ear: Normal Nose: Normal Throat: Dry Respiratory: Generalized, Diminished Cardiovascular: Normal. negative: Murmur, Edema : Normal Auscultation: Bowel Sounds: Normal Palpation: Normal Tenderness: Normal Skin: Normal, Wound (SKIN TEARM LEFT POSTERIOR UPPER ARM), Bruising Musculoskeletal: Right, Forearm, Tender Psychiatric: Anxiety Mood Description: Calm Affect: Anxious Speech Pattern: Clear, Appropriate - Laboratory and Diagnostics Result Diagrams: 08/01/19 04:35 08/01/19 04:35 Labs: 07/28/19 13:47 Stool Stool Culture - Final 07/28/19 13:47 Stool - Final 07/25/19 12:39 Urine,Clean Catch Urine Culture - Final Laboratory WBC 3.7 X10^3/uL (3.6-10.0) 08/01/19 04:35 RBC 2.80 X10^6/uL (4.7-6.0) L 08/01/19 04:35 Hgb 9.7 g/dL (13.5-18.0) L 08/01/19 04:35 Hct 27.9 % (42.0-54.0) L 08/01/19 04:35 MCV 99.4 fL (80.0-100.0) 08/01/19 04:35 MCH 34.7 pg (27.0-34.0) H 08/01/19 04:35 MCHC 34.9 g/dL (33.0-35.0) 08/01/19 04:35 RDW 15.3 % (11.6-16.5) 08/01/19 04:35 Plt Count 97 X10^3/uL (150.0-450.0) L 08/01/19 04:35 Plt Count Comment Decreased (ADEQUATE) 08/01/19 04:35 MPV 9.1 fL (7.4-11.0) 08/01/19 04:35 Neut % (Auto) 40.8 % (42.0-75.0) L 08/01/19 04:35 Lymph % (Auto) 6.4 % (21.0-51.0) L 08/01/19 04:35 [place] % (Auto) 52.6 % (0.0-13.0) H 08/01/19 04:35 Eos % (Auto) 0.1 % (0.9-2.9) L 08/01/19 04:35 Baso % (Auto) 0.1 % (0.2-1.0) L 08/01/19 04:35 Neut # (Auto) 1.5 x10^3/uL (2.2-4.8) L 08/01/19 04:35 Lymph # (Auto) 0.2 X10^3/uL (1.3-2.9) L 08/01/19 04:35 [place] # (Auto) 1.9 x10^3/uL (0.3-0.8) H 08/01/19 04:35 Eos # (Auto) 0.0 x10^3/uL (0.0-0.2) 08/01/19 04:35 Baso # (Auto) 0.0 X10^3/uL (0.0-0.1) 08/01/19 04:35 Absolute Nucleated RBC 0.2 /100WBC 08/01/19 04:35 Total Counted 100 08/01/19 04:35 Neutrophils % (Manual) 28 % (39-76) L 08/01/19 04:35 Band Neutrophils % 12 % (0-10) H 08/01/19 04:35 Lymphocytes % (Manual) 6 % (13-43) L 08/01/19 04:35 Monocytes % (Manual) 54 % (4-9) H 08/01/19 04:35 Eosinophils % (Manual) 2 % (0-6) 07/29/19 05:44 Metamyelocytes % 12 07/28/19 05:27 Myelocytes % 8 07/28/19 05:27 Atypical Lymphocytes Not Reportable 07/25/19 04:11 Plt Morphology Comment Normal (NORMAL) 08/01/19 04:35 RBC Morphology Normal (NORMAL) 08/01/19 04:35 ESR 14 MM/HOUR (0-15) 07/25/19 15:23 PT 12.3 SECONDS (11.8-14.3) 07/24/19 21:50 INR Target Range - 07/24/19 21:50 INR 0.95 (0.8-1.3) 07/24/19 21:50 APTT 28.4 SECONDS (22.9-36.5) 07/24/19 21:50 PTT Comment - 07/24/19 21:50 Sodium 139 mmol/L (136-145) 08/01/19 04:35 Corrected Sodium 140 mmol/L (136-145) 08/01/19 04:35 Potassium 4.6 mmol/L (3.5-5.1) 08/01/19 04:35 Chloride 103 mmol/L (98-107) 08/01/19 04:35 Carbon Dioxide 25.1 mmol/L (21-32) 08/01/19 04:35 BUN 28 mg/dL (7-18) H 08/01/19 04:35 Creatinine 1.02 mg/dL (0.70-1.30) 08/01/19 04:35 Est GFR (MDRD) Af Amer > 60 (>60) 08/01/19 04:35 Est GFR (MDRD) Non-Af > 60 (>60) 08/01/19 04:35 Glucose 149 mg/dL (65-99) H 08/01/19 04:35 POC Glucose (mg/dL) 102 mg/dL (65-99) H 08/01/19 19:51 Calcium 8.8 mg/dL (8.5-10.1) 08/01/19 04:35 Corrected Calcium TNP 08/01/19 04:35 Magnesium 1.6 mg/dL (1.7-2.9) L 07/24/19 21:50 Total Bilirubin 0.60 mg/dL (0.2-1.0) 08/01/19 04:35 AST 19 Units/L (15-37) 08/01/19 04:35 ALT 35 Units/L (12-78) 08/01/19 04:35 Alkaline Phosphatase 98 Units/L (46-116) 08/01/19 04:35 Creatine Kinase 38 Units/L (39-308) L 07/25/19 04:11 CK-MB (CK-2) < 1.0 ng/mL (0-4.0) 07/25/19 04:11 CK/CKMB % Calc 2.6 % (<4) 07/25/19 04:11 Troponin I 0.03 ng/mL (0-1.5) 07/25/19 04:11 C-Reactive Protein 3.90 mg/L (0-3.0) H 07/25/19 15:23 Total Protein 6.7 g/dL (6.4-8.2) 08/01/19 04:35 Albumin 4.0 g/dL (3.4-5.0) 08/01/19 04:35 Globulin 2.7 g/dL (2.5-4.5) 08/01/19 04:35 Albumin/Globulin Ratio 1.5 Ratio (1.1-2.1) 08/01/19 04:35 Triglycerides 121 mg/dL (0-150) 07/26/19 04:05 Cholesterol 151 mg/dL (0-200) 07/26/19 04:05 LDL Cholesterol, Calc 77 mg/dL (0-100) 07/26/19 04:05 HDL Cholesterol 50 mg/dL (40-60) 07/26/19 04:05 Cholesterol/HDL Ratio 3.0 (0.0-5.0) 07/26/19 04:05 Amylase 117 Units/L (25-115) H 07/25/19 04:11 Lipase 384 Units/L (73-393) 07/25/19 04:11 Total PSA 1.80 ng/mL (0.13-4.0) 07/25/19 15:23 Specimen Type Clean catch urine 07/25/19 12:39 Urine Color [place] (YELLOW) 07/25/19 12:39 Urine Appearance Clear (CLEAR) 07/25/19 12:39 Urine pH 5.0 (5.0 - 8.0) 07/25/19 12:39 Ur Specific [place] 1.020 (1.000-1.030) 07/25/19 12:39 Urine Protein 2+ (NEGATIVE) 07/25/19 12:39 Urine Glucose (UA) Negative (NEGATIVE) 07/25/19 12:39 Urine Ketones 1+ (NEGATIVE) 07/25/19 12:39 Urine Occult Blood Negative (NEGATIVE) 07/25/19 12:39 Urine Nitrite Negative (NEGATIVE) 07/25/19 12:39 Urine Bilirubin Negative (NEGATIVE) 07/25/19 12:39 Urine Urobilinogen Normal (NORMAL) 07/25/19 12:39 Ur Leukocyte Esterase 1+ (NEGATIVE) 07/25/19 12:39 Urine RBC None seen /HPF (0-3) 07/25/19 12:39 Urine WBC 0-2 /HPF (0-5) 07/25/19 12:39 Ur Squamous Epith Cells Rare /HPF (NEGATIVE) 07/25/19 12:39 Calcium Oxalate Crystal Few /HPF (NEGATIVE) 07/25/19 12:39 Amorphous Sediment Trace /HPF (NEGATIVE) 07/25/19 12:39 Urine Bacteria Negative /HPF (NEGATIVE) 07/25/19 12:39 Urine Mucus Few /HPF (NEGATIVE) 07/25/19 12:39 Ur Culture Indicated? No/not indicated 07/25/19 12:39 Stool Description 175g,brown,unformed 07/28/19 13:47 Stool Description 175g,brown,unformed 07/28/19 13:47 Stl Occult Blood (IFOB) Negative (NEGATIVE) 07/28/19 13:47 Stool for White Cells Positive (NEGATIVE) A 07/28/19 13:47 Stl C. diff Tox B Gene Negative (NEGATIVE) 07/28/19 13:47 Stl C. diff [id number] Negative (NEGATIVE) 07/28/19 13:47 Rheumatoid Factor Negative (NEGATIVE) 07/25/19 15:23 HADLEY Screen None detected (None Detected) 07/25/19 15:23 HADLEY Titer TNP 07/25/19 15:23 HADLEY Pattern TNP 07/25/19 15:23 Cryptosporid parvum Ag Negative (NEGATIVE) 07/28/19 13:47 Giardia lamblia Ag Negative (NEGATIVE) 07/28/19 13:47 - Plan (1) Syncope and collapse Status: Acute Plan: IV HYDRATION, BP CONTROL, PAIN CONTROL. CONTINUE TO MONITOR (2) Seizure-like activity Status: Acute Plan: DEPAKOTE ER 500MG PO DAILY, CONTINUE TO MONITOR (3) Abdominal pain Status: Acute Qualifiers: Abdominal location: generalized Qualified Code(s): R10.84 - Generalized abdominal pain Plan: BENTYL 20MG PO QID, PAIN CONTROL, PT HAD CT ABDPELVIS LAST MONTH DUE TO SAME SYMPTOMS (4) Joint pain Status: Acute Qualifiers: Joint pain location: unspecified Qualified Code(s): M25.50 - Pain in unspecified joint Plan: CONTINUE PAIN CONTROL (5) Protein deficiency Status: Acute Plan: IV PROCAL, IV ALBUMIN, CONTINUE TO MONITOR (6) Diarrhea Status: Acute Qualifiers: Diarrhea type: presumed infectious Qualified Code(s): R19.7 - Diarrhea, unspecified Plan: BENTYL, LOMOTIL, PROBIOTICS, WELCHOL, CONTINUE TO MONITOR
[2019-08-01] MEDS ORDERED: NS 500 ML IV 500 ML IV ONE ×3 (21:40→23:09)
[2019-08-01] MEDS ORDERED: NS 1000 ML 1,000 ML ONE (21:44)
[2019-08-01] MEDS: ZOSYN VIAL 3.375 GRAMS 3.375 G in NS 100 ML IV + SPIKE MINIBAG* 100 ML IV SCH (22:00)
[2019-08-01 22:13] LABS: ABG BASE EXCESS -4.5 mmol/L (-2.0-2.0); ABG HCO3 18.1 mmol/L (22-26)
[2019-08-01 22:14] LABS: BASOPHILS % (AUTO) 0.1 % (0.2-1.0); HEMOGLOBIN 8.6 g/dL (13.5-18.0); LYMPHOCYTES # (AUTO) 0.3 X10^3/uL (1.3-2.9); LYMPHOCYTES % (AUTO) 2.5 % (21.0-51.0); MEAN CORPUSCULAR HEMOGLOBIN 33.6 pg (27.0-34.0); MEAN CORPUSCULAR VOLUME 101.8 fL (80.0-100.0); MEAN PLATELET VOLUME 9.7 fL (7.4-11.0); MONOCYTES # (AUTO) 6.2 x10^3/uL (0.3-0.8); NEUTROPHILS # (AUTO) 6.3 x10^3/uL (2.2-4.8); NEUTROPHILS % (AUTO) 49.4 % (42.0-75.0); PLATELET COUNT 75 X10^3/uL (150.0-450.0); RED BLOOD COUNT 2.55 X10^6/uL (4.7-6.0); RED CELL DISTRIBUTION WIDTH 15.3 % (11.6-16.5); WHITE BLOOD COUNT 12.8 X10^3/uL (3.6-10.0)
[2019-08-01 22:16] LABS: BILIRUBIN,URINE NEGATIVE (NEGATIVE); BLOOD/HEMOGLOBIN,URINE 3+ (NEGATIVE); GLUCOSE, URINE NEGATIVE (NEGATIVE); KETONES,URINE 1+ (NEGATIVE); LEUKOCYTE ESTERASE ,URINE 1+ (NEGATIVE); NITRITES,URINE NEGATIVE (NEGATIVE); PROTEIN,URINE 2+ (NEGATIVE); UROBILINOGEN,URINE NORMAL (NORMAL)
[2019-08-01 22:25] LABS: BAND NEUTROPHILS % 19 % (0-10)
[2019-08-01 22:26] LABS: PLATELET MORPHOLOGY COMMENT NORMAL (NORMAL)
[2019-08-01 22:27] LABS: ALANINE AMINOTRANSFERASE 24 Units/L (12-78); ALBUMIN 3.5 g/dL (3.4-5.0); ALKALINE PHOSPHATASE 83 Units/L (46-116); ASPARTATE AMINO TRANSFERASE 17 Units/L (15-37); BLOOD UREA NITROGEN 38 mg/dL (7-18); CALCIUM 8.5 mg/dL (8.5-10.1); CARBON DIOXIDE 20.8 mmol/L (21-32); CHLORIDE 102 mmol/L (98-107); CREATININE 2.45 mg/dL (0.70-1.30); SODIUM 136 mmol/L (136-145); TOTAL PROTEIN 6.2 g/dL (6.4-8.2); eGFR NON BLACK RACES 28 (>60)
[2019-08-01 22:27] LABS: COLOR,URINE DARK YELLOW (YELLOW)
[2019-08-01 22:28] LABS: AMORPHOUS SEDIMENT,UR TRACE /HPF (NEGATIVE); APPEARANCE,URINE SLIGHTLY HAZY (CLEAR); BACTERIA,URINE NEGATIVE /HPF (NEGATIVE); SQUAMOUS EPITHELIAL CELL,UR RARE /HPF (NEGATIVE)
[2019-08-01] MEDS: LEVOPHED INJ 8 MG in D5W 250 ML IV 242 ML IV PRN (23:06)
[2019-08-01] MEDS ORDERED: ROCEPHIN VIAL 2 GRAMS IV ONE (23:09)
[2019-08-01] MEDS ORDERED: VANCOMYCIN HCL 1 G in D5W 250 ML IV 250 ML IV ONE (23:11)
[2019-08-01] MEDS ORDERED: ROCEPHIN VIAL 1 GRAM ONE (23:12)
[2019-08-01] MEDS ORDERED: NS 100 ML IV 100 ML IV ONE (23:13)
[2019-08-01] MEDS ORDERED: VANCOMYCIN HCL ONE (23:35)
[2019-08-01] MEDS ORDERED: NS 250 ML IV 250 ML IV ONE (23:36)
[2019-08-01] MEDS ORDERED: PHARMACY CONSULT - VANCOMYCIN XX SCH (23:45)
[2019-08-02] MEDS: NS 1000 ML 1,000 ML IV SCH ×4 (00:13→23:24)
[2019-08-02] MEDS ORDERED: TYLENOL SUPP 650 MG ONE (00:39)
[2019-08-02] MEDS: TYLENOL SUPP 650 MG PR PRN ×2 (00:50→08:27)
[2019-08-02] MEDS: VANCOMYCIN HCL 250 MG, VANCOMYCIN HCL 1 G in D5W 250 ML IV 250 ML IV ONE ×2 (00:50→04:25)
--- NOTE | 2019-08-02 01:44 | CT ---
STUDY: CT HEAD WITHOUT IV CONTRASTCOMPARISON: July 24, 2019TECHNIQUE: axial images were acquired of the head without IV contrast. Coronal and sagittal images were provided. All images were reviewed in a variety of windows and levels.RADIATION REDUCTION TECHNIQUE: Automated exposure control, Adjustment of the mA and/or kV according to patient size, or iterative reconstruction techniques were used.HISTORY: AMSFINDINGS:There is diffuse cerebral atrophy with a regional distribution of low attenuation along the periventricular white matter most likely representing small vessel ischemic changes which are to a degree that would be considered within normal limits for the patient's stated age.There is no evidence of an acute intracranial bleed.There is no evidence of a mass or midline shift.There is no evidence of an extra-axial fluid collection.The hobbs-white matter differentiation is within normal limits.The visualized bones are unremarkable.The visualized sinuses are clear.The mastoid air cells are well-aerated.IMPRESSION:1. INVOLUTIONAL CHANGES ARE PRESENT WITH FINDINGS SUGGESTING SMALL VESSEL ISCHEMIC DISEASE WITCH IS TO A DEGREE THAT WOULD BE CONSIDERED WITHIN NORMAL LIMITS FOR THE PATIENT'S STATED AGE.2. THERE IS NO EVIDENCE OF ACUTE INTRACRANIAL BLEED.Electronically signed by: Russ Covington (Aug 02, 2019 01:43:40)
[2019-08-02] MEDS ORDERED: NS 1000 ML 1,000 ML IV ONE ×2 (02:11)
[2019-08-02] MEDS ORDERED: TOBRAMYCIN SULFATE 120 MG in NS 100 ML IV 100 ML IV ONE (02:11)
[2019-08-02] MEDS ORDERED: NS 100 ML IV 100 ML IV ONE (02:33)
[2019-08-02] MEDS ORDERED: TOBRAMYCIN SULFATE ONE (02:33)
[2019-08-02] MEDS: ZOSYN VIAL 3.375 GRAMS 3.375 G in NS 100 ML IV + SPIKE MINIBAG* 100 ML IV SCH ×3 (05:20→22:37)
[2019-08-02 05:33] LABS: BASOPHILS % (AUTO) 0.1 % (0.2-1.0); HEMATOCRIT 22.4 % (42.0-54.0); HEMOGLOBIN 7.5 g/dL (13.5-18.0); LYMPHOCYTES # (AUTO) 0.4 X10^3/uL (1.3-2.9); LYMPHOCYTES % (AUTO) 2.5 % (21.0-51.0); MEAN CORPUSCULAR HEMOGLOBIN 33.5 pg (27.0-34.0); MEAN CORPUSCULAR HGB CONC 33.5 g/dL (33.0-35.0); MEAN PLATELET VOLUME 8.9 fL (7.4-11.0); MONOCYTES # (AUTO) 4.5 x10^3/uL (0.3-0.8); MONOCYTES % (AUTO) 31.9 % (0.0-13.0); NEUTROPHILS # (AUTO) 9.3 x10^3/uL (2.2-4.8); NEUTROPHILS % (AUTO) 65.5 % (42.0-75.0); PLATELET COUNT 68 X10^3/uL (150.0-450.0); RED BLOOD COUNT 2.24 X10^6/uL (4.7-6.0); RED CELL DISTRIBUTION WIDTH 15.6 % (11.6-16.5); WHITE BLOOD COUNT 14.2 X10^3/uL (3.6-10.0)
[2019-08-02 05:37] LABS: ALANINE AMINOTRANSFERASE 23 Units/L (12-78); ALBUMIN 2.9 g/dL (3.4-5.0); ALKALINE PHOSPHATASE 74 Units/L (46-116); ASPARTATE AMINO TRANSFERASE 33 Units/L (15-37); BLOOD UREA NITROGEN 43 mg/dL (7-18); CALCIUM 7.2 mg/dL (8.5-10.1); CARBON DIOXIDE 20.7 mmol/L (21-32); CHLORIDE 106 mmol/L (98-107); COR CA(FOR HYPOALB) 8.1 mg/dL (8.5-10.1); CREATININE 2.75 mg/dL (0.70-1.30); SODIUM 139 mmol/L (136-145); TOTAL PROTEIN 5.4 g/dL (6.4-8.2); eGFR NON BLACK RACES 24 (>60)
[2019-08-02 05:38] LABS: LACTIC ACID 4.8 mmol/L (0.4-2.0)
[2019-08-02] MEDS ORDERED: SPIKE MINIBAG IV SCH ×2 (06:00)
[2019-08-02] MEDS ORDERED: NS IV SCH ×2 (06:00)
[2019-08-02] MEDS ORDERED: ZOVIRAX IV SCH ×2 (06:00)
[2019-08-02 06:18] LABS: BAND NEUTROPHILS % 32 % (0-10); METAMYELOCYTES % 15; MYELOCYTES % 17
[2019-08-02 06:19] LABS: PLATELET MORPHOLOGY COMMENT NORMAL (NORMAL)
[2019-08-02] MEDS: LOMOTIL PO SCH ×3 (06:28→22:37)
[2019-08-02] MEDS: NEURONTIN CAP 100 MG PO SCH ×3 (06:28→22:37)
[2019-08-02] MEDS: VANCOMYCIN HCL PO SCH (06:29)
[2019-08-02] MEDS: ALBUMIN HUMAN 25%- 100 ML 100 ML IV SCH (09:23)
[2019-08-02] MEDS: PRED FORTE 1 % OP SCH ×4 (09:30→22:00)
[2019-08-02] MEDS ORDERED: PROCRIT or EPOGEN VIAL 10,000 UNITS SC ONE ×2 (10:45→21:00)
[2019-08-02] MEDS: WELCHOL PO SCH ×2 (10:45→17:07)
[2019-08-02] MEDS: VANCOMYCIN HCL IV SCH (10:46)
[2019-08-02] MEDS: D5W IV SCH (10:46)
[2019-08-02] MEDS: DUONEB 0.5 MG/3 MG (3 mL) NEB SCH ×4 (10:57→21:55)
[2019-08-02] MEDS: FOLIC ACID TAB 1 MG PO SCH (10:59)
[2019-08-02] MEDS: BENTYL CAP 10 MG PO SCH ×4 (10:59→22:35)
[2019-08-02] MEDS: DEPAKOTE ER PO SCH (10:59)
[2019-08-02] MEDS: VSL#3 PO SCH (10:59)
[2019-08-02] MEDS: PEPCID TAB 20 MG PO SCH (11:00)
[2019-08-02] MEDS: VITAMIN D3 PO SCH ×2 (11:00→22:36)
[2019-08-02] MEDS: PROzac PO SCH (11:00)
[2019-08-02] MEDS: PROTONIX TAB 40 MG PO SCH (11:02)
[2019-08-02] MEDS: SYNTHROID 75 mcg TAB PO SCH (11:02)
[2019-08-02] MEDS: PREDNISONE TAB 10 MG PO SCH ×2 (11:02→22:36)
[2019-08-02] MEDS: MAGIC MOUTHWASH MT SCH ×4 (11:03→22:36)
[2019-08-02] MEDS: LOPRESSOR TAB 25 MG PO SCH ×2 (11:03→22:35)
[2019-08-02] MEDS: K-LYTE EFFERVESCENT PO SCH (11:03)
[2019-08-02 11:12] LABS: ABG BASE EXCESS -5.7 mmol/L (-2.0-2.0); ABG HCO3 18.2 mmol/L (22-26)
[2019-08-02 11:13] LABS: ABG ALLEN TEST POS
[2019-08-02] MEDS: LEVOPHED INJ 8 MG in D5W 250 ML IV 242 ML IV PRN (11:44)
[2019-08-02] MEDS: NS IV SCH (12:21)
[2019-08-02] MEDS: ZOVIRAX IV SCH (12:21)
[2019-08-02] MEDS: SPIKE MINIBAG IV SCH (12:21)
[2019-08-02] MEDS ORDERED: PEPCID 20 MG IV PREMIX* 20 MG/50 ML BAG IV SCH (21:00)
[2019-08-02] MEDS ORDERED: ROCEPHIN VIAL 1 GRAM IM SCH (21:00)
[2019-08-02] MEDS: PROTONIX INJ 40 MG VIAL IVP SCH (21:03)
[2019-08-02] MEDS: FLOMAX PO SCH (22:35)
[2019-08-02] MEDS: XANAX PO SCH (22:36)
[2019-08-02] MEDS: MORPHINE SULFATE INJ 2 MG INJ IVP PRN (23:27)
[2019-08-03] MEDS: NEURONTIN CAP 100 MG PO SCH ×3 (05:11→21:18)
[2019-08-03] MEDS: LOMOTIL PO SCH ×3 (05:11→21:18)
[2019-08-03] MEDS: ZOSYN VIAL 3.375 GRAMS 3.375 G in NS 100 ML IV + SPIKE MINIBAG* 100 ML IV SCH ×3 (05:12→21:18)
[2019-08-03 06:09] LABS: LACTIC ACID 2.9 mmol/L (0.4-2.0)
[2019-08-03 06:28] LABS: ALANINE AMINOTRANSFERASE 30 Units/L (12-78); ALBUMIN 2.5 g/dL (3.4-5.0); ALKALINE PHOSPHATASE 64 Units/L (46-116); ASPARTATE AMINO TRANSFERASE 69 Units/L (15-37); BLOOD UREA NITROGEN 50 mg/dL (7-18); CALCIUM 6.8 mg/dL (8.5-10.1); CARBON DIOXIDE 18.4 mmol/L (21-32); CHLORIDE 110 mmol/L (98-107); CREATININE 2.91 mg/dL (0.70-1.30); SODIUM 142 mmol/L (136-145); TOTAL PROTEIN 5.1 g/dL (6.4-8.2); eGFR NON BLACK RACES 23 (>60)
[2019-08-03] MEDS: NS 1000 ML 1,000 ML IV SCH ×3 (06:38→21:43)
[2019-08-03] MEDS: WELCHOL PO SCH ×2 (06:38→18:18)
[2019-08-03 06:50] LABS: BASOPHILS % (AUTO) 0.2 % (0.2-1.0); HEMATOCRIT 23.3 % (42.0-54.0); HEMOGLOBIN 7.6 g/dL (13.5-18.0); LYMPHOCYTES # (AUTO) 0.6 X10^3/uL (1.3-2.9); LYMPHOCYTES % (AUTO) 3.6 % (21.0-51.0); MEAN CORPUSCULAR HEMOGLOBIN 32.9 pg (27.0-34.0); MEAN CORPUSCULAR HGB CONC 32.6 g/dL (33.0-35.0); MEAN PLATELET VOLUME 9.5 fL (7.4-11.0); MONOCYTES # (AUTO) 5.9 x10^3/uL (0.3-0.8); MONOCYTES % (AUTO) 37.5 % (0.0-13.0); NEUTROPHILS # (AUTO) 9.3 x10^3/uL (2.2-4.8); NEUTROPHILS % (AUTO) 58.7 % (42.0-75.0); PLATELET COUNT 50 X10^3/uL (150.0-450.0); RED BLOOD COUNT 2.31 X10^6/uL (4.7-6.0); RED CELL DISTRIBUTION WIDTH 15.9 % (11.6-16.5); WHITE BLOOD COUNT 15.8 X10^3/uL (3.6-10.0)
[2019-08-03] MEDS ORDERED: HALDOL INJ ONE (07:29)
[2019-08-03] MEDS: HALDOL INJ IVP PRN (07:35)
--- NOTE | 2019-08-03 07:39 | RAD ---
HISTORYShortness of breathSTUDYCHEST, 1 [id number] heart is enlarged. No congestive heart failure is noted. The aorta is Mark tattooed. The lungs are free of acute alveolar infiltrates. No pleural effusions are identified. Bony thorax is unremarkable.IMPRESSIONCardiomegaly without congestive heart failureNo infiltratesElectronically signed by: CORKY MARTELL (Aug 03, 2019 07:38:11)
[2019-08-03] MEDS: PROTONIX INJ 40 MG VIAL IVP SCH ×2 (08:20→21:17)
[2019-08-03] MEDS: PEPCID 20 MG IV PREMIX* 20 MG/50 ML BAG IV SCH (08:20)
[2019-08-03] MEDS: PRED FORTE 1 % OP SCH ×4 (08:30→21:17)
[2019-08-03] MEDS: DUONEB 0.5 MG/3 MG (3 mL) NEB SCH ×5 (08:55→21:09)
[2019-08-03] MEDS: D5W IV SCH (09:30)
[2019-08-03] MEDS: VANCOMYCIN HCL IV SCH (09:30)
[2019-08-03] MEDS ORDERED: AQUA-MEPHYTON ADULT INJ SC ONE (09:51)
[2019-08-03] MEDS: BENTYL CAP 10 MG PO SCH ×4 (10:52→20:19)
[2019-08-03] MEDS: DEPAKOTE ER PO SCH (10:52)
[2019-08-03] MEDS: K-LYTE EFFERVESCENT PO SCH (10:53)
[2019-08-03] MEDS: VSL#3 PO SCH (10:53)
[2019-08-03] MEDS: FOLIC ACID TAB 1 MG PO SCH (10:53)
[2019-08-03] MEDS: VITAMIN D3 PO SCH ×2 (10:54→20:20)
[2019-08-03] MEDS: SYNTHROID 75 mcg TAB PO SCH (10:54)
[2019-08-03] MEDS: MAGIC MOUTHWASH MT SCH ×4 (10:56→20:20)
[2019-08-03] MEDS: ATIVAN INJ 2 MG VIAL IVP PRN (11:05)
[2019-08-03] MEDS: PREDNISONE TAB 10 MG PO SCH ×2 (11:22→20:20)
[2019-08-03] MEDS: LOPRESSOR TAB 25 MG PO SCH ×2 (11:23→20:20)
[2019-08-03] MEDS: ALBUMIN HUMAN 25%- 100 ML 100 ML IV SCH (11:23)
[2019-08-03] MEDS: PROzac PO SCH (11:24)
[2019-08-03] MEDS ORDERED: NS 250 ML IV 250 ML IV ONE ×3 (11:45→14:30)
[2019-08-03] MEDS ORDERED: LOPRESSOR INJ 5 MG AMP IVP PRN (12:11)
[2019-08-03] MEDS ORDERED: LOPRESSOR INJ 5 MG AMP ONE (12:14)
[2019-08-03] MEDS: ZOVIRAX IV SCH (13:08)
[2019-08-03] MEDS: SPIKE MINIBAG IV SCH (13:08)
[2019-08-03] MEDS: NS IV SCH (13:08)
[2019-08-03] MEDS ORDERED: CARDIZEM INJ 125 MG VIAL ONE (14:11)
[2019-08-03] MEDS ORDERED: NS 100 ML IV 100 ML IV ONE (14:11)
[2019-08-03] MEDS: CARDIZEM INJ 125 MG VIAL 125 MG in NS 100 ML IV 100 ML IV PRN (14:16)
[2019-08-03] MEDS: FLOMAX PO SCH (20:20)
[2019-08-03] MEDS: XANAX PO SCH (20:21)
--- NOTE | 2019-08-03 20:36 | PCM.PROG ---
Progress Note - Progress Note for Day of Date of Exam: 08/02/19 - Subjective Subjective: WAS ADMITTED ON 07/25 AFTER HAVING A SYNCOPAL EPISODE AT HOME FOLLOWING SEIZURE LIKE ACTIVITY. HE HAS ALSO BEEN TREATED FOR ABDOMINAL PAIN AND DIARRHEA. HE HAS PMH OF MDS, OA, COLITIS, LUMBAR SPINE DDD WITH SPINAL STENOSIS, CHRONIC T SPINE COMPRESSION FRACTURES, AND ANEMIA. STAFF REPORTS THAT AT APPROXIMATELY 1930 LAST NIGHT, PATIENT WAS FOUND UNRESPONSIVE IN BED WITH SNORING RESPIRATIONS. BLOOD PRESSURE DECREASED TO 75/38. HE WAS TRANSFERRED TO THE INTENSIVE CARE UNIT. A BRAIN CT WAS OBTAINED WELL CARDIAC ENZYMES AND EKGS. HE WAS STARTED ON A LEVOPHED DRIP, ACYCOLOVIR IV, AND ZOSYN IV. TODAY, HE REMAINS IN THE INTENSIVE CARE UNIT. HE IS LYING IN BED WITH EYES CLOSED ON MORNING ROUNDS. HE MOANS TO PAINFUL STIMULI, BUT DOES NOT OPEN EYES OR RESPOND VERBALLY. HIS VITALS THIS MORNING ARE: 101.7-98-27-100%-146/63. LABS WERE OBTAINED. ABNORMAL LAB VALUES INCLUDE THE FOLLOWING: WBC INCREASED TO 14.2, RBC 2.24, HGB 7.5, HCT 22.4, PLT COUNT 68, INR 2.45, PTT 38.8, POTASSIUM 5.5, CARBON DIOXIDE 20.7, BUN 43, CREATININE 2.75, LACTIC ACID DECREASED FROM 8.4 TO 4.8, CALCIUM 8.1, TOTAL PROTEIN 5.4, ALBUMIN 2.9. URINALYSIS REVEALED: WBC 0-2, RBC 10-20, LEUKOCYTES 1+, BACTERIA NEGATIVE. BLOOD CULTURES AND URINE CULTURES WERE REPEATED. BRAIN CT REVEALED: INVOLUTIONAL CHANGES ARE PRESENT WITH FINDINGS SUGGESTING SMALL VESSEL ISCHEMIC DISEASE WITCH IS TO A DEGREE THAT WOULD BE CONSIDERED WITHIN NORMAL LIMITS FOR THE PATIENT'S STATED AGE. THERE IS NO EVIDENCE OF ACUTE INTRACRANIAL BLEED. TODAY, WE WILL OBTAIN A FLU SWAB AND ABG. WE WILL START JET NEBS QID AND ADMINISTER PROCRIT 5,000 UNITS THIS MORNING AND AGAIN TONIGHT. OTHERWISE, WE WILL CONTINUE WITH CURRENT PLAN OF CARE TODAY. WE PLAN TO FOLLOW UP WITH AM LABS AND CONTINUE TO MONITOR. - Past Medical Family Social History Past Med/Fam/Surg Hx: No changes since H&P Allergies: Allergies promethazine [From Phenergan] Allergy (Verified 07/25/19 05:56) - Review of Systems ROS: No change since H&P - Vital Signs and I&O's Vital Signs: Temperature 98.4 F Pulse Rate [Left Apical] 100 Pulse Rate [Right] 64 Pulse Rate 127 Respiratory Rate 21 Blood Pressure [LYING] 92/52 Blood Pressure [standing] 78/53 Blood Pressure [sitting] 106/57 Blood Pressure [Left Arm] 111/58 Blood Pressure [Right Arm] 127/62 Blood Pressure 135/69 O2 Sat by Pulse Oximetry 95 Intake and Output: Intake & Output 08/01/19 08/02/19 08/03/19 08/04/19 11:59 11:59 11:59 11:59 Intake Total 1410 / 1410 5463 / 5463 4735 / 4735 2120 / 2120 Output Total 700 / 700 200 / 200 900 / 900 600 / 600 Balance 710 / 710 5263 / 5263 3835 / 3835 1520 / 1520 - Physical Exam Oriented: Unable to test Eyes: Normal Ear: Normal Nose: Normal Throat: Dry Respiratory: Generalized, Diminished Cardiovascular: Normal. negative: Murmur, Edema : Normal Auscultation: Bowel Sounds: Normal Palpation: Normal Tenderness: Normal Skin: Normal, Wound (SKIN TEARM LEFT POSTERIOR UPPER ARM), Bruising Musculoskeletal: Normal Psychiatric: Other (ONLY RESPONSIVE TO PAINFUL STIMULI THIS MORNING. ) Mood Description: Flat Affect: Flat - Laboratory and Diagnostics Result Diagrams: 08/03/19 05:05 08/03/19 05:05 Labs: 08/01/19 23:56 Blood Blood Culture - Preliminary 08/01/19 23:50 Blood Blood Culture - Preliminary 08/01/19 09:33 Blood Blood Culture - Preliminary 08/01/19 09:30 Blood Blood Culture - Preliminary 08/02/19 12:00 Urine,Catheterized Urine Culture - Preliminary 07/28/19 13:47 Stool Stool Culture - Final 07/28/19 13:47 Stool - Final 07/25/19 12:39 Urine,Clean Catch Urine Culture - Final Laboratory WBC 15.8 X10^3/uL (3.6-10.0) H 08/03/19 05:05 RBC 2.31 X10^6/uL (4.7-6.0) L 08/03/19 05:05 Hgb 7.6 g/dL (13.5-18.0) L 08/03/19 05:05 Hct 23.3 % (42.0-54.0) L 08/03/19 05:05 MCV 101.0 fL (80.0-100.0) H 08/03/19 05:05 MCH 32.9 pg (27.0-34.0) 08/03/19 05:05 MCHC 32.6 g/dL (33.0-35.0) L 08/03/19 05:05 RDW 15.9 % (11.6-16.5) 08/03/19 05:05 Plt Count 50 X10^3/uL (150.0-450.0) L 08/03/19 05:05 Plt Count Comment Adequate (ADEQUATE) 08/02/19 05:07 MPV 9.5 fL (7.4-11.0) 08/03/19 05:05 Neut % (Auto) 58.7 % (42.0-75.0) 08/03/19 05:05 Lymph % (Auto) 3.6 % (21.0-51.0) L 08/03/19 05:05 [place] % (Auto) 37.5 % (0.0-13.0) H 08/03/19 05:05 Eos % (Auto) 0.0 % (0.9-2.9) L 08/03/19 05:05 Baso % (Auto) 0.2 % (0.2-1.0) 08/03/19 05:05 Neut # (Auto) 9.3 x10^3/uL (2.2-4.8) H 08/03/19 05:05 Lymph # (Auto) 0.6 X10^3/uL (1.3-2.9) L 08/03/19 05:05 [place] # (Auto) 5.9 x10^3/uL (0.3-0.8) H 08/03/19 05:05 Eos # (Auto) 0.0 x10^3/uL (0.0-0.2) 08/03/19 05:05 Baso # (Auto) 0.0 X10^3/uL (0.0-0.1) 08/03/19 05:05 Absolute Nucleated RBC 0.0 /100WBC 08/03/19 05:05 Total Counted 100 08/02/19 05:07 Neutrophils % (Manual) 26 % (39-76) L 08/02/19 05:07 Band Neutrophils % 32 % (0-10) H 08/02/19 05:07 Lymphocytes % (Manual) 18 % (13-43) 08/02/19 05:07 Monocytes % (Manual) 9 % (4-9) 08/02/19 05:07 Eosinophils % (Manual) 2 % (0-6) 07/29/19 05:44 Metamyelocytes % 15 08/02/19 05:07 Myelocytes % 17 08/02/19 05:07 Atypical Lymphocytes Not Reportable 07/25/19 04:11 Plt Morphology Comment Normal (NORMAL) 08/02/19 05:07 RBC Morphology Normal (NORMAL) 08/02/19 05:07 ESR 14 MM/HOUR (0-15) 07/25/19 15:23 PT 13.7 SECONDS (11.8-14.3) 08/03/19 17:09 INR Target Range - 08/03/19 17:09 INR 1.09 (0.8-1.3) 08/03/19 17:09 APTT 36.7 SECONDS (22.9-36.5) H 08/03/19 17:09 PTT Comment - 08/03/19 17:09 Sample Site Lr 08/02/19 05:13 ABG pH 7.390 (7.35-7.45) 08/02/19 05:13 ABG pCO2 30.0 mmHg (35.0-45.0) L 08/02/19 05:13 ABG pO2 113.0 mmHg (80.0-100.0) H 08/02/19 05:13 ABG HCO3 18.2 mmol/L (22-26) L 08/02/19 05:13 ABG O2 Saturation 98.0 % (90-100) 08/02/19 05:13 ABG Base Excess -5.7 mmol/L (-2.0-2.0) L 08/02/19 05:13 Del Test Pos 08/02/19 05:13 A-a Gradient 206.0 mmHg 08/02/19 05:13 FiO2 50.0 08/02/19 05:13 Blood Gas Comments Beena well cb 08/02/19 05:13 Sodium 142 mmol/L (136-145) 08/03/19 05:05 Corrected Sodium TNP 08/03/19 05:05 Potassium 4.3 mmol/L (3.5-5.1) 08/03/19 05:05 Chloride 110 mmol/L (98-107) H 08/03/19 05:05 Carbon Dioxide 18.4 mmol/L (21-32) L 08/03/19 05:05 BUN 50 mg/dL (7-18) H 08/03/19 05:05 Creatinine 2.91 mg/dL (0.70-1.30) H 08/03/19 05:05 Est GFR (MDRD) Af Amer 27 (>60) L 08/03/19 05:05 Est GFR (MDRD) Non-Af 23 (>60) L 08/03/19 05:05 Glucose 76 mg/dL (65-99) 08/03/19 05:05 POC Glucose (mg/dL) 102 mg/dL (65-99) H 08/01/19 19:51 Lactic Acid 2.9 mmol/L (0.4-2.0) H 08/03/19 05:05 Calcium 6.8 mg/dL (8.5-10.1) L 08/03/19 05:05 Corrected Calcium 8.0 mg/dL (8.5-10.1) L 08/03/19 05:05 Magnesium 1.6 mg/dL (1.7-2.9) L 07/24/19 21:50 Total Bilirubin 0.40 mg/dL (0.2-1.0) 08/03/19 05:05 AST 69 Units/L (15-37) H 08/03/19 05:05 ALT 30 Units/L (12-78) 08/03/19 05:05 Alkaline Phosphatase 64 Units/L (46-116) 08/03/19 05:05 Creatine Kinase 38 Units/L (39-308) L 07/25/19 04:11 CK-MB (CK-2) < 1.0 ng/mL (0-4.0) 07/25/19 04:11 CK/CKMB % Calc 2.6 % (<4) 07/25/19 04:11 Troponin I 0.03 ng/mL (0-1.5) 07/25/19 04:11 C-Reactive Protein 3.90 mg/L (0-3.0) H 07/25/19 15:23 Total Protein 5.1 g/dL (6.4-8.2) L 08/03/19 05:05 Albumin 2.5 g/dL (3.4-5.0) L 08/03/19 05:05 Globulin 2.6 g/dL (2.5-4.5) 08/03/19 05:05 Albumin/Globulin Ratio 1.0 Ratio (1.1-2.1) L 08/03/19 05:05 Triglycerides 121 mg/dL (0-150) 07/26/19 04:05 Cholesterol 151 mg/dL (0-200) 07/26/19 04:05 LDL Cholesterol, Calc 77 mg/dL (0-100) 07/26/19 04:05 HDL Cholesterol 50 mg/dL (40-60) 07/26/19 04:05 Cholesterol/HDL Ratio 3.0 (0.0-5.0) 07/26/19 04:05 Amylase 117 Units/L (25-115) H 07/25/19 04:11 Lipase 384 Units/L (73-393) 07/25/19 04:11 Total PSA 1.80 ng/mL (0.13-4.0) 07/25/19 15:23 Specimen Type Catherized urine 08/01/19 22:04 Urine Color Dark yellow (YELLOW) 08/01/19 22:04 Urine Appearance Slightly hazy (CLEAR) 08/01/19 22:04 Urine pH 5.0 (5.0 - 8.0) 08/01/19 22:04 Ur Specific [place] 1.020 (1.000-1.030) 08/01/19 22:04 Urine Protein 2+ (NEGATIVE) 08/01/19 22:04 Urine Glucose (UA) Negative (NEGATIVE) 08/01/19 22:04 Urine Ketones 1+ (NEGATIVE) 08/01/19 22:04 Urine Occult Blood 3+ (NEGATIVE) 08/01/19 22:04 Urine Nitrite Negative (NEGATIVE) 08/01/19 22:04 Urine Bilirubin Negative (NEGATIVE) 08/01/19 22:04 Urine Urobilinogen Normal (NORMAL) 08/01/19 22:04 Ur Leukocyte Esterase 1+ (NEGATIVE) 08/01/19 22:04 Urine RBC 10-20 /HPF (0-3) A 08/01/19 22:04 Urine WBC 0-2 /HPF (0-5) 08/01/19 22:04 Ur Squamous Epith Cells Rare /HPF (NEGATIVE) 08/01/19 22:04 Calcium Oxalate Crystal Few /HPF (NEGATIVE) 07/25/19 12:39 Amorphous Sediment Trace /HPF (NEGATIVE) 08/01/19 22:04 Urine Bacteria Negative /HPF (NEGATIVE) 08/01/19 22:04 Urine Mucus Few /HPF (NEGATIVE) 07/25/19 12:39 Ur Culture Indicated? No/not indicated 08/01/19 22:04 Stool Description 175g,brown,unformed 07/28/19 13:47 Stool Description 175g,brown,unformed 07/28/19 13:47 Stl Occult Blood (IFOB) Negative (NEGATIVE) 07/28/19 13:47 Stool for White Cells Positive (NEGATIVE) A 07/28/19 13:47 Stl C. diff Tox B Gene Negative (NEGATIVE) 07/28/19 13:47 Stl C. diff [id number] Negative (NEGATIVE) 07/28/19 13:47 Rheumatoid Factor Negative (NEGATIVE) 07/25/19 15:23 HADLEY Screen None detected (None Detected) 07/25/19 15:23 HADLEY Titer TNP 07/25/19 15:23 HADLEY Pattern TNP 07/25/19 15:23 Cryptosporid parvum Ag Negative (NEGATIVE) 07/28/19 13:47 Giardia lamblia Ag Negative (NEGATIVE) 07/28/19 13:47 Influenza Type A (PCR) Negative (NEGATIVE) 08/02/19 11:16 Influenza Type B (PCR) Negative (NEGATIVE) 08/02/19 11:16 Blood Type B NEGATIVE 08/03/19 08:28 Antibody Screen Positive 08/03/19 08:28 Crossmatch See Detail 08/03/19 08:28 - Plan (1) Shock Status: Acute Plan: CONTINUE IV FLUIDS, CONTINUE LEVOPHED AND WEAN TOLERATED, CONTINUE TO MONITOR LABS (2) Hypotensive episode Status: Acute Plan: CONTINUE IV FLUIDS, CONTINUE LEVOPHED, CONTINUE TO MONITOR (3) Syncope and collapse Status: Acute Plan: IV HYDRATION, BP CONTROL, PAIN CONTROL. CONTINUE TO MONITOR (4) Seizure-like activity Status: Acute Plan: DEPAKOTE ER 500MG PO DAILY, CONTINUE TO MONITOR (5) Abdominal pain Status: Acute Qualifiers: Abdominal location: generalized Qualified Code(s): R10.84 - Generalized abdominal pain Plan: BENTYL 20MG PO QID, PAIN CONTROL, PT HAD CT ABDPELVIS LAST MONTH DUE TO SAME SYMPTOMS (6) Joint pain Status: Acute Qualifiers: Joint pain location: unspecified Qualified Code(s): M25.50 - Pain in unspecified joint Plan: CONTINUE PAIN CONTROL (7) Protein deficiency Status: Acute Plan: IV PROCAL, IV ALBUMIN, CONTINUE TO MONITOR (8) Diarrhea Status: Acute Qualifiers: Diarrhea type: presumed infectious Qualified Code(s): R19.7 - Diarrhea, unspecified Plan: BENTYL, LOMOTIL, PROBIOTICS, WELCHOL, CONTINUE TO MONITOR (9) Anemia Status: Acute Qualifiers: Anemia type: iron deficiency Iron deficiency anemia type: unspecified iron deficiency Qualified Code(s): D50.9 - Iron deficiency anemia, unspecified Plan: PROCRIT 5,000 UNITS NOW AND TONIGHT, CONTINUE TO MONITOR
--- NOTE | 2019-08-03 20:57 | PCM.PROG ---
Progress Note - Progress Note for Day of Date of Exam: 08/03/19 - Subjective Subjective: WAS ADMITTED FOLLOWING A SYNCOPAL EPISODE AT HOME FOLLOWING SEIZURE LIKE ACTIVITY, ABDOMINAL PAIN, DIARRHEA, AND IS NOW BEING TREATED FOR SHOCK, HYPOTENSION, AND ANEMIA. STAFF REPORTS THAT HE HAS BEEN AGITATED THROUGHOUT THE NIGHT, BUT HAS SETTLED DOWN AFTER ADMINISTRATION OF TAMI DOL. TODAY, HE REMAINS IN THE INTENSIVE CARE UNIT. HE IS LYING IN BED WITH EYES CLOSED ON MORNING ROUNDS. HE MOANS TO PAINFUL STIMULI, BUT DOES NOT OPEN EYES OR RESPOND VERBALLY. HIS VITALS THIS MORNING ARE: 99.0-102-24-99%-124/73. LABS WERE OBTAINED. ABNORMAL LAB VALUES INCLUDE THE FOLLOWING: WBC INCREASED TO 15.8, RBC 2.31, HGB 7.6, HCT 23.3, PLT COUNT 50, CHLORIDE 110, CARBON DIOXIDE 18.4, BUN 50, CREATININE 2.91, LACTIC ACID 2.9, CALCIUM 6.8, AST 69, TOTAL PROTEIN 5.1, ALBUMIN 2.5. BLOOD CULTURES AND URINE CULTURES ARE PENDING. ECHO REVEALED AN EJECTION FRACTION OF 57% HE IS NEGATIVE FOR INFLUENZA. CHEST XRAY REVEALED: CARDIOMEGALY WITHOUT CONGESTIVE HEART FAILURE. NO INFILTRATES. TODAY, WE WILL ADMINISTER VITAMIN K 10MG SC X 1 DOSE, CROSSMATCH TWO UNITS OF PRBC, AND ADMINISTER TWO UNITS OF FRESH FROZEN PLASMA. WE WILL REPEAT PT/INR AND PTT AT 1700. OTHERWISE, WE WILL CONTINUE WITH CURRENT PLAN OF CARE TODAY. WE PLAN TO FOLLOW UP WITH AM LABS AND CONTINUE TO MONITOR. - Past Medical Family Social History Past Med/Fam/Surg Hx: No changes since H&P Allergies: Allergies promethazine [From Phenergan] Allergy (Verified 07/25/19 05:56) - Review of Systems ROS: No change since H&P - Vital Signs and I&O's Vital Signs: Temperature 98.4 F Pulse Rate [Left Apical] 100 Pulse Rate [Right] 64 Pulse Rate 127 Respiratory Rate 21 Blood Pressure [LYING] 92/52 Blood Pressure [standing] 78/53 Blood Pressure [sitting] 106/57 Blood Pressure [Left Arm] 111/58 Blood Pressure [Right Arm] 127/62 Blood Pressure 135/69 O2 Sat by Pulse Oximetry 95 Intake and Output: Intake & Output 08/01/19 08/02/19 08/03/19 08/04/19 11:59 11:59 11:59 11:59 Intake Total 1410 / 1410 5463 / 5463 4735 / 4735 2120 / 2120 Output Total 700 / 700 200 / 200 900 / 900 600 / 600 Balance 710 / 710 5263 / 5263 3835 / 3835 1520 / 1520 - Physical Exam Oriented: Unable to test Eyes: Normal Ear: Normal Nose: Normal Throat: Dry Respiratory: Generalized, Diminished Cardiovascular: Normal. negative: Murmur, Edema : Normal Auscultation: Bowel Sounds: Normal Palpation: Normal (RIVKA VB N) Tenderness: Normal Skin: Normal, Wound (SKIN TEARM LEFT POSTERIOR UPPER ARM), Bruising Musculoskeletal: Normal Psychiatric: Other (ONLY RESPONSIVE TO PAINFUL STIMULI THIS MORNING. ) Mood Description: Flat Affect: Flat Speech Pattern: Unclear - Laboratory and Diagnostics Result Diagrams: 08/03/19 05:05 08/03/19 05:05 Labs: 08/01/19 23:56 Blood Blood Culture - Preliminary 08/01/19 23:50 Blood Blood Culture - Preliminary 08/01/19 09:33 Blood Blood Culture - Preliminary 08/01/19 09:30 Blood Blood Culture - Preliminary 08/02/19 12:00 Urine,Catheterized Urine Culture - Preliminary 07/28/19 13:47 Stool Stool Culture - Final 07/28/19 13:47 Stool - Final 07/25/19 12:39 Urine,Clean Catch Urine Culture - Final Laboratory WBC 15.8 X10^3/uL (3.6-10.0) H 08/03/19 05:05 RBC 2.31 X10^6/uL (4.7-6.0) L 08/03/19 05:05 Hgb 7.6 g/dL (13.5-18.0) L 08/03/19 05:05 Hct 23.3 % (42.0-54.0) L 08/03/19 05:05 MCV 101.0 fL (80.0-100.0) H 08/03/19 05:05 MCH 32.9 pg (27.0-34.0) 08/03/19 05:05 MCHC 32.6 g/dL (33.0-35.0) L 08/03/19 05:05 RDW 15.9 % (11.6-16.5) 08/03/19 05:05 Plt Count 50 X10^3/uL (150.0-450.0) L 08/03/19 05:05 Plt Count Comment Adequate (ADEQUATE) 08/02/19 05:07 MPV 9.5 fL (7.4-11.0) 08/03/19 05:05 Neut % (Auto) 58.7 % (42.0-75.0) 08/03/19 05:05 Lymph % (Auto) 3.6 % (21.0-51.0) L 08/03/19 05:05 [place] % (Auto) 37.5 % (0.0-13.0) H 08/03/19 05:05 Eos % (Auto) 0.0 % (0.9-2.9) L 08/03/19 05:05 Baso % (Auto) 0.2 % (0.2-1.0) 08/03/19 05:05 Neut # (Auto) 9.3 x10^3/uL (2.2-4.8) H 08/03/19 05:05 Lymph # (Auto) 0.6 X10^3/uL (1.3-2.9) L 08/03/19 05:05 [place] # (Auto) 5.9 x10^3/uL (0.3-0.8) H 08/03/19 05:05 Eos # (Auto) 0.0 x10^3/uL (0.0-0.2) 08/03/19 05:05 Baso # (Auto) 0.0 X10^3/uL (0.0-0.1) 08/03/19 05:05 Absolute Nucleated RBC 0.0 /100WBC 08/03/19 05:05 Total Counted 100 08/02/19 05:07 Neutrophils % (Manual) 26 % (39-76) L 08/02/19 05:07 Band Neutrophils % 32 % (0-10) H 08/02/19 05:07 Lymphocytes % (Manual) 18 % (13-43) 08/02/19 05:07 Monocytes % (Manual) 9 % (4-9) 08/02/19 05:07 Eosinophils % (Manual) 2 % (0-6) 07/29/19 05:44 Metamyelocytes % 15 08/02/19 05:07 Myelocytes % 17 08/02/19 05:07 Atypical Lymphocytes Not Reportable 07/25/19 04:11 Plt Morphology Comment Normal (NORMAL) 08/02/19 05:07 RBC Morphology Normal (NORMAL) 08/02/19 05:07 ESR 14 MM/HOUR (0-15) 07/25/19 15:23 PT 13.7 SECONDS (11.8-14.3) 08/03/19 17:09 INR Target Range - 08/03/19 17:09 INR 1.09 (0.8-1.3) 08/03/19 17:09 APTT 36.7 SECONDS (22.9-36.5) H 08/03/19 17:09 PTT Comment - 08/03/19 17:09 Sample Site Lr 08/02/19 05:13 ABG pH 7.390 (7.35-7.45) 08/02/19 05:13 ABG pCO2 30.0 mmHg (35.0-45.0) L 08/02/19 05:13 ABG pO2 113.0 mmHg (80.0-100.0) H 08/02/19 05:13 ABG HCO3 18.2 mmol/L (22-26) L 08/02/19 05:13 ABG O2 Saturation 98.0 % (90-100) 08/02/19 05:13 ABG Base Excess -5.7 mmol/L (-2.0-2.0) L 08/02/19 05:13 Del Test Pos 08/02/19 05:13 A-a Gradient 206.0 mmHg 08/02/19 05:13 FiO2 50.0 08/02/19 05:13 Blood Gas Comments Beena well cb 08/02/19 05:13 Sodium 142 mmol/L (136-145) 08/03/19 05:05 Corrected Sodium TNP 08/03/19 05:05 Potassium 4.3 mmol/L (3.5-5.1) 08/03/19 05:05 Chloride 110 mmol/L (98-107) H 08/03/19 05:05 Carbon Dioxide 18.4 mmol/L (21-32) L 08/03/19 05:05 BUN 50 mg/dL (7-18) H 08/03/19 05:05 Creatinine 2.91 mg/dL (0.70-1.30) H 08/03/19 05:05 Est GFR (MDRD) Af Amer 27 (>60) L 08/03/19 05:05 Est GFR (MDRD) Non-Af 23 (>60) L 08/03/19 05:05 Glucose 76 mg/dL (65-99) 08/03/19 05:05 POC Glucose (mg/dL) 102 mg/dL (65-99) H 08/01/19 19:51 Lactic Acid 2.9 mmol/L (0.4-2.0) H 08/03/19 05:05 Calcium 6.8 mg/dL (8.5-10.1) L 08/03/19 05:05 Corrected Calcium 8.0 mg/dL (8.5-10.1) L 08/03/19 05:05 Magnesium 1.6 mg/dL (1.7-2.9) L 07/24/19 21:50 Total Bilirubin 0.40 mg/dL (0.2-1.0) 08/03/19 05:05 AST 69 Units/L (15-37) H 08/03/19 05:05 ALT 30 Units/L (12-78) 08/03/19 05:05 Alkaline Phosphatase 64 Units/L (46-116) 08/03/19 05:05 Creatine Kinase 38 Units/L (39-308) L 07/25/19 04:11 CK-MB (CK-2) < 1.0 ng/mL (0-4.0) 07/25/19 04:11 CK/CKMB % Calc 2.6 % (<4) 07/25/19 04:11 Troponin I 0.03 ng/mL (0-1.5) 07/25/19 04:11 C-Reactive Protein 3.90 mg/L (0-3.0) H 07/25/19 15:23 Total Protein 5.1 g/dL (6.4-8.2) L 08/03/19 05:05 Albumin 2.5 g/dL (3.4-5.0) L 08/03/19 05:05 Globulin 2.6 g/dL (2.5-4.5) 08/03/19 05:05 Albumin/Globulin Ratio 1.0 Ratio (1.1-2.1) L 08/03/19 05:05 Triglycerides 121 mg/dL (0-150) 07/26/19 04:05 Cholesterol 151 mg/dL (0-200) 07/26/19 04:05 LDL Cholesterol, Calc 77 mg/dL (0-100) 07/26/19 04:05 HDL Cholesterol 50 mg/dL (40-60) 07/26/19 04:05 Cholesterol/HDL Ratio 3.0 (0.0-5.0) 07/26/19 04:05 Amylase 117 Units/L (25-115) H 07/25/19 04:11 Lipase 384 Units/L (73-393) 07/25/19 04:11 Total PSA 1.80 ng/mL (0.13-4.0) 07/25/19 15:23 Specimen Type Catherized urine 08/01/19 22:04 Urine Color Dark yellow (YELLOW) 08/01/19 22:04 Urine Appearance Slightly hazy (CLEAR) 08/01/19 22:04 Urine pH 5.0 (5.0 - 8.0) 08/01/19 22:04 Ur Specific [place] 1.020 (1.000-1.030) 08/01/19 22:04 Urine Protein 2+ (NEGATIVE) 08/01/19 22:04 Urine Glucose (UA) Negative (NEGATIVE) 08/01/19 22:04 Urine Ketones 1+ (NEGATIVE) 08/01/19 22:04 Urine Occult Blood 3+ (NEGATIVE) 08/01/19 22:04 Urine Nitrite Negative (NEGATIVE) 08/01/19 22:04 Urine Bilirubin Negative (NEGATIVE) 08/01/19 22:04 Urine Urobilinogen Normal (NORMAL) 08/01/19 22:04 Ur Leukocyte Esterase 1+ (NEGATIVE) 08/01/19 22:04 Urine RBC 10-20 /HPF (0-3) A 08/01/19 22:04 Urine WBC 0-2 /HPF (0-5) 08/01/19 22:04 Ur Squamous Epith Cells Rare /HPF (NEGATIVE) 08/01/19 22:04 Calcium Oxalate Crystal Few /HPF (NEGATIVE) 07/25/19 12:39 Amorphous Sediment Trace /HPF (NEGATIVE) 08/01/19 22:04 Urine Bacteria Negative /HPF (NEGATIVE) 08/01/19 22:04 Urine Mucus Few /HPF (NEGATIVE) 07/25/19 12:39 Ur Culture Indicated? No/not indicated 08/01/19 22:04 Stool Description 175g,brown,unformed 07/28/19 13:47 Stool Description 175g,brown,unformed 07/28/19 13:47 Stl Occult Blood (IFOB) Negative (NEGATIVE) 07/28/19 13:47 Stool for White Cells Positive (NEGATIVE) A 07/28/19 13:47 Stl C. diff Tox B Gene Negative (NEGATIVE) 07/28/19 13:47 Stl C. diff [id number] Negative (NEGATIVE) 07/28/19 13:47 Rheumatoid Factor Negative (NEGATIVE) 07/25/19 15:23 HADLEY Screen None detected (None Detected) 07/25/19 15:23 HADLEY Titer TNP 07/25/19 15:23 HADLEY Pattern TNP 07/25/19 15:23 Cryptosporid parvum Ag Negative (NEGATIVE) 07/28/19 13:47 Giardia lamblia Ag Negative (NEGATIVE) 07/28/19 13:47 Influenza Type A (PCR) Negative (NEGATIVE) 08/02/19 11:16 Influenza Type B (PCR) Negative (NEGATIVE) 08/02/19 11:16 Blood Type B NEGATIVE 08/03/19 08:28 Antibody Screen Positive 08/03/19 08:28 Crossmatch See Detail 08/03/19 08:28 - Plan (1) Shock Status: Acute Plan: CONTINUE IV FLUIDS, CONTINUE LEVOPHED AND WEAN TOLERATED, CONTINUE TO MONITOR LABS (2) Hypotensive episode Status: Acute Plan: CONTINUE IV FLUIDS, CONTINUE LEVOPHED, CONTINUE TO MONITOR (3) Syncope and collapse Status: Acute Plan: IV HYDRATION, BP CONTROL, PAIN CONTROL. CONTINUE TO MONITOR (4) Seizure-like activity Status: Acute Plan: DEPAKOTE ER 500MG PO DAILY, CONTINUE TO MONITOR (5) Abdominal pain Status: Acute Qualifiers: Abdominal location: generalized Qualified Code(s): R10.84 - Generalized abdominal pain Plan: BENTYL 20MG PO QID, PAIN CONTROL, PT HAD CT ABDPELVIS LAST MONTH DUE TO SAME SYMPTOMS (6) Joint pain Status: Acute Qualifiers: Joint pain location: unspecified Qualified Code(s): M25.50 - Pain in unspecified joint Plan: CONTINUE PAIN CONTROL (7) Protein deficiency Status: Acute Plan: IV PROCAL, IV ALBUMIN, CONTINUE TO MONITOR (8) Diarrhea Status: Acute Qualifiers: Diarrhea type: presumed infectious Qualified Code(s): R19.7 - Diarrhea, unspecified Plan: BENTYL, LOMOTIL, PROBIOTICS, WELCHOL, CONTINUE TO MONITOR (9) Anemia Status: Acute Qualifiers: Anemia type: iron deficiency Iron deficiency anemia type: unspecified iron deficiency Qualified Code(s): D50.9 - Iron deficiency anemia, unspecified Plan: PROCRIT 10,000 UNITS SC 3XWEEKLY, ADMINSTER 2 UNITS FRESH FROZEN PLASMA, CROSSMATCH 2 UNITS PRBC, CONTINUE TO MONITOR
[2019-08-03] MEDS ORDERED: BUTT CREAM (COMPOUND) TOP PRN (22:40)
[2019-08-03] MEDS ORDERED: BUTT CREAM (COMPOUND) ONE (22:57)
[2019-08-03] MEDS: XOPENEX 1.25 MG/3 ML NEBULE NEB SCH (23:37)
[2019-08-04] MEDS: CARDIZEM INJ 125 MG VIAL 125 MG in NS 100 ML IV 100 ML IV PRN (01:11)
[2019-08-04] MEDS: NS 1000 ML 1,000 ML IV SCH ×5 (01:11→18:40)
[2019-08-04] MEDS: ATIVAN INJ 2 MG VIAL IVP PRN ×2 (04:11→14:44)
[2019-08-04] MEDS: XOPENEX 1.25 MG/3 ML NEBULE NEB SCH ×2 (05:14→12:30)
[2019-08-04] MEDS: LOMOTIL PO SCH (05:22)
[2019-08-04] MEDS: NEURONTIN CAP 100 MG PO SCH (05:22)
[2019-08-04] MEDS: ZOSYN VIAL 3.375 GRAMS 3.375 G in NS 100 ML IV + SPIKE MINIBAG* 100 ML IV SCH (05:23)
[2019-08-04] MEDS: WELCHOL PO SCH (06:05)
[2019-08-04 06:31] LABS: ALANINE AMINOTRANSFERASE 28 Units/L (12-78); ALBUMIN 2.7 g/dL (3.4-5.0); ALKALINE PHOSPHATASE 58 Units/L (46-116); ASPARTATE AMINO TRANSFERASE 64 Units/L (15-37); BLOOD UREA NITROGEN 50 mg/dL (7-18); CALCIUM 7.1 mg/dL (8.5-10.1); CARBON DIOXIDE 16.8 mmol/L (21-32); CHLORIDE 113 mmol/L (98-107); COR CA(FOR HYPOALB) 8.1 mg/dL (8.5-10.1); CREATININE 2.98 mg/dL (0.70-1.30); MAGNESIUM 1.9 mg/dL (1.7-2.9); PHOSPHORUS 4.5 mg/dL (2.6-4.7); SODIUM 146 mmol/L (136-145); TOTAL PROTEIN 5.3 g/dL (6.4-8.2); eGFR NON BLACK RACES 22 (>60)
[2019-08-04 06:32] LABS: BASOPHILS # (AUTO) 0.1 X10^3/uL (0.0-0.1); BASOPHILS % (AUTO) 0.6 % (0.2-1.0); HEMATOCRIT 21.9 % (42.0-54.0); HEMOGLOBIN 7.3 g/dL (13.5-18.0); LYMPHOCYTES # (AUTO) 0.6 X10^3/uL (1.3-2.9); LYMPHOCYTES % (AUTO) 5.4 % (21.0-51.0); MEAN CORPUSCULAR HEMOGLOBIN 33.9 pg (27.0-34.0); MEAN CORPUSCULAR HGB CONC 33.5 g/dL (33.0-35.0); MEAN CORPUSCULAR VOLUME 101.1 fL (80.0-100.0); MEAN PLATELET VOLUME 9.9 fL (7.4-11.0); MONOCYTES # (AUTO) 4.6 x10^3/uL (0.3-0.8); MONOCYTES % (AUTO) 38.8 % (0.0-13.0); NEUTROPHILS # (AUTO) 6.6 x10^3/uL (2.2-4.8); NEUTROPHILS % (AUTO) 55.2 % (42.0-75.0); PLATELET COUNT 34 X10^3/uL (150.0-450.0); RED BLOOD COUNT 2.16 X10^6/uL (4.7-6.0); WHITE BLOOD COUNT 11.9 X10^3/uL (3.6-10.0)
--- NOTE | 2019-08-04 06:38 | RAD ---
HISTORYShortness of breathSTUDYCHEST, 1 [id number] heart is enlarged. There has been interval development of significant pulmonary venous congestion and interstitial edema since the prior examination. There may be some early alveolar edema present on the right. No pleural effusions are identified. Bony thorax is unremarkable.IMPRESSIONCardiomegaly with interval development of congestive heart failure since the prior examinationElectronically signed by: CORKY MARTELL (Aug 04, 2019 06:36:34)
[2019-08-04 07:30] LABS: BAND NEUTROPHILS % 20 % (0-10)
[2019-08-04 07:31] LABS: ANISOCYTOSIS SLIGHT; HYPOCHROMASIA SLIGHT; METAMYELOCYTES % 8; PLATELET MORPHOLOGY COMMENT NORMAL (NORMAL)
[2019-08-04] MEDS ORDERED: PROCRIT or EPOGEN VIAL 10,000 UNITS SC SCH (08:05)
[2019-08-04] MEDS: PRED FORTE 1 % OP SCH (09:30)
[2019-08-04] MEDS: ALBUMIN HUMAN 25%- 100 ML 100 ML IV SCH (09:37)
[2019-08-04] MEDS: VANCOMYCIN HCL IV SCH (09:38)
[2019-08-04] MEDS: PROTONIX INJ 40 MG VIAL IVP SCH (09:38)
[2019-08-04] MEDS: PEPCID 20 MG IV PREMIX* 20 MG/50 ML BAG IV SCH (09:38)
[2019-08-04] MEDS: D5W IV SCH (09:38)
[2019-08-04] MEDS: DEPAKOTE ER PO SCH (10:07)
[2019-08-04] MEDS: BENTYL CAP 10 MG PO SCH (10:07)
[2019-08-04] MEDS: K-LYTE EFFERVESCENT PO SCH (10:08)
[2019-08-04] MEDS: LOPRESSOR TAB 25 MG PO SCH (10:08)
[2019-08-04] MEDS: FOLIC ACID TAB 1 MG PO SCH (10:08)
[2019-08-04] MEDS: MAGIC MOUTHWASH MT SCH (10:08)
[2019-08-04] MEDS: PROzac PO SCH (10:09)
[2019-08-04] MEDS: PREDNISONE TAB 10 MG PO SCH (10:09)
[2019-08-04] MEDS: VSL#3 PO SCH (10:10)
[2019-08-04] MEDS: VITAMIN D3 PO SCH (10:10)
[2019-08-04] MEDS: SYNTHROID 75 mcg TAB PO SCH (10:10)
[2019-08-04] MEDS ORDERED: MORPHINE SULFATE INJ 2 MG INJ IVP PRN (10:19)
[2019-08-04] MEDS: NS IV SCH (12:30)
[2019-08-04] MEDS: ZOVIRAX IV SCH (12:30)
[2019-08-04] MEDS: SPIKE MINIBAG IV SCH (12:30)
[2019-08-04] MEDS: HALDOL INJ IVP PRN (15:40)
[2019-08-04] MEDS ORDERED: MORPHINE SULFATE PCA 30 MG IVP PRN (17:18)
[2019-08-04] MEDS: VERSED 100 MG in NS 100 ML IV 80 ML IV PRN (19:31)
[2019-08-05] MEDS: VERSED 100 MG in NS 100 ML IV 80 ML IV PRN (07:30)
[2019-08-05] MEDS ORDERED: MORPHINE SULFATE PCA 30 MG IVP PRN (08:21)
[2019-08-05] MEDS ORDERED: PHARMACY COMMENT IV NR (08:30)
[2019-08-05] MEDS: NS 1000 ML 1,000 ML IV SCH ×2 (08:41→11:20)
[2019-08-05] MEDS ORDERED: XANAX ONE (09:21)
[2019-08-05] MEDS: MORPHINE SULFATE PCA 30 MG IVP PRN ×2 (11:18→12:56)
[2019-08-05 14:36] VITALS: BP 58/37
== END 2019-08-05 16:10 | disposition expired | DRG 312 ==
LOC: ER 20:29 → MED/SURG 20:29 → ICU 08-01 21:51
PROVIDERS: ADMIT Family Medicine; ATTEND Internal Medicine
DX: N40.0 Benign prostatic hyperplasia without lower urinary tract symptoms; R55 Syncope and collapse; R06.02 Shortness of breath; M25.512 Pain in left shoulder; D50.8 Other iron deficiency anemias; R51 Headache; R79.82 Elevated C-reactive protein (CRP); W06.XXXA Fall from bed, initial encounter; Z91.81 History of falling; M79.631 Pain in right forearm; R26.89 Other abnormalities of gait and mobility; D46.9 Myelodysplastic syndrome, unspecified; R53.1 Weakness; S22.080A Wedge compression fracture of T11-T12 vertebra, initial encounter for closed fracture; R41.82 Altered mental status, unspecified; R07.89 Other chest pain; Y92.230 Patient room in hospital as the place of occurrence of the external cause; M48.061 Spinal stenosis, lumbar region without neurogenic claudication; Z66 Do not resuscitate; R19.7 Diarrhea, unspecified; E87.6 Hypokalemia; I95.89 Other hypotension
CPT/HCPCS: 36415; 36600; 70450; 71010; 71045; 71250; 73030; 73090; 76700; 80053; 80061; 81001; 82150; 82270; 82550; 82553; 82803; 83605; 83630; 83690; 83735; 84100; 84132; 84153; 84484; 85014; 85018; 85025; 85060; 85610; 85652; 85730; 86038; 86140; 86308; 86430; 86850; 86870; 86880; 86885; 86900; 86901; 86920; 86922; 87040; 87045; 87086; 87328; 87329; 87427; 87449; 87493; 87502; 87899; 93005; 93306; 93880; 94640; 94660; 96365; 96367; 96374; 96375; 97110; 97162; 97165; 97530; 99284; A4216; A4222; A4618; A7030; B5200; C9113; P9017; P9047; S0028; G0378; J0133; J0696; J0885; J1630; J1885; J2060; J2250; J2270; J2271; J2405; J2543; J3260; J3370; J3430; J3475; J3490; J7030; J7040; J7050; J7060; J7512; J7620; J8499; S0119; S0181